=== PATIENT | female | born 1975 | race Caucasian/White ===

== ENCOUNTER → 2017-01-10 | Outpatient (REF) | payer MEDICARE, MEDICAID | LOC: M SFHCLERA 19:32 | PROVIDERS: ATTEND Nurse Practitioner Family | DX: R30.0 Dysuria (principal) | CPT/HCPCS: 81002; 87086; 96372; G0463; J1885 ==

== ENCOUNTER → 2017-01-13 | Outpatient (REF) | payer MEDICARE, MEDICAID | LOC: M SFHCLERA 13:10 | PROVIDERS: ATTEND Physician Assistant | DX: N39.0 Urinary tract infection, site not specified (principal) ==

== ENCOUNTER → 2017-04-26 | Outpatient (REF) | payer MEDICARE, MEDICAID | LOC: M SFHCLERA 12:08 | PROVIDERS: ATTEND Family Medicine | DX: E66.09 Other obesity due to excess calories (principal) ==

== ENCOUNTER → 2017-07-31 | Outpatient (REF) | payer MEDICARE, MEDICAID | LOC: M SFHCLERA 14:00 | DX: R30.0 Dysuria (principal) | CPT/HCPCS: 87086 ==

== ENCOUNTER → 2017-12-08 | Outpatient (CLI) | payer MEDICARE, MEDICAID | LOC: M RAD 07:03 | DX: G43.009 Migraine without aura, not intractable, without status migrainosus (principal) | CPT/HCPCS: 70551 ==

== ENCOUNTER → 2018-01-05 | Outpatient (CLI) | payer MEDICARE, MEDICAID | LOC: M PAIN 09:00 | DX: M54.81 Occipital neuralgia (principal); G43.709 Chronic migraine without aura, not intractable, without status migrainosus; M54.2 Cervicalgia; R26.89 Other abnormalities of gait and mobility; R06.09 Other forms of dyspnea; F17.210 Nicotine dependence, cigarettes, uncomplicated; J44.9 Chronic obstructive pulmonary disease, unspecified; Z79.899 Other long term (current) drug therapy; Z88.0 Allergy status to penicillin; Z88.8 Allergy status to other drugs, medicaments and biological substances | CPT/HCPCS: G0463 ==

== ENCOUNTER → 2018-05-17 | Outpatient (REF) | payer MEDICARE, MEDICAID ==
[2018-05-17 20:21] LABS: ALBUMIN 3.7 GM/DL (3.2-5.2); ALT/SGPT 32 U/L (12-78); BILIRUBIN,TOTAL 0.2 MG/DL (0.2-1.0); BLOOD UREA NITROGEN 19 MG/DL (7-18); CALCIUM LEVEL 9.2 MG/DL (8.5-10.1); CARBON DIOXIDE LEVEL 32 MEQ/L (21-32); CHLORIDE LEVEL 106 MEQ/L (98-107); CREATININE FOR GFR 0.89 MG/DL (0.55-1.30); FREE T4 1.03 NG/DL (0.76-1.46); GLOMERULAR FILTRATION RATE > 60.0 (>58); GLUCOSE, FASTING 98 MG/DL (70-100); POTASSIUM SERUM 4.2 MEQ/L (3.5-5.1); SODIUM LEVEL 143 MEQ/L (136-145); TOTAL PROTEIN 7.3 GM/DL (6.4-8.2)
[2018-05-17 20:27] LABS: HEMOGLOBIN A1c 5.9 %
== END ==
LOC: M SFHCLERA 14:35
PROVIDERS: ATTEND Family Medicine
DX: R23.2 Flushing (principal)
CPT/HCPCS: 80053; 83036; 84439; 84443; 99406; G0463

== ENCOUNTER → 2019-02-19 | Outpatient (CLI) | payer MEDICARE, MEDICAID ==
--- NOTE | 2019-02-19 13:35 | REP ---
BILATERAL SCREENING DIGITAL MAMMOGRAM WITH 3D TOMOSYNTHESIS: There are no palpable abnormalities or other breast complaints. The the patient states she had a clinical breast examination the july,. The Tyrer-Cuzick Score is: 10.0% . Comparison is 11/26/2014. There are scattered areas of fibroglandular density. There is no dominant mass, micro calcific cluster or architectural distortion that would indicate malignancy. There are no additional findings on 3D tomosynthesiss. There is no change from the prior study. Impression: BIRADS/ACR category 1 mammogram. Negative. Recommendation: Routine annual screening mammography. This mammogram was interpreted with the aid of a FDA approved computer-aided detection system. A. Negative mammogram reports should not delay biopsy if a dominant or clinically suspicious mass is present. B. Not all breast cancers are identified by mammography or tomosynthesis. C. Adenosis and dense breasts may obscure an underlying neoplasm. Patient letter M1. Electronically Signed by Rafael Linda MD 02/19/2019 01:26 P
== END ==
LOC: M RAD 10:37
PROVIDERS: ATTEND Family Medicine
DX: Z12.31 Encounter for screening mammogram for malignant neoplasm of breast (principal)

== ENCOUNTER → 2019-05-30 | Outpatient (REF) | payer MEDICARE, MEDICAID ==
[2019-05-30 11:47] LABS: BASO # 0.1 10^3/uL (0.0-0.2); BASO % 1.3 % (0.0-1.0); EOS # 0.2 10^3/uL (0.0-0.5); EOS % 3.8 % (0.0-3.0); HEMOGLOBIN 14.7 g/dl (12.0-15.5); LYMPH # 1.6 10^3/uL (1.5-5.0); LYMPH % 25.4 % (24.0-44.0); MEAN CORPUSCULAR HEMOGLOBIN 29.7 pg (27.0-33.0); MEAN CORPUSCULAR VOLUME 92.9 fl (80.0-96.0); MONO # 0.5 10^3/uL (0.0-0.8); MONO % 7.4 % (0.0-5.0); NEUTROPHILS # 3.9 10^3/uL (1.5-8.5); NEUTROPHILS % 61.9 % (36.0-66.0); PLATELET COUNT, AUTOMATED 278 10^3/uL (150-450); RED BLOOD COUNT 4.95 10^6/uL (4.00-5.40); WHITE BLOOD COUNT 6.3 10^3/uL (4.0-10.0)
[2019-05-30 12:09] LABS: ERYTHROCYTE SEDIMENTATION RATE 15 mm/hr (0-20)
[2019-05-30 12:27] LABS: HEMOGLOBIN A1c 5.4 %
[2019-05-30 12:33] LABS: ALBUMIN 3.5 GM/DL (3.2-5.2); ALT/SGPT 31 U/L (12-78); BILIRUBIN,TOTAL 0.3 MG/DL (0.2-1.0); BLOOD UREA NITROGEN 16 MG/DL (7-18); C REACTIVE PROTEIN QUANTITATIV 0.46 MG/DL (0.00-0.30); CALCIUM LEVEL 9.3 MG/DL (8.5-10.1); CARBON DIOXIDE LEVEL 31 MEQ/L (21-32); CHLORIDE LEVEL 106 MEQ/L (98-107); CREATININE FOR GFR 0.96 MG/DL (0.55-1.30); FREE T4 1.01 NG/DL (0.76-1.46); GLOMERULAR FILTRATION RATE > 60.0 (>58); GLUCOSE, FASTING 87 MG/DL (70-100); POTASSIUM SERUM 4.1 MEQ/L (3.5-5.1); SODIUM LEVEL 141 MEQ/L (136-145); TOTAL PROTEIN 7.2 GM/DL (6.4-8.2)
[2019-05-30 12:41] LABS: FOLATE 9.8 NG/ML; VITAMIN B12 LEVEL 407 PG/ML
== END ==
LOC: M SFHCLERA 09:53
PROVIDERS: ATTEND Family Medicine
DX: R20.0 Anesthesia of skin (principal); Z79.899 Other long term (current) drug therapy

== ENCOUNTER → 2019-05-30 | Outpatient (CLI) | payer MEDICARE, MEDICAID ==
--- NOTE | 2019-05-30 10:49 | REP ---
Eight views cervical spine: 2019. Indication: Neck pain. Comparison: None. Findings: There is no acute fracture, subluxation or dislocation. There is straightening of the cervical lordosis. There is no instability demonstrated on the flexion/extension views. No lytic or blastic lesions are detected. The prevertebral and additional visualized soft tissues are unremarkable. Multilevel spondylosis is present most pronounced at C5/C6. The neural foramen appear patent. Impression: No acute osseous cervical spine injury. Electronically Signed by Osmani Rodriguez DO 05/30/2019 10:41 A
== END ==
LOC: M LRY 10:10
PROVIDERS: ATTEND Family Medicine
DX: M47.892 Other spondylosis, cervical region (principal); M54.2 Cervicalgia; R20.0 Anesthesia of skin; Z79.899 Other long term (current) drug therapy
CPT/HCPCS: 72052; 80053; 82607; 82746; 83036; 84439; 84443; 85025; 85652; 86140; G0463

== ENCOUNTER → 2020-01-10 | Outpatient (CLI) | payer MEDICARE, MEDICAID ==
[~2020-01-10] MED LIST: PROHANCE 279.3MG/ML 15ML VIAL As Ordered ONE; PROHANCE 279.3MG/ML 5ML VIAL As Ordered ONE
--- NOTE | 2020-02-19 09:22 | REP ---
MRI OF THE ABDOMEN WITHOUT AND WITH IV GADOLINIUM: HISTORY: Liver mass left lobe 5.[address] study from [facility] on 10/30/19. COMPARISON: CT study from [facility] dated 10/30/19. Also reviewed is comparison MRI study from 12/08/14. GADOLINIUM ENHANCEMENT DOSE: 16 ml of intravenous ProHance. FINDINGS: There is a 4.7 cm T2 hyperintense, T1 hypointense, fairly homogeneous lesion in the left lobe of the liver. This is unchanged from the recent prior CT study of 10/30/19. It is somewhat larger than it was on 12/08/14, when it measured 3.6 cm. Dynamically acquired sequential post contrast images again demonstrate an early centripetal discontinuous pattern of contrast enhancement which incompletely fills in on subsequent post contrast images, consistent with benign hemangioma. It has gradually grown. It was described by report in 2008. No other liver lesion is appreciated. The spleen is homogeneous. No abnormality is noted in the pancreas or the kidneys. No filling defect is seen in the gallbladder to suggest cholelithiasis. No upper abdominal adenopathy or ascites seen. IMPRESSION: 4.7 cm hemangioma in the left lobe of the liver gradually increased in size from prior studies. MTDD
== END ==
LOC: M RAD 09:45
PROVIDERS: ATTEND Family Medicine
DX: K76.89 Other specified diseases of liver (principal); R16.0 Hepatomegaly, not elsewhere classified
CPT/HCPCS: A9576; C8902

== ENCOUNTER 2021-04-09 16:53 | Inpatient (IN) | payer MEDICARE, MEDICAID ==
[~2021-04-09] VITALS: Ht 160 cm; Wt 86.4 kg
--- OUTSIDE RECORDS SUMMARY | 2021-04-09 17:09 | CCD | Continuity of Care Document ---
Author Author Alexi LENZ RPA-C Organization Unknown Address [address] [place] [address], [address] [place] [address] Phone [phone] Care Team Providers Care Computer Methods Analyst Name Role Phone Saul England M.D. AUTM [phone] Sarah Milner M.D. AUTM [phone] Problems Active Problems Provider Date Allergic asthma without status asthmaticus Av Kuhn MD Onset: 03/17/2021 Social History Type Date Description Comments Sex Unknown ETOH Use Denies alcohol use Tobacco Use Start: Unknown Smokes 1 Pack A Day Tobacco Use Start: Unknown Report Cessation Counseling Was Provided Allergies and adverse reactions Active Allergies Criticality Reaction | Severity Comments Date Penicillin Unable to assess criticality 12/04/2014 Topamax Unable to assess criticality 12/04/2014 Medications Active Medications SIG Qnty Indications Ordering Provide r Date Suprep Bowel Prep Kit 17.5-3.13-1.6GM/177ML Solution take per doctor's bowel prep instructions. 354ml Z12.1 1 Av Kuhn MD 03/05/2020 Milk Of Magnesia 1200mg/15ML Suspe nsion take 45 milliliters by mouth as directed on colonoscopy prep sheet. Z12.11 Av Kuhn MD 03/05/2020 Breo Ellipta 100-25mcg/Inh Aerosol 1 inhalation daily Unknown Ventolin HFA 108(90Base) mcg/Act A erosol 2 puffs qid/prn Unknown Maxalt-CRYSTALIZER 10mg Tablets Dispers at onset of migraine Unknown Aspirin Ec Low Dose 81mg Tablets DR Daily Unknown Brilinta 90mg Tablets 1 by mouth every day Unknown Combipatch 0.05-0.14mg/Day Patches Biweek Every 2 weeks Unknown Immunizations Description No Information Available Vital Signs Date Vital Result Comment 03/17/2021 9:05am BP Systolic 124 mmHg BP Diastolic 86 mmHg Height 63 inches 5'3" Weight 193.00 lb BMI (Body Mass Index) 34.2 kg/m2 [place] Body Weight 115 lb Weight 87.545 kg BSA (Body Surface Area) 1.90 m2 03/05/2020 10:49am BP Systolic 124 mmHg BP Diastolic 86 mmHg Height 63 inches 5'3" Weight 185.00 lb BMI (Body Mass Index) 32.8 kg/m2 [place] Body Weight 115 lb Weight 83.916 kg BSA (Body Surface Area) 1.87 m2 Results Description No Information Available Procedures Description No Information Available Medical Devices Description No Information Available Encounters Description No Information Available Assessments Date Code Description Provider 03/17/2021 Z12.11 Encounter for screening for luis alberto gnant neoplasm of colon JAKOB Michael 03/17/2021 Z86.010 Personal history of colonic poly ps JAKOB Michael 03/17/2021 R10.12 Left upper quadrant pain JAKOB Michael Plan of Treatment 03/17/2021 - JAKOB Michael* Z12.11 Encounter for screening for malignant neoplasm of colon * Z86.010 Personal history of colonic polyps * R10.12 Left upper quadrant pain * * Follow up:* Will call patient. Functional Status Description No Information Available Mental Status Description No Information Available Referrals Description No Information Available
--- OUTSIDE RECORDS SUMMARY | 2021-04-09 17:09 | CCD | Continuity of Care Document ---
Author Author Alexi LEON Organization Unknown Address [facility] [place] [address] Phone [phone] Care Team Providers Care Boiler Service Technician Name Role Phone Rebecca Carlson AUTM [phone] Problems Description No Information Available Social History Type Date Description Comments Sex Unknown Tobacco Use Start: Unknown Patient is a current smoker, smo kes every day Allergies, Adverse Reactions, Alerts Active Allergies Criticality Reaction | Severity Comments Date Topamax Unable to assess criticality 02/28/2020 Penicillins Unable to assess criticality 02/28/2020 NKFA Unable to assess criticality 02/28/2020 Medications Active Medications SIG Qnty Indications Ordering Provide r Date Gabapentin 100mg Capsules Take 1 Capsule By Mouth Every Evening For 5 Days Then Take 1 Capsule Twice A Dayfor 5 Days Then 1 Three Times A Day Unknown 000 Ibuprofen 600mg Tablets Unknown Breo Ellipta 200-25mcg/Inh Aerosol Inhale One puff By Mouth Every Day Unknown Albuterol Sulfate HFA 108(90Base) mcg/Act Aerosol Unknown Brilinta 90mg Tablets Take One Tablet By Mouth Twice A Day Unknown Prempro 0.45-1.5mg Tablets Take One Tablet By Mouth Every Day Unknown Immunizations Description No Information Available Vital Signs Date Vital Result Comment 02/28/2021 10:58am BP Systolic 136 mmHg BP Diastolic 88 mmHg Heart Rate 84 /min Body Temperature 97.4 F Respiratory Rate 16 /min O2 % BldC Oximetry 97 % 02/28/2020 5:06pm BP Systolic 137 mmHg BP Diastolic 80 mmHg Heart Rate 81 /min Body Temperature 99.3 F O2 % BldC Oximetry 97 % Results Description No Information Available Procedures Description No Information Available Medical Devices Description No Information Available Encounters Description No Information Available Assessments Description No Information Available Plan of Treatment No Information Available Functional Status Description No Information Available Mental Status Description No Information Available Referrals Description No Information Available"
--- OUTSIDE RECORDS SUMMARY | 2021-04-09 17:09 | CCD ---
"Continuity of Care Document (CCD) Created on: 04/01/2021 [place] Jefebecca External Reference #: [id number] : 1975 Sex: Female Author Author Alexi PERLA Organization Unknown Address [address] [place] [address] Phone [phone] Care Team Providers Care Senior Procurement Specialist Name Role Phone Rebecca Carlson AUTM [phone] Problems Description No Information Available Social History Type Date Description Comments Sex Unknown Tobacco Use Start: Unknown Patient is a current smoker, smo kes every day Allergies and adverse reactions Active Allergies Criticality [...] Then 1 Three Times A Day Unknown /0 000 Ibuprofen 600mg Tablets Unknown Breo Ellipta 200-25mcg/Inh Aerosol Inhale One puff By Mouth Every Day Unknown Albuterol Sulfate HFA 108(90Base) mcg/Act Aerosol Unknown Brilinta 90mg Tablets Take One Tablet By Mouth Twice A Day Unknown Prempro 0.45-1.5mg Tablets Take One Tablet By Mouth Every Day Unknown History Medications Prednisone 20mg Tablets 2 tabs by mouth daily x 5 days 10tabs L23.6 Kieran Santos MD 02/28/2021 - 03/04/2021 Immunizations Description No Information Available Vital Signs Date Vital Result Comment 04/01/2021 7:15pm Heart Rate 82 /min Body Temperature 97.6 F O2 % BldC Oximetry 94 % 02/28/2021 10:58am BP Systolic 136 mmHg BP Diastolic 88 mmHg Heart Rate 84 /min Body Temperature 97.4 F Respiratory Rate 16 /min O2 % BldC Oximetry 97 % Results Test Acquired Date Facility Test Result H/L Range Note Laboratory test finding 04/01/2021 Yarely kolb Covid-19 <pending> Procedures Date Code Description Status 02/28/2021 25499 Office/Outpatient Established [facility] 10-19 Min Completed Medical Devices Description No Information Available Encounters Description No Information Available Assessments Date Code Description Provider 02/28/2021 L23.6 Allergic contact fanta matitis due to food in contact with the skin LOUIS Ricks Plan of Treatment 02/28/2021 - LOUIS Ricks* L23.6 Allergic contact dermatitis due to food in contact with the skin* New Medication:* Prednisone 20 mg - 2 tabs by mouth daily x 5 days * Comments:* 45-year-old female presents to the clinic with itchy swollen lips for the past 2-4 days. Patient believes this is secondary to an allergic reaction. No associated systemic allergic reaction noted. Will treat with a course of prednisone. Patient informs she can take an dpic-sye-wyghjcu antihistamine as needed. She was instructed to return to the clinic or go to the ER immediately for worsening or concerning symptoms. Patient advised to avoid putting any ointments/chapsticks on the area as this may make symptoms worse. Patient voiced understanding and agreement with this plan. All of her concerns were addressed. Functional Status Description No Information Available Mental Status Description No Information Available Referrals Description No Information Available"
--- OUTSIDE RECORDS SUMMARY | 2021-04-09 17:09 | CCD | Continuity of Care Document ---
Author Author Alexi PERLA Organization Unknown Address [address] [place] [address] Phone [phone] Care Team Providers Care Events Intern Name Role Phone Rebecca Carlson AUTM [phone] Problems Description No Information Available Social History [...] <pending> Procedures Date Code Description Status 02/28/2021 97209 Office/Outpatient Established [facility] 10-19 Min Completed Medical Devices Description No [...] prednisone. Patient informs she can take an eypd-gxd-lowbuhv antihistamine as needed. She was instructed to [...]
--- OUTSIDE RECORDS SUMMARY | 2021-04-09 17:09 | CCD | Continuity of Care Document ---
Author Author Alexi PERLA Organization Unknown Address [address] [place] [address] Phone [phone] Care Team Providers Care Top Executive Name Role Phone Rebecca Carlson AUTM [phone] Problems Description No Information Available Social History [...] <pending> Procedures Date Code Description Status 02/28/2021 68095 Office/Outpatient Established [facility] 10-19 Min Completed Medical Devices [...] prednisone. Patient informs she can take an [id number]-efu-rxzdjkc antihistamine as needed. She was instructed to [...]
--- OUTSIDE RECORDS SUMMARY | 2021-04-09 17:09 | CCD | Continuity of Care Document ---
Author Author Alexi PERLA Organization Unknown Address [address] [place] [address] Phone [phone] Care Team Providers Care Underground Heavy Equipment Operator Name Role Phone Rebecca Carlson AUTM [phone] Problems Description No Information Available Social History [...] <pending> Procedures Date Code Description Status 02/28/2021 [id number] Office/Outpatient Established [facility] 10-19 Min Completed Medical Devices [...] prednisone. Patient informs she can take an ctue-hsp-crnqixd antihistamine as needed. She was instructed to [...]
--- OUTSIDE RECORDS SUMMARY | 2021-04-09 17:10 | CCD ---
Author Author [facility] Organization [facility] Address Unknown Phone Unavailable Care Team Providers Care Snuff Blender Name Role Phone Rocio LOPEZ Unavailable Unavailable NESS ROMO Unavailable Unavailable Stuck, K Elvira PA Unavailable Unavailable Stuck, K Elvira PA Unavailable Unavailable Stuck, K Elvira PA Unavailable Unavailable Stuck, K Elvira PA Unavailable Unavailable Stuck, K Elvira PA Unavailable Unavailable Stuck, K Elvira PA Unavailable Unavailable Stuck, K Elvira PA Unavailable Unavailable Stuck, K Elvira PA Unavailable Unavailable Stuck, K Elvira PA Unavailable Unavailable Stuck, K Elvira PA Unavailable Unavailable Stuck, K Elvira PA Unavailable Unavailable Stuck, K Elvira PA Unavailable Unavailable Stuck, K Elvira PA Unavailable Unavailable Stuck, K Elvira PA Unavailable Unavailable Stuck, K Elvira PA Unavailable Unavailable Stuck, K Elvira PA Unavailable Unavailable Stuck, K Elvira PA Unavailable Unavailable Stuck, K Elvira PA Unavailable Unavailable Stuck, K Elvira PA Unavailable Unavailable Stuck, K Elvira PA Unavailable Unavailable Stuck, K Elvira PA Unavailable Unavailable Stuck, K Elvira PA Unavailable Unavailable Stuck, K Elvira PA Unavailable Unavailable Stuck, K Elvira PA Unavailable Unavailable Stuck, K Elvira PA Unavailable Unavailable Stuck, K Elvira PA Unavailable Unavailable Stuck, K Elvira PA Unavailable Unavailable Stuck, K Elvira PA Unavailable Unavailable Stuck, K Elvira PA Unavailable Unavailable Stuck, K Elvira PA Unavailable Unavailable Stuck, K Elvira PA Unavailable Unavailable Stuck, K Elvira PA Unavailable Unavailable Stuck, K Elvira PA Unavailable Unavailable Stuck, K Elvira PA Unavailable Unavailable Stuck, K Elvira PA Unavailable Unavailable Stuck, K Elvira PA Unavailable Unavailable Stuck, K Elvira PA Unavailable Unavailable Stuck, K Elvira PA Unavailable Unavailable Stuck, K Elvira PA Unavailable Unavailable Stuck, K Elvira PA Unavailable Unavailable Stuck, K Elvira PA Unavailable Unavailable Stuck, K Elvira PA Unavailable Unavailable Bartoszewski, Holly Nikki MS, RPA-C Unavailable Unav ailable Bartoszewski, Holly Nikki MS, RPA-C Unavailable Unav ailable Bartoszewski, Holly Nikki MS, RPA-C Unavailable Unav ailable Bartoszewski, Holly Nikki MS, RPA-C Unavailable Unav ailable Bartoszewski, Holly Nikki MS, RPA-C Unavailable Unav ailable Bartoszewski, Holly Nikki MS, RPA-C Unavailable Unav ailable Bartoszewski, Holly Nikki MS, RPA-C Unavailable Unav ailable Bartoszewski, Holly Nikki MS, RPA-C Unavailable Unav ailable Bartoszewski, Holly Nikki MS, RPA-C Unavailable Unav ailable Bartoszewski, Holly Nikki MS, RPA-C Unavailable Unav ailable Bartoszewski, Holly Nikki MS, RPA-C Unavailable Unav ailable Bartoszewski, Holly Nikki MS, RPA-C Unavailable Unav ailable Bartoszewski, Holly Nikki MS, RPA-C Unavailable Unav ailable Bartoszewski, Holly Nikki MS, RPA-C Unavailable Unav ailable Bartoszewski, Holly Nikki MS, RPA-C Unavailable Unav ailable Bartoszewski, Holly Nikki MS, RPA-C Unavailable Unav ailable Bartoszewski, Holly Nikki MS, RPA-C Unavailable Unav ailable Bartoszewski, Holly Nikki MS, RPA-C Unavailable Unav ailable Bartoszewski, Holly Nikki MS, RPA-C Unavailable Unav ailable Bartoszewski, Holly Nikki MS, RPA-C Unavailable Unav ailable Bartoszewski, Holly Nikki MS, RPA-C Unavailable Unav ailable Bartoszewski, Holly Nikki MS, RPA-C Unavailable Unav ailable Bartoszewski, Holly Nikki MS, RPA-C Unavailable Unav ailable Bartoszewski, Holly Nikki MS, RPA-C Unavailable Unav ailable Bartoszewski, Holly Nikki MS, RPA-C Unavailable Unav ailable Bartoszewski, Holly Nikki MS, RPA-C Unavailable Unav ailable Bartoszewski, Holly Nikki MS, RPA-C Unavailable Unav ailable Bartoszewski, Holly Nikki MS, RPA-C Unavailable Unav ailable Bartoszewski, Holly Nikki MS, RPA-C Unavailable Unav ailable Bartoszewski, Holly Nikki MS, RPA-C Unavailable Unav ailable Pina Yung PA-C Unavailable Unavailable Pina Yung PA-C Unavailable Unavailable Trickey, J Selena PA Unavailable Unavailable Trickey, J Selena PA Unavailable Unavailable Trickey, J Selena PA Unavailable Unavailable Trickey, J Selena PA Unavailable Unavailable Trickey, J Selena PA Unavailable Unavailable Trickey, J Selena PA Unavailable Unavailable Trickey, J Selena PA Unavailable Unavailable Trickey, J Selena PA Unavailable Unavailable Trickey, J Selena PA Unavailable Unavailable Trickey, J Selena PA Unavailable Unavailable Trickey, J Selena PA Unavailable Unavailable Trickey, J Selena PA Unavailable Unavailable Trickey, J Selena PA Unavailable Unavailable Trickey, J Selena PA Unavailable Unavailable Trickey, J Selena PA Unavailable Unavailable Trickey, J Selena PA Unavailable Unavailable Trickey, J Selena PA Unavailable Unavailable Trickey, J Selena PA Unavailable Unavailable Trickey, J Selena PA Unavailable Unavailable Trickey, J Selena PA Unavailable Unavailable Trickey, J Selena PA Unavailable Unavailable Trickey, J Selena PA Unavailable Unavailable Trickey, J Selena PA Unavailable Unavailable Trickey, J Selena PA Unavailable Unavailable Trickey, J Selena PA Unavailable Unavailable Trickey, J Selena PA Unavailable Unavailable Trickey, J Selena PA Unavailable Unavailable Trickey, J Selena PA Unavailable Unavailable Trickey, J Selena PA Unavailable Unavailable Trickey, J Selena PA Unavailable Unavailable Trickey, J Selena PA Unavailable Unavailable Trickey, J Selena PA Unavailable Unavailable Trickey, J Selena PA Unavailable Unavailable Trickey, J Selena PA Unavailable Unavailable Trickey, J Selena PA Unavailable Unavailable Trickey, J Selena PA Unavailable Unavailable Trickey, J Selena PA Unavailable Unavailable Trickey, J Selena PA Unavailable Unavailable Trickey, J Selena PA Unavailable Unavailable Trickey, J Selena PA Unavailable Unavailable Trickey, J Selena PA Unavailable Unavailable Trickey, J Selena PA Unavailable Unavailable Trickey, J Selena PA Unavailable Unavailable Trickey, J Selena PA Unavailable Unavailable Trickey, J Selena PA Unavailable Unavailable Trickey, J Selena PA Unavailable Unavailable Trickey, J Selena PA Unavailable Unavailable Trickey, J Selena PA Unavailable Unavailable Trickey, J Selena PA Unavailable Unavailable Rocio PATEL MD Unavailable Unavailable Rocio PATEL MD Unavailable Unavailable Rocio PATEL MD Unavailable Unavailable Rocio PATEL MD Unavailable Unavailable Rocio PATEL MD Unavailable Unavailable Rocio PATEL MD Unavailable Unavailable Rocio PATEL MD Unavailable Unavailable Rocio PATEL MD Unavailable Unavailable Rocio PATEL MD Unavailable Unavailable Rocio PATEL MD Unavailable Unavailable Rocio PATEL MD Unavailable Unavailable Rocio PATEL MD Unavailable Unavailable Rocio PATEL MD Unavailable Unavailable Rocio PATEL MD Unavailable Unavailable Rocio PATEL MD Unavailable Unavailable Rocio PATEL MD Unavailable Unavailable Rocio PATEL MD Unavailable Unavailable Rocio PATEL MD Unavailable Unavailable Rocio PATEL MD Unavailable Unavailable Rocio PATEL MD Unavailable Unavailable Rocio PATEL MD Unavailable Unavailable Rocio PATEL MD Unavailable Unavailable Rocio PATEL MD Unavailable Unavailable Rocio PATEL MD Unavailable Unavailable Rocio PATEL MD Unavailable Unavailable Rocio PATEL MD Unavailable Unavailable Rocio PATEL MD Unavailable Unavailable Rocio PATEL MD Unavailable Unavailable Rocio PATEL MD Unavailable Unavailable Rocio PATEL MD Unavailable Unavailable Rocio PATEL MD Unavailable Unavailable Rocio PATEL MD Unavailable Unavailable Rocio PATEL MD Unavailable Unavailable Rocio PATEL MD Unavailable Unavailable Rocio PATEL MD Unavailable Unavailable Rocio PATEL MD Unavailable Unavailable Rocio PATEL MD Unavailable Unavailable Rocio PATEL MD Unavailable Unavailable Rocio PATEL MD Unavailable Unavailable Rocio PATEL MD Unavailable Unavailable Rocio PATEL MD Unavailable Unavailable Rocio PATEL MD Unavailable Unavailable Rocio PATEL MD Unavailable Unavailable Rocio PATEL MD Unavailable Unavailable Rocio PATEL MD Unavailable Unavailable Rocio PATEL MD Unavailable Unavailable Rocio PATEL MD Unavailable Unavailable Rocio PATEL MD Unavailable Unavailable Rocio PATEL MD Unavailable Unavailable Rocio PATEL MD Unavailable Unavailable Isabell BURTON MD Unavailable Unavailable Isabell BURTON MD Unavailable Unavailable Isabell BURTON MD Unavailable Unavailable Isabell BURTON MD Unavailable Unavailable Isabell BURTON MD Unavailable Unavailable BURTONIsabell YOUNGBLOOD GRAHANITHA SCHAFER Unavailable Unavailable BURTONIsabell YOUNGBLOOD GRAHANITHA SCHAFER Unavailable Unavailable BURTON, C GRAHANITHA SCHAFER Unavailable Unavailable BURTON, C GRAHANITHA SCHAFER Unavailable Unavailable BURTON, C GRAHANITHA SCHAFER Unavailable Unavailable BURTON, C GRAHANITHA SCHAFER Unavailable Unavailable BURTON, C GRAHANITHA SCHAFER Unavailable Unavailable BURTON, C GRAHANITHA SCHAFER Unavailable Unavailable BURTON, C GRAHANITHA SCHAFER Unavailable Unavailable BURTON, C GRAHANITHA SCHAFER Unavailable Unavailable BURTON, C GRAHANITHA SCHAFER Unavailable Unavailable BURTON, C GRAHANITHA SCHAFER Unavailable Unavailable BURTON, C GRAHANITHA SCHAFER Unavailable Unavailable BURTON, C GRAHANITHA SCHAFER Unavailable Unavailable BURTON C GRAHAME Unavailable Unavailable BURTON, C GRAHAME Unavailable Unavailable BURTON C GRAHAME Unavailable Unavailable BURTON C GRAHAME Unavailable Unavailable BURTON C GRAHAME Unavailable Unavailable BURTON C GRAHAME Unavailable Unavailable BURTON C GRAHAME Unavailable Unavailable BURTON C GRAHAME MD Unavailable Unavailable BURTON, C GRAHAME MD Unavailable Unavailable BURTON, C GRAHAME MD Unavailable Unavailable BURTON, C GRAHAME MD Unavailable Unavailable BURTON C GRAHAME Unavailable Unavailable BURTON, C GRAHAME MD Unavailable Unavailable BURTON, C GRAHAME MD Unavailable Unavailable BURTON, C GRAHAME MD Unavailable Unavailable JOSEPHINE C RAINE SCHAFER Unavailable Unavailable BURTON, C GRAHAME MD Unavailable Unavailable BURTON, C GRAHANITHA SCHAFER Unavailable Unavailable BURTON, C GRAHANITHA SCHAFER Unavailable Unavailable BURTON, C GRAHAME MD Unavailable Unavailable BURTON, C GRAHAME MD Unavailable Unavailable BURTON C GRAHAME MD Unavailable Unavailable BURTON, C GRAHAME MD Unavailable Unavailable BURTON C GRAHAME MD Unavailable Unavailable BURTON, C GRAHAME MD Unavailable Unavailable BURTON, C GRAHAME MD Unavailable Unavailable BURTON C GRAHAME MD Unavailable Unavailable BURTON C GRAHAME MD Unavailable Unavailable BURTON, C GRAHAME MD Unavailable Unavailable BURTON, C GRAHAME MD Unavailable Unavailable BURTON, C GRAHAME MD Unavailable Unavailable BURTON, C GRAHANITHA SCHAFER Unavailable Unavailable BURTON, C RAINE SCHAFER Unavailable Unavailable Isabell BURTON MD Unavailable Unavailable Isabell BURTON MD Unavailable Unavailable Isabell BURTON MD Unavailable Unavailable Isabell BURTON MD Unavailable Unavailable Isabell BURTON MD Unavailable Unavailable Isabell BURTON MD Unavailable Unavailable Isabell BURTON MD Unavailable Unavailable Isabell BURTON MD Unavailable Unavailable Isabell BURTON MD Unavailable Unavailable Emily Guevara MD Unavailable Unavailable Emily Guevara MD Unavailable Unavailable Emily Guevara MD Unavailable Unavailable Emily Guevara MD Unavailable Unavailable Emily Guevara MD Unavailable Unavailable Emily Guevara MD Unavailable Unavailable Emily Guevara MD Unavailable Unavailable Emily Guevara MD Unavailable Unavailable Emily Guevara MD Unavailable Unavailable Emily Guevara MD Unavailable Unavailable Emily Guevara MD Unavailable Unavailable NOHEMY, L ARMANDO PA Unavailable Unavailable NOHEMY, L ARMANDO PA Unavailable Unavailable NOHEMY, L ARMANDO PA Unavailable Unavailable NOHEMY, L ARMANDO PA Unavailable Unavailable NOHEMY, L ARMANDO PA Unavailable Unavailable NOHEMY, L ARMANDO PA Unavailable Unavailable NOHEMY, L ARMANDO PA Unavailable Unavailable NOHEMY, L ARMANDO PA Unavailable Unavailable NOHEMY, L ARMANDO PA Unavailable Unavailable NOHEMY, L ARMANDO PA Unavailable Unavailable NOHEMY, L ARMANDO PA Unavailable Unavailable NOHEMY, L ARMANDO PA Unavailable Unavailable NOHEMY, L ARMANDO PA Unavailable Unavailable NOHEMY, L ARMANDO PA Unavailable Unavailable NOHEMY, L ARMANDO PA Unavailable Unavailable NOHEMY, L ARMANDO PA Unavailable Unavailable NOHEMY, L ARMANDO PA Unavailable Unavailable NOHEMY, L ARMANDO PA Unavailable Unavailable NOHEMY, L ARMANDO PA Unavailable Unavailable NOHEMY, L ARMANDO PA Unavailable Unavailable NOHEMY, L ARMANDO PA Unavailable Unavailable NOHEMY, L ARMANDO PA Unavailable Unavailable NOHEMY, L ARMANDO PA Unavailable Unavailable NOHEMY, L ARMANDO PA Unavailable Unavailable NOHEMY, L ARMANDO PA Unavailable Unavailable NOHEMY, L ARMANDO PA Unavailable Unavailable NOHEMY, L ARMANDO PA Unavailable Unavailable NOHEMY, L ARMANDO PA Unavailable Unavailable NOHEMY, L ARMANDO PA Unavailable Unavailable NOHEMY, L ARMANDO PA Unavailable Unavailable NOHEMY, L ARMANDO PA Unavailable Unavailable NOHEMY, L ARMANDO PA Unavailable Unavailable NOHEMY, L ARMANDO PA Unavailable Unavailable NOHEMY, L ARMANDO PA Unavailable Unavailable NOHEMY, L ARMANDO PA Unavailable Unavailable NOHEMY, L ARMANDO PA Unavailable Unavailable NOHEMY, L ARMANDO PA Unavailable Unavailable NOHEMY, L ARMANDO PA Unavailable Unavailable NOHEMY, L ARMANDO PA Unavailable Unavailable NOHEMY, L ARMANDO PA Unavailable Unavailable NOHEMY, L ARMANDO PA Unavailable Unavailable NOHEMY, L ARMANDO PA Unavailable Unavailable NOHEMY, L ARMANDO PA Unavailable Unavailable NOHEMY, L ARMANDO PA Unavailable Unavailable Rocio PATEL MD Unavailable Unavailable Rocio PATEL MD Unavailable Unavailable Rocio PATEL MD Unavailable Unavailable Rocio PATEL MD Unavailable Unavailable Rocio PATEL MD Unavailable Unavailable Rocio PATEL MD Unavailable Unavailable Rocio PATEL MD Unavailable Unavailable Rocio PATEL MD Unavailable Unavailable Rocio PATEL MD Unavailable Unavailable Rocio PATEL MD Unavailable Unavailable Rocio PATEL MD Unavailable Unavailable Rocio PATEL MD Unavailable Unavailable Rocio PATEL MD Unavailable Unavailable Rocio PATEL MD Unavailable Unavailable Rocio PATEL MD Unavailable Unavailable Rocio PATEL MD Unavailable Unavailable Rocio PATEL MD Unavailable Unavailable Rocio PATEL MD Unavailable Unavailable Rocio PATEL MD Unavailable Unavailable Rocio PATEL MD Unavailable Unavailable Rocio PATEL MD Unavailable Unavailable Rocio PATEL MD Unavailable Unavailable Rocio PATEL MD Unavailable Unavailable Rocio PATEL MD Unavailable Unavailable Rocio PATEL MD Unavailable Unavailable Rocio PATEL MD Unavailable Unavailable Rocio PATEL MD Unavailable Unavailable Rocio PATEL MD Unavailable Unavailable Rocio PATEL MD Unavailable Unavailable Rocio PATEL MD Unavailable Unavailable Rocio PATEL MD Unavailable Unavailable Rocio PATEL MD Unavailable Unavailable Rocio PATEL MD Unavailable Unavailable Rocio PATEL MD Unavailable Unavailable Rocio PATEL MD Unavailable Unavailable Rocio PATEL MD Unavailable Unavailable Rocio PATEL MD Unavailable Unavailable Rocio PATEL MD Unavailable Unavailable Rocio PATEL MD Unavailable Unavailable Rocio PATEL MD Unavailable Unavailable Rocio PATEL MD Unavailable Unavailable Rocio PATEL MD Unavailable Unavailable Rocio PATEL MD Unavailable Unavailable Rocio PATEL MD Unavailable Unavailable Rocio PATEL MD Unavailable Unavailable Rocio PATEL MD Unavailable Unavailable Rocio PATEL MD Unavailable Unavailable Rocio PATEL MD Unavailable Unavailable Rocio PATEL MD Unavailable Unavailable Rocio PATEL MD Unavailable Unavailable Stuck, K Elvira PA Unavailable Unavailable Stuck, K Elvira PA Unavailable Unavailable Stuck, K Elvira PA Unavailable Unavailable Stuck, K Elvira PA Unavailable Unavailable Stuck, K Elvira PA Unavailable Unavailable Stuck, K Elvira PA Unavailable Unavailable Stuck, K Elvira PA Unavailable Unavailable Stuck, K Elvira PA Unavailable Unavailable Stuck, K Elvira PA Unavailable Unavailable Stuck, K Elvira PA Unavailable Unavailable Stuck, K Elvira PA Unavailable Unavailable Stuck, K Elvira PA Unavailable Unavailable Stuck, K Elvira PA Unavailable Unavailable Stuck, K Elvira PA Unavailable Unavailable Stuck, K Elvira PA Unavailable Unavailable Stuck, K Elvira PA Unavailable Unavailable Stuck, K Elvira PA Unavailable Unavailable Stuck, K Elvira PA Unavailable Unavailable Stuck, K Elvira PA Unavailable Unavailable Stuck, K Elvira PA Unavailable Unavailable Stuck, K Elvira PA Unavailable Unavailable Stuck, K Elvira PA Unavailable Unavailable Stuck, K Elvira PA Unavailable Unavailable Stuck, K Elvira PA Unavailable Unavailable Stuck, K Elvira PA Unavailable Unavailable Stuck, K Elvira PA Unavailable Unavailable Stuck, K Elvira PA Unavailable Unavailable Stuck, K Elvira PA Unavailable Unavailable Stuck, K Elvira PA Unavailable Unavailable Stuck, K Elvira PA Unavailable Unavailable Stuck, K Elvira PA Unavailable Unavailable Stuck, K Elvira PA Unavailable Unavailable Stuck, K Elvira PA Unavailable Unavailable Stuck, K Elvira PA Unavailable Unavailable Stuck, K Elvira PA Unavailable Unavailable Stuck, K Elvira PA Unavailable Unavailable Stuck, K Elvira PA Unavailable Unavailable Stuck, K Elvira PA Unavailable Unavailable Stuck, K Elvira PA Unavailable Unavailable Stuck, K Elvira PA Unavailable Unavailable Stuck, K Elvira PA Unavailable Unavailable Stuck, K Elvira PA Unavailable Unavailable Isabell BURTON MD Unavailable Unavailable Isabell BURTON MD Unavailable Unavailable BURTON, C GRAHAME MD Unavailable Unavailable BURTON, C GRAHAME MD Unavailable Unavailable BURTON, C GRAHAME MD Unavailable Unavailable BURTON, C GRAHAME MD Unavailable Unavailable BURTON, C GRAHAME MD Unavailable Unavailable BURTON, C GRAHAME MD Unavailable Unavailable BURTON, C GRAHAME MD Unavailable Unavailable BURTON, C GRAHAME MD Unavailable Unavailable BURTON, C GRAHAME MD Unavailable Unavailable BURTON, C GRAHAME MD Unavailable Unavailable BURTON, C GRAHAME MD Unavailable Unavailable BURTON, C GRAHAME MD Unavailable Unavailable BURTON, C GRAHAME MD Unavailable Unavailable BURTON, C GRAHAME MD Unavailable Unavailable BURTON, C GRAHAME MD Unavailable Unavailable BURTON, C GRAHAME MD Unavailable Unavailable BURTON, C GRAHAME MD Unavailable Unavailable BURTON, C GRAHAME MD Unavailable Unavailable BURTON, C GRAHAME MD Unavailable Unavailable BURTON, C GRAHAME MD Unavailable Unavailable BURTON, C GRAHAME MD Unavailable Unavailable BURTON, C GRAHAME MD Unavailable Unavailable BURTON, C GRAHAME MD Unavailable Unavailable BURTON, C GRAHAME MD Unavailable Unavailable BURTON, C GRAHAME MD Unavailable Unavailable BURTON, C GRAHAME MD Unavailable Unavailable BURTON, C GRAHAME MD Unavailable Unavailable BURTON, C GRAHAME MD Unavailable Unavailable BURTON, C GRAHAME MD Unavailable Unavailable BURTON, C GRAHAME MD Unavailable Unavailable BURTON, C GRAHAME MD Unavailable Unavailable BURTON, C GRAHAME MD Unavailable Unavailable BURTON, C GRAHAME MD Unavailable Unavailable BURTON, C GRAHAME MD Unavailable Unavailable BURTON, C GRAHAME MD Unavailable Unavailable BURTON, C GRAHAME MD Unavailable Unavailable BURTON, C GRAHAME MD Unavailable Unavailable BURTON, C GRAHAME MD Unavailable Unavailable BURTON, C GRAHAME MD Unavailable Unavailable BURTON, C GRAHAME MD Unavailable Unavailable BURTON, C GRAHAME MD Unavailable Unavailable BURTON, C GRAHAME MD Unavailable Unavailable BURTON, C GRAHAME MD Unavailable Unavailable UBRTON, C GRAHAME MD Unavailable Unavailable BURTON, C GRAHAME MD Unavailable Unavailable BURTON, C GRAHAME MD Unavailable Unavailable BURTON, C GRAHAME MD Unavailable Unavailable BURTON, C GRAHAME MD Unavailable Unavailable BURTON, C GRAHAME MD Unavailable Unavailable BURTON, C GRAHAME MD Unavailable Unavailable BURTON, C GRAHAME MD Unavailable Unavailable BURTON, C GRAHAME MD Unavailable Unavailable BURTON, C GRAHAME MD Unavailable Unavailable BURTON, C GRAHAME MD Unavailable Unavailable BURTON, C GRAHAME MD Unavailable Unavailable BURTON, C GRAHAME MD Unavailable Unavailable BURTON, C GRAHAME MD Unavailable Unavailable Isabell BURTON MD Unavailable Unavailable Isabell BURTON MD Unavailable Unavailable BECKY, R LISANDRO Unavailable Unavailable Gordon NEGRETE MD Unavailable Unavailable PENELOPE, Gordon ANDERSON MD Unavailable Unavailable PENELOPE, Gordon ANDERSON MD Unavailable Unavailable PENELOPE, Gordon ANDERSON MD Unavailable Unavailable PENELOPE, Gordon ANDERSON MD Unavailable Unavailable PENELOPE, Gordon ANDERSON MD Unavailable Unavailable PENELOPE, Gordon ANDERSON MD Unavailable Unavailable PENELOPE, Gordon ANDERSON MD Unavailable Unavailable PENELOPE, Gordon ANDERSON MD Unavailable Unavailable PENELOPE, S MONICA SCHAFER Unavailable Unavailable ARMINDA, ALLIE MD Unavailable Unavailable ARMINDA, ALLIE MD Unavailable Unavailable ARMINDA, ALLIE MD Unavailable Unavailable ARMINDA, ALLIE MD Unavailable Unavailable ARMINDA, ALLIE MD Unavailable Unavailable ARMINDA, ALLIE MD Unavailable Unavailable ARMINDA, ALLIE MD Unavailable Unavailable ARMINDA, ALLIE MD Unavailable Unavailable ARMINDA, ALLIE MD Unavailable Unavailable ARMINDA, ALLIE MD Unavailable Unavailable ARIMNDA, ALLIE MD Unavailable Unavailable ARMINDA, ALLIE MD Unavailable Unavailable ARMINDA, ALLIE MD Unavailable Unavailable ARMINDA, ALLIE MD Unavailable Unavailable ARMINDA, ALLIE MD Unavailable Unavailable ARMINDA, ALLIE MD Unavailable Unavailable ARMINDA, ALLIE MD Unavailable Unavailable ARMINDA, ALLIE MD Unavailable Unavailable ARMINDA, ALLIE MD Unavailable Unavailable ARMINDA, ALLIE MD Unavailable Unavailable ARMINDA, ALLIE MD Unavailable Unavailable ARMINDA, ALLIE MD Unavailable Unavailable ARMINDA, ALLIE MD Unavailable Unavailable ARMINDA, ALLIE MD Unavailable Unavailable ARMINDA, ALLIE MD Unavailable Unavailable ARMINDA, ALLIE MD Unavailable Unavailable ARMINDA, ALLIE MD Unavailable Unavailable ARMINDA, ALLIE MD Unavailable Unavailable ARMINDA, ALLIE MD Unavailable Unavailable ARMINDA, ALLIE MD Unavailable Unavailable ARMINDA, ALLIE MD Unavailable Unavailable ARMINDA, ALLIE MD Unavailable Unavailable ARMINDA, ALLIE MD Unavailable Unavailable ARMINDA, ALLIE MD Unavailable Unavailable ARMINDA, ALLIE MD Unavailable Unavailable ARMINDA, ALLIE MD Unavailable Unavailable ARMINDA, ALLIE MD Unavailable Unavailable ARMINDA, ALLIE MD Unavailable Unavailable ARMINDA, ALLIE MD Unavailable Unavailable ARMINDA, ALLIE MD Unavailable Unavailable ARMIDNA, ALLIE MD Unavailable Unavailable ARMINDA, ALLIE MD Unavailable Unavailable ARMINDA, ALLIE MD Unavailable Unavailable Deb NIÑO Unavailable Unavailable RENAY, W LUZ Unavailable Unavailable RENAY, W LUZ Unavailable Unavailable RENAY, W LUZ Unavailable Unavailable RENAY, W LUZ Unavailable Unavailable RENAY, W LUZ Unavailable Unavailable RENAY, W LUZ Unavailable Unavailable RENAY, W LUZ Unavailable Unavailable RENAY, W LUZ Unavailable Unavailable RENAY, W LUZ Unavailable Unavailable RENAY, W LUZ Unavailable Unavailable RENAY, W LUZ Unavailable Unavailable RENAY, W LUZ Unavailable Unavailable RENAY, W LUZ Unavailable Unavailable RENAY, W LUZ Unavailable Unavailable RENAY, W LUZ Unavailable Unavailable RENAY, W LUZ Unavailable Unavailable RENAY, W LUZ Unavailable Unavailable RENAY, W LUZ Unavailable Unavailable RENAY, W LUZ Unavailable Unavailable RENAY, W LUZ Unavailable Unavailable RENAY, W LUZ Unavailable Unavailable RENAY, W LUZ Unavailable Unavailable RENAY, W LUZ Unavailable Unavailable RENAY, W LUZ Unavailable Unavailable RENAY, W LUZ Unavailable Unavailable RENAY, W LUZ Unavailable Unavailable RENAY, W LUZ Unavailable Unavailable RENAY, W LUZ Unavailable Unavailable RENAY, W LUZ Unavailable Unavailable REANY, W LUZ Unavailable Unavailable RENAY, W LUZ Unavailable Unavailable RENAY, W LUZ Unavailable Unavailable RENAY, W LUZ Unavailable Unavailable RENAY, W LUZ Unavailable Unavailable RENAY, W LUZ Unavailable Unavailable RENAY, W LUZ Unavailable Unavailable RENAY, W LUZ Unavailable Unavailable RENAY, W LUZ Unavailable Unavailable Chicho Olivo MD Unavailable Unavailable Brian, MAXWELL ILIANA METAL WASHING MACHINE OPERATOR Unavailable Unavailabl e Brian, MAXWELL ILIANA METAL WASHING MACHINE OPERATOR Unavailable Unavailabl e Moline, MAXWELL ILIANA METAL WASHING MACHINE OPERATOR Unavailable Unavailabl e [place], MAXWELL ILIANA METAL WASHING MACHINE OPERATOR Unavailable Unavailabl e Brian, MAXWELL ILIANA METAL WASHING MACHINE OPERATOR Unavailable Unavailabl e Moline, MAXWELL ILIANA METAL WASHING MACHINE OPERATOR Unavailable Unavailabl e Brian, MAXWELL ILIANA METAL WASHING MACHINE OPERATOR Unavailable Unavailabl e Moline, MAXWELL ILIANA METAL WASHING MACHINE OPERATOR Unavailable Unavailabl e Moline, MAXWELL ILIANA METAL WASHING MACHINE OPERATOR Unavailable Unavailabl e Moline, MAXWELL ILIANA METAL WASHING MACHINE OPERATOR Unavailable Unavailabl e Brian, MAXWELL ILIANA METAL WASHING MACHINE OPERATOR Unavailable Unavailabl e M[place], MAXWELL ILIANA METAL WASHING MACHINE OPERATOR Unavailable Unavailabl e Brian, MAXWELL ILIANA METAL WASHING MACHINE OPERATOR Unavailable Unavailabl e M[place], MAXWELL ILIANA METAL WASHING MACHINE OPERATOR Unavailable Unavailabl e Moline, MAXWELL ILIANA METAL WASHING MACHINE OPERATOR Unavailable Unavailabl e Brian, MAXWELL ILIANA METAL WASHING MACHINE OPERATOR Unavailable Unavailabl e Brian, MAXWELL BARRIENTOS METAL WASHING MACHINE OPERATOR Unavailable Unavailabl e Brian, MAXWELL CARRNIFER METAL WASHING MACHINE OPERATOR Unavailable Unavailabl e [place] II, A Saul SCHAFER Unavailable Unavailable [place] II, A Saul SCHAFER Unavailable Unavailable [place] II, A Saul SCHAFER Unavailable Unavailable [place] II, A Saul SCHAFER Unavailable Unavailable [place] II, A Saul SCHAFER Unavailable Unavailable [place] II, A Saul SCHAFER Unavailable Unavailable [place] II, A Saul SCHAFER Unavailable Unavailable [place] II, A Saul SCHAFER Unavailable Unavailable [place] II, A Saul SCHAFER Unavailable Unavailable [place] II, A Saul SCHAFER Unavailable Unavailable [place] II, A Saul SCHAFER Unavailable Unavailable [place] II, A Saul SCHAFER Unavailable Unavailable [place] II, A Saul SCHAFER Unavailable Unavailable [place] II, A Saul SCHAFER Unavailable Unavailable [place] II, A Saul SCHAFER Unavailable Unavailable [place] II, A Saul SCHAFER Unavailable Unavailable [place] II, A Saul SCHAFER Unavailable Unavailable [place] II, A Saul SCHAFER Unavailable Unavailable [place] II, A Saul SCHAFER Unavailable Unavailable [place] II, A Saul SCHAFER Unavailable Unavailable [place] II, A Saul SCHAFER Unavailable Unavailable [place] II, A Saul SCHAFER Unavailable Unavailable [place] II, A Saul SCHAFER Unavailable Unavailable [place] II, A Saul SCHAFER Unavailable Unavailable [place] II, A Saul SCHAFER Unavailable Unavailable [place] II, A Saul SCHAFER Unavailable Unavailable [place] II, A Saul SCHAFER Unavailable Unavailable [place] II, A Saul SCHAFER Unavailable Unavailable [place] II, A Saul SCHAFER Unavailable Unavailable [place] II, A Saul SCHAFER Unavailable Unavailable [place] II, A Saul SCHAFER Unavailable Unavailable [place] II, A Saul SCHAFER Unavailable Unavailable [place] II, A Saul SCHAFER Unavailable Unavailable [place] II, A Saul SCHAFER Unavailable Unavailable [place] II, A Saul SCHAFER Unavailable Unavailable [place] II, A Saul SCHAFER Unavailable Unavailable [place] II, A Saul SCHAFER Unavailable Unavailable [place] II, A Saul SCHAFER Unavailable Unavailable [place] II, A Saul SCHAFER Unavailable Unavailable [place] II, A Saul SCHAFER Unavailable Unavailable [place] II, A Saul SCHAFER Unavailable Unavailable [place] II, A Saul SCHAFER Unavailable Unavailable [place] II, A Saul SCHAFER Unavailable Unavailable [place] II, A Saul SCHAFER Unavailable Unavailable [place] II, A Saul SCHAFER Unavailable Unavailable [place] II, A Saul MD Unavailable Unavailable [place] II, A Saul MD Unavailable Unavailable [place] II, A Saul MD Unavailable Unavailable [place] II, A Saul MD Unavailable Unavailable [place] II, A Saul MD Unavailable Unavailable [place] II, A Saul MD Unavailable Unavailable [place] II, A Saul MD Unavailable Unavailable [place] II, A Saul MD Unavailable Unavailable [place] II, A Saul MD Unavailable Unavailable [place] II, A Saul MD Unavailable Unavailable [place] II, A Saul MD Unavailable Unavailable SAMI, DENNIS Unavailable Unavailable CHANLIECCO, C LORENA MD Unavailable Unavailable CHANLIECCO, C LORENA MD Unavailable Unavailable CHANLIECCO, C LORENA MD Unavailable Unavailable CHANLIECCO, C LORENA MD Unavailable Unavailable CHANLIECCO, C LORENA MD Unavailable Unavailable CHANLIECCO, C LORENA MD Unavailable Unavailable CHANLIECCO, C LORENA MD Unavailable Unavailable CHANLIECCO, C LORENA MD Unavailable Unavailable CHANLIECCO, C LORENA MD Unavailable Unavailable CHANLIECCO, C LORENA MD Unavailable Unavailable CHANLIECCO, C LORENA MD Unavailable Unavailable Re-disclosure Warning The records that you are about to access may contain information from federally-assisted alcohol or drug abuse programs. If such information is present, then the following federally mandated warning applies: This information has been disclosed to you from records protected by federal confidentiality rules (42 CFR part 2). The federal rules prohibit you from making any further disclosure of this information unless further disclosure is expressly permitted by the written consent of the person to whom it pertains or as otherwise permitted by 42 CFR part 2. A general authorization for the release of medical or other information is NOT sufficient for this purpose. The Federal rules restrict any use of the information to criminally investigate or prosecute any alcohol or drug abuse patient.The records that you are about to access may contain highly sensitive health information, the redisclosure of which is protected by Article 27-F of the [place] Public Health law. If you continue you may have access to information: Regarding HIV / AIDS; Provided by facilities licensed or operated by the [place] [facility] Office of Mental Health; or Provided by the [place] [facility] Office for People With Developmental Disabilities. If such information is present, then the following [place] [facility] mandated warning applies: This information has been disclosed to you from confidential records which are protected by state law. State law prohibits you from making any further disclosure of this information without the specific written consent of the person to whom it pertains, or as otherwise permitted by law. Any unauthorized further disclosure in violation of state law may result in a fine or longterm sentence or both. A general authorization for the release of medical or other information is NOT sufficient authorization for further disc losure. Allergies and Adverse Reactions Type Description Substance Reaction Status Data Source(s ) Propensity to adverse reactions TOPAMAX TOPAMAX RASH [facility] Propensity to adverse reactions PENICILLINS (CLASS) PENICILLINS (CLAS S) [facility] Miscellaneous allergy Carbamazepine Derivatives Carbamazepine De rivatives ANTICONVULSANTS-UNCLEAR ?? [facility] Drug allergy penicillin G Penicillin G [facility] Drug allergy Macrolide Antibiotics Macrolide Antibiotics [facility] Propensity to adverse reactions [facility] Propensity to adverse reactions PENICILLINS Penicillin [facility] Propensity to adverse reactions Propensity to adverse reactions NKDA MEDENT ([facility]) Family History Family Member Name Family Member Gender Family Member Status Date o f Status Description Data Source(s) Unknown Condition [facility] Unknown [facility] Unknown [facility] Unknown [facility] Unknown Condition [facility] Unknown Condition [facility] Unknown [facility] Unknown Condition [facility] Unknown Condition [facility] Unknown Condition [facility] Unknown [facility] Unknown Condition [facility] Unknown Condition [facility] Unknown [facility] Unknown Female Problem [facility] ([facility] Unknown Female Problem [facility] ([facility] Encounters Encounter Providers Location Date Indications Data Source(s ) Outpatient Referrer: Elvira MYERS 04/08/2021 12:00:00 AM [facility] Office Visit Attender: Selena MYERS [place] 04/06/2021 09:45:00 AM EST [facility] ([facility]) Outpatient Attender: ILIANA CARDENAS 04/01/2021 06:08:00 PM EDT - 04/01/2021 06:08:00 PM EDT [facility] Outpatient Attender: Nikki Dwyer MS, RPA-C 02/28/2021 10:51:00 AM EDT - 02/28/2021 10:51:00 AM EDT [facility] Office Visit Attender: Selena MYERS [place] 01/01/2021 11:15:00 AM EDT [facility] ([facility]) Outpatient Attender: Selena MYERS [place] 10/02/2020 09:00:00 AM EDT [facility] ([facility]) Outpatient Attender: RAINE BURTON MD [id number] 09/24 12:00:00 AM EDT - 09/24/2020 08:33:29 AM EDT Cerebral aneurysm, nonruptured [facility] Cerebral aneurysm, nonruptured [place] [address] [address] 09/22/2020 12:00:00 AM EDT eCW1 ([facility]) Emergency Attender: LORENA WILKES MDConsultant: VANE PATEL MD 09/03/2020 04:33:00 PM EDT - 09/03/2020 06:29:00 PM EDT [facility] Patient discharged. Inpatient Attender: RAINE BURTON MDAt tender: JONATHAN GALEANOAdmitter: RAINE BURTON MDReferrer: RAINE BURTON MD [id number] 08/31/2020 07:26:04 AM EDT - 09/01/2020 11:17:00 AM EDT Cerebral aneurysm, nonruptured [facility] Cerebral aneurysm, nonruptured Patient discharged. Outpatient Attender: RAINE BURTON MDReferrer: RAINE Marmolejo MD 08/31/2020 12:00:00 AM EDT [facility] Outpatient Attender: Meeta Dilshad Napierrer: RAINE RAMOS MD 08/28/2020 12:00:00 AM EDT [facility] Outpatient Attender: LISANDRO PENAReferrer: RAINE BURTON MD [id number] 08/28/2020 12:00:00 AM EDT [facility] Outpatient 08/27/2020 12:00:00 AM EDT [facility] Outpatient Attender: Katelynn Guevara MD 08/27/2020 12:00:00 AM EDT [facility] Outpatient Attender: Elvira Reddy PAConsultant: RICK PATEL MD 08/24/2020 09:15:00 AM EDT - 08/24/2020 10:15:00 AM EDT [facility] Patient discharged. Outpatient Attender: RAINE BURTON MDConsultant: RICK DUNNE MD 08/24/2020 09:15:00 AM EDT - 08/24/2020 10:15:00 AM EDT [facility] Patient discharged. [place] [address] [address] 08/11/2020 12:00:00 AM EDT eCW1 ([facility]) Outpatient Attender: Chicho Olivo MDReferrer: RICK DUNNE MD 07/31/2020 03:29:00 PM EST - 07/31/2020 03:51:00 PM EST [facility] Outpatient Attender: Chicho Olivo MD 07/17/2020 05:07:0 0 PM EST R10.2 [facility] R10.2 Outpatient Attender: Chicho Olivo MDReferrer: RICK DUNNE MD 07/17/2020 02:58:00 PM EST - 07/17/2020 03:56:00 PM EST [facility] Outpatient Attender: RAINE BURTON MD [id number] 07/16/2020 12:00:00 AM [facility] Outpatient Attender: MONICA NEGRETE MDAt tender: RAINE BURTON MDAdmitter: RAINE BURTON MDReferrer: Elvira MYERS [id number] 06/16/2020 06:51:02 A M EST - 06/16/2020 01:04:00 PM EST Cerebral aneurysm, nonruptured [facility] Cerebral aneurysm, nonruptured Patient discharged. Outpatient Attender: Elvira Reddy PAConsultant: RICK PATEL MD 06/12/2020 12:06:00 PM EST - 06/12/2020 12:16:00 PM [facility] Outpatient Attender: Saul England IIConsultant: RICK GARVEY MD 06/12/2020 12:03:00 PM EST - 06/12/2020 12:13:00 PM [facility] Outpatient Attender: DENNIS SESAYonsultant: RICK Leyva MD 06/12/2020 10:27:00 AM [facility] - 06/12/2020 11:27:00 AM [facility] Outpatient 06/12/2020 12:00:00 AM [facility] Outpatient Attender: Selena MYERS Main office - [facility][Note 3] n 06/11/2020 08:30:00 AM EST [facility] ([facility]) Outpatient Attender: RAINE BURTON MDConsultant: RICK DUNNE MD 06/11/2020 08:18:00 AM EST - 06/11/2020 09:18:00 AM [facility] Outpatient Attender: RAINE BURTON MD [id number] 05/14/2020 12: 00:00 AM EST Cerebral aneurysm, nonruptured [facility] Cerebral aneurysm, nonruptured Outpatient Attender: ALLIE HILLIARD MD Main office - [facility][Note 3] n 05/04/2020 02:30:00 PM EST [facility] ([facility]) Outpatient Attender: ALLIE HILLIARD MD Main office - [facility][Note 3] n 04/13/2020 06:15:00 AM EST [facility] ([facility]) Outpatient Attender: ARMANDO MYERS 06/2019 05:01:00 PM EDT - 02/28/2020 05:01:00 PM EDT [facility] Outpatient Attender: ARMANDO MYERS [facility] 06/2019 05:00:00 PM EDT [facility] ([facility] Outpatient Attender: RICK DUKEGConsultant: LUZ NIÑO 01/24/2018 09:08:17 AM EDT [facility] Medications Medication Brand Name Start Date Product Form Dose Route Admi nistrative Instructions Pharmacy Instructions Status Indications Reaction Description Data Source(s) Prednisone 20 MG Oral Tablet Prednisone 02/28/2021 12:00:00 AM EDT ORAL completed [facility] ([facility]) 20 mg 02/28/2021 12:00:00 AM EDT tablet 10 TAKE TWO TABLETS BY MOUTH EVERY DAY FOR 5 DAYS TAKE TWO TABLETS BY MOUTH EVERY DAY FOR 5 DAYS SOLD: 021 [facility] PREMPRO 0.45/1.5 28 Day Pack 0.45-1.5 mg ESTROGEN,CON/M-PROG EST ACET 01/05/2021 12:00:00 AM EDT tablet 28 TAKE ONE TABLET BY MOUTH EVERY DAY TAKE ONE TABLET BY MOUTH EVERY DAY SOLD: 01/08/2021 [facility] Cyclobenzaprine hydrochloride 5 MG Oral Tablet CYCLOBENZAPRI NE HCL 10/04/2020 12:00:00 AM EDT tablet 30 TAKE 1 TABLET BY MOUTH DA GREGORY NEEDED TAKE 1 TABLET BY MOUTH DAILY NEEDED SOLD: 10/04/2020 [facility] Ticagrelor 90 MG Oral Tablet Ticagrelor 90 MG Oral Tab let (BRILINTA) Ticagrelor 90 MG Oral Tablet (BRILINTA) 10/02/2020 12:00:00 AM EDT 90 mg Oral active Take 1 tablet by mouth Two Times Daily [facility] 90 mg 09/23/2020 12:00:00 AM EDT tablet 60 TAKE ONE TABLET BY MOUTH TWICE A DAY TAKE ONE TABLET BY MOUTH TWICE A DAY SOLD: 01/01/2021 [facility] 90 mg 09/23/2020 12:00:00 AM EDT tablet 60 TAKE ONE TABLET BY MOUTH TWICE A DAY TAKE ONE TABLET BY MOUTH TWICE A DAY SOLD: 03/02/2021 [facility] 90 mg 09/23/2020 12:00:00 AM EDT tablet 60 TAKE ONE TABLET BY MOUTH TWICE A DAY TAKE ONE TABLET BY MOUTH TWICE A DAY SOLD: 01/30/2021 [facility] 90 mg 09/23/2020 12:00:00 AM EDT tablet 60 TAKE ONE TABLET BY MOUTH TWICE A DAY TAKE ONE TABLET BY MOUTH TWICE A DAY SOLD: 12/01/2020 [facility] 90 mg 09/23/2020 12:00:00 AM EDT tablet 60 TAKE ONE TABLET BY MOUTH TWICE A DAY TAKE ONE TABLET BY MOUTH TWICE A DAY SOLD: 10/27/2020 [facility] Chantix Continuing Month James 1 MG Chantix Continuing Month P ak 1 MG 09/22/2020 12:00:00 AM EDT active Chantix Continuing Month James 1 MG eCW1 ([facility]) Aspirin 81 MG Delayed Release Oral Table t Aspirin 81 MG Oral Tablet Delayed Release Aspirin 81 MG Oral Tablet Delayed Release 09/02/2020 12:00:00 AM EDT 81 mg Oral active Take 1 tablet by mouth d [facility] Aspirin 81 MG Delayed Release Oral Tablet aspirin EC E C tablet 81 mg aspirin EC EC tablet 81 mg 09/01/2020 09:00:00 AM EDT 81 mg Oral ac tive 81 mg, Oral, Daily Standard, First dose on Mon09/01/20 at 0900, For 30 days
Do not crush or chew
[facility] Medication administered onsite Acetaminophen 325 MG Oral Tablet Acetaminophen 325 MG Oral T ablet 09/01/2020 12:00:00 AM EDT 650 mg Oral completed Take 2 tablets by mouth every 6 (six) hours as needed for Pain for up to 10 days [facility] Ticagrelor 90 MG Oral Tablet Ticagrelor 90 MG Oral Tab let (BRILINTA) Ticagrelor 90 MG Oral Tablet (BRILINTA) 09/01/2020 12:00:00 AM EDT 90 mg Oral aborted Take 1 tablet by mouth Two Times Daily [facility] Ticagrelor 90 MG Oral Tablet Ticagrelor 90 MG Oral Tab let (BRILINTA) Ticagrelor 90 MG Oral Tablet (BRILINTA) 09/01/2020 12:00:00 AM EDT 90 mg Oral active Take 1 tablet by mouth Two Times Daily [facility] Docusate Sodium 100 MG Oral Capsule docusate sodium (C OLACE) capsule 100 mg docusate sodium (COLACE) capsule 100 mg 08/31/2020 09:00:00 PM EDT 100 mg Oral active 100 mg, Oral, 2 Times Daily, First dose on Mon08/31/20 at 2100, For 30 days [facility] Medication administered onsite Ticagrelor 90 MG Oral Tablet ticagrelor (BRILINTA) tab let 90 mg ticagrelor (BRILINTA) tablet 90 mg 08/31/2020 09:00:00 PM EDT 90 mg Oral active 90 mg, Oral, 2 Times Daily, First dose on Mon08/31/20 at 2100, For 30 days [facility] Medication administered onsite albuterol (PROVENTIL HFA) inhaler 2 puff [id number] 08/31/2020 07:01:50 PM EDT 2 {puff} Inhalation active 2 pu ff, Inhalation, Every 6 hours PRN, Wheezing, Shortness of Breath, Starting Mon08/31/20 at 1901, For 4 days
Shake the inhaler well before each spray.
[facility] Medication administered onsite Clindamycin 18 MG/ML Injectable Solution clindamycin ( CLEOCIN) IVPB 900 mg clindamycin (CLEOCIN) IVPB 900 mg 08/31/2020 03:00:00 PM EDT 900 mg Intravenous completed 900 mg, Intra venous, at 100 mL/hr, Every 8 hours, First dose on Mon08/31/20 at 1500, For 16 hours
Discouraged Uses: Cellulitis
[facility] Medication administered onsite Nicardipine hydrochloride 0.2 MG/ML Inje ctable Solution niCARdipine (CARDENE) 40 mg in sodium chloride 0.9 % 200 mL infusion (0.2 mg/mL) niCARdipine (CARDENE) 40 mg in sodium chloride 0.9 % 200 mL infusion (0.2 mg/mL) 08/31/2020 03:00:00 PM EDT mg/h Intravenous aborted 5-15 mg/hr (25-75 mL/hr), Intravenous, at 25-75 mL/hr, Continuous, Starting Mon08/31/20 at 1500, For 30 days
To maintain MAP 70-90
[facility] Medication administered onsite ondansetron (ZOFRAN) injection 4 mg 08/31/2020 02:48:13 PM EDT 4 mg Intravenous active [Order 1 Star t] Name: ondansetron (ZOFRAN) injection 4 mg Signed Summary: 4 mg, Intravenous, Every 8 hours PRN, Nausea, Vomiting, Starting Mon08/31/20 at 1448, For 7 days
Administer if unable to tolerate PO.
[Order 1 End] [Order 2 Start] Name: ondansetron (ZOFRAN) tablet 4 mg Signed Summary: 4 mg, Oral, Every 8 hours PRN, Nausea, Vomiting, Starting Mon08/31/20 at 1448, For 7 days
Administer if able to tolerate PO.
[Order 2 End] [facility] Medication administered onsite sennosides, DETENTION 8.6 MG Oral Tablet senna tablet 2 tablet sen na tablet 2 tablet 08/31/2020 02:48:13 PM EDT 2 {tbl} Oral active 2 tablet, Oral, Nightly PRN, Constipation, Starting Mon08/31/20 at 1448, For 30 days [facility] Medication administered onsite Oxycodone Hydrochloride 5 MG Oral Tablet oxyCODONE (ROXICODONE) immediate release tablet 5 mg oxyCODONE (ROXICODONE) immediate release tablet 5 mg 08/31/2020 02:48:12 PM EDT 5 mg Oral active 5 mg, Oral, Every 4 hours PRN, Moderate Pain (Pain Scale Score 4-6), Starting Mon08/31/20 at 1448, For 3 days
If no REGIONAL OPERATIONS DIRECTOR or when REGIONAL OPERATIONS DIRECTOR has been D/Cd.
Oxycodone immediate release is limited to 10 mg per dose. Higher doses ([facility] only) require Pain Service consultation and approval.
[facility] Medication administered onsite Oxycodone Hydrochloride 5 MG Oral Tablet oxyCODONE (ROXICODONE) immediate release tablet 10 mg oxyCODONE (ROXICODONE) immediate release tablet 10 mg 08/31/2020 02:48:12 PM EDT 10 mg Oral active 10 mg, Oral, Every 4 hours PRN, Severe Pain (Pain Scale Score 7-10), Starting Mon08/31/20 at 1448, For 3 days
If no REGIONAL OPERATIONS DIRECTOR or when REGIONAL OPERATIONS DIRECTOR has been D/Cd.
Oxycodone immediate release is limited to 10 mg per dose. Higher doses ([facility] only) require Pain Service consultation and approval.
[facility] Medication administered onsite Acetaminophen 325 MG Oral Tablet acetaminophen (TYLENO L) tablet 650 mg acetaminophen (TYLENOL) tablet 650 mg 08/31/2020 02:48:12 PM EDT 65 0 mg Oral active 650 mg, Oral, E very 6 hours PRN, Mild Pain (Pain Scale Score 1- 3), Headaches, Fever, Starting Mon08/31/20 at 1448, For 30 days
Maximum daily dose of acetaminophen is 3,000 mg from all sources in 24 hours.
[facility] Medication administered onsite Bisacodyl 10 MG Rectal Suppository bisacodyl (DULCOLAX ) suppository 10 mg bisacodyl (DULCOLAX) suppository 10 mg 08/31/2020 02:48:12 PM EDT 10 mg Rectal active 10 mg, Rectal, Every 72 hours PRN, Constipation, Starting Mon08/31/20 at 1448, For 30 days
Hold if patient has had BM within the past 2 days.
[facility] Medication administered onsite NaCl infusion 0.9 % [id number] 08/31/2020 12:30:00 PM EDT Intravenous aborted at 100 mL/hr, Intrav enous, Continuous, Starting Mon08/31/20 at 1230, For 30 days
Hold for good PO intake.
[facility] Medication administered onsite Aspirin 325 MG Delayed Release Oral Tablet aspirin EC EC tablet 325 mg aspirin EC EC tablet 325 mg 08/31/2020 12:30:00 PM EDT 325 mg Oral completed 325 mg, Oral, Once, Mon08/31/20 at 1230, For 1 dose
Do not crush or chew
[facility] Medication administered onsite Ticagrelor 90 MG Oral Tablet ticagrelor (BRILINTA) tab let 180 mg ticagrelor (BRILINTA) tablet 180 mg 08/31/2020 12:30:00 PM EDT 180 mg Oral completed 180 mg, Oral, Once, Mon08/31/20 at 1230, For 1 dose [facility] Medication administered onsite cangrelor (KENGREAL) 50 mg in sodium chloride 0.9 % 25 0 mL (0.2 mg/mL) infusion 08/31/2020 12:30:00 PM EDT 4 ug/kg/min Intravenous a borted 4 mcg/kg/min 88 kg (105.6 mL/hr), Intravenous, Continuous, Starting Mon08/31/20 at 1230, For 1 day
To be stopped 6 hours after patient receives PO dose of aspirin and brilinta
[facility] Medication administered onsite fentaNYL (SUBLIMAZE) (PF) injection 25 mcg [id number] 08/31/2020 12:20:08 PM EDT 25 ug Intravenous aborted 25 m cg, Intravenous, Every 5 min PRN, Severe Pain (Pain Scale Score 7-10), Starting Mon08/31/20 at 1220, For 10 doses, Recovery [facility] Medication administered onsite 4 ML Verapamil hydrochloride 2.5 MG/ML Injection verap lizzie (ISOPTIN) injection verapamil (ISOPTIN) injection 08/31/2020 09:47:46 AM EDT completed Code/Trauma Medication, Starting Mon08/31/20 at 0947 [facility] Medication administered onsite Nitroglycerin 0.1 MG/ML Injectable Solut ion nitroglycerin injection in D5W 0.1 mg/mL (HVC) nitroglycerin injection in D5W 0.1 mg/mL (HVC) 09:41:40 AM EDT completed Code/T rauma Medication, Starting Mon08/31/20 at 0941 [facility] Medication administered onsite lidocaine (XYLOCAINE) 2 % injection [id number] 08/31/2020 09:41:23 AM EDT completed Code/Trauma Medicati on, Starting Mon08/31/20 at 0941 [facility] Medication administered onsite sodium chloride (preservative free) 0.9 % flush 3 mL [id number] 08/31/2020 07:30:00 AM EDT 3 mL Intravenous active 3 mL, Intravenous, Every 8 hours, First dose on Mon08/31/20 at 0730, For 30 days
Saline Lock. Flush Q8H and after each use to Saline Lock.
[facility] Medication administered onsite sodium chloride (preservative free) 0.9 % flush 3 mL [id number] 08/31/2020 07:27:07 AM EDT 3 mL Intravenous active 3 mL, Intravenous, PRN, Line Care, Starting Mon08/31/20 at 0727, For 30 days
Saline Lock. Flush Q8H and after each use to Saline Lock.
[facility] Medication administered onsite sodium chloride 0.9 % bag 3-20 mL [id number] 08/31/2020 07:27:07 AM EDT mL Intravenous active 3-20 mL, Intr avenous, at 1-999 mL/hr, PRN, For Medication Administration and Line Clearance, Starting Mon08/31/20 at 0727, For 30 days
Flush line with sufficient amount of fluid needed based on man ufacturer recommendation for specific line size. Rate should be run at the same rate as medication in the line being flushed.
[facility] Medication administered onsite 90 mcg/actuation 08/27/2020 12:00:00 AM EDT HFA aerosol inha ler 18 INHALE TWO PUFFS BY MOUTH EVERY 4 HOURS INHALE TWO PUFFS BY MOUTH EVERY 4 HOURS SOLD: 10/27/2020 [facility] 30 ACTUAT fluticasone furoate 0.2 MG/ACT UAT / vilanterol 0.025 MG/ACTUAT Dry Powder Inhaler [Breo] 200-25 mcg/dose FLUTICASONE/VILANTEROL 08/27/2020 12:00 :00 AM EDT blister with device 60 INHALE ONE PUFF BY MO UTH EVERY DAY INHALE ONE PUFF BY MOUTH EVERY DAY SOLD: 12/01/2020 [facility] 30 ACTUAT fluticasone furoate 0.2 MG/ACT UAT / vilanterol 0.025 MG/ACTUAT Dry Powder Inhaler [Breo] 200-25 mcg/dose FLUTICASONE/VILANTEROL 08/27/2020 12:00 :00 AM EDT blister with device 60 INHALE ONE PUFF BY MO UTH EVERY DAY INHALE ONE PUFF BY MOUTH EVERY DAY SOLD: 10/01/2020 [facility] 200-25 mcg/dose 08/27/2020 12:00:00 AM EDT blister with angie ce 60 INHALE ONE PUFF BY MOUTH EVERY DAY INHALE ONE PUFF BY MOUTH EVERY DAY SOLD: 08/28/2020 [facility] 30 ACTUAT fluticasone furoate 0.2 MG/ACT UAT / vilanterol 0.025 MG/ACTUAT Dry Powder Inhaler [Breo] 200-25 mcg/dose FLUTICASONE/VILANTEROL 08/27/2020 12:00 :00 AM EDT blister with device 60 INHALE ONE PUFF BY MO UTH EVERY DAY INHALE ONE PUFF BY MOUTH EVERY DAY SOLD: 01/08/2021 [facility] 90 mcg/actuation 08/27/2020 12:00:00 AM EDT HFA aerosol inha ler 18 INHALE TWO PUFFS BY MOUTH EVERY 4 HOURS INHALE TWO PUFFS BY MOUTH EVERY 4 HOURS SOLD: 10/01/2020 [facility] 90 mcg/actuation 08/27/2020 12:00:00 AM EDT HFA aerosol inha ler 18 INHALE TWO PUFFS BY MOUTH EVERY 4 HOURS INHALE TWO PUFFS BY MOUTH EVERY 4 HOURS SOLD: 12/01/2020 [facility] 30 ACTUAT fluticasone furoate 0.2 MG/ACT UAT / vilanterol 0.025 MG/ACTUAT Dry Powder Inhaler [Breo] 200-25 mcg/dose FLUTICASONE/VILANTEROL 08/27/2020 12:00 :00 AM EDT blister with device 60 INHALE ONE PUFF BY MO UTH EVERY DAY INHALE ONE PUFF BY MOUTH EVERY DAY SOLD: 10/27/2020 [facility] 90 mcg/actuation 08/27/2020 12:00:00 AM EDT HFA aerosol inha ler 18 INHALE TWO PUFFS BY MOUTH EVERY 4 HOURS INHALE TWO PUFFS BY MOUTH EVERY 4 HOURS SOLD: 08/28/2020 [facility] Chantix Starting Month James 0.5 MG X 11 & 1 MG X 42 Shannon ntix Starting Month James 0.5 MG X 11 & 1 MG X 42 08/11/2020 12:00:00 AM EDT active Chantix Starting Month James 0.5 MG X 11 & 1 MG X 42 eCW1 ([facility]) 0.5 mg (11)- 1 mg (42) 08/11/2020 12:00:00 AM EDT tablets,do se pack 53 USE DIRECTED USE DIRECTED SOLD: 08/14/2020 [facility] 100 mg 08/02/2020 12:00:00 AM EST capsule 90 TAKE ONE CAPSULE BY MOUTH EVERY DAY - MUST ADMINISTER WITH A MEAL/FOOD TAKE ONE CAPSULE BY MOUTH EVERY DAY - MUST ADMINISTER WITH A MEAL/FOOD SOLD: 08/05/2020 [facility] Ciprofloxacin 500 MG Oral Tablet Ciprofloxacin Hcl Ciproflox acin Hcl 07/17/2020 03:50:25 PM EST 500 MG active [facility] 500 mg 07/17/2020 12:00:00 AM EST tablet 20 TAKE ONE TABLET BY MOUTH TWICE A DAY FOR 10 DAYS FOR UTI TAKE ONE TABLET BY MOUTH TWICE A DAY FOR 10 DAYS FOR UTI SOLD: 07/18/2020 [facility] 84 HR Estradiol 0.39892 MG/HR / norethin drone acetate 0.97165 MG/HR Transdermal System [Combipatch] 0.05-0.14 mg/24 hr ESTRADIOL/NORETHINDRONE ACET 07/09/2020 12:00:00 AM EST patch semiweekly 8 APPLY 1 PATCH TRANSDE RMALY TWICE A WEEK APPLY 1 PATCH TRANSDERMALY TWICE A WEEK SOLD: 10/27/2020 [facility] 0.05-0.14 mg/24 hr 07/09/2020 12:00:00 AM EST patch semiweek ly 8 APPLY 1 PATCH TRANSDERMALY TWICE A WEEK APPLY 1 PATCH TRANSDERMALY TWICE A WEEK SOLD: 07/10/2020 [facility] 84 HR Estradiol 0.01700 MG/HR / norethin drone acetate 0.75660 MG/HR Transdermal Patch [Combipatch] CombiPatch 0.05-0.14 MG/DAY Transdermal Patch Twice Weekly CombiPatch 0.05-0.14 MG/DAY Transdermal Patch Twice Weekly 07/09/2020 12:00:00 AM EST 1 {patch} Transdermal active Pl elodia 1 patch onto the skin every 3 (three) days [facility] 84 HR Estradiol 0.88766 MG/HR / norethin drone acetate 0.06895 MG/HR Transdermal System [Combipatch] 0.05-0.14 mg/24 hr ESTRADIOL/NORETHINDRONE ACET 07/09/2020 12:00:00 AM EST patch semiweekly 8 APPLY 1 PATCH TRANSDE RMALY TWICE A WEEK APPLY 1 PATCH TRANSDERMALY TWICE A WEEK SOLD: 01/08/2021 [facility] 0.05-0.14 mg/24 hr 07/09/2020 12:00:00 AM EST patch semiweek ly 8 APPLY 1 PATCH TRANSDERMALY TWICE A WEEK APPLY 1 PATCH TRANSDERMALY TWICE A WEEK SOLD: 09/05/2020 [facility] Nortriptyline 50 MG Oral Capsule Nortriptyline 07/06/2020 05:14:01 PM EST 50 MG active [facility] Diclofenac Potassium 50 MG Oral Tablet Diclofenac Potassium 07/06/2020 05:13:38 PM EST 50 MG active [facility] 84 HR Estradiol 0.60471 MG/HR / norethin drone acetate 0.61312 MG/HR Transdermal Patch Estradiol-Norethindrone Acet (Combipatch) 0.05-0.14 mg/24 hr patch semiweekly Estradiol-Norethindrone Acet (Combipatch ) 0.05-0.14 mg/24 hr patch semiweekly 07/06/2020 05:05:14 PM EST 1 PATCH active [facility] Nitroglycerin 0.1 MG/ML Injectable Solut ion nitroglycerin injection in D5W 0.1 mg/mL (HVC) nitroglycerin injection in D5W 0.1 mg/mL (HVC) 021 11:25:26 AM EST completed Code/T rauma Medication, Starting Mon06/16/20 at [facility]5 [facility] Medication administered onsite 1 ML heparin sodium, porcine 1000 UNT/ML Injection heparin (porcine) 1000 units/mL injection heparin (porcine) 1000 units/mL injection 06/16/2020 1 0:26:28 AM EST completed Code/T rauma Medication, Starting Mon06/16/20 at [facility]6 [facility] Medication administered onsite verapamil (ISOPTIN) in NaCl 0.9 % injection 1 mg/mL (IR use only) 06/16/2020 10:23:50 AM EST completed Code/Trauma Medication, Starting Mon06/16/20 at [facility]3 [facility] Medication administered onsite lidocaine (PF) (XYLOCAINE) 2 % injection [id number] 06/16/2020 10:19: 32 AM EST completed Code/Trauma Medicati on, Starting Mon06/16/20 at [facility]9 [facility] Medication administered onsite 2 ML Midazolam 1 MG/ML Injection midazolam (PF) (VERSE D) injection midazolam (PF) (VERSED) injection 06/16/2020 10:16:11 AM EST completed Code/Trauma Medication, Starting Mon06/16/[address] [place] [address] Medication administered onsite fentaNYL (SUBLIMAZE) (PF) injection [id number] 06/16/2020 10:16:04 AM EST completed Code/Trauma Medicati on, Starting Mon06/16/[address] [place] [address] Medication administered onsite sodium chloride (preservative free) 0.9 % flush 3 mL 06/16/2020 09:00:00 AM EST 3 mL Intravenous active [Ord er 1 Start] Name: Peripheral IV Signed Summary: Routine, CONTINUOUS, Starting Mon06/16/20 at 0703, Until Cinda 07/16/20, For 30 days
Pre-op [Order 1 End] [Order 2 Start] Name: sodium chloride (pr eservative free) 0.9 % flush 3 mL Signed Summary: 3 mL, Intravenous, Every 8 hours Standard (3 times per day), First dose on Mon06/16/20 at 0900, For 30 days, Pre-op
Saline Lock. Flush Q8H and after each use to Saline Lock.
[Order 2 End] [Order 3 Start] Name: sodium chloride (preservative free) 0.9 % flush 3 mL Signed Summary: 3 mL, Intravenous, PRN, Line Care, Starting Mon06/16/20 at 0702, For 30 days, Pre-op
Saline Lock. Flush Q8H and after each use to Saline Lock.
[Order 3 End] [Order 4 Start] Name: Saline Lock order Signed Summary: Routine, ONCE, Mon06/16/20 at 0703, For 1 occurrence
Pre-op [Order 4 End] [facility] Medication administered onsite Lidocaine 40 MG/ML Topical Cream lidocaine (LMX) 4 % c ream lidocaine (LMX) 4 % cream 06/16/2020 07:15:00 AM EST Topical completed Topical, Once, Mon06/16/20 at 0715, For 1 dose
Apply generously to right wrist and snuffbox and cover with tegaderm
Pre-op [facility] Medication administered onsite sodium chloride 0.9 % bag 3-20 mL [id number] 06/16/2020 07:02:50 AM EST mL Intravenous active 3-20 mL, Intr avenous, at 1-999 mL/hr, PRN, For Medication Administration and Line Clearance, Starting Mon06/16/20 at 0702, For 30 days, Pre-op
Flush line with sufficient amount of fluid needed based on business process associate recommendation for specific line size. Rate should be run at the same rate as medication in the line being flushed.
[facility] Medication administered onsite 30 ACTUAT fluticasone furoate 0.2 MG/ACT UAT / vilanterol 0.025 MG/ACTUAT Dry Powder Inhaler [Breo] Breo Ellipta 200-25 MCG/INH Inhalation Aerosol Powder Breath Activated Breo Ellipta 200-25 MCG/INH Inhalation A erosol Powder Breath Activated 06/12/2020 12:00:00 AM EST active every morning [facility] Albuterol Sulfate HFA 108 (90 Base) MCG/ ACT Inhalation Aerosol Solution (PROVENTIL HFA) [id number] 06/12/2020 12:00:00 AM EST 2 {puff} active 2 puffs Four times daily as needed [facility] 200-25 mcg/dose 06/12/2020 12:00:00 AM EST blister with angie ce 60 INHALE ONE PUFF BY MOUTH EVERY DAY INHALE ONE PUFF BY MOUTH EVERY DAY SOLD: 06/13/2020 [facility] 90 mcg/actuation 06/12/2020 12:00:00 AM EST HFA aerosol inha ler 18 INHALE TWO PUFFS BY MOUTH EVERY 4 HOURS NEEDED INHALE TWO PUFFS BY MOUTH EVERY 4 HOURS NEEDED SOLD: 06/13/2020 [facility] 25 mg 06/11/2020 12:00:00 AM EST capsule 30 TAKE ONE CAPSULE BY MOUTH EVERY NIGHT AT BEDTIME TAKE ONE CAPSULE BY MOUTH EVERY NIGHT AT BEDTIME SOLD: 06/12/2020 [facility] 50 mg 06/11/2020 12:00:00 AM EST tablet 10 TAKE ONE TABLET BY MOUTH DAILY FOR HEADACHE MAXIMUM DAILY DOSE = ONE TABLET TAKE ONE TABLET BY MOUTH DAILY FOR HEADACHE MAXIMUM DAILY DOSE = ONE TABLET SOLD: 06/12/2020 [facility] Diclofenac Potassium 50 MG Oral Tablet D iclofenac Potassium 50 MG Oral Tablet (CATAFLAM) Diclofenac Potassium 50 MG Oral Tablet (CATAFLAM) 05/29 12:00:00 AM EST 50 mg Oral aborted Take 50 mg by m outh as needed [facility] 50 mg 06/11/2020 12:00:00 AM EST tablet 10 TAKE ONE TABLET BY MOUTH DAILY FOR HEADACHE MAXIMUM DAILY DOSE = ONE TABLET TAKE ONE TABLET BY MOUTH DAILY FOR HEADACHE MAXIMUM DAILY DOSE = ONE TABLET SOLD: 08/28/2020 [facility] Nortriptyline 25 MG Oral Capsule Nortriptyline HCL 06/11/2020 12:00 :00 AM EST ORAL active [facility] ([facility]) 25 mg 06/11/2020 12:00:00 AM EST capsule 30 TAKE ONE CAPSULE BY MOUTH EVERY NIGHT AT BEDTIME TAKE ONE CAPSULE BY MOUTH EVERY NIGHT AT BEDTIME SOLD: 10/01/2020 [facility] Diclofenac Potassium 50 MG Oral Tablet Diclofenac Potassium 05/05/2020 12:00:00 AM EST ORAL completed [facility] ([facility] ) Nortriptyline 10 MG Oral Capsule Nortriptyline HCL 05/05/2020 12:00 :00 AM EST ORAL completed [facility] ([facility] ) 50 mg 05/05/2020 12:00:00 AM EST tablet 10 TAKE ONE TABLET BY MOUTH EVERY DAY NEEDED FOR HEADACHE TAKE ONE TABLET BY MOUTH EVERY DAY NE EDED FOR HEADACHE SOLD: 05/31/2020 [facility] 17.5-3.13-1.6 gram 03/05/2020 12:00:00 AM EDT [place] 354 TAKE BY MOUTH PER DOCTORS BOWEL PREP INSTRUCTINS TAKE BY MOUTH PER DOCTORS BOWEL PREP INSTRUCTINS SOLD: 03/10/2020 [facility] Suprep Bowel Prep Kit Suprep Bowel Prep Kit 03/05/2020 12:00:00 AM EDT active [facility] ([facility] ) Magnesium Hydroxide 80 MG/ML Oral Suspension Milk Of Magnesi a 03/05/2020 12:00:00 AM EDT ORAL active M [facility] ([facility] ) 20 mg 02/28/2020 12:00:00 AM EDT tablet 15 TAKE THREE TABLETS BY MOUTH EVERY DAY TAKE THREE TABLETS BY MOUTH EVERY DAY SOLD: 02/28/2020 [facility] Ibuprofen 600 MG Oral Tablet Ibuprofen 11/20/2019 09:18:10 AM EDT 600 MG completed [facility] gabapentin 100 MG Oral Capsule Gabapentin Gabapentin 2019 01:05:55 PM EDT 100 MG completed [facility] Cyclobenzaprine hydrochloride 5 MG Oral Tablet CYCLOBENZAPRI NE HCL 11/04/2019 12:00:00 AM EDT tablet 30 TAKE ONE TABLET BY MOUTH EVERY DAY NEEDED TAKE ONE TABLET BY MOUTH EVERY DAY NEEDED SOLD: 06/18/2020 [facility] gabapentin 100 MG Oral Capsule Gabapentin 100 MG Oral Capsule (NEURONTIN) Gabapentin 100 MG Oral Capsule (NEURONTIN) 09/04/2019 12:00:00 AM EDT 1 {capsule} Oral aborted Take 1 capsule by mooswaldo [facility] 90 mcg/actuation 07/04/2019 12:00:00 AM EST HFA aerosol inha ler 18 INHALE TWO PUFFS BY MOUTH EVERY 4 HOURS NEEDED INHALE TWO PUFFS BY MOUTH EVERY 4 HOURS NEEDED SOLD: 04/18/2020 [facility] 200-25 mcg/dose 07/04/2019 12:00:00 AM EST blister with angie ce 60 INHALE ONE PUFF BY MOUTH EVERY DAY INHALE ONE PUFF BY MOUTH EVERY DAY SOLD: 04/18/2020 [facility] Insurance Providers Payer name Policy type / Coverage type Policy ID Covered democrat ID Covered democrat's relationship to brewer Policy Brewer Plan Information MEDICARE A [id number] Self [id number] A MEDICARE A [id number] Self [id number] MEDICAID M [id number] Self [id number] MEDICAID-O/P [id number] EMEDNY [id number] SP [id number] MEDICARE [id number] SP [id number] MEDICARE [id number] SP [id number] A MEDICAID [id number] MEDICARE C [id number] S [id number] MEDICAID M [id number] S [id number] MEDICARE C [id number] S [id number] A MEDICARE PART A -O/P [id number] 18 [id number] ANSI-Medicare Part B [id number] ANSI-Medicaid [id number] ANSI-Medicare Part B [id number] ANSI-Medicaid [id number] ANSI-Medicaid [id number] ANSI-Medicare Part B [id number] ANSI-Medicaid [id number] ANSI-Medicare Part B [id number] ANSI-Medicare Part B [id number] ANSI-Medicaid [id number] ANSI-Medicare Part B [id number] ANS-Medicaid [id number] MEDICARE -O/P [id number] 18 [id number] MEDICARE [id number] SP [id number] A [place] Part B [id number] Self Medicare Medicare Primary [id number] Self C MEDICARE PART A [facility] [id number] 18 [id number] MEDICARE PART A -O/P [id number] 18 [id number] MEDICAID -O/P EMERGENCY ROOM [id number] Problems, Conditions, and Diagnoses Code Display Name Description Problem Type Effective Dates Data Source(s) Z1152 ENCOUNTER FOR SCREENING FOR COVID-19 ENCOUNTER F OR SCREENING FOR COVID-19 Diagnosis 04/01/2021 06:08:00 PM EDT [facility] L236 Allergic contact dermatitis due to food in contact with the skin Allergic contact dermatitis due to food in contact with the skin Diagnosis 02/28/2021 10:51:00 AM EDT [facility] M79.642 Pain in left hand Pain in left hand Diagnosis 09/24 08:02:14 AM EDT [facility] I67.1 Cerebral aneurysm, nonruptured Cerebral aneurysm, nonr uptured Diagnosis 09/24/2020 08:02:14 AM EDT [facility] Y[address] or not applicable Unspecified place or not applicable Diagnosis 09/03/2020 04:33:00 PM EDT [facility] [id number] Exposure to other specified factors, ini tial encounter Exposure to other specified factors, initial encounter Diagnosis 09/03/2020 04:33:00 PM EDT [facility] Z7982 custodial (current) use of aspirin custodial (cu rrent) use of aspirin Diagnosis 09/03/2020 04:33:00 PM EDT [facility] J449 Chronic obstructive pulmonary disease, u nspecified Chronic obstructive pulmonary disease, unspecified Diagnosis 09/03/2020 04:33:00 PM EDT [facility] [id number] Nicotine dependence, cigarettes, uncompl icated Nicotine dependence, cigarettes, uncomplicated Diagnosis 09/03/2020 04:33:00 PM EDT [facility] I671 Cerebral aneurysm, nonruptured Cerebral aneurysm, nonr uptured Diagnosis 09/03/2020 04:33:00 PM EDT [facility] [id number] Contusion of right forearm, initial enco unter Contusion of right forearm, initial encounter Diagnosis 09/03/2020 04:33:00 PM EDT [facility] [id number] Contusion of left forearm, initial encou nter Contusion of left forearm, initial encounter Diagnosis 09/03/2020 04:33:00 PM EDT [facility] R202 Paresthesia of skin Paresthesia of skin Diagnosis 0 09/03/2020 04:33:00 PM EDT [facility] R200 Anesthesia of skin Anesthesia of skin Diagnosis 04:33:00 PM EDT [facility] R99 Ill-defined and unknown cause of mortali ty Ill-defined and unknown cause of mortality Diagnosis 06/12/2020 12:06:00 PM [facility] N951 Menopausal and female climacteric states Menopausal and female climacteric states Diagnosis 06/12/2020 12:03:00 PM [facility] R9402 Abnormal brain scan Abnormal brain scan Diagnosis 0 06/11/2020 08:18:00 AM [facility] [id number] Allergy, unspecified, initial encounter Allergy, unspecified, initial encounter Diagnosis 02/28/2020 05:01:00 PM EDT [facility] [id number] Allergic asthma without status asthmatic us Allergic asthma without status asthmaticus Problem 03/17/2021 12:00:00 AM EDT [facility] ([facility] ) R20.2 [id number] Intermittent tingling sensation of right hand and foot Problem 08/11/2020 12:00:00 AM EDT eCW1 ([facility]) R20.2 [id number] Intermittent tingling sensation of left h and and foot Problem 08/11/2020 12:00:00 AM EDT eCW1 ([facility]) I83.813 [id number] Varicose veins of both lower extremities with pain Problem 08/11/2020 12:00:00 AM EDT eCW1 ([facility]) I67.1 [id number] Anterior communicating artery aneurysm Pr oblem 08/11/2020 12:00:00 AM EDT eCW1 ([facility]) Surgeries/Procedures Procedure Description Date Indications Data Source(s) PHYSICIAN TELEPHONE EVALUATION 5-10 MIN 04/06/2021 12: 00:00 AM EST [facility] ([facility]) OFFICE OUTPATIENT VISIT 10 MINUTES 02/28/2021 12:00:00 AM EDT [facility] ([facility]) PHYSICIAN TELEPHONE EVALUATION 11-20 MIN 01/01/2021 12 :00:00 AM EDT [facility] ([facility]) OFFICE OUTPATIENT VISIT 25 MINUTES 10/02/2020 12:00:00 AM EDT [facility] ([facility] ) BASIC METABOLIC PANEL CALCIUM TOTAL <td>BASIC METABOLI C PANEL</td><td>Routine</td><td>09/01/2020 5:40 AM EDT</td><td></td><td> </td> 09/01/2020 05:40:00 AM [facility] COAGULATION TIME ACTIVATED <td>POCT ISTAT ACT</td><td> Routine</td><td>08/31/2020 11:56 AM EDT</td><td></td><td> </td> 08/31/2020 11:56:00 AM [facility] COAGULATION TIME ACTIVATED <td>POCT ISTAT ACT</td><td> Routine</td><td>08/31/2020 11:19 AM EDT</td><td></td><td> </td> 08/31/2020 11:19:00 AM [facility] COAGULATION TIME ACTIVATED <td>POCT ISTAT ACT</td><td> Routine</td><td>08/31/2020 10:38 AM EDT</td><td></td><td> </td> 08/31/2020 10:38:00 AM [facility] COAGULATION TIME ACTIVATED <td>POCT ISTAT ACT</td><td> Routine</td><td>08/31/2020 10:12 AM EDT</td><td></td><td> </td> 08/31/2020 10:12:00 AM [facility] COAGULATION TIME ACTIVATED <td>POCT ISTAT ACT</td><td> Routine</td><td>08/31/2020 9:33 AM EDT</td><td></td><td> </td> 08/31/2020 09:33:00 AM [facility] GONADOTROPIN CHORIONIC QUALITATIVE <td>HCG, URINE QUALITATIVE</td><td>Routine</td><td>08/31/2020 7:53 AM EDT</td><td></td><td> </td> 08/31/2020 07:53:00 AM [facility] CARDIAC REPORT <td>CARDIAC REPORT</td><td>< /td><td>08/26/2020 2:12 PM EDT</td><td></td><td></td> 08/26/2020 02:12:45 PM EDT [facility] HCG, URINE QUALITATIVE <td>HCG, URINE QUALITATIVE</td><td>Routine</td><td>06/16/2020 7:29 AM EST</td><td></td><td> </td> 06/16/2020 07:29:00 AM [facility] EEG Complete STD Phys/QHP>60 HR<84 HR W/O Video 2019 12:00:00 AM EST [facility] ([facility] EEG Complete STD Phys/QHP>60 HR<84 HR W/O Video 2019 12:00:00 AM EST [facility] ([facility] EEG Complete STD Phys/QHP>36 HR<60 HR W/O Video 2019 12:00:00 AM EST [facility] ([facility]) Magnetic Resonance Angiogtaphy Head W/O Contrast Material(S) 03/13/2020 12:00:00 AM EDT [facility] ([facility]) Magnetic Resonance Angiogtaphy Head W/O Contrast Material(S) 03/13/2020 12:00:00 AM EDT [facility] ([facility]) Magnetic Resonance Angiography Neck W/O Contrast Materials 03/13/2020 12:00:00 AM EDT [facility] ([facility]) Magnetic Resonance Angiography Neck W/O Contrast Materials 03/13/2020 12:00:00 AM EDT [facility] ([facility] MRI BRAIN BRAIN STEM W/O CONTRAST MATERIAL 03/02/2020 12:00:00 AM EDT [facility] ([facility] MRI BRAIN BRAIN STEM W/O CONTRAST MATERIAL 03/02/2020 12:00:00 AM EDT [facility] ([facility] ) Results ID Date Data Source [id number] 04/01/2021 06:22:00 PM EDT [facility] ([facility]) Name Value Range Interpretation Code Description Data Destiny rce(s) Supporting Document(s) Covid-19 Laboratory test result [facility] ([facility]) ID Date Data Source [id number] 04/01/2021 06:05:00 PM EDT [facility] Name Value Range Interpretation Code Description Data Destiny rce(s) Supporting Document(s) SARS coronavirus 2 RNA Not Detected [facility] This lab was ordered by [facility] crissy and reported by [email or web address]. ID Date Data Source [id number] 04/03/2021 02:44:00 PM EDT [facility] Name Value Range Interpretation Code Description Data Destiny rce(s) Supporting Document(s) SARS-CoV-2, ROBERT Not Detected Not Detected [facility] This nucleic acid amplification test was developed and its performancecharacteristics determined by [facility]. Nucleic acidamplification tests include RT-PCR and TMA. This test has not beenFDA cleared or approved. This test has been authorized by FDA underan Emergency Use Authorization (EUA). This test is only authorizedfor the duration of time the declaration that circumstances existjustifying the authorization of the emergency use of in vitrodiagnostic tests for detection of SARS-CoV-2 virus and/or diagnosisof COVID-19 infection under section 564(b)(1) of the Act, 21 U.S.C.360bbb-3(b) (1), unless the authorization is terminated or revokedsooner.When diagnostic testing is negative, the possibility of a falsenegative result should be considered in the context of a patient'srecent exposures and the presence of clinical signs and symptomsconsistent with COVID- 19. An individual without symptoms of COVID-19and who is not shedding SARS-CoV-2 virus would expect to have anegative (not detected) result in this assay. SARS-CoV-2, ROBERT [address] [facility] ID Date Data Source [id number] 09/24/2020 08:42:[address] [facility] Name Value Range Interpretation Code Description Data Destiny rce(s) Supporting Document(s) Progress Note [facility] [id number] [facility] [file] [id number]== ID Date Data Source [id number] 09/17/2020 03:23:[address] [facility] IR ARTERIOGRAM CEREBRALFINAL RESULTInter preted by:CARLOS Dentonreoperative diagnosis: 6.27 x 4.55 mm anterior communicating artery aneurysm with irregular morphology and 2.5 mm neckPostoperative diagnosis:No significant change in anterior communicating artery aneurysm by digital subtraction angiography; complete aneurysm occlusion status post stent-assisted coil embolizationProcedures performed:1. Distal transradial diagnostic cerebral angiogram with ultrasound-guided access to distal right radial artery2. Selective left internal carotid artery angiogram x23. Rotational/3-D angiogram left internal carotid artery4. Superselective left anterior cerebral artery angiogram5. Coil embolization of anterior communicating artery aneurysm6. Stenting of left anterior cerebral artery A1/A2 segments for reconstruction of anterior communicating artery aneurysm neck 7. Control angiogram of left internal carotid artery x98. Left common carotid artery angiogram x29. Right radial artery ssyiuwqrt15. Supervision and interpretationSurgeon: Raine Burton M.D.Vehicle Technician: Ruben Amato M.D.; Mario Packer M.D.Anesthesia: General endotracheal anesthesiaNeurophysiologic monitoring: No sustained changes in monitoringComplications: NoneTotal fluoroscopy time/dose: 29.9 minutes; 2025 mGyContrast: Omnipaque-300, 150 mLIndications for the procedure: This 44-year-old female presents for elective treatment of unruptured anterior communicating artery aneurysm. I had a long discussion with the patient at the bedside, and her family by telephone, detailing the clinical and radiographic findings and options for treatment including transradial diagnostic cerebral angiography with possible embolization of anterior communicating artery aneurysm with coils, possible stent, possible HUD implant, possible balloon assist, under general anesthesia with neurophysiologic monitoring. We specifically discussed the risks of the procedure including but not limited to: Bleeding, infection, hand/wrist/arm hematoma, retroperitoneal hematoma, arterial dissection, injury to limb, loss of hand or arm, contrast dye induced renal failure including need for hemodialysis, allergic reaction, radiation exposure including hair loss and muñoz, stroke, weakness, pain, numbness, paralysis, difficulty speaking and/or understanding speech, blindness, intracranial hemorrhage, aneurysm rupture, aneurysm recurrence, delayed complications related to implants, coma, , need for additional procedures. The patient and family verbalized understanding and wished to proceed despite the risks. Informed consent was obtained and witnessed by nursing staff in the holding area.Procedure: The patient was brought directly to the angiography suite and laid supine on the angiography table. She underwent the uneventful induction of general endotracheal anesthesia and placement of neurophysiologic monitoring leads. The bilateral groins and right anatomic snuffbox was prepped and draped in standard sterile fashion, and we underwent [facility] standard timeout for patient and site verification and communication among all staff. A Barbeau test was performed to confirm patency of the radiopalmar arch prior to sterile preparation. Pulse oximetry was monitored on the right thumb throughout the procedure. The right radial pulse at the snuffbox was palpated, examined under ultrasound to confirm patency and measure luminal diameter, and the surrounding area was anesthetized with subcutaneous injection of 2% lidocaine mixed with nitroglycerin. The right radial artery was accessed using singlewall access technique under direct ultrasound visualization. A 6 Namibian radial glide sheath was placed using Seldinger technique. The sheath was secured in place with Tegaderm, it was back bled and flushed and connected to a continuous heparinized pressurized bag of saline at a slow constant drip rate. The patient was slowly administered 2.5 mg verapamil in 1 ml and 200 mcg nitroglycerin in 2 ml into the right radial artery through the radial glide sheath after dilution with arterial blood. Intravenous bolus of 100 units per kilogram of heparin was administered for thromboembolic prophylaxis after baseline ACT measurement. Serial ACT measurements were performed throughout the procedure to maintain ACT greater than 2 times baseline with additional intravenous heparin as necessary. Subsequently, a 5 Namibian [place] 2 glide catheter was advanced through a [employer] guide catheter through the radial sheath under fluoroscopic guidance over the 038 glide wire to the level of the aortic arch where the wire was partially withdrawn and the secondary curve was formed in the descending aorta. The formed [place] 2 catheter was utilized for selective catheterization of the left common carotid artery where roadmap views were obtained. Roadmap views of the left common carotid artery demonstrate no evidence of hemodynamically significant stenosis or significant tortuosity. Under roadmap views, the left internal carotid artery was selectiv brian catheterized over the Glidewire. The 5 Namibian [place] 2 catheter and glide wire was removed, the catheter was flushed, and flow was checked. Subsequently, selective left internal carotid artery angiography was performed in Jerrell and lateral views over the intracranial circulation followed by rotational angiography followed by magnified views over the anterior communicating artery aneurysm for working views for planned endovascular embolization. Rotational angiogram was performed from the cervical left internal carotid artery catheter position. Rotational views were sent to a separate workstation for reprocessing and three-dimensional rendering. Selective left internal carotid artery angiography in multiple views demonstrates no significant change in the anterior communicating artery aneurysm and the intracranial left carotid artery circulation compared to the prior angiogram. Careful measurements of the aneurysm dimensions, the aneurysm neck, and the dimensions of the associated anterior cerebral artery and the A1 and A2 segments were made for planned endovascular embolization. Subsequently, embolization was performed as follows:A 5 Namibian Pauline distal access catheter was used to advance the 6 Namibian penumbra benchmark guiding catheter to the proximal cavernous left internal carotid artery in coaxial fashion under magnified roadmap views. The Pauline distal access catheter was then removed and the penumbra benchmark guiding catheter was aspirated and flushed remove all air and debris. Please note that control angiograms were performed between steps demonstrating no evidence of contrast extravasation, thromboembolic complication, or device complication. An Rawlings SL 10 straight microcatheter was advanced over Synchro 2 microwire into the distal portion of the dome of the aneurysm under magnified roadmap views. The microwire was removed and the microcatheter was aspirated and flushed remove all air and debris. A target XL 360 soft 4 mm x 8 cm coil was partially deployed into the aneurysm, however, multiple loops of coil herniating into the parent anterior cerebral artery despite multiple attempts at primary coil embolization. Thus, decision was made to proceed with stent assisted coil embolization. The patient was administered intravenous bolus and drip of Cangrelor antiplatelet medication for planned stenting. Subsequently, a second Rawlings SL 10 straight microcatheter was advanced over the synchro 2 microwire into the left anterior cerebral artery A2 segment while the first microcatheter remained in the midportion of the dome of the aneurysm with 2 loops of coil partially deployed as a place brewer and microcatheter buffer against the wall of the aneurysm. The microwire was removed and the microcatheter was aspirated and flushed before superselective left anterior cerebral artery angiography was performed demonstrate adequate microcatheter placement in the primary lumen of the A2 segment of the left anterior cerebral artery, adequate for stent placement. Subsequently, a Neuroform [place] 3 mm x 15 mm stent was carefully positioned across the neck of the aneurysm from the left A2 to the left A1 segment and deployed in standard fashion, reconstructing the neck of the aneurysm. The stent microcatheter was then completely removed with the stent microwire, without movement of the coiling microcatheter or stent. The coil embolization was then performed with the following coils: The target XL 360 soft 4 mm x 8 cm coil was fully deployed, adequately framing the aneurysm dome, followed by a target 360 Jaz 3.5 mm x 6 cm coil, target 360 Jaz 3 mm x 6 cm coil, target 360 Jaz 2.5 mm x 4 cm coil. 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 The guiding catheter was then pulled back to the left common carotid artery where angiography was performed over the neck, followed by repeat angiography over the head following administration of protamine to ensure no evidence of stent thrombosis. Left common carotid artery angiography demonstrates no evidence of carotid artery dissection or access complication with persistent patency of stent and occlusion of aneurysm after administration of intravenous protamine.Subsequently, the catheter was pulled back to the radial sheath. Right radial artery angiography was performed in AP view. Right radial artery angiography demonstrates no evidence of access complication and occlusion of the right radial artery at the level of the sheath, with normal appearance of the right brachial and ulnar arteries. Subsequently, after secondary review of all images, the radial sheath was remov ed with placement of a Prelude Sync distal compression band, and hemostasis was obtained. The patient was extubated uneventfully and remained neurologically at baseline with a stable vascular examination of the right upper extremity post procedure. I was present for, and performed the entire procedure. There were no apparent complications. I immediately discussed the results of the procedure with the patient's family by telephone.Summary: Distal transradial diagnostic cerebral angiogram and stent-assisted coil embolization of anterior communicating artery aneurysm for complete occlusion, without complication.This document has been electronically signed by Raine Burton MD on 09/17/2020 3:21 PM Name Value Range Interpretation Code Description Data Destiny rce(s) Supporting Document(s) ID Date Data Source [id number] 09/04/2020 09:00:00 AM EDT [facility] [address] [place] [address] PHONE: [phone] FAX: [phone] Name .................. : BOOGIE Taylor Acct Number.................. : [id number] ROOM. ................. : TR-03 MR Number ................... : [id number] Stay type ............. : E/R Discharge Date......... ... : 09/03/20 Admit Date ......... : 09/03/20 Admit Phys .................... : DARRELL Date of ....... : 1975 Family Phys ................... : JORGE PIMENTEL Phone .................. : [phone] Age ................................ : 44 Film# .................. .:[id number] Sex ................................. : F Unsigned transcriptions are preliminary reports and do not represent a medical or legal document CT HEAD W/O CONTRAST [id number] COMPLETE:09/03/20 19:28 CHRISTINE 8271 Reason(s): s/p coiling of cerebral aneurysm 3 days ago tingling on left UE CT OF THE HEAD WITHOUT CONTRAST: INDICATION: History of cerebral aneurysm coil 3 days ago, tingling in the left upper extremity. COMPARISON: 06/11/20 FINDINGS: There are aneurysmal coils identified in the middle fossa. There is a new area of encephalomalacia identified involving the base of the left frontal lobe. No evidence of an intracranial hemorrhage. The orbits are unremarkable. The paranasal sinuses are clear. There is a stable area of highly dense material in the right frontal bone most likely representing cement. IMPRESSION: New area of encephalomalacia involving the base of the left frontal lobe. No intracranial hemorrhage. Cerebral aneurysmal coiling identified in the middle fossa. No midline shift or mass effect. While performing the above CT examination, radiation dose reduction was accomplished utilizing automated exposure control, adjusting of the mA and kV based on the patient's body size and/or the use of imperative reconstructive techniques. CT dose: 364.3 mGycm Electronically Reviewed and Signed By Bean Parikh DO , 09/04/20 09:00, ERMELINDA Page 1 of 2 [facility] [address] [place] [address] PHONE: [phone] FAX: [phone] Name .................. : BOOGIE Taylor Acct Number.................. : [id number] ROOM. ................. : TR-03 Number ................... : [id number] Stay type ............. : E/R Discharge Date......... ... : 09/03/20 Admit Date ......... : 09/03/20 Admit Phys .................... : DARRELL Date of ....... : 1975 Family Phys ................... : Melon #usemelon Phone .................. : [phone] Age ................................ : 44 Film# .................. .:[id number] Sex ................................. : F Unsigned transcriptions are preliminary reports and do not represent a medical or legal document CT HEAD W/O CONTRAST [id number] COMPLETE: 09/03/20 19:28 CHRISTINE 8271 Reason(s): s/p coiling of cerebral aneurysm 3 days ago tingling on left UE Transcribe Initials: ULISES , Transcribe Date: 09/04/20 06:56, Dictation Date: Copy for: EMERGENCY DEPT via modem Copy for: 710 MED REC DISCHARGED Page 2 of 2 Name Value Range Interpretation Code Description Data Destiny rce(s) Supporting Document(s) ID Date Data Source [id number] 09/04/2020 08:58:00 AM EDT [facility] [address] [place] [address] PHONE: [phone] FAX: [phone] Name .................. : BOOGIE Taylor Acct Number.................. : [id number] ROOM. ................. : TR-03 MR Number ................... : [id number] Stay type ............. : E/R Discharge Date......... ... : 09/03/20 Admit Date ......... : 09/03/20 Admit Phys .................... : [facility] Date of ....... : 1975 Family Phys ................... : PATEL PAU Phone .................. : [phone] Age ................................ : 44 Film# .................. .:[id number] Sex ................................. : F Unsigned transcriptions are preliminary reports and do not represent a medical or legal document [place] [id number] COMPLETE:09/03/20 18:25 ADB 8267 Reason(s): Swelling, Limb LEFT ARM VENOUS DUPLEX DOPPLER: INDICATION: Pain and swelling. FINDINGS: Ultrasound imaging performed using color flow and spectral Doppler interrogation. There is normal flow and compressibility of the axillary vein, subclavian vein, and veins of the left upper arm. There is no evidence of deep venous thrombosis. IMPRESSION: No evidence of DVT in the left upper extremity. Electronically Reviewed and Signed By Bean Parikh DO , 09/04/20 08:58, ERMELINDA Transcribe Initials: ULISES , Transcribe Date: 09/03/20 22:22, Dictation Date: Copy for: [facility] DEPT via modem Copy for: 710 MED REC DISCHARGED Page 1 of 1 Name Value Range Interpretation Code Description Data Destiny rce(s) Supporting Document(s) ID Date Data Source [id number] 09/03/2020 04:33:00 PM EDT [facility] 1 OrderSheet [facility] Emergency Department [address] [place] [address] Phone #: [phone] ext- [phone] 09/03/2020 16:14 Patient: CHERRIE FRANCE Sex: F : 1975 Age: 44yWEIGHT:95.2 kg (M) HEIGHT:63 inches (S) BMI:37.2ALLERGIES: Penicillins, TopamaxCHIEF COMPLAINT: tinglingDIAGNOSIS: ParesthesiaLAB ORDERSOrder Description Priority Entered Acknowledged InitialedCBC w Diff STAT 16:40 09/03/2020 16:42 Darrell Yan Victoria Frank R.N. ;CMP STAT 16:40 09/03/2020 16:42 Darrell Yan Victoria Frank R.N. ;DIAGNOSTIC STUDY ORDERSOrder Description Priority Entered Acknowledged InitialedUS Upper Ext STAT 16:40 09/03/2020 16:42 Yuriy,Venous Left Lorena Wilkes R.N.(Oxygen?(No)) ; Reason for Study: Swelling, LimbCT Head W/ Cont STAT 16:40 09/03/2020 Initialed: 16:42 Tristan Yan R.N.(Oxygen?(No)) Lorena Wilkes Cancelled: Wrong Order 17:15(IV?(No)) ; Lorena Wilkes Reason for Study: s/p coiling for brain aneyrysm, tingling sensation left handCT Head W/O Cont STAT 17:16 09/03/2020 17:20 Yuriy,(Oxygen?(No)) Lorena Wilkes R.N. ; Reason for Study: s/p coiling of cerebral aneurysm 3 days ago tingling on left UEMEDICATION/IV/DRIP/FLUID ORDERSOrder Description Priority Entered Acknowledged InitialedGENERAL ORDERSOrder Description Priority Entered Acknowledged Initialed[Electronically signed by Lorena Wilkes (21:00 09/03/2020)][Electronically signed by Tristan Yan R.N. (:09/03/2020)] 2 OrderSheet [facility] Emergency Department [address] [place] [address] Phone #: ext- [phone] 09/03/2020 16:14 Patient: CHERRIE FRANCE Sex: F : 1975 Age: 44y[Electronically locked by Tristan Yan R.N. (:09/03/2020)] Name Value Range Interpretation Code Description Data Destiny rce(s) Supporting Document(s) ID Date Data Source [id number] 09/03/2020 04:33:00 PM EDT [facility] 1 Medication Reconciliation Report [facility] Emergency Department [address] [place] [address] Phone #: ext- [phone] 09/03/2020 16:14 Patient: CHERRIE FRANCE Sex: F : 1975 Age: 44yWeight: 95.2 kgHeight/Length: 63 in.BMI: 37.2ALLERGIES: Penicillins, TopamaxThe patient's Home Medications are listed below:CONTINUE TAKING THE FOLLOWING MEDICATIONS: Acetaminophen Oral (325 mg) 2 capsules, q6h, prn Albuterol Sulfate HFA Inhalation (108 (90 Base) mcg/act), 4x a day Albuterol Sulfate Inhalation ((2.5 MG/3ML) 0.083%), q6h, prn Aspirin 81 Oral (81 mg), daily Breo Ellipta Inhalation (200-25 mcg/inh), daily, every AM CombiPatch Transdermal (0.05-0.14 mg/day) Cyclobenzaprine HCl Oral (5 mg) 1 tablet, prn Nitrofurantoin Oral 100 mg, daily, every AM Nortriptyline HCl Oral (25 mg), daily, at bedtime Ticagrelor Oral (90 mg) 1 tablet, 2x a day Varenicline Tartrate Oral (0.5 mg) 1 tablet, 2x a day Vitamin D (Cholecalciferol) Oral, dailyThe source(s) of the original Home Medication information:Not obtained.The following Medications were given to the patient in the Emergency Department: 2 Medication Reconciliation Report [facility] Emergency Department [address] [place] [address] Phone #: ext- [phone] 09/03/2020 16:14 Patient: CHERRIE FRANCE Sex: F : 1975 Age: 44yNone.The following Medications were prescribed to the patient:None. Name Value Range Interpretation Code Description Data Destiny rce(s) Supporting Document(s) ID Date Data Source [id number] 09/03/2020 04:33:00 PM EDT [facility] 1 Medication Administration Record [facility] Emergency Department [address] [place] [address] Phone #: ext- [phone] 09/03/2020 16:14 Patient: CHERRIE FRANCE Sex: F : 1975 Age: 44yWeight: 95.2 kgHeight/Length: 63 inBMI: 37.2ALLERGIES: Penicillins, TopamaxDate/Time Medication Administered Medication Ordered Name Value Range Interpretation Code Description Data Destiny rce(s) Supporting Document(s) ID Date Data Source [id number] 09/03/2020 04:33:00 PM EDT [facility] 1 General Instructions [facility] Emergency Department [address] [place] [address] Phone #: ext- [phone] 09/03/2020 16:14 Patient: CHERRIE FRANCE Sex: F : 1975 Age: 44yParesthesiaINSTRUCTIONS(continue all your medications. the CT scan of the brain showed the coil. no evidence of bleed. we did anUS of the left upper extremity which did not show any blood clots.).Your Current Medications: Your current home medications have been reviewed.CONTINUE TAKING THE FOLLOWING MEDICATIONS:Acetaminophen Oral : Capsule 325 mg, 2 capsules q6h, prn.Albuterol Sulfate HFA Inhalation : Aerosol Solution 108 (90 Base) mcg/act, 4x a day.Albuterol Sulfate Inhalation : Nebulization Solution (2.5 MG/3ML) 0.083%, q6h, prn.Aspirin 81 Oral : Tablet Delayed Release 81 mg, daily.Breo Ellipta Inhalation : Aerosol Powder Breath Activated 200-25 mcg/inh, daily, adeline ry AM.CombiPatch Transdermal : Patch Twice Weekly 0.05-0.14 mg/day.Cyclobenzaprine HCl Oral : Tablet 5 mg, 1 tablet, prn.Nitrofurantoin Oral : 100 mg daily, every AM.Nortriptyline HCl Oral : Capsule 25 mg, daily, at bedtime.Ticagrelor Oral : Tablet 90 mg, 1 tablet 2x a day.Varenicline Tartrate Oral : Tablet 0.5 mg, 1 tablet 2x a day.Vitamin D (Cholecalciferol) Oral : daily.Follow-up:Follow up with your healthcare provider Monday. Call for an appointment. Reason for referral: evaluation.Summary of care provided to patient via paper. Screening today revealed the patient's blood pressure morena in the hy pertensive stage 2 range. The patient should follow up with a primary care provider for bloodpressure management. ADDITIONAL INFORMATIONParaesthesiasParaesthesia is a burning or prickling sensation that is sometimes felt in the hands, arms, legs or feet.It can also occur in other parts of the body. It can also feel like tingling or numbness, skin crawling, oritching. The feeling is not comfortable, but it is not painful. (The "pins and needles" feeling thathappens when a foot or hand "falls asleep" is a temporary paraesthesia.) 2 General Instructions [facility] Emergency Department [address] [place] [address] Phone #: ext- [phone] 09/03/2020 16:14 [id number] Sex[facility] F : 1975 Age: 44yParaesthesias that last or come and go may be caused by medical issues that need to be treated.These include stroke, a bulging disk pressing on a nerve, a trapped nerve, vitamin deficiencies,uncontrolled diabetes, alcohol abuse, or even certain medicines.Tests are often done. These tests may include blood tests, X-ray, CT (computerized tomography)scan, nerve conduction studies (NCS), or a muscle test (electromyography). Depending on the cause,treatment may include physical therapy.Home care Tell your healthcare provider about all medicines you take. This includes prescription and [id number] medicines, vitamins, and herbs. Ask if any of the medicines may be causing your problems. Don't make any changes to prescription medicines without talking to your healthcare provider first. You may be prescribed medicines to help relieve the tingling feeling or for pain. Take all medicines as directed. A numb hand or foot may be more prone to injury. To help protect it: o Always use oven mitts. o Test water with an unaffected hand or foot. o Use caution when trimming nails. File sharp areas. o Wear shoes that fit well to avoid pressure points, blisters, and ulcers. o Inspect your hands and feet carefully (including the soles of your feet and between your toes) daily. If you see red areas, sores, or other problems, tell your healthcare provider.Follow-up careFollow up with your doctor, or as advised. You may need further testing or evaluation.When to seek medical adviceCall your healthcare provider right away if any of the following occur: Numbness or weakness of the face, one arm, or one leg Slurred speech, confusion, trouble speaking, walking, or seeing Severe headache, fainting spell, dizziness, or seizure 3 General Instructions [facility] Emergency Department [address] [place] [address] Phone #: ext- [phone] 09/03/2020 16:14 Patient: CHERRIE FRANCE Sex: F : 1975 Age: 44y Chest, arm, neck, or upper back pain Loss of bladder or bowel control Open wound with redness, swelling, or pus [phone] [employer]. [address] [place] [address]. All rights reserved. This information is not intended as asubstitute for professional medical care. Always follow your healthcare professional's instructions. You have been given the following additional information: Paraesthesias(Electronically signed by Lorena Wilkes 09/03/2020 21:00) Name Value Range Interpretation Code Description Data Destiny rce(s) Supporting Document(s) ID Date Data Source [id number] 09/03/2020 04:33:00 PM EDT [facility] 1 Clinical Report - Nurses [facility] Emergency Department [address] [place] [address] Phone #: ext- [phone] 09/03/2020 16:14 Patient: CHERRIE FRANCE Sex: F : 1975 Age: 44yTRIAGE Arrived by private vehicle. Historian: patient. Acuity: LEVEL 4. Chief Complaint: LEFT UPPER EXTREMITY TINGLING. Alert. No acute distress. Onset. (3 days ago). ( Pt had surgery for a brain aneurysm on Monday at [facility] and was discharged Monday. While she was in the recovery room, she began having tingling in her left hand and fingers. She says she had 5 IV sites in her left arm. She called the surgeon today because she was still having tingling in her hand and his nurse told her to come to the ER.). Treatment [employer]: Took Tylenol. Seen within the last 30 days at another facility; seen for different problems. SEPSIS SCREEN: SIRS SCREEN NEGATIVE. SEPSIS SCREEN NEGATIVE. No suspected or confirmed signs of infection present. ZOHAIB COMA SCORE: 15- eyes open- spontaneous (4); best verbal response- oriented (5); best motor response- obeys commands (6). --16:26 09/03/20 Dorys Fenton R.N. 16:16 09/03/20. BP: 149/75. MAP: 99. HR: 72. RR: 18. O2 saturation: 96% on room air. Temp: 98.5 F. Pain level now: 09/05. --16:26 09/03/20 Dorys Fenton R.N. Weight: 95.2 kg measured. Height/Length: 63 inches Per Patient. BMI: 37.2. --16:25 09/03/20 Dorys Fenton R.N. Medications Acetaminophen Oral (Capsule 325 mg) 2 capsules, q6h as needed. --16:29 09/03/20 Dorys Fenton R.N. Albuterol Sulfate Inhalation (Nebulization Solution (2.5 MG/3ML) 0.083%), q6h as needed. --16:29 09/03/20 Dorys Fenton R.N. Albuterol Sulfate HFA Inhalation (Aerosol Solution 108 (90 Base) mcg/act), 4x a day. --16:29 09/03/20 Dorys Fenton R.N. Aspirin 81 Oral (Tablet Delayed Release 81 mg), daily. --16:31 09/03/20 Dorys Fenton R.N. Breo Ellipta Inhalation (Aerosol Powder Breath Activated 200-25 mcg/inh), daily every AM. --16:09/03/20 Dorys Fenton R.N. CombiPatch Transdermal (Patch Twice Weekly 0.05-0.14 mg/day). --16:31 09/03/20 Dorys Fenton R.N. Cyclobenzaprine HCl Oral (Tablet 5 mg) 1 tablet, as needed. --16:32 09/03/20 Dorys Fenton R.N. 2 Clinical Report - Nurses [facility] Emergency Department [address] [place] [address] Phone #: ext- [phone] 09/03/2020 16:14 Patient: CHERRIE FRANCE Sex: F : 1975 Age: 44yNitrofurantoin Oral 100 mg, daily every AM.--16:32 09/03/20 Dorys Fenton R.N.Nortriptyline HCl Oral (Capsule 25 mg), daily at bedtime.--16:33 09/03/20 Dorys Fenton R.N.Ticagrelor Oral (Tablet 90 mg) 1 tablet, 2x a day.--16:33 09/03/20 Dorys Fenton R.N.Varenicline Tartrate Oral (Tablet 0.5 mg) 1 tablet, 2x a day.--16:33 09/03/20 Dorys Fenton R.N.Vitamin D (Cholecalciferol) Oral, daily.--16:34 09/03/20 Dorys Fenton R.N.The following entry was struck by Dorys Fenton R.N., 16:41 (09/03/20) Reason - other. Vitamin D (Cholecalciferol) Oral, daily. --16:34 09/03/20 Dorys Fenton R.N.The following entry was struck by Dorys Fenton R.N., 16:41 (09/03/20) Reason - other. Varenicline Tartrate Oral (Tablet 0.5 mg) 1 tablet, 2x a day. --16:33 09/03/20 Dorys Fenton R.N.The following entry was struck by Dorys Fenton R.N., 16:41 (09/03/20) Reason - other. Ticagrelor Oral (Tablet 90 mg) 1 tablet, 2x a day. --16:33 09/03/20 Dorys Fenton R.N.The following entry was struck by Dorys Fenton R.N., 16:40 (09/03/20) Reason - other. Nortriptyline HCl Oral (Capsule 25 mg), daily at bedtime. --16:33 09/03/20 Dorys Fenton R.N.The following entry was struck by Dorys Fenton R.N., 16:40 (09/03/20) Reason - other. Nitrofurantoin Oral 100 mg, daily every AM. --16:32 09/03/20 Dorys Fenton R.N.The following entry was struck by Dorys Fenton R.N., 16:40 (09/03/20) Reason - other. Cyclobenzaprine HCl Oral (Tablet 5 mg) 1 tablet, as needed. --16:32 09/03/20 Dorys Fenton R.N.The following entry was struck by Dorys Fenton R.N., 16:40 (09/03/20) Reason - other. CombiPatch Transdermal (Patch Twice Weekly 0.05-0.14 mg/day). --16:31 09/03/20 Dorys Fenton R.N.The following entry was struck by Dorys Fenton R.N., 16:40 (09/03/20) Reason - other. Breo Ellipta Inhalation (Aerosol Powder Breath Activated 200-25 mcg/inh), daily every AM. --16: Dorys Fenton R.N.The following entry was struck by Dorys Fenton R.N., 16:40 (09/03/20) Reason - other. Aspirin 81 Oral (Tablet Delayed Release 81 mg), daily. --16:31 09/03/20 Dorys Fenton R.N.The following entry was struck by Dorys Fenton R.N., 16:40 (09/03/20) Reason - other. Albuterol Sulfate Inhalation (Nebulization Solution (2.5 MG/3ML) 0.083%), q6h as needed. --16: Dorys Fenton R.N.The following entry was struck by Dorys Fenton R.N., 16:40 (09/03/20) Reason - other. Albuterol Sulfate HFA Inhalation (Aerosol Solution 108 (90 Base) mcg/act), 4x a day. --16:29 09/03/20Dorys Fenton R.N.The following entry was struck by Dorys Fenton R.N., 16:40 (09/03/20) Reason - other. Acetaminophen Oral (Capsule 325 mg) 2 capsules, q6h as needed. --16:29 09/03/20 Dorys Fenton R.N. .AllergiesTopamax. --16:22 09/03/20 Dorys Fenton R.N.Penicillins. --16:22 09/03/20 Dorys Fenton R.N. 3 Clinical Report - Nurses [facility] Emergency Department [address] [place] [address] Phone #: ext- [phone] 09/03/2020 16:14 Patient: CHERRIE FRANCE Sex: F : 1975 Age: 44yPROBLEMS:Angioma on liver.Brain aneurysm. --16:24 09/03/20 Dorys Fenton R.N.COPD - Chronic Obstructive Pulmonary Disease.Asthma. --16:35 09/03/20 Dorys Fenton R.N.Arthritis. --16:45 09/03/20 Lorena WilkesThe following entry was modified by Dorys Fenton R.N., 16:35 09/03/20Arthritis. --16:23 09/03/20 Dorys Fenton R.N.The following entry was modified by Dorys Fenton R.N., 16:35 09/03/20COPD - Chronic Obstructive Pulmonary Disease. --16:23 09/03/20 Dorys Fenton R.N.The following entry was modified by Dorys Fenton R.N., 16:35 09/03/20Asthma. --16:23 09/03/20 Dorys Fenton R.N.The following entry was modified by Lorena Wilkes, 16:45 09/03/20Arthritis. --16:34 09/03/20 Dorys Fenton R.N..ADDITIONAL SURGERIES:Colonoscopy.[facility] procedure.Craniotomy.C- Section.Laparotomy. --16:24 09/03/20 Dorys Fenton R.N.HistoryPAST MEDICAL HX: Immunizations: up-to-date. Last normal menstrual period- 1 weeks ago. Deniescurrent .SOCIAL HX: Light tobacco smoker (cigarette)- less than 1/2 a pack per day. No alcohol use or drug use.She was offered HIV testing but declined and hepatitis C testing but declined. She has not traveledoutside the [place]Infectious disease exposure: The patient was not exposed to C-diff, MRSA, VRE, CRE or Coronavirus.SELF HARM ASSESSMENT: Self harm assessment was performed. The patient answered "no" to thequestion(s) "Have you recently felt down, depressed, or hopeless?", "Do you have thoughts of harming orkilling yourself?", "Do you have a plan for harming or killing yourself?", "Have you recently had thoughtsabout harming or killing others?", "Do you have any dangerous items in your possession?", "Have younoticed less interest or pleasure in doing things?", "Are you here because you tried to hurt yourself?" and"Have you ever tried to hurt yourself before today?".ABUSE ASSESSMENT: No report of abuse.NUTRITIONAL RISK ASSESSMENT: The nutritional risk assessment revealed no deficiencies.FUNCTIONAL ASSESSMENT: Functional assessment: no impairments noted. 4 Clinical Report - Nurses [facility] Emergency Department [address] [place] [address] Phone #: ext- [phone] 09/03/2020 16:14 [id number] Sex[facility] F : 1975 Age: 44y LEARNING NEEDS ASSESSMENT: The learning needs assessment revealed no barriers. FALL RISK ASSESSMENT: Fall risk assessment completed. No risk factors identified. SKIN INTEGRITY ASSESSMENT: Skin integrity risk assessment completed. No skin integrity risk identified. --16:26 09/03/20 Dorys Fenton R.N. Interventions Identification and allergy band on patient. To treatment room. --16:26 09/03/20 Dorys Fenton R.N. 16:31 09/03/20. Allergy band on patient. --16:31 09/03/20 Tristan Yan R.N.PHYSICAL ASSESSMENT Ambulatory to room. GENERAL / NEURO / PSYCH: Oriented X 4. Alert. Appears in no acute distress. EXTREMITIES: Extremities exhibit normal ROM. Neuro-vascular status intact to the extremity. No upper extremity edema. Skin is non-tender on the extremities. Left arm: (numbness). SKIN: Skin intact. Skin is warm and dry. --16:32 09/03/20 Tristan Yan R.N.NURSING PROGRESS NOTES Patient gowned. Reassurance given. Two patient identifiers checked. Call light placed in reach. Patient ready for evaluation- ED physician notified. --16:26 09/03/20 Dorys Fenton R.N. 16:46 09/03/20. Patient transported to sonogram by wheelchair with photovoltaic fabrication technician. --16:46 09/03/20 Tristan Yan R.N. 17:18 09/03/20. Patient returned from CT and sonogram by wheelchair with photovoltaic fabrication technician. --17:18 09/03/20 Tristan Yan R.N. 17:50 09/03/20. Reassurance given. Reassessment acuity: LEVEL 3. The patient reports no complaints, she is calm and resting quietly and she has had no adverse reaction. Overall patient status is improved- she states feels better. GENERAL / NEURO / PSYCH: Alert. Oriented X 4. RESPIRATORY: No respiratory distress. Two patient identifiers checked. Call light placed in reach. Bed placed in lowest position. Brakes of bed on. --17:50 09/03/20 Tristan Yan R.N.DISPOSITION / DISCHARGE 18:17 09/03/20. Departure time: 18:27 09/03/2020. Condition at departure: improved and stable. The goals identified in the patient's plan of care were met. Fall risk assessment completed. No risk factors identified. No learning barriers present. Discharge instructions provided and reviewed with the patient. Reviewed warnings. Reviewed medic ation(s). Treatments reviewed. Reviewed referral to a primary care physician. Patient verbalized understanding. Written instructions provided in Somali. The patient was discharged by the physician. She was discharged home. She left ambulatory and via private vehicle. 5 Clinical Report - Nurses [facility] Emergency Department [address] [place] [address] Phone #: ext- [phone] 09/03/2020 16:14 [id number] Sex[facility] F : 1975 Age: 44y Patient driving. --18:28 09/03/20 Tristan Yan R.N. 18:17 09/03/20. BP: 137/66. MAP: 89. HR: 65. RR: 16. O2 saturation: 99%. Temp: 98 F. Pain level now: 0/10. --18:28 09/03/20 Tristan Yan R.N.Locked/Released at 09/03/2020 21:08 by Tristan Yan R.N. Name Value Range Interpretation Code Description Data Destiny rce(s) Supporting Document(s) ID Date Data Source [id number] 09/03/2020 04:33:00 PM EDT [facility] 1 Clinical Report - Physicians/Mid Levels [facility] Emergency Department [address] [place] [address] Phone #: ext- [phone] 09/03/2020 16:14 Patient: CHERRIE FRANCE Sex: F : 1975 Age: 44y Arrived- By private vehicle. Historian- patient. Disposition decision: 18:16 09/03/2020.HISTORY OF PRESENT ILLNESS Chief Complaint: tingling sensation on the left hand. This started 3 days ago, patient was last known well (08:00 08/31/2020) and is still present (persistent 3 days). It was gradual in onset and has been constant. The patient has had tingling of the left hand (moderate). No weakness, numbness, impaired speech or swallowing or visual disturbance. No recent fall. No difficulty walking. At its maximum deficit described as moderate. When seen in the E.D., deficit described as mild. No dizziness, altered mental status or seizure. Usually is alert and oriented X3 and has normal mobility. (Patient had coiling of cerebral aneurysm 3 days ago at [facility] and was discharged the following day. she states that she had headaches prior to coiling. when she woke up she started having tingling sensation of the left hand. she also has swelling and bruising of both forearms but felt something hard on the left forearm. she has been having tingling sensation on the left hand only. no focal weakness, no sensory deficits. she called her doctor and she was advised by the nurse to go to the ER. denies slurred speech).REVIEW OF SYSTEMSNo fever, headache, chest pain, difficulty breathing or cough. No sputum production, sore throat, nausea,diarrhea or black stools. No difficulty with urination, skin rash, enlarged lymph nodes, joint pain orvomiting. No bloody stools or back pain. All other systems reviewed and are negative.PAST HISTORYSee nurses notes. Problems: Migraine Headache. Trigeminal Neuralgia. Seizure Disorder. Eosinophilic granuloma. Heart Disease. Angioma on liver. Brain aneurysm. Additional Surgeries: Colonoscopy. [facility] procedure. Craniotomy. C- Section. 2 Clinical Report - Physicians/Mid Levels [facility] Emergency Department [address] [place] [address] Phone #: ext- [phone] 09/03/2020 16:14 [id number] Sex: F : 1975 Age: 44y Laparotomy. Medications: Vitamin D (Cholecalciferol) Oral, daily. Varenicline Tartrate Oral (Tablet 0.5 mg) 1 tablet, 2x a day. Ticagrelor Oral (Tablet 90 mg) 1 tablet, 2x a day. Nortriptyline HCl Oral (Capsule 25 mg), daily at bedtime. Nitrofurantoin Oral 100 mg, daily every AM. Cyclobenzaprine HCl Oral (Tablet 5 mg) 1 tablet, as needed. CombiPatch Transdermal (Patch Twice Weekly 0.05-0.14 mg/day). Breo Ellipta Inhalation (Aerosol Powder Breath Activated 200-25 mcg/inh), daily every AM. Aspirin 81 Oral (Tablet Delayed Release 81 mg), daily. Albuterol Sulfate HFA Inhalation (Aerosol Solution 108 (90 Base) mcg/act), 4x a day. Albuterol Sulfate Inhalation (Nebulization Solution (2.5 MG/3ML) 0.083%), q6h as needed. Acetaminophen Oral (Capsule 325 mg) 2 capsules, q6h as needed. Allergies: Penicillins. Topamax.SOCIAL HISTORYCurrent every day light tobacco smoker (cigarette)- less than 1/2 a pack per day. No alcohol use or druguse.ADDITIONAL NOTESThe nursing notes have been reviewed.PHYSICAL EXAMVital Signs: 09/03/2020 16:16 BP: 149/75. MAP: 99. HR: 72. RR: 18. O2 saturation: 96% on room air.Temp: 98.5 F. Pain level now: 410. Have been reviewed. Oxygen saturation not normal.Appearance: Alert. No acute distress.Head: Head atraumatic.Eyes: Pupils equal, round and reactive to light. No double vision. No dysconjugate gaze. Nonystagmus.ENT: Normal ENT inspection. Airway intact. Pharynx normal.Neck: Normal inspection. Neck supple.CVS: Normal heart rate and rhythm. Heart sounds normal. Pulses normal.Respiratory: No respiratory distress. Painless inspiration. Breath sounds normal.Abdomen: Soft and nontender. No organomegaly.Back: Normal inspection. No CVA tenderness.Skin: Skin warm and dry. Normal skin color. No rash. Normal skin turgor.Extremities: Extremities exhibit normal ROM. No lower extremity edema. (ther are ecchymosis on bothforearms. there is a palpable cord on the left forearrm on the volar aspect. multiple needle germain from IVsnoted.).Neuro: Alert. Oriented X 3. Verbal response is not abnormal. Response to pain is not abnormal. No 3 Clinical Report - Physicians/Mid Levels [facility] Emergency Department [address] [place] [address] Phone #: ext- [phone] 09/03/2020 16:14 [id number] Sex: F : 1975 Age: 44y aphasia. Mood/affect normal. Speech normal. No dysphasia. Cranial nerves normal (as tested). No facial weakness. No cerebellar findings. No abnormal finger-nose test. Normal gait. No motor deficit. No weakness. No sensory deficit. No sensory deficit. Reflexes normal. No pronator drift.LABS, X- RAYS, AND EKGCT Head: ?. (Jl cavazosBean - 09/03/2020 5:58:51 PMNew area of Ancef malacia involving the base of the left frontal lobe. No intracranial hemorrhage. Cerebralaneurysmal coiling identified in the middle fossa. No midli ne shift or mass-). The study was interpreted bythe radiologist.Duplex Ultrasound: Left upper extremity study. Negative results. (Jl cavazosBean - 09/03/2020 5:18:42PMno dvt). The study was interpreted by the radiologist.Laboratory Tests: CBC w Diff: (GERMAN: 09/03/2020 16:45) ( MsgRcvd 09/03/2020 17:27) Final results Test Result Flag Units (Reference) CBC W/AUTOMATED DIFF COMPLETE BLOOD COUNT WBC 8.5 10/uL (4.2 - 11.0) RBC 4.58 10/uL (4.20 - 5.40) HEMOGLOBIN 13.9 g/dL (12.0 - 16.0) HEMATOCRIT 40.6 % (37.0 - 47.0) MCV 88.6 fL (81.0 - 101) MCH 30.3 pg (27.0 - 34.0) MCHC 34.2 g/dL (31.0 - 36.0) RDW 13.2 % (11.5 - 14.5) PLATELETS 253 10/uL (150 - 450) MPV 9.2 fL (7.4 - 10.4) NEUT 66.4 % (37.0 - 80.0) LYMPH 21.1 L % (25.0 - 40.0) MONO 8.0 % (3.0 - 8.0) EOS 3.4 % (0.0 - 7.0) BASO 0.7 % (0.0 - 2.5) %IG 0.4 H % (0.0 - 0.0) %NRBC 0.0 % (0.0 - 0.0) #NEUT 5.61 10/uL (2.00 - 6.90) #LYMPH 1.78 10/uL (0.60 - 3.40) #MONO 0.68 10/uL (0.00 - 0.90) #EOS 0.29 10/uL (0.00 - 0.70) #BASO 0.06 10/uL (0.00 - 0.20) #IG 0.03 10/uL (0.00 - 0.10) #NRBC 0.00 10/uL (0.00 - 0.00) MANUAL DIFF NOT INDICATED RBC MORPH NOT INDICATED CMP: (GERMAN: 09/03/2020 16:45) ( MsgRcvd 09/03/2020 17:24) Final results Test Result Flag Units (Reference) COMPREHENSIVE METABOLIC PANEL COMPREHENSIVE METABOLIC PANEL SODIUM 141 mEq/L (134 - 153) POTASSIUM 3.6 mEq/L (3.6 - 5.0) CHLORIDE 104 mEq/L (98 - 107) CO2 28 MEQ/L (22 - 30) GLUCOSE 101 H MG/DL (70 - 99) 4 Clinical Report - Physicians/Mid Levels [facility] Emergency Department [address] [place] [address] Phone #: [phone] 09/03/2020 16:14 Patient: CHERRIE FRANCE Sex: F : 1975 Age: 44y BUN 13 MG/DL (7 - 21) CREATININE 0.8 MG/DL (0.7 - 1.5) BUN/CREAT 16 (8 - 27) TOTAL PROTEIN 6.8 G/DL (6.3 - 8.2) ALBUMIN 4.0 G/DL (3.9 - 5.0) GLOBULIN 2.8 GM/DL (2.4 - 3.2) A/G RATIO 1.4 (0.8 - 2.0) CALCIUM 9.7 MG/DL (8.4 - 10.2) TOTAL BILI <0.7 MG/DL (0.2 - 1.3) ALKALINE PHOS 131 H U/L (38 - 126) SGOT/AST 24 U/L (5 - 40) SGPT/ALT 34 U/L (7 - 56) ANION GAP 9.0 mmol/L (8.0 - 16.0) AGE 44 yrs NON-AA GFR >60 mL/min AFR AMER GFR >60 mL/min Male GFR Interprentation 20-49 yrs >60 mL/min Normal 50-59 yrs >56 mL/min Normal 60-69 yrs >49 mL/min Normal 70-79yrs >42 mL/min Normal 80 and above >35 mL/min Normal Female GFR Interpretation 20-39 yrs >60 mL/min Normal 40-49 yrs >58 mL/min Normal 50-59 yrs >51 mL/min Normal 60-69 yrs >45 mL/min Normal 70-79 yrs >39 mL/min Normal 80 and above >32 mL/min Normal CT Head W/ Cont: (GERMAN: 09/03/2020 16:40) ( MsgRcvd 09/03/2020 17:16) Canceled Reason(s): s/p coiling for brain aneyrysm, tingling sensation left hand Reason(s): s/p coiling for brain aneyrysm, tingling sensation left hand TRANSPORTATION: IV? IV?(No) O2? Oxygen?(No) Lorrie.PROGRESS AND PROCEDURESCourse of Care: 18:05 09/03/20. blood work unremarkable. US of the left upper extremity did not showblood clots./DVT. CT scan of the head did not show any bleed. coil in place. new encephalomalacia of theleft frontal lobe. 18:14 09/03/20. discussed the case with Dr Lee, covering for DR Burton of neurosurgery who states that they might have touched and irritated the mdian nerve when they did the coil. nothing to worry about. follow up with Dr Burton next week. Patient counseled in person regarding the patient's stable condition, test results, diagnosis and need for follow-up. Patient agrees with plan of care. 18:17. Disposition: Discharged home in good and improved condition (18:16). Condition: good and stable. Discharge decision based on the following: patient's condition is stable; patient's exam is stable; no seriously abnormal test results; stable condition on multiple repeat evaluations; social support is adequate; transportation is available; follow-up is available; clinical impression is consistent with outpatient treatment.CLINICAL IMPRESSION Paresthesia 5 Clinical Report - Physicians/Mid Levels [facility] Emergency Department [address] [place] [address] Phone #: ext- [phone] 09/03/2020 16:14 Patient: CHERRIE FRANCE Sex: F : 1975 Age: 44yINSTRUCTIONS (continue all your medications. the CT scan of the brain showed the coil. no evidence of bleed. we did an US of the left upper extremity which did not show any blood clots.). Your Current Medications: Your current home medications have been reviewed. CONTINUE TAKING THE FOLLOWING MEDICATIONS: Acetaminophen Oral : Capsule 325 mg, 2 capsules q6h, prn. Albuterol Sulfate HFA Inhalation : Aerosol Solution 108 (90 Base) mcg/act, 4x a day. Albuterol Sulfate Inhalation : Nebulization Solution (2.5 MG/3ML) 0.083%, q6h, prn. Aspirin 81 Oral : Tablet Delayed Release 81 mg, daily. Breo Ellipta Inhalation : Aerosol Powder Breath Activated 200-25 mcg/inh, daily, every AM. CombiPatch Transdermal : Patch Twice Weekly 0.05-0.14 mg/day. Cyclobenzaprine HCl Oral : Tablet 5 mg, 1 tablet, prn. Nitrofurantoin Oral : 100 mg daily, every AM. Nortriptyline HCl Oral : Capsule 25 mg, daily, at bedtime. Ticagrelor Oral : Tablet 90 mg, 1 tablet 2x a day. Varenicline Tartrate Oral : Tablet 0.5 mg, 1 tablet 2x a day. Vitamin D (Cholecalciferol) Oral : daily. Follow-up: Follow up with your healthcare provider Monday. Call for an appointment. Reason for referral: evaluation. Summary of care provided to patient via paper. Screening today revealed the patient's blood pressure to be in the hypertensive stage 2 range. The patient should follow up with a primary care provider for blood pressure management.(Electronically signed by Lorena Wilkes 09/03/2020 21:00) Name Value Range Interpretation Code Description Data [facility] rce(s) Supporting Document(s) ID Date Data Source [id number] 09/03/2020 05:26:00 PM EDT [facility] Name Value Range Interpretation Code Description Data [facility] rce(s) Supporting Document(s) CBC W/AUTOMATED DIFF [facility] COMPLETE BLOOD COUNT Leukocytes [#/volume] in Blood by Automated count 8.5 10^3/uL 4.2 - 1 1.0 [facility] Erythrocytes [#/volume] in Blood by Automated count 4.58 10^6/uL 4. 20 - 5.40 [facility] Hemoglobin [Mass/volume] in Blood 13.9 g/dL 12.0 - 16.0 [facility] Hematocrit [Volume Fraction] of Blood by Automated count 40.6 % 3 7.0 - 47.0 [facility] Erythrocyte mean corpuscular volume [Entitic volume] by Auto mated count 88.6 fL 81.0 - 101 [facility] Erythrocyte mean corpuscular hemoglobin [Entitic mass] by Automated count 30.3 pg 27.0 - 34.0 [facility] Erythrocyte mean corpuscular hemoglobin concentration [Mass/volume] by Automated count 34.2 g/dL 31.0 - 36.0 [facility] Erythrocyte distribution width [Ratio] by Automated count 13.2 % 11.5 - 14.5 [facility] Platelets [#/volume] in Blood by Automated count 253 10^3/uL 150 - 45 0 [facility] Platelet mean volume [Entitic volume] in Blood by Automated count 9.2 fL 7.4 - 10.4 [facility] Neutrophils/100 leukocytes in Blood by Automated count 66.4 % 37. 0 - 80.0 [facility] Lymphocytes/100 leukocytes in Blood by Manual count 21.1 % 25.0 - 40.0 L [facility] Monocytes/100 leukocytes in Blood by Automated count 8.0 % 3.0 - 8.0 [facility] Eosinophils/100 leukocytes in Blood by Automated count 3.4 % 0.0 - 7.0 [facility] Basophils/100 leukocytes in Blood by Automated count 0.7 % 0.0 - 2.5 [facility] %IG 0.4 % 0.0 - 0.0 [facility] % 0.0 - 0.0 [facility] al Neutrophils [#/volume] in Blood by Automated count 5.61 10^3/uL 2.00 - 6.90 [facility] Lymphocytes [#/volume] in Blood by Automated count 1.78 10^3/uL 0.60 - 3.40 [facility] Monocytes [#/volume] in Blood by Automated count 0.68 10^3/uL 0.00 - 0.90 [facility] Eosinophils [#/volume] in Blood by Automated count 0.29 10^3/uL 0.00 - 0.70 [facility] Basophils [#/volume] in Blood by Automated count 0.06 10^3/uL 0.00 - 0.20 [facility] #IG 0.03 10^3/uL 0.00 - 0.10 [facility] ospital #NRBC 0.00 10^3/uL 0.00 - 0.00 [facility] ospital MANUAL DIFF NOT INDICATED [facility] RBC MORPH NOT INDICATED [facility] spital ID Date Data Source [id number] 09/03/2020 05:24:00 PM EDT [facility] Name Value Range Interpretation Code Description Data Destiny rce(s) Supporting Document(s) COMPREHENSIVE METABOLIC PANEL [facility] COMPREHENSIVE METABOLIC PANEL Sodium [Moles/volume] in Serum or Plasma 141 mEq/L 134 - 153 [facility] Potassium [Moles/volume] in Serum or Plasma 3.6 mEq/L 3.6 - 5.0 [facility] Chloride [Moles/volume] in Serum or Plasma 104 mEq/L 98 - 107 [facility] Carbon dioxide, total [Moles/volume] in Serum or Plasma 28 MEQ/L 22 - 30 [facility] Glucose [Mass/volume] in Serum or Plasma 101 MG/DL 70 - 99 H [facility] BUN 13 MG/DL 7 - 21 [facility] al Creatinine [Mass/volume] in Serum or Plasma 0.8 MG/DL 0.7 - 1.5 [facility] BUN/CREAT 16 8 - 27 [facility] Protein [Mass/volume] in Serum or Plasma 6.8 G/DL 6.3 - 8.2 [facility] Albumin [Mass/volume] in Serum or Plasma 4.0 G/DL 3.9 - 5.0 [facility] Globulin [Mass/volume] in Serum by calculation 2.8 GM/DL 2.4 - 3.2 [facility] A/G RATIO 1.4 0.8 - 2.0 [facility] Calcium [Mass/volume] in Serum or Plasma 9.7 MG/DL 8.4 - 10.2 [facility] Bilirubin.total [Mass/volume] in Serum or Plasma <0.7 MG/DL 0.2 - 1.3 [facility] Alkaline phosphatase [Enzymatic activity/volume] in Serum or Plasma 131 U/L 38 - 126 H [facility] Aspartate aminotransferase [Enzymatic activity/volume] in Serum or Plasma 24 U/L 5 - 40 [facility] Alanine aminotransferase [Enzymatic activity/volume] in Seru m or Plasma 34 U/L 7 - 56 [facility] Anion gap 3 in Serum or Plasma 9.0 mmol/L 8.0 - 16.0 [facility] AGE 44 yrs [facility] al NON-AA GFR >60 mL/min [facility] ital AFR AMER GFR >60 mL/min [facility] spital Male GFR In terprentation 20-49 yrs >60 mL/min Normal 50-59 yrs >56 mL/min Normal 60-69 yrs >49 mL/min Normal 70-79yrs >42 mL/min Normal 80 and above >35 mL/min Normal Female GFR Interpretation 20-39 yrs >60 mL/min Normal 40-49 yrs >58 mL/min Normal 50-59 yrs >51 mL/min Normal 60-69 yrs >45 mL/min Normal 70-79 yrs >39 mL/min Normal 80 and above >32 mL/min Normal ID Date Data Source [id number] 09/02/2020 10:53:[address] [facility] Name Value Range Interpretation Code Description Data Destiny rce(s) Supporting Document(s) Discharge Summary [facility] EISIGh6xMsLWGeCz52/JFOiyZUPni7FcYDgfENr0QBwhQMAxZ1TdUMG8xQ5oLLO9YVvLFiIiRcYxXIM7 lbm [file] acid adjuster+wke1Sqqofvdc1iK0eqidO9TbeJiYtOmkbipFrvl [file] ICAgICAgICAgICAgICAgICAgICAgICAgICAgICAgICAgICAgICAgICAgICAgICAgICAgICAgICAgICAg ICAgICAgICAgICAgICAgICAgICAgICAgICAgICAgIC ANCiAgICAgICAgICAgICAgICAgICAgICAgICAgICAgICAgICAgICAgICAgICAgICAgICAgICAgICAgIC AgICAgICAgICAgICAgICAgICAgICAgICAgICAgICAgICAgICAgICAgICANCiAgICAgICAgICAgICAgIC AgICAgICAgICAgICAgICAgICAgICAgICAgICAgICAg ICAgICAgICAgICAgICAgICAgICAgICAgICAgICAgICAgICAgICAgICAgICAgICAgICAgICANCiAgICAg ICAgICAgICAgICAgICAgICAgICAgICAgICAgICAgICAgICAgICAgICAgICAgICAgICAgICAgICAgICAg ICAgICAgICAgICAgICAgICAgICAgICAgICAgICAgIC AgICANCiAgICAgICAgICAgICAgICAgICAgICAgICAgICAgICAgICAgICAgICAgICAgICAgICAgICAgIC AgICAgICAgICAgICAgICAgICAgICAgICAgICAgICAgICAgICAgICAgICAgICANCiAgICAgICAgICAgIC AgICAgICAgICAgICAgICAgICAgICAgICAgICAgICAg ICAgICAgICAgICAgICAgICAgICAgICAgICAgICAgICAgICAgICAgICAgICAgICAgICAgICAgICANCiAg ICAgICAgICAgICAgICAgICAgICAgICAgICAgICAgICAgICAgICAgICAgICAgICAgICAgICAgICAgICAg ICAgICAgICAgICAgICAgICAgICAgICAgICAgICAgIC AgICAgICANCiAgICAgICAgICAgICAgICAgICAgICAgICAgICAgICAgICAgICAgICAgICAgICAgICAgIC AgICAgICAgICAgICAgICAgICAgICAgICAgICAgICAgICAgICAgICAgICAgICAgICANCiAgICAgICAgIC AgICAgICAgICAgICAgICAgICAgICAgICAgICAgICAg ICAgICAgICAgICAgICAgICAgICAgICAgICAgICAgICAgICAgICAgICAgICAgICAgICAgICAgICAgICAN CiAgICAgICAgICAgICAgICAgICAgICAgICAgICAgICAgICAgICAgICAgICAgICAgICAgICAgICAgICAg ICAgICAgICAgICAgICAgICAgICAgICAgICAgICAgIC AgICAgICAgICANCjw/kAAlE4yzkWByzjB4U9mzYr4ZJh6DEM2ij6HgNQCcESnjtnImJrwRRvDqEMUyFs kBBkm2HGriUU0CnOQuE7WkJ7CiUFisNP8PRYTaJCQyrKLpNUXsFUGwGcH7BEGaLJudJG0UiVNhWZnlHR AwIFIgNyAwIFIgOSAwIFIgMTEgMCBSIDEzIDAgUiAx HFCkQHOiLCjdKTLPPW4NJvNcH8PwhX29UHaEGz5+MElnhmLiKnvERrU4FGTta5UgWJc1CL4KIIYoIocc k9QzSbLvDQCJFRgyZA7BQQS1ZKC8NMNqOd1WKEIrP273vmDsRH1EWa1HBqUxBH9ccc9PJqNeQTAhBqcS Xmb6KFdiBF3TpVScDYvMhMBchAJkY3HcN8MhpSOlwL FpoUNABD7czBOcOC2yRoTxO5diSY5TUAQ0APCiTg9rXUCvAKOpSoL5RCHYEX8DUWQwVHMpsZLtHQVqTO WZXC1LFDlsXOY5AMGwhwXidKEyVYqhKW9VPCMgxcVoCbUiASJRWZf+Aj8KNK6dc6FpKDtqXtNpZZ0aon 4OGNrCNjYpJ8Q9qISnZ7S6BPmyZt9RBCJaGBQoXgCa UVUICOqlZE7OVN5vtaE7HE1JwPWtBJScBYQmjIOyPQi5Y60rcWRxENhzGG9MTFA+Jordan+Po5RYJIuMJDt PMHtLqIaVIOWYiFpB9DxH2HVv2VeK0GrBV61fCetlfUbSTuiXT8KJB7kYNAeXKBTXQ6XqOQrgI5tzkWu BWUcAPCEFoCdE30vdRRnFCAbOQIvGGDlMf0SNIUsD5 SwjeTrhZirbmKbENViECHWJY4MOGphsqQpdIZiuRhvIF95oNbaHL7ZFn7OMeLwSQ3xzr2HnSBwNo6GVJ ZtUk7GBPGeOPLaQOLlUJT2VMVePjDbUAdvGBEvUZGpAJS1IARfUXCtKA5MToXxUXIwGhv7AmRjSBHoXC Mybp6AOYPhHNXnGSP3MRAlYPTlYTFnMUvhUHEfCRBs PGB8MSJwPZUjEJ1ACuHtTHEyLOY9TRLfLMIuTZXwoa1EGGLwIIKbPwn3XpJxURSpTZCkLUnsEFEzVXO5 KhE9KQLtIYAeWZ5BCpZmGZDtJOM0GAPhOIIzEXHqtf2YFGGtOHIyINT3HnPxOWWsRAYkQZtxQCHoHMV9 KZJqCVLmCAWuBQ0IHlZvKLZbCGQ3CMSqOPGtZZGrxv 6RVVLwTMHlQjx6VaDpOYYeTTNcIKzwWBGmCXQ5TQHuBRGsGFGhPH8HUkZtKBXnXWZfNadqDSAbFKZfqz 9XECIwMVKeWTVtAGNxGXQzOIFuMSxyUTCfBCDfHxC3OZPiKHRoGL0AMjXoPIXxMvElNQBbCBPlTSKqxr 0KMDAwMDAyMTUxMiAwMDAwMCBuDQowMDAwMDIyNDcy XFRxJUNiYH6DCaCiQKTwVeO1VexzLYVhLRSrqc0PKCZwRMToDre3HgTkCUBgFWNnPBpnSXRuOQRjQBVr RQBdSUWdDI0ADlPwOTEqZvCmMJJyHNPlOCDugx3LUZNdGCAvZRIsLWTlOCMtPAJxLXnkYHSeXSA7QITn AIHyDQNwCK9JBoHcIOJtEiNuXEdiHTIeZIQkdb0YLV KpWSJkCTD1UOYwGYNtHOOzCYopXBOiXLS1WAE9BPReAWJuLG7VDqFqDXZyRuifOBUwRIVcEMOmkg5LLK RvXVRiJfY3TkFrSQPmILGqPYczBSWbUTF4GxoaNTNpKVLtLS2HHwKhYBPzBhk5RibfRRInXDZorn8SDQ TbRCPkTOV7KAVaMMWbUGWrWHehCHShLQI2TqMtZXEf SEKdYE3HCbVeLIMiFqm6SFRtMJRjLUOyok4UAZUaJVZyWXt8PmIzEKWwNMUgXCr9toKjgEWuHJk7EK7B Z2MncqCnJpaFYb4Mu649NFZ4HQGeVe1HR8gnKf5tZZKsICVIXq5VQUo9IXYuQvXxZbXqO9OqK8L7WBTt MdVlTEK5DIX3PeAfC3Q+PLdvYuSkUwX6Q4I1FVL7VD c1UPYiZoUrBtWwZxl2GMTsEZ7cVXJRLj9+ISqmfJZvkBocWJANJmFdSaYvWUadPBEBNd7I ID Date Data Source [id number] 09/01/2020 06:19:[address] [facility] Name Value Range Interpretation Code Description Data Destiny e(s) Supporting Document(s) Bicarbonate [Moles/volume] in Serum 25 mmol/L 22-29 [facility] Chloride [Moles/volume] in Serum or Plasma 105 mmol/L 98-107 [facility] Creatinine [Mass/volume] in Serum or Plasma 0.61 mg/dL 0.50-0.90 [facility] Glucose [Mass/volume] in Serum or Plasma 91 mg/dL 70-140 [facility] Potassium [Moles/volume] in Serum or Plasma 3.5 mmol/L 3.4-5.1 [facility] Sodium [Moles/volume] in Serum or Plasma 135 mmol/L 136-145 L [facility] Urea nitrogen [Mass/volume] in Serum or Plasma 8 mg/dL 6-20 [facility] Anion gap 3 in Serum or Plasma 5 mmol/L 8-15 L [facility] Osmolality of Serum or Plasma by calculation 277 mosm/kg 275-300 [facility] Creatinine/Urea nitrogen [Mass Ratio] in Serum or Plasma 14 [facility] Calcium [Mass/volume] in Serum or Plasma 8.3 mg/dL 8.6-10.0 L [facility] Glomerular filtration rate/1.73 sq M pre dicted among non-blacks [Volume Rate/Area] in Serum or Plasma by Creatinine-based formula (MDRD) >6 0 [facility] Glomerular filtration rate/1.73 sq M pre dicted among blacks [Volume Rate/Area] in Serum or Plasma by Creatinine-based formula (MDRD) >60 [facility] ID Date Data Source [id number] [facility]/31[facility]2020 [facility] [facility] Interpretation Code Description Data Destiny rce(s) Supporting Document(s) Kaolin activated time [Units/volume] in Blood 169 [facility] ID Date Data Source [id number] 08/31/2020 11:24:[address] Value Range Interpretation Code Description Data Destiny rce(s) Supporting Document(s) Kaolin activated time [Units/volume] in Blood 246 [facility] ID Date Data Source [id number] 08/31/2020 10:44:[address] Value Range Interpretation Code Description Data Destiny rce(s) Supporting Document(s) Kaolin activated time [Units/volume] in Blood 224 [facility] ID Date Data Source [id number] 08/31/2020 10:18:[address] Value Range Interpretation Code Description Data Destiny rce(s) Supporting Document(s) Kaolin activated time [Units/volume] in Blood 241 [facility] ID Date Data Source [id number] 08/31/2020 09:37:[address] Value Range Interpretation Code Description Data Destiny rce(s) Supporting Document(s) Kaolin activated time [Units/volume] in Blood 114 [facility] ID Date Data Source [id number] 08/31/2020 08:33:[address] 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] ogICAgICAgICAgICAgICAgICAgICAgICAgICAgICAgICAgICAgICAgICAgICAgICAgICAgICAgICAgIC AgICAgICAgICAgICAgICAgICAgICAgICAgICAgICAg ICAgICAgICAgDQogICAgICAgICAgICAgICAgICAgICAgICAgICAgICAgICAgICAgICAgICAgICAgICAg ICAgICAgICAgICAgICAgICAgICAgICAgICAgICAgICAgICAgICAgICAgICAgICAgICAgDQogICAgICAg ICAgICAgICAgICAgICAgICAgICAgICAgICAgICAgIC AgICAgICAgICAgICAgICAgICAgICAgICAgICAgICAgICAgICAgICAgICAgICAgICAgICAgICAgICAgIC AgDQogICAgICAgICAgICAgICAgICAgICAgICAgICAgICAgICAgICAgICAgICAgICAgICAgICAgICAgIC AgICAgICAgICAgICAgICAgICAgICAgICAgICAgICAg ICAgICAgICAgICAgDQogICAgICAgICAgICAgICAgICAgICAgICAgICAgICAgICAgICAgICAgICAgICAg ICAgICAgICAgICAgICAgICAgICAgICAgICAgICAgICAgICAgICAgICAgICAgICAgICAgICAgDQogICAg ICAgICAgICAgICAgICAgICAgICAgICAgICAgICAgIC AgICAgICAgICAgICAgICAgICAgICAgICAgICAgICAgICAgICAgICAgICAgICAgICAgICAgICAgICAgIC AgICAgDQogICAgICAgICAgICAgICAgICAgICAgICAgICAgICAgICAgICAgICAgICAgICAgICAgICAgIC AgICAgICAgICAgICAgICAgICAgICAgICAgICAgICAg ICAgICAgICAgICAgICAgDQogICAgICAgICAgICAgICAgICAgICAgICAgICAgICAgICAgICAgICAgICAg ICAgICAgICAgICAgICAgICAgICAgICAgICAgICAgICAgICAgICAgICAgICAgICAgICAgICAgICAgDQog ICAgICAgICAgICAgICAgICAgICAgICAgICAgICAgIC AgICAgICAgICAgICAgICAgICAgICAgICAgICAgICAgICAgICAgICAgICAgICAgICAgICAgICAgICAgIC AgICAgICAgDQogICAgICAgICAgICAgICAgICAgICAgICAgICAgICAgICAgICAgICAgICAgICAgICAgIC AgICAgICAgICAgICAgICAgICAgICAgICAgICAgICAg SNBaGALtSWTjPFRcTASaZMHlMUr2F3qlXAVkLMDoMI1qFNp7Yh4+JLjDMgTiDPT1ywOmjJ9DWX4ps1Eh LDaxAOAad7RlRNz6EA4PBMKiMRppQA7GKKqexr9SIQGoYQOhuTLKm8mySbQfOMS5EBBgQlubAC6BXJSn Y7hldbUbTRLkFSNBPCgbQWODQQvwJAHQRRPaEVClLv NgUAkvST2Pr8LevJE2RJw+Vd9AAF7mx4VeSSvvVWKdIE8trr0HIXpYCkSmQ7SlasG1XAF6QUBvCd3XEL NiKTGwjFKlLZNwDHKIBrLsY0DtyB55QIAPGz4+GTewwtVgPwzDImY0BSEey8QmPCx2WA7GBEXxMTv6vD FfSAXYMOB8XVjpwUGjNJFvCF8bBv3tefrdMHHsJVCa XI94BcFzFlCuKEd2XOZuLI3vPKupTA4WLCP0NPymXRLpMCRiF1fHSaPaHUSjHCRndZhiSY3LJhWwU5Nh cmVudCAyOCAwIFINCj4+ZHwiisNiPvoAFrTlKUEfi3XbTDn9LL0IPBZjKKlcIO2HFUXegR8dDQulDB5C EaFrWuJxRFADZxJuG99gbKDcJLs3N3FgOqGzOQOjQt lsZXMgPDwvTmFtZXMgWyBdDQogID4+ID4+MJlvNV1HEVscdtSaEFRhEt1QUPLmNQDzSY4wRKLjRKWwM8 I4iFdhESYAPxSgJ3aeatvaRL8uDLQzU090mCsissFhANM5WRBdYo3ISFVuCDN9FASirANlPcnuVRWKFX smGD4SaEQjGFE2xA8fIHmwHFFkYAHbC2yDQyHvhSlk CU94oGbckkXimHRaGJt+Pv5LGX4yx1DbFLl1jlFnDWqwYVDvPWbkZHAjOMJfZDBoHBJ2MGK1EJXTVqKy PVIkJPXiVXsuNYDwEYDnug5RQWLlVSFbUOUnJSLtHZBfAZXsXBjiYHPfMAW7ZvB6XDIfLDHoGP8HYeRr ZDQhNGGbLRooLEFsGPIxuk9VTYGrOVVrLVY8CkJkRG VwCZAhIGdyDVXkCIM4OIZwTDIoVWGjVB1LYbJwVBZmOEa7YuTmIDDcTDJhvj5CITQjKUIaXXL1IXLsPR RdJLUlQZlqQVYrNHReIvd8YLDvMJAfQY4BYtAvUCYmFJS1XKSiAMAxRMDecu7CMUUkFBJnFMD5CzMnJW NiJIVxRHptOXNcNQIcRektCGShFBZhIX9IArWeOONj ODH8WfEaRGKnQULtrm1TKMXiRFFaDhogJRJkQQWfJVAwGZzzMLQyRDHuAABbCBToAKEuVD0KYpLaFSSa BEU8VjPmROSkGFDtsq6PPMAaQVVsSRU0IPRsNPQdUAHzGZupUNHbWAD7ReSvXRPaPTCjVF2WMnJwQHPw ZRCmQmIkMITfEKEczh3ZZBJgRXGbBQJzHVQgWOGaBU NlGDnkKQXvLMJ5EjXiVGAnXGYlMI5GJdInADGmKcycTXqlWDJpGELqjf5OTBNtCJMsEvVbVSOcFKHxWB PtYVyqEYAvPKQ6LgZ8DSTpPUIcAZ9XJcSrZAFmOqm5NVOvZJCeSVCuny0MLYOfJIEhJsb5KXDbCZZfMW WxUJshDINiABK5YGR2QFNxDXGmWS2JLlPdQSWrGda7 GuJnDWPaXFTooi3FAZLkOCSnIGw2THDfUDDnJJGaMRrpQADdGEEuFZwvQUPrURBqMN2PZmMsGHbqBWJX Htr7ZLvdK0a7FPAvCU6AM5Uot7IqTqAdHEPVXNuhWQ8btaDtYXPyRf2AD5bEMaokZ5HuMWNsSFRwF7Y5 JoWiLxd9TUAiTDN4E8JqEUX8AC5pZODvDhEgWaD4KJ TrRTBpEVP8QuV6RHD7FrZ9QgWrKup4CpOyGR6VJf0ZEmA3BET5fRFfDj3ZOdMdJvOZMpDcOT4RRZz= ID Date Data Source [id number] 08/31/2020 08:23:[address] [facility] Name Value Range Interpretation Code Description Data Destiny rce(s) Supporting Document(s) Choriogonadotropin ( test) [Presence] in Urine Ne [facility] NEGATIVE: either no HCG or too low to de tect, <20 mU/mL Specific gravity of Urine by Refractometry 1.025 1.003-1.030 [facility] ID Date Data Source [id number] 08/28/2020 02:34:00 PM EDT [facility] Name Value Range Interpretation Code Description Data Destiny rce(s) Supporting Document(s) SARS coronavirus 2 RdRp gene Negative N YSDOH This lab was ordered by [facility] and reported by [facility]. ID Date Data Source [id number] 08/28/2020 02:45:[address] [facility] Name Value Range Interpretation Code Description Data Destiny rce(s) Supporting Document(s) SARS coronavirus 2 RdRp gene Negative [facility] Test performed using the [employer] NOW C OVID-19 assay. This test is only for use under the Food and Drug Administration's Emergency Use Authorization. 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 ID Date Data Source [id number] 08/28/2020 02:24:[address] [facility] Name Value Range Interpretation Code Description Data Destiny rce(s) Supporting Document(s) Progress Note [facility] OBWPUu1dYnOQUuCr28/PYBrqSMFbs1BmHLqgIJv7ELoaCWSsE9QuQMW4eA4nNYS2MKlWRqCaMiVoELPn lbm [file] ICAgICAgICAgICAgICAgICAgICAgICAgICAgICAgIC AgICAgICAgICAgICAgICAgICAgICAgICAgICAgICAgICAgICANCiAgICAgICAgICAgICAgICAgICAgIC AgICAgICAgICAgICAgICAgICAgICAgICAgICAgICAgICAgICAgICAgICAgICAgICAgICAgICAgICAgIC AgICAgICAgICAgICAgICAgICANCiAgICAgICAgICAg ICAgICAgICAgICAgICAgICAgICAgICAgICAgICAgICAgICAgICAgICAgICAgICAgICAgICAgICAgICAg ICAgICAgICAgICAgICAgICAgICAgICAgICAgICANCiAgICAgICAgICAgICAgICAgICAgICAgICAgICAg ICAgICAgICAgICAgICAgICAgICAgICAgICAgICAgIC AgICAgICAgICAgICAgICAgICAgICAgICAgICAgICAgICAgICAgICANCiAgICAgICAgICAgICAgICAgIC AgICAgICAgICAgICAgICAgICAgICAgICAgICAgICAgICAgICAgICAgICAgICAgICAgICAgICAgICAgIC AgICAgICAgICAgICAgICAgICAgICANCiAgICAgICAg ICAgICAgICAgICAgICAgICAgICAgICAgICAgICAgICAgICAgICAgICAgICAgICAgICAgICAgICAgICAg ICAgICAgICAgICAgICAgICAgICAgICAgICAgICAgICANCiAgICAgICAgICAgICAgICAgICAgICAgICAg ICAgICAgICAgICAgICAgICAgICAgICAgICAgICAgIC AgICAgICAgICAgICAgICAgICAgICAgICAgICAgICAgICAgICAgICAgICANCiAgICAgICAgICAgICAgIC AgICAgICAgICAgICAgICAgICAgICAgICAgICAgICAgICAgICAgICAgICAgICAgICAgICAgICAgICAgIC AgICAgICAgICAgICAgICAgICAgICAgICANCiAgICAg ICAgICAgICAgICAgICAgICAgICAgICAgICAgICAgICAgICAgICAgICAgICAgICAgICAgICAgICAgICAg ICAgICAgICAgICAgICAgICAgICAgICAgICAgICAgICAgICANCiAgICAgICAgICAgICAgICAgICAgICAg ICAgICAgICAgICAgICAgICAgICAgICAgICAgICAgIC AgICAgICAgICAgICAgICAgICAgICAgICAgICAgICAgICAgICAgICAgICAgICANCjw/eCAwT0owmPNzkp K7H0nkTa5HWk5EZF5dc9QyNZTyOXidjdNpEsdNNxCbVGIdXdeOOzz6RMxvAW7GnWJbH3IqP8ZuCXbkCU 6WWDJrOYXwsFRcOOLtHEWbAmP4QAUmBQrlCS5HxYTt XTgiTOJbTBTfYJ1KVFOaX956grGaFS8NMq7DDtHkHR2lhe2KJSimOHCpPpoVHfo3PPulPJ4XkLSysNFa TPMhDCJFHdNrI1xuf3WqRrLsRRJARYbiIM2Hh4MatZXtBSj+Hj6OQS3xu2YzDJbpUWDqHE5huu7ORDtL VfNgD4OhuVbtAZVff0uqAQTeSX3weMLzKUW2STVcey RgIACvY9twlRIckZblDRGBITD3FHLgSr6uOIKgMLFxLkFxOYEGWJ8EPIDeCWLbbAZrEGCmIBZOPN0TRB zsMZH0ARPookHrdTKpAFidAZ8CADYaxcOzEMqsCTZMXNn+Tz5CQC5zf2SrPKxzDXCpVY6jte3GWWgAIt HdR6K2oHTwZ2T0QIxdHa6POZTbYEImJXzjQPFKUUwr CY6XYA6dmjT5NA7ZxYTnPWPpMXBneOUgLQw9N71ytJGuBCehEC4ITDR+Jordan+Ev4KIOYvCZBcZMMwZmGj PDLDUjVnD8ShE6UQe6PyX8PnQL80qJlotaLsEXgmQG2WBF5kHRNwHOGWBL3QgGQehW6akaYaBCQbJZFK MeCqW37arVDqHLRiXEY5PXPuFj5BFCVgA9NlvkZulP dhjwTxOPRhUTIRLD5RARfdfmWjzRVusUwiIW92yWueBJ5VYm3ZCeHrGV8fut6DrNHcXf7ICRZmYu7DUD FgEVTfMZQbAVW6IQDiKgFxIYuhMHIeGVDlIST6CGOoDMHxCR8ZTiMzCBDhRAauVResMDKtDRNyut5SSD CwLHCwAEUlBhRlIGZqUATdOTdhSGPfHIEyXHS2GHJm WYNgDK9HReHpKRNgOMZkZzJzXZFuHEWame6JWTHtICBgOcGdWBEsZNPdXXKcZDoeXEJkUPOaBle5AKUv TGQxUI0BAtIyOWTuJUC4BAKhHYAnBDVmvh3TGGDiUSUuPzF6YRQzRSMmEOMnHFexONZfZRV5MwSsUCMj QZYwMW9ONpJeDPCoMVA5QsBeHQHdWTIwdy4BDYTkYO DiXMAkPTSoYGTcCCLhXPxyPEIeQRF4Uaf6NJCpODUpUD3FXkRuMTRfQGH7ROTxRWBtEAZxio4ZCOBjXL MvFuqfEUBmUHRwSGKjIVisPQOnWOE2JWTzAIEeGHNpUN6HTxDrORGrXQkmMIqySBSsEZIhhd1SNTGqLD FaQgG7GvAvQBQcTBVrVYsqYNInCMZ0VTW2PIWyQSJc IK9YZiKuNXLjRRkeJKSoYMFcUTBjpm6VJMNzQMXbAFO9VfRgJGBhWOXlPDb8kdWmlXEpFMa7VR9OH7Vg lfKfZqZICz7Om903KXVgDXXyXa5EH7chTm0dBTTvANVYAi8PXLn3KZscK7VvOTBzMgIaNUIdJfDkVBQ7 DLLgXuM2XlKiHFS+BVg1N8KoMzK3TYQyGbYvWAYyVC LxNyV5EFLyIKl1LYLlXE7tUAQQZg2+DLkmmBLaiYdgXLHUXvT4GLiaFItzDKXXBq9I ID Date Data Source [id number] 08/28/2020 04:03:[address] [facility] Name Value Range Interpretation Code Description Data [facility](s) Supporting Document(s) ABO and Rh group [Type] in Blood [facility] Blood group antibody screen [Presence] in Serum or Plasma [facility] Blood bank comment [facility] ID Date Data Source [id number] 08/25/2020 12:04:00 [place] [address] PHONE: [phone] FAX: [phone] Name .................. : BOOGIE Taylor Acct Number.................. : [id number] ROOM. ................. : MR Number ................... : [id number] Stay type ............. : O/P Discharge Date......... ... : 08/24/20 Admit Date ......... : 08/24/20 Admit Phys .................... : SAPNA MCNALLY Date of ....... : 1975 Family Phys ................... : JORGE PIMENTEL Phone .................. : [phone] Age ................................ : 44 Film# .................. .:[id number] Sex ................................. : F Unsigned transcriptions are preliminary reports and do not represent a medical or legal document CHEST 2 VIEWS [id number] COMPLETE:08/24/20 10:08 [facility] 7352 Reason for Exam: SMOKER, PREOP CHEST X-RAY: 2-VIEWS INDICATION: Smoker, preop. FINDINGS: The cardiac and mediastinal silhouettes appear normal and the lungs are clear. The bones and soft tissues are normal. The upper abdomen is unremarkable. IMPRESSION: No acute disease identifiable. Examination dictated by LOUIS Dupont. Examination was reviewed with Emeterio Riggins MD, radiologist at the time of this dictation. Electronically Reviewed and Signed By Emeterio Riggins MD , 08/25/20 12:04, K[facility] Transcribe Initials: ULISES , Transcribe Date: 08/24/20 23:36, Dictation Date: Copy for: SAPNA VALLECILLO Copy for: [facility] Page 1 of 1 Name Value Range Interpretation Code Description Data Destiny rce(s) Supporting Document(s) ID Date Data Source [id number] 08/24/2020 09:22:00 AM EDT [facility] Name Value Range Interpretation Code Description Data Destiny rce(s) Supporting Document(s) SARS coronavirus 2 RNA Not Detected [facility] [place] This lab was ordered by Hanoverselena woodward and reported by [facility]. ID Date Data Source [id number] 08/26/2020 06:57:00 AM EDT [facility] Name Value Range Interpretation Code Description Data [facility](s) Supporting Document(s) SARS-CoV-2, ROBERT Not Detected Not Detected [facility] This nucleic acid amplification test was developed and its performancecharacteristics determined by [facility]. Nucleic acidamplification tests include RT-PCR and TMA. This test has not beenFDA cleared or approved. This test has been authorized by FDA underan Emergency Use Authorization (EUA). This test is only authorizedfor the duration of time the declaration that circumstances existjustifying the authorization of the emergency use of in vitrodiagnostic tests for detection of SARS-CoV-2 virus and/or diagnosisof COVID-19 infection under section 564(b)(1) of the Act, 21 U.S.C.360bbb-3(b) (1), unless the authorization is terminated or revokedsooner.When diagnostic testing is negative, the possibility of a falsenegative result should be considered in the context of a patient'srecent exposures and the presence of clinical signs and symptomsconsistent with COVID- 19. An individual without symptoms of COVID-19and who is not shedding SARS-CoV-2 virus would expect to have anegative (not detected) result in this assay. SARS-CoV-2, ROBERT [address] [facility] ID Date Data Source [id number] 08/24/2020 11:19:00 AM EDT [facility] Name Value Range Interpretation Code Description Data [facility](s) Supporting Document(s) URINALYSIS WITH MICROSCOPIC [facility] URINALYSIS COLOR yellow NORMAL: Yellow [facility] CLARITY clear NORMAL: Clear [facility] Specific gravity of Urine by Test strip 1.025 1.001 - 1.030 [facility] pH 5 5 - 9 [facility] Glucose [Mass/volume] in Urine by Test strip NORM NORMAL: Negat chai [facility] Bilirubin.total [Presence] in Urine by Test strip NEG NORMAL: Negative [facility] Ketones [Presence] in Urine by Test strip NEG NORMAL: Negative [facility] Protein [Mass/volume] in Urine by Test strip NEG NORMAL: Negat chai [facility] Nitrite [Presence] in Urine by Test strip NEG NORMAL: Negative [facility] BLOOD 10 NORMAL: Negative A [facility] Leukocyte esterase [Presence] in Urine by Test strip NEG ISABELLA L: Negative [facility] Urobilinogen [Mass/volume] in Urine by Test strip NOR less jo n 1.0 mg/dL [facility] MICROSCOPIC See Below [facility] ital WBC None Seen NORMAL: NONE SEEN [facility] Erythrocytes [#/volume] in Urine by Test strip 0 - 1 NORMAL: NON E SEEN [facility] EPITHELIAL FEW NORMAL: NONE SEEN [facility] Amorphous sediment [Presence] in Urine sediment by Light blake roscopy RARE NORMAL: NONE SEEN [facility] ID Date Data Source [id number] 08/24/2020 10:52:00 AM EDT [facility] Name Value Range Interpretation Code Description Data Destiny rce(s) Supporting Document(s) ABO group [Type] in Blood A [facility] Rh [Type] in Blood POSITIVE [facility] AB SCREEN NEGATIVE NORMAL: NEGATIVE [facility] { ABO/RH REENTER A POSITIVE{ AB SCREEN RE-ENTER NEGATIVE ID Date Data Source [id number] 08/24/2020 10:03:00 AM EDT [facility] Name Value Range Interpretation Code Description Data Destiny rce(s) Supporting Document(s) BASIC METABOLIC PANEL [facility] BASIC METABOLIC PANEL Sodium [Moles/volume] in Serum or Plasma 137 mEq/L 134 - 153 [facility] Potassium [Moles/volume] in Serum or Plasma 3.8 mEq/L 3.6 - 5.0 [facility] Chloride [Moles/volume] in Serum or Plasma 102 mEq/L 98 - 107 [facility] Carbon dioxide, total [Moles/volume] in Serum or Plasma 28 MEQ/L 22 - 30 [facility] Glucose [Mass/volume] in Serum or Plasma 116 MG/DL 70 - 99 H [facility] BUN 15 MG/DL 7 - 21 [facility] Creatinine [Mass/volume] in Serum or Plasma 0.7 MG/DL 0.7 - 1.5 [facility] BUN/CREAT 21 8 - 27 [facility] Calcium [Mass/volume] in Serum or Plasma 9.7 MG/DL 8.4 - 10.2 [facility] Anion gap 3 in Serum or Plasma 7.0 mmol/L 8.0 - 16.0 L [facility] AGE 44 yrs [facility] AMER GFR >60 mL/min [facility] spital NON-AA GFR >60 mL/min [facility] ital Male GFR Inter prentation 20-49 yrs >60 mL/min Normal 50-59 yrs >56 mL/min Normal 60-69 yrs >49 mL/min Normal 70-79yrs >42 mL/min Normal 80 and above >35 mL/min Normal Female GFR Interpretation 20-39 yrs >60 mL/min Normal 40-49 yrs >58 mL/min Normal 50-59 yrs >51 mL/min Normal 60-69 yrs >45 mL/min Normal 70-79 yrs >39 mL/min Normal 80 and above >32 mL/min Normal ID Date Data Source [id number] 08/24/2020 09:40:00 AM EDT [facility] Name Value Range Interpretation Code Description Data Destiny rce(s) Supporting Document(s) Prothrombin time (PT) 12.7 SECONDS 11.0 - 15.5 [facility] INR in Platelet poor plasma by Coagulation assay 0.91 0.93 - 1. 23 L [facility] aPTT in Blood by Coagulation assay 24.6 SECONDS 24.8 - 36.7 L [facility] \\BLDo\\INR INTERPRETATION\\BLDx\\ Therapeutic range for Coumadin and related oral anticoagulants. - International Normalized Ratio (INR): 2.0 - 3.0 for Venous Thrombosis, Pulmonary Embolus, Tissue heart valves, Acute [place] Atrial Fibrillation, Valvular heart disease and recurrent Systemic Embolism. - International Normalized Ratio (INR): 2.5 - 3.5 for Mechanical Prosthetic valve. ID Date Data Source [id number] 08/24/2020 09:31:00 AM EDT [facility] Name Value Range Interpretation Code Description Data Destiny rce(s) Supporting Document(s) CBC W/AUTOMATED DIFF [facility] COMPLETE BLOOD COUNT Leukocytes [#/volume] in Blood by Automated count 5.6 10^3/uL 4.2 - 1 1.0 [facility] Erythrocytes [#/volume] in Blood by Automated count 5.05 10^6/uL 4. 20 - 5.40 [facility] Hemoglobin [Mass/volume] in Blood 15.1 g/dL 12.0 - 16.0 [facility] Hematocrit [Volume Fraction] of Blood by Automated count 45.5 % 3 7.0 - 47.0 [facility] Erythrocyte mean corpuscular volume [Entitic volume] by Auto mated count 90.1 fL 81.0 - 101 [facility] Erythrocyte mean corpuscular hemoglobin [Entitic mass] by Automated count 29.9 pg 27.0 - 34.0 [facility] Erythrocyte mean corpuscular hemoglobin concentration [Mass/volume] by Automated count 33.2 g/dL 31.0 - 36.0 [facility] Erythrocyte distribution width [Ratio] by Automated count 13.3 % 11.5 - 14.5 [facility] Platelets [#/volume] in Blood by Automated count 266 10^3/uL 150 - 45 0 [facility] Platelet mean volume [Entitic volume] in Blood by Automated count 8.9 fL 7.4 - 10.4 [facility] Neutrophils/100 leukocytes in Blood by Automated count 56.9 % 37. 0 - 80.0 [facility] Lymphocytes/100 leukocytes in Blood by Manual count 31.4 % 25.0 - 40.0 [facility] Monocytes/100 leukocytes in Blood by Automated count 6.8 % 3.0 - 8.0 [facility] Eosinophils/100 leukocytes in Blood by Automated count 3.8 % 0.0 - 7.0 [facility] Basophils/100 leukocytes in Blood by Automated count 0.9 % 0.0 - 2.5 [facility] %IG 0.2 % 0.0 - 0.0 [facility] %NRBC 0.0 % 0.0 - 0.0 [facility] al Neutrophils [#/volume] in Blood by Automated count 3.17 10^3/uL 2.00 - 6.90 [facility] Lymphocytes [#/volume] in Blood by Automated count 1.75 10^3/uL 0.60 - 3.40 [facility] Monocytes [#/volume] in Blood by Automated count 0.38 10^3/uL 0.00 - 0.90 [facility] Eosinophils [#/volume] in Blood by Automated count 0.21 10^3/uL 0.00 - 0.70 [facility] Basophils [#/volume] in Blood by Automated count 0.05 10^3/uL 0.00 - 0.20 [facility] #IG 0.01 10^3/uL 0.00 - 0.10 [facility] #NRBC 0.00 10^3/uL 0.00 - 0.00 [facility] MANUAL DIFF NOT INDICATED [facility] RBC MORPH NOT INDICATED [facility] spital ID Date Data Source [id number] 07/31/2020 03:33:00 PM [facility] Patient Name: CHERRIE FRANCE : 1975 Sex: F Pt Unit #: [id number] Location:[facility] Provider: Visit Date/Time: 07/31/20 Primary Insurance: MEDICARE [employer] Secondary Insurance: MEDICAID [facility] 2ND R Intake Vital Signs 07/31/20 15:36 Current Height 5 ft 3 in Current Weight 196 lb 6 oz Weight Measurement Method Standing Scale BMI 34.7 BP 132/84 Blood Pressure Location Lt brachial Position Sitting Respiration 18 Pulse 95 Pulse Strength Normal Pulse Source Pulse Oximeter Temp 97.9 F Temp Source Tympanic Pulse Oximetry (%) 97 Oxygen Delivery Method room air 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 Pt states that she has a few pills left of antibiotics but is feeling much better and no longer has pain. Pt states that her urine still feels thick when she urinates and has trouble going. Notes that she drank only water for 2 days and those 2 days she did not have any urinary symptoms or problems. Advised to start drinking water and that she can still drink coffee and tea, but also needs to drink more water. Care Transport Nurse Required: No Accompanied by: Self / Same as Patient Is patient in pain?: No Allergies Macrolide Antibiotics Allergy (Unknown, Verified 07/31/20 16:18) penicillin G [Penicillin G] Allergy (Unknown, Verified 07/31/20 16:18) Carbamazepine Derivatives Allergy (Unknown, Uncoded 07/31/20 16:18) ANTICONVULSANTS-UNCLEAR ?? Medications - Last Reconciled 07/31/20 by Chicho Olivo MD albuterol sulfate 90 mcg/actuation (Ventolin HFA) 2 puffs inhalation Q4HPRN ciprofloxacin HCl 500 mg PO BID 10 days diclofenac potassium 50 mg PO BID estradiol- norethindrone acet 0.05-0.14 mg/24 hr (CombiPatch) 1 patch transdermal 2XW fluticasone furoate-vilanterol 100-25 mcg/dose (Breo Ellipta) 1 puff inhalation DAILY nitrofurantoin macrocrystal (Macrodantin) 100 mg PO QDAY nortriptyline 50 mg PO QDAY Fall Risk History of falls: No HIV Testing Offer - ages 13- 64 HIV testing Offer: No SBIRT Annual Questionnaire Are you currently in recovery for alcohol or substance use?: No Coronavirus Screening Screening Are you currently positive or on isolation for COVID ?: No Do you have any NEW signs of one or more of the following?: no symptoms Do you have NEW signs of at least two of the following?: no symptoms 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 Hx Age of Menarche: 12 Menstrual pattern Duration of menses: 3-5 days Gynecologic pain symptoms: Denies dysmenorrhea or dyspareunia Perimenopause/Menopause Menopause type: natural (2018) Urogynecologic symptoms: Denies urinary urgency or post void dribbling Contraception control method: none Cervical and Vaginal Cytology STD Screening: No Data to Display Sexual History Do you think of yourself as: straight/heterosexual History History 4 Number of Living Children Hx # Term Pregnancies 3 Hx #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 related to selective right internal carotid artery angiography. The catheter was pulled back to the right subclavian artery where right subclavian artery angiography was performed over the chest, neck, and right arm demonstrating no evidence of access complication. Subsequently, the catheter was pulled back to the radial sheath. Right radial artery angiography was performed in AP view. Right radial artery angiography demonstrates no evidence of access complication and occlusion of the right radial artery at the level of the sheath, with normal appearance of the right brachial and ulnar arteries. Subsequently, after secondary review of all images, the radial sheath was removed with placement of a Prelude Sync distal compression band, and hemostasis was obtained. The patient remained neurologically at baseline with a stable vascular examination of the right upper extremity post procedure. I was present for, and performed the entire procedure. There were no apparent complications. 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 Name Value Range Interpretation Code Description Data Destiny rce(s) Supporting Document(s) Progress Note [facility] ZEOBNd6zBiMFMnEj11/ZGAyhHVPsa1MeOChwEYy0WHnaHQYeC0QmXLT1mQ6dBAR9NGkUCrMoGtOmBEY6 lbm [file] AgICAgICAgICAgICAgICAgICAgICAgICAgICAgICAgICAgICAgICAgICAgICAgICAgICAgICAgICAgIC RpMIHeQSEtDAEzJPNfCLOgBCLbUIVjDSDlKPUqYMJoMY5NNIKyLCLvLHXxIOIpESHxTYOkAGDmNZTaLS AgICAgICAgICAgICAgICAgICAgICAgICAgICAgICAg BLThJRNyMJDhEKIdAUSdVFFrOZVmSKAcPLCeYYJjUAEkHWTpQRIlFLHeMP9NQJYyHWWbKZXdUMYbHYAq ICAgICAgICAgICAgICAgICAgICAgICAgICAgICAgICAgICAgICAgICAgICAgICAgICAgICAgICAgICAg XUEsRPEkDCAzZJPjNLGvBBFbCMPxVZKhRB9IJCAvYY AgICAgICAgICAgICAgICAgICAgICAgICAgICAgICAgICAgICAgICAgICAgICAgICAgICAgICAgICAgIC MaTBFzWEKfIZJlWHOxDKNyBLPeMZIbDWSfZVBvQBBoGLSkVQ9ANEKtXBSiDCEeILJcZNNbBNHcXVPkNW AgICAgICAgICAgICAgICAgICAgICAgICAgICAgICAg PAFvZCNbJKYtOJLgQDJaBENtAKDkHSJzAYZkRMEjXSXaNKFjOWBzYHZyVIKhMY7BRBXrGMZuUNDgDWHy ICAgICAgICAgICAgICAgICAgICAgICAgICAgICAgICAgICAgICAgICAgICAgICAgICAgICAgICAgICAg BZSyUSKxAYBkDQUnDLLxMIYnAJXgGXIjYQUjPY6EXT AgICAgICAgICAgICAgICAgICAgICAgICAgICAgICAgICAgICAgICAgICAgICAgICAgICAgICAgICAgIC RfFIDwAXAhJLHoABAiRKKzVZHgGTHnMSCwGEZlVUTkBHCeYVUyRT7YWJUrLCIpPLAsLJNjZKHsVJFwIM AgICAgICAgICAgICAgICAgICAgICAgICAgICAgICAg YOZyCLXuOVPiHBJeGOJzRCQtGZYpTRNdXKZaEZIiMSNoSEZcYGGiLHThXDCsIMVaMG4EKOSjNGUnJFXp ICAgICAgICAgICAgICAgICAgICAgICAgICAgICAgICAgICAgICAgICAgICAgICAgICAgICAgICAgICAg ICAgICAgICAgICAgICAgICAgICAgICAgICAgICAgIA 0KICAgICAgICAgICAgICAgICAgICAgICAgICAgICAgICAgICAgICAgICAgICAgICAgICAgICAgICAgIC CuVBBuNUWmZBQuPXOmRZCcGOOjWKBxIUMkJGQnRHHfDETyTBNgTFYnXD5XQM26xZFsb9C8ODPfMS6wvb c/Qa5QXNqcsaJgoKAkEJ7YNuGrUG8geg6PEmRvAT4e rg8QJRiJZuVjU0X8lRAsPYFxFYZFCdTsX26bMBbiKo61VWotWKGeGyQgBQb0Uf2QLzGdO1zvVWUgDbU9 VUNsKxDmGUmiFI8Hp3UpcQPzOKk+We1NRN3fh0SlAKrpDBKtWH2lhr4VJScAXhBlE8LejqX5NZE7ZJTr Vg6FQIUbCHZwhZHgEVFjSPIVQuZeP3VoqF11GJHIDd 4+JQbhyjUvFqrVWpN5EKGet1IiKNg6VH6PQGDtFMd2xEVwNAVbW6Jkn0HnNm95RSTpTlzvX6NoA7OoRV SNSFVnPQrjSn6cNAUqPX1oQW7yZSFoALNiKlOeHDPMZV7ESWLwCKRwkKUjFHKtMRBPFZ0HDVzgCYH7SW IgxdYqkKKqXUjhEV5TLUQcrlJhOCYdHIPWMEz+Pg0K AJ6dc9WkXHpaWyLwZR5axv1JTHfVKcTjN9Z5eSFnQ7P6XCmcVl1HFHDaDMFvNIWoOWHTUBcyBE9FAI5k rxC1CF5NjBCnJUNcBXBfbXTtNEr5T17kuDOdVTvmTU9JBHR+Jordan+Jd6TMOPpPESzGFOyZwIeNVUISxXu R3McR7PDk1RrT0IeOK89rUcvliAbZAbaQE3SIN6bNQ ZpKTYEVN6UrZMmfX7srvOsLQUpWEQNWqMeI32kmFOnWVCuVEWfGBMoRq0UFAApX3BfsxBclNioniXrTR MvLSAGFH2TWZenwwUgkRLdzZuvRA35pBxrKQ8POw5FPeZhFP6ztd6KxCXqRs5JPSFlFf0INOCaKSRfSQ KrKNS6WDCiYsPuEHkpIOIwIQOtAIH1HLFqEDBxIX6Y TtPhZOJhLLU0IxdoKTFdKJZphq4OARBrVWVvNaZ6UwIeIKFwCLCrZIwtJQCzHJJrSEC4GZOuCMBwYJ9K UsCfFSMzNKA0PhluZYFtYMCxgi6AFWZxFSJfJPboOVNpLIEqOSZkHPlbTVIrZYEvLBojBQCxPCIeNO6V MfIuBRTdTSQfJHXpBRSgPOWltz4PFIFdAWIgOpG2Hb IqQVEeTPUnJJfzQLGwOII7JtR5FRLdUBZcLG2RSsDkQIZlPSW6MsSeSPCsGLHybj4SGHAnEENuGJCyNj LxIJRqOIRsAWzdCWSiLXK8YUW7NOHxSQSrUS1RYySoEHFkIHQ9OTIcAXPaVBNgmn1HIALkVGMuBaCgSd KuQWLmSZDsCChoWZBoJTM3Vms0GYYyDPPzRU2TGnBi QPfcUJHXMdw0CQjgI0i2ZHQmTq1YU3Ybr9YzNPCsHROFVOizID8xvsIzLLXcJj3XL4jHIarpMzIaUiJz ZSBwIaRzRIyrNaHmBRnkWjRdZ4HnSho7UZ6fARS6AYT9U0N1QHZpSUC3AXJxW3Z8VCHuYVQ3RcZ7Nhlp JfJdIA4XXz1YXbH9CKN5rJYzGo0ZGejvXJ8YZCPJU8PLZc== ID Date Data Source [id number] 06/16/2020 09:56:06 AM 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+DUYyvKNpKPItAtpQfkSp8bN3myQLjtR88HX6pI7MbpPNB1+rL5li4HbIZ+90zp2o4fUmB5yUQXhD [file] ICAgICAgICAgICAgICAgICAgICAgICAgICAgICAgIC LnYSFwDCLxFGXaHKBxINCvDJYrNYQgCWWfGSAjYALcDTJeTHMlTC0BQGUeFXAcFVUqJRZpMNEvJVWaHF AgICAgICAgICAgICAgICAgICAgICAgICAgICAgICAgICAgICAgICAgICAgICAgICAgICAgICAgICAgIC HbULVhSJDrIYAdYHTwZFRhTIJmNU9ZEPOtGNEgDBZw ICAgICAgICAgICAgICAgICAgICAgICAgICAgICAgICAgICAgICAgICAgICAgICAgICAgICAgICAgICAg POCzUQIaVSXuAFZxFKVwQOSrOVZvYNOqLDTgSPRkZN6PWQLsNEWoHXYoYRAgGVAjFSEeZOPdPJDzUAIo ICAgICAgICAgICAgICAgICAgICAgICAgICAgICAgIC DlAIEbHSJrOCAdRVWbFBLeGCIoCTJfBIFdOUPjVOMsIITcOXNvNJYjNW2IZRTxHXGsSVIuPRZuOAApWT AgICAgICAgICAgICAgICAgICAgICAgICAgICAgICAgICAgICAgICAgICAgICAgICAgICAgICAgICAgIC BrSNMvWBYeFVUlRRQvWHWdYRTuXFYoJF3NBLBcYAQc ICAgICAgICAgICAgICAgICAgICAgICAgICAgICAgICAgICAgICAgICAgICAgICAgICAgICAgICAgICAg GMTzEXLuYKKfTBYlKULhAWYvGAExYCOjSFBvVJSvUWJuMS0EIXPgYHZxAPPiIOWwBZImKVVbDOMhAYAo ICAgICAgICAgICAgICAgICAgICAgICAgICAgICAgIC ZmPKCnJHPtUAGaGMSxCQApZWDdXHUuFJSpIRUaTGByVCWmDPGiMWKrKVUwUS3BLNOsOQSeJWWqJVGwIV AgICAgICAgICAgICAgICAgICAgICAgICAgICAgICAgICAgICAgICAgICAgICAgICAgICAgICAgICAgIC HoMFKlSBFaYMHkFSZnBCNeTOGrJDNwFLYqTW7KSSJl ICAgICAgICAgICAgICAgICAgICAgICAgICAgICAgICAgICAgICAgICAgICAgICAgICAgICAgICAgICAg NGRuOQBmWDEhNZAbXRMtSVJqEGEmNIPmZPXuEMAdNYLyIECaAM5GMEQcBDKjNNShCQVcRULuNVJnHYHm ICAgICAgICAgICAgICAgICAgICAgICAgICAgICAgIC PnNBMrFTGfZBAkBKPnXYUzOWWgQOYdUUOhLVNyDSVgQBHrAQDnDXXiNIGiHWHnBG5SPV54tVOvd0U4PM CkSP2lqfn/It0LNZtfpbJjmPWmTM7VGhWlDW0khc9ZArFaBJ9ity7MXNnHGhOgK4T9yGSwEEUsQYAUTm DcV47nLXxqCm63KBzhNKAmNrZnMAz5Hl0DLiKpY4mc NTKwUaB2WMTnPoH8JYCkLeP6NGMtOpHbUMOmXRIkJI6QNONxR604tvPrBX6RFz7IMnDfXU0gnp7XAuco RPQkVdzWHon8QDkqOY4KtOTphUYgNRRdQAUOAaKdZ8fgh1ItXtdpEUNATWhyOI2Ha0WqlTJhBEr+Pg0K HQ2gy6HqJFnxDGRoUQ0roj7GCOdCNzPkF3WzaAoxKK ewYTKhuIKLxXWpnXAqeOQzZqeuoxgpWDUqYFKaIH9kGO8dNVLwVRG1IyU4TKHDBI7GMDLmJKOvwBVwYT TzHHCTFR4DFYvyMAP2FYRsoaBdhBFsMUkhRN3UTZNmisBfUiwuLSKJADg+Tb6BPE0ju2QgLJypWAQkBG 6fhc2BFNbRJmEaH5F8dLIqU2Q1MNcwLg4UUPNcXCOf ZxXuPLVESCwaUK1GHU3bcuK4NJ8LjEOjPGEsTKSgtJVmTNg8B46lvLHiILynWC7KNCN+Jordan+Nu1EVXYa WVSuIVCqXiYxYXNKJqWrZ2EvK5AOk0TgM7AqFV11hPsxfdLeENdwLQ9QJF8pWNYhPTRUOK9NlCGiiF3z vtNyMHLaZPYVWeImK23ljBHzMYWoDNN0GCNhWt9MFT YrW9QbyrLrhKkntvXpGFArFQSUSW6SSZyrslHsxANxnAlrPY92qDmtVO7FOh4VMtLhXP4dit4NgFExTm 7GFZAjLP7CNKBuHCPaWIDrZDS3VKNhOfFzQPdxIUJvIWDcZME6AFFgKWTkYG1UHbLqEXNmHcm4NTvuLP LvNPKuim1SPPBuWXNgPCJdZLDyGKOyAXDlDFgjTPPu YQRbIDZ2HIFlVGBsYU6EVrLlVZSmRROrFSViTQEwGSJkmk3GCRWqBGPiBQN5TVPqZCAkLKZfVGnnAWRc CAL4ZYA4HNSqALAvWJ5XGwIfKBLdUYE2LlKaAZOyUCUgfc6RXGMpCLByXBD7GVZtTXIhJKZrKEkmYZOo ZUK3LgT6TVWbTWQxVH5OFiElSLJiNCVsKUUaGKQoTH Vnwq7TDHKaINHfRYI2YDVdSFFbHUKbWYtuLBIjSIOyTGFbDTHjLXFkHW5HMcDbKPRdLEM7IMtbZCIpHC Eatt3WCPOiJLCuGbr9KTQtUKJkYNAtVPqcOLSmXWZdIDGlCLHdDJTzWG1ARlFeMKRoFEVvQJFkMYZsRU Kfgi1XBKRvCNQhIOX7VDBmECUsCNSaIRzgMLBuHQM6 QmEfTGMfTEQqSB8YMiLgFJAsKVJhIQmdDUZtWRAblz9UYOTgQGMjXQC0GEAbBDUpHNLeXIzfGMKbDKZ9 FVL3YKZqWHVaLS1UObGnIGFpAncsGNHaRSLmWIDmwu6UGMTsVCJgHoX5YlEdNRZaCPErAVmjRRNxIZH2 SyIuSOOcQNTrXN4JQhZzKOYlHbs6BhylNSDdTNLnar 7VIXHdBZAiAJQ2YKVtAGQsJCHzHIdmLBQgDZP6SpTwHXPxMMFqZA2UBlWqIFDoDap2HxWiJTVnULTuyi 2VCZVvLPUmDRm4ZCSbIRWuBUWiPUz3hcTveATkNYg3EC0PK2JqeqVuWiFSVf2Ya399URRlJCIuZd5HN4 xgLw7eHNHtSQQONh2QODb2MKBiJloaYOSrVVL7RDUz UET5TJDvVmVtDxFjFyS8XRq+QNh2PqY5OYCjRFEfECokNOJeYPg9YLK4DIPqOZZgUGT3Wn0gAYJBTb5+ IAxgsZLpiZisALMAPeZuLfA5CBepFLXNLm1V ID Date Data Source [id number] 06/16/2020 08:32:14 AM EST [facility] Name Value Range Interpretation Code Description Data Destiny rce(s) Supporting Document(s) Choriogonadotropin ( test) [Presence] in Urine [facility] NEGATIVE: either no HCG or too low to de tect, <20 mU/mL Specific gravity of Urine by Refractometry 1.017 1.003-1.030 [facility] ID Date Data Source [id number] 06/12/2020 12:38:00 PM EST [facility] [address] [place] [address] RESPIRATORY CARE REPORT ==== ---------NAME------- NUMBER SEX AGE ADMIT DISC. XRAY# F/C TYPESIMMONS RAMANDA R [id number] F [id number] 06/12/20 06/12/20 [id number] O/P DATE OF : 1975 M/R# [id number] PH#: [id number] LOCATION: [facility] [address] COMPLETE:06/12/20 12:37 [facility] [id number] PHYSICIAN: SAMI NEIL Name Value Range Interpretation Code Description Data [facility] rce(s) Supporting Document(s) ID Date Data Source [id number] 06/12/2020 10:45:00 AM EST [facility] Name Value Range Interpretation Code Description [facility](s) SARS coronavirus 2 RNA Not Detected [facility] This lab was ordered by [facility] crissy and reported by [facility]. ID Date Data Source [id number] 06/15/2020 07:48:00 AM EST [facility] Name Value Range Interpretation Code Description Data [facility] Supporting Document(s) SARS-CoV-2, ROBERT Not Detected Not Detected [facility] This nucleic acid amplification test was developed and its performancecharacteristics determined by [facility]. Nucleic acidamplification tests include PCR and TMA. This test has not been FDAcleared or approved. This test has been authorized by FDA under anEmergency Use Authorization (EUA). This test is only authorized forthe duration of time the declaration that circumstances existjustifying the authorization of the emergency use of in vitrodiagnostic tests for detection of SARS-CoV-2 virus and/or diagnosisof COVID-19 infection under section 564(b)(1) of the Act, 21 U.S.C.360bbb-3(b) (1), unless the authorization is terminated or revokedsooner.When diagnostic testing is negative, the possibility of a falsenegative result should be considered in the context of a patient'srecent exposures and the presence of clinical signs and symptomsconsistent with COVID- 19. An individual without symptoms of COVID-19and who is not shedding SARS-CoV-2 virus would expect to have anegative (not detected) result in this assay. ORDER COVID 19 2 DAY NO [facility] ID Date Data Source [id number] 06/13/2020 04:43:00 PM [facility] Name Value Range Interpretation Code Description Data Destiny rce(s) Supporting Document(s) Lutropin [Units/volume] in Serum or Plasma 48.5 mIU/mL [facility] Adult Female: Follicular phase 2.4 - 12.6 Ovulation phase 14.0 - 95.6 Luteal phase 1.0 - 11.4 Postmenopausal 7.7 - 58.5 ID Date Data Source [id number] 06/13/2020 04:42:00 PM [facility] Value Range Interpretation Code Description Data Destiny rce(s) Supporting Document(s) Follitropin [Units/volume] in Serum or Plasma 90.4 mIU/mL [facility] Adult Female: Follicular phase 3.5 - 12.5 Ovulation phase 4.7 - 21.5 Luteal phase 1.7 - 7.7 Postmenopausal 25.8 - 134.8 ID Date Data Source [id number] 06/12/2020 12:32:00 PM [facility] Value Range Interpretation Code Description Data Destiny rce(s) Supporting Document(s) aPTT in Blood by Coagulation assay 25.7 SECONDS 24.8 - 36.7 [facility] ID Date Data Source [id number] 06/12/2020 12:16:00 PM EST [facility] Name Value Range Interpretation Code Description Data Destiny rce(s) Supporting Document(s) URINALYSIS WITH MICROSCOPIC [facility] URINALYSIS COLOR yellow NORMAL: Yellow [facility] CLARITY clear NORMAL: Clear [facility] Specific gravity of Urine by Test strip 1.005 1.001 - 1.030 [facility] pH 6 5 - [facility] Glucose [Mass/volume] in Urine by Test strip NORM NORMAL: Negat [facility] Bilirubin.total [Presence] in Urine by Test strip NEG NORMAL: Negative [facility] Ketones [Presence] in Urine by Test strip NEG NORMAL: Negative [facility] Protein [Mass/volume] in Urine by Test strip NEG NORMAL: Negat [facility] Nitrite [Presence] in Urine by Test strip NEG NORMAL: Negative [facility] BLOOD NEG NORMAL: Negative [facility] Leukocyte esterase [Presence] in Urine by Test strip NEG ISABELLA L: Negative [facility] Urobilinogen [Mass/volume] in Urine by Test strip NOR less jo n 1.0 mg/dL [facility] MICROSCOPIC See Below [facility] WBC 0 - 1 NORMAL: NONE SEEN [facility] ID Date Data Source [id number] 06/12/2020 12:27:00 PM EST [facility] Name Value Range Interpretation Code Description Data Destiny rce(s) Supporting Document(s) BASIC METABOLIC PANEL [facility] BASIC METABOLIC PANEL Sodium [Moles/volume] in Serum or Plasma 139 mEq/L 134 - 153 [facility] Potassium [Moles/volume] in Serum or Plasma 4.5 mEq/L 3.6 - 5.0 [facility] Chloride [Moles/volume] in Serum or Plasma 103 mEq/L 98 - 107 [facility] Carbon dioxide, total [Moles/volume] in Serum or Plasma 27 MEQ/L 22 - 30 [facility] Glucose [Mass/volume] in Serum or Plasma 97 MG/DL 70 - 99 [facility] BUN 14 MG/DL 7 - 21 [facility] Creatinine [Mass/volume] in Serum or Plasma 0.7 MG/DL 0.7 - 1.5 [facility] BUN/CREAT 20 8 - 27 [facility] al Calcium [Mass/volume] in Serum or Plasma 9.7 MG/DL 8.4 - 10.2 [facility] Anion gap 3 in Serum or Plasma 9.0 mmol/L 8.0 - 16.0 [facility]GE 44 [facility] AMER GFR >60 mL/min [facility] NON-AA GFR >60 mL/min [facility] Male GFR Inter prentation 20-49 yrs >60 mL/min Normal 50-59 yrs >56 mL/min Normal 60-69 yrs >49 mL/min Normal 70-79yrs >42 mL/min Normal 80 and above >35 mL/min Normal Female GFR Interpretation 20-39 yrs >60 mL/min Normal 40-49 yrs >58 mL/min Normal 50-59 yrs >51 mL/min Normal 60-69 yrs >45 mL/min Normal 70-79 yrs >39 mL/min Normal 80 and above >32 mL/min Normal ID Date Data Source [id number] 06/12/2020 11:51:00 AM EST [facility] Name Value Range Interpretation Code Description Data Destiny rce(s) Supporting Document(s) CBC W/AUTOMATED DIFF [facility] COMPLETE BLOOD COUNT Leukocytes [#/volume] in Blood by Automated count 6.1 10^3/uL 4.2 - 1 1.0 [facility] Erythrocytes [#/volume] in Blood by Automated count 5.31 10^6/uL 4. 20 - 5.40 [facility] Hemoglobin [Mass/volume] in Blood 15.8 g/dL 12.0 - 16.0 [facility] Hematocrit [Volume Fraction] of Blood by Automated count 47.0 % 3 7.0 - 47.0 [facility] Erythrocyte mean corpuscular volume [Entitic volume] by Auto mated count 88.5 fL 81.0 - 101 [facility] Erythrocyte mean corpuscular hemoglobin [Entitic mass] by Automated count 29.8 pg 27.0 - 34.0 [facility] Erythrocyte mean corpuscular hemoglobin concentration [Mass/volume] by Automated count 33.6 g/dL 31.0 - 36.0 [facility] Erythrocyte distribution width [Ratio] by Automated count 13.2 % 11.5 - 14.5 [facility] Platelets [#/volume] in Blood by Automated count 290 10^3/uL 150 - 45 0 [facility] Platelet mean volume [Entitic volume] in Blood by Automated count 9.4 fL 7.4 - 10.4 [facility] Neutrophils/100 leukocytes in Blood by Automated count 53.7 % 37. 0 - 80.0 [facility] Lymphocytes/100 leukocytes in Blood by Manual count 34.1 % 25.0 - 40.0 [facility] Monocytes/100 leukocytes in Blood by Automated count 8.0 % 3.0 - 8.0 [facility] Eosinophils/100 leukocytes in Blood by Automated count 3.0 % 0.0 - 7.0 [facility] Basophils/100 leukocytes in Blood by Automated count 1.0 % 0.0 - 2.5 [facility] %IG 0.2 % 0.0 - 0.0 [facility] % 0.0 - 0.0 [facility] al Neutrophils [#/volume] in Blood by Automated count 3.28 10^3/uL 2.00 - 6.90 [facility] Lymphocytes [#/volume] in Blood by Automated count 2.08 10^3/uL 0.60 - 3.40 [facility] Monocytes [#/volume] in Blood by Automated count 0.49 10^3/uL 0.00 - 0.90 [facility] Eosinophils [#/volume] in Blood by Automated count 0.18 10^3/uL 0.00 - 0.70 [facility] Basophils [#/volume] in Blood by Automated count 0.06 10^3/uL 0.00 - 0.20 [facility] #IG 0.01 10^3/uL 0.00 - 0.10 [facility] #NRBC 0.00 10^3/uL 0.00 - 0.00 [facility] MANUAL DIFF NOT INDICATED [facility] RBC MORPH NOT INDICATED [facility] spital ID Date Data Source [id number] 06/12/2020 09:14:00 AM EST [facility] [address] [place] [address] PHONE: [phone] FAX: [phone] Name .................. : BOOGIE GRIER Claudia Acct Number.................. : [id number] ROOM. ................. : MR Number ................... : [id number] Stay type ............. : O/P Discharge Date......... ... : 06/11/20 Admit Date ......... : 06/11/20 Admit Phys .................... : JOSEPHINE CARY Date of ....... : 1975 Family Phys ................... : PATEL MARGARITO Phone .................. : [phone] Age ................................ : 44 Film# .................. .:[id number] Sex ................................. : F Unsigned transcriptions are preliminary reports and do not represent a medical or legal document CT HEAD W/O ROM Boyd/MELANI [id number] COMPLETE:06/11/20 08:24 2180 (REASON FOR PROCEDURE R FRONTAL BONE LESION EVAL CT HEAD W/O AND W/IV CONTRAST, 06/11/20: Comparison is November 10, 2017. FINDINGS: Intracranial hemorrhage, space occupying mass, mass effect, or midline shift is not seen. There is no obstructive hydrocephalus. The basal cisterns are unremarkable. Blastic focus is seen in the right frontal bone without significant change, likely of benign etiology. The sinuses, orbits, and mastoid air cells are unremarkable. IMPRESSION: Stable blastic focus noted right frontal bone would suggest benign etiology, but does not definitively confirm a benign osseous lesion. Continued clinical management is recommended. Follow up CAT scan may be performed in one year to additionally confirm stability. While performing the above CT examination, radiation dose reduction was accomplished utilizing automated exposure control, adjusting of the mA and kV based on the patient's body size and/or the use of imperative reconstructive techniques. CT dose 1668 mGycm. Contrast agent in mL: 75 mL Isovue 370 Method of administration: Intravenous Electronically Reviewed and Signed By Emeterio Riggins MD , 06/12/20 09:14, KGG Transcribe Initials: TORSTEN, Transcribe Date: 06/11/20 11:42, Dictation Date: Page 1 of 2 [place] [address] PHONE: [phone] FAX: [phone] Name .................. : BOOGIE Taylor Acct Number.................. : [id number] ROOM. ................. : MR Number ................... : [id number] Stay type ............. : O/P Discharge Date......... ... : 06/11/20 Admit Date ......... : 06/11/20 Admit Phys .................... : JOSEPHINE CARY Date of ....... : 1975 Family Phys ................... : JORGE PIMENTEL Phone .................. : [phone] Age ......... ....................... : 44 Film# .................. .:[id number] Sex ................................. : F Unsigned transcriptions are preliminary reports and do not represent a medical or legal document CT HEAD W/O FOL W/MELANI [id number] COMPLETE:06/11/20 08:24 2180 (REASON FOR PROCEDURE R FRONTAL BONE LESION EVAL Copy for: JOSEPHINE HERNANDEZ via fax Copy for: [facility] Page 2 of 2 Name Value Range Interpretation Code Description Data Destiny rce(s) Supporting Document(s) ID Date Data Source [id number] 05/14/2020 12:17:59 PM [facility] Name Value Range Interpretation Code Description Data Destiny rce(s) Supporting Document(s) Progress Note [facility] [id number] [file] [id number] Procedure Social History Code Duration Value Status Description Data Source(s ) Alcohol intake 08/31/2020 12:00:00 AM EDT Ex-drinker (finding) comp leted Ex- drinker (finding) [facility] Tobacco use and exposure 08/31/2020 12:00:00 AM EDT Never used co mpleted Never used [facility] Cigarette pack-years 08/31/2020 12:00:00 AM EDT UNK completed [facility] Cigarettes smoked current (pack per day) - Reported 09/01/19 12:00:00 AM EDT UNK completed [facility] Smoking 08/31/2020 12:00:00 AM EDT Current every day smoker co mpleted Current every day smoker [facility] Smoking 08/11/2020 12:00:00 AM EDT Current Smoker completed [facility] Sm[facility] eCW1 ([facility]) Smoking 08/11/2020 12:00:00 AM EDT Current Smoker completed Curre nt Smoker eCW1 ([facility]) Alcohol intake 06/25/2020 12:00:00 AM EST Ex-drinker (finding) comp leted Ex- drinker (finding) [facility] Alcohol intake 06/16/2020 12:00:00 AM EST Ex-drinker (finding) comp leted Ex- drinker (finding) [facility] Vital Signs ID Date Data Source UNK Name Value Range Interpretation Code Description Data Source(s) Heart rate 82 /min 82 /min [facility] ([facility]) Body temperature 97.6 [degF] 97.6 [degF] [facility] ([facility]) Oxygen saturation in Arterial blood by Pulse oximetry 94 % 94 % [facility] ([facility]) Systolic blood pressure 124 mm[Hg] 124 mm[Hg] M [facility] ([facility]) Body surface area Derived from formula 1.90 m2 1.90 m2 [facility] ([facility]) Diastolic blood pressure 86 mm[Hg] 86 mm[Hg] [facility] ([facility]) Body height 63 [in_i] 63 [in_i] [facility] ([facility]) 5'3" Body weight 193.00 [lb_av] 193.00 [lb_av] [facility] ([facility]) Body mass index (BMI) [Ratio] 34.2 kg/m2 34.2 k g/m2 [facility] ([facility]) [place] body weight 115 [lb_av] 115 [lb_av] [facility] ([facility]) Body weight 87.545 kg 87.545 kg [facility] ([facility] ) Systolic blood pressure 136 mm[Hg] 136 mm[Hg] M [facility] ([facility]) Heart rate 84 /min 84 /min [facility] ([facility]) Diastolic blood pressure 88 mm[Hg] 88 mm[Hg] [facility] ([facility]) Body temperature 97.4 [degF] 97.4 [degF] [facility] ([facility]) Respiratory rate 16 /min 16 /min [facility] ( [facility]) Oxygen saturation in Arterial blood by Pulse oximetry 97 % 97 % [facility] ([facility]) Systolic blood pressure 122 mm[Hg] 122 mm[Hg] M [facility] ([facility] ) Diastolic blood pressure 80 mm[Hg] 80 mm[Hg] [facility] ([facility] ) Respiratory rate 16 /min 16 /min [facility] ( [facility] ) Heart rate 84 /min 84 /min [facility] ([facility] ) Body weight 195 [lb_av] 195 [lb_av] eCW1 ([facility]) Body height 63 [in_i] 63 [in_i] eCW1 ([facility]) Body mass index (BMI) [Ratio] 34.54 kg/m2 34.54 kg/m2 eCW1 ([facility]) Heart rate 88 /min 88 /min eCW1 ([facility]) Respiratory rate 18 /min 18 /min eCW1 ([facility]) Body temperature 97.1 [degF] 97.1 [degF] eCW1 ( [facility]) Systolic blood pressure 125 mm[Hg] 125 mm[Hg] e CW1 ([facility]) Diastolic blood pressure 67 mm[Hg] 67 mm[Hg] eCW1 ([facility]) Systolic blood pressure 124 mm[Hg] 124 mm[Hg] M [facility] ([facility], ) Diastolic blood pressure 86 mm[Hg] 86 mm[Hg] [facility] ([facility], ) Body height 63 [in_i] 63 [in_i] [facility] ([facility], ) 5'3" Body weight 185.00 [lb_av] 185.00 [lb_av] [facility] ([facility]) Body mass index (BMI) [Ratio] 32.8 kg/m2 32.8 k g/m2 [facility] ([facility]) [place] body weight 115 [lb_av] 115 [lb_av] [facility] ([facility]) Body weight 83.916 kg 83.916 kg [facility] ([facility]) Body surface area Derived from formula 1.87 m2 1.87 m2 [facility] ([facility]) Systolic blood pressure 137 mm[Hg] 137 mm[Hg] M [facility] ([facility]) Heart rate 81 /min 81 /min [facility] ([facility]) Body temperature 99.3 [degF] 99.3 [degF] [facility] ([facility]) Oxygen saturation in Arterial blood by Pulse oximetry 97 % 97 % [facility] ([facility]) Diastolic blood pressure 80 mm[Hg] 80 mm[Hg] [facility] ([facility]) ID Date Data Source [id number] 09/17/2020 03:23:44 PM [facility] Name Value Range Interpretation Code Description Data Source(s) WEIGHT RECORDED 199.08 lb 199.08 lb [facility] WEIGHT RECORDED 194 lb 194 lb [facility] Body height Measured 63 in 63 in [facility] ID Date Data Source [id number] 08/28/2020 04:04:06 PM [facility] Name Value Range Interpretation Code Description Data Source(s) WEIGHT RECORDED 193.34 lb 193.34 lb [facility] Body height Measured 62.6 in 62.6 in [facility] ID Date Data Source [id number] 07/02/2020 02:03:37 PM [facility] Name Value Range Interpretation Code Description Data Source(s) WEIGHT RECORDED 186 lb 186 lb [facility] Body height Measured 63 in 63 in [facility] Patient Treatment Plan of Care Planned Activity Planned Date Details Description Data Source (s) Ticagrelor 90 MG Oral Tablet 10/02/2020 12:00:00 AM [facility] Chantix Continuing Month James 1 MG 09/22/2020 12:00:00 AM EDT eCW1 ([facility]) Aspirin 81 MG Delayed Release Oral Tablet 09/02/2020 12:00:00 AM [facility] Ticagrelor 90 MG Oral Tablet 09/01/2020 12:00:00 AM [facility] Acetaminophen 325 MG Oral Tablet 09/01/2020 12:00:00 AM [facility] Ticagrelor 90 MG Oral Tablet 09/01/2020 12:00:00 AM [facility] albuterol (PROVENTIL HFA) inhaler 2 puff 08/31/2020 07:01:50 PM [facility] sennosides, DETENTION 8.6 MG Oral Tablet 08/31/2020 02:48:13 PM [facility] ondansetron (ZOFRAN) injection 4 mg 08/31/2020 02:48:13 PM [facility] Acetaminophen 325 MG Oral Tablet 08/31/2020 02:48:12 PM [facility] Oxycodone Hydrochloride 5 MG Oral Tablet 08/31/2020 02:48:12 PM [facility] Bisacodyl 10 MG Rectal Suppository 08/31/2020 02:48:12 PM [facility] sodium chloride (preservative free) 0.9 % flush 3 mL 021 07:27:07 AM [facility] sodium chloride 0.9 % bag 3-20 mL 08/31/2020 07:27:07 AM [facility] Chantix Starting Month James 0.5 MG X 11 & 1 MG X 42 08/11/2020 12 :00:00 AM EDT eC ([facility]) 84 HR Estradiol 0.60053 MG/HR / norethin drone acetate 0.73972 MG/HR Transdermal Patch [Combipatch] 07/09/2020 12:00:00 AM [facility] sodium chloride (preservative free) 0.9 % flush 3 mL 021 09:00:00 AM [facility] sodium chloride 0.9 % bag 3-20 mL 06/16/2020 07:02:50 AM [facility] 30 ACTUAT fluticasone furoate 0.2 MG/ACT UAT / vilanterol 0.025 MG/ACTUAT Dry Powder Inhaler [Breo] 06/12/2020 12:00:00 AM [facility] Albuterol Sulfate HFA 108 (90 Base) MCG/ ACT Inhalation Aerosol Solution (PROVENTIL HFA) 06/12/2020 12:00:[address] [facility] Diclofenac Potassium 50 MG Oral Tablet 06/11/2020 12:00:00 AM [facility] gabapentin 100 MG Oral Capsule 09/04/2019 12:00:00 AM [facility]
--- OUTSIDE RECORDS SUMMARY | 2021-04-09 19:34 | CCD ---
Author Author [facility] Organization [facility] Address Unknown Phone Unavailable Care Team Providers Care Gatehouse Attendant Name Role Phone Rocio LOPEZ Unavailable Unavailable [...] Unavailable Unavailable Rocio PATEL MD Unavailable Unavailable Roico PATEL MD Unavailable Unavailable Rocio PATEL MD Unavailable Unavailable Rocio PATEL MD Unavailable Unavailable Rocio PATEL MD Unavailable Unavailable oRcio PATEL MD Unavailable Unavailable Rocio PATEL MD [...] Unavailable NOHEMY, L ARMANDO PA Unavailable Unavailable ONHEMY, L ARMANDO PA Unavailable Unavailable NOHEMY, L [...] Unavailable Unavailable RENAY, W LUZ Unavailable Unavailable ERNAY, W LUZ Unavailable Unavailable RENAY, W LUZ [...] Olivo MD Unavailable Unavailable Brian, MAXWELL ILIANA ANALYST GEOCHEMICAL PROSPECTING Unavailable Unavailabl e Brian, MAXWELL ILIANA ANALYST GEOCHEMICAL PROSPECTING Unavailable Unavailabl e [place], MAXWELL ILIANA ANALYST GEOCHEMICAL PROSPECTING Unavailable Unavailabl e [place], MAXWELL ILIANA ANALYST GEOCHEMICAL PROSPECTING Unavailable Unavailabl e Brian, MAXWELL ILIANA ANALYST GEOCHEMICAL PROSPECTING Unavailable Unavailabl e [place], MAXWELL ILIANA ANALYST GEOCHEMICAL PROSPECTING Unavailable Unavailabl e Brian, MAXWELL ILIANA ANALYST GEOCHEMICAL PROSPECTING Unavailable Unavailabl e [place], MAXWELL ILIANA ANALYST GEOCHEMICAL PROSPECTING Unavailable Unavailabl e [place], MAXWELL ILIANA ANALYST GEOCHEMICAL PROSPECTING Unavailable Unavailabl e [place], MAXWELL ILIANA ANALYST GEOCHEMICAL PROSPECTING Unavailable Unavailabl e Brian, MAXWELL ILIANA ANALYST GEOCHEMICAL PROSPECTING Unavailable Unavailabl e [place], MAXWELL ILIANA ANALYST GEOCHEMICAL PROSPECTING Unavailable Unavailabl e Brian, MAXWELL ILIANA ANALYST GEOCHEMICAL PROSPECTING Unavailable Unavailabl e [place], MAXWELL ILIANA ANALYST GEOCHEMICAL PROSPECTING Unavailable Unavailabl e [place], MAXWELL ILIANA ANALYST GEOCHEMICAL PROSPECTING Unavailable Unavailabl e Brian, MAXWELL ILIANA ANALYST GEOCHEMICAL PROSPECTING Unavailable Unavailabl e Brian, MAXWELL BARRIENTOS ANALYST GEOCHEMICAL PROSPECTING Unavailable Unavailabl e Brian, MAXWELL CARRNIFER ANALYST GEOCHEMICAL PROSPECTING Unavailable Unavailabl e [place], A Saul [...] Saul SCHAFER Unavailable Unavailable [place], A aSul SCHAFER Unavailable Unavailable [place], A Saul [...] Saul MD Unavailable Unavailable [place], A Asul MD Unavailable Unavailable [place], A Saul [...] is protected by Article 27-F of the [facility] Public Health law. If you continue you may have access to information: Regarding HIV / AIDS; Provided by facilities licensed or operated by the [facility] Office of Mental Health; or Provided by the [facility] Office for People With Developmental Disabilities. If such information is present, then the following [facility] mandated warning applies: This information has been [...] law may result in a fine or prison sentence or both. A general authorization for the release of medical or other information is NOT sufficient authorization for further disc losure. Allergies and Adverse Reactions Type Description Substance Reaction Status Data Source(s ) Propensity to adverse reactions TOPAMAX TOPAMAX RASH [facility] Propensity to adverse reactions PENICILLINS (CLASS) PENICILLINS (CLAS S) [facility] Miscellaneous allergy Carbamazepine Derivatives Carbamazepine De rivatives ANTICONVULSANTS-UNCLEAR ?? [facility] pital Drug allergy penicillin G Penicillin G [facility] Drug allergy Macrolide Antibiotics Macrolide Antibiotics [facility] Propensity to adverse reactions [facility] Propensity to adverse reactions PENICILLINS Penicillin [facility] Propensity to adverse reactions Propensity to adverse reactions NKDA MEDENT ([facility]) Family History Family Member Name Family Member Gender Family Member Status Date o f Status Description Data Source(s) Unknown Condition [facility] Unknown Condition [facility] Unknown Condition [facility] Unknown Condition [facility] Unknown Condition [facility] Unknown Condition [facility] Unknown Condition [facility] Unknown Condition [facility] Unknown Condition [facility] Unknown Condition [facility] Unknown Condition [facility] Unknown Condition [facility] Unknown Condition [facility] Unknown Condition [facility] Unknown Condition [facility] Unknown Condition [facility] Condition [facility] Condition [facility] Condition [facility] Unknown Condition [facility] Unknown Condition [facility] Unknown Condition [facility] Unknown Condition [facility] Unknown Condition [facility] Unknown Female Problem [facility] ([facility] Unknown Female Problem [facility] ([facility] Encounters Encounter Providers Location Date Indications Data Source(s ) Outpatient Referrer: Elvira MYERS 04/08/2021 12:00:00 AM [facility] Office Visit Attender: Selena MYERS [place] 04/06/2021 09:45:00 AM EST [facility] ([facility]) Outpatient Attender: ILIANA CARDENAS 04/01/2021 06:08:00 PM EDT - 04/01/2021 06:08:00 PM EDT [facility] Outpatient Attender: Nikki Dwyer MS, RPA-C 02/28/2021 10:51:00 AM EDT - 02/28/2021 10:51:00 AM EDT [facility] Office Visit Attender: Selena MYERS [place] 01/01/2021 11:15:00 AM EDT [facility] ([facility]) Outpatient Attender: Selena MYERS [place] 10/02/2020 09:00:00 AM EDT [facility] ([facility]) Outpatient Attender: RAINE BURTON MD [id number] 09/24 12:00:00 AM EDT - 09/24/2020 08:33:29 AM EDT Cerebral aneurysm, nonruptured [facility] Cerebral aneurysm, nonruptured [place] [address] [facility] [address] 09/22/2020 12:00:00 AM EDT eCW1 ([facility]) Emergency Attender: LORENA WILKES MDConsultant: VANE PATEL MD 09/03/2020 04:33:00 PM EDT - 09/03/2020 06:29:00 PM EDT [facility] Patient discharged. Inpatient Attender: RAINE BURTON MDAt tender: JONATHAN GALEANOAdmitter: RAINE BURTON MDReferrer: RAINE BURTON MD [id number] 08/31/2020 07:26:04 AM EDT - 09/01/2020 11:17:00 AM EDT Cerebral aneurysm, nonruptured [facility] Cerebral aneurysm, nonruptured Patient discharged. Outpatient Attender: RAINE BURTON MDReferrer: RAINE Marmolejo MD 08/31/2020 12:00:00 AM EDT [facility] Outpatient Attender: Meeta Dilshad Napierrer: RAINE RAMOS MD 08/28/2020 12:00:00 AM EDT [facility] Outpatient Attender: LISANDRO PENAReferrer: RAINE BURTON MD [id number] 08/28/2020 12:00:00 AM EDT [facility] Outpatient 08/27/2020 12:00:00 AM EDT [facility] Outpatient Attender: Katelynn Guevara MD 08/27/2020 12:00:00 AM EDT [facility] Outpatient Attender: Elvira Reddy PAConsultant: RICK PATEL MD 08/24/2020 09:15:00 AM EDT - 08/24/2020 10:15:00 AM EDT [facility] Patient discharged. Outpatient Attender: RAINE BURTON MDConsultant: RICK DUNNE MD 08/24/2020 09:15:00 AM EDT - 08/24/2020 10:15:00 AM EDT [facility] Patient discharged. Unknown [address] [facility] [address] 08/11/2020 12:00:00 AM EDT eCW1 ([facility]) Outpatient Attender: Chicho Olivo MDReferrer: RICK DUNNE MD 07/31/2020 03:29:00 PM EST - 07/31/2020 03:51:00 PM EST [facility] Outpatient Attender: Chicho Olivo MD 07/17/2020 05:07:0 0 PM EST R10.2 [facility] R10.2 Outpatient Attender: Chicho Olivo MDReferrer: RICK DUNNE MD 07/17/2020 02:58:00 PM EST - 07/17/2020 03:56:00 PM EST [facility] Outpatient Attender: RAINE BURTON MD [id number] 07/16/2020 12:00:00 AM [facility] Outpatient Attender: MONICA NEGRETE MDAt tender: RAINE BURTON MDAdmitter: RAINE BURTON MDReferrer: Elvira MYERS [id number] 06/16/2020 06:51:02 A M EST - 06/16/2020 01:04:00 PM EST Cerebral aneurysm, nonruptured [facility] Cerebral aneurysm, nonruptured Patient discharged. Outpatient Attender: Elvira Reddy PAConsultant: RICK PATEL MD 06/12/2020 12:06:00 PM EST - 06/12/2020 12:16:00 PM [facility] Outpatient Attender: Saul [place] IIConsultant: RICK GARVEY MD 06/12/2020 12:03:00 PM EST - 06/12/2020 12:13:00 PM [facility] Outpatient Attender: DENNIS SESAYonsultant: RICK Leyva MD 06/12/2020 10:27:00 AM [facility] - 06/12/2020 11:27:00 AM [facility] Outpatient 06/12/2020 12:00:00 AM [facility] Outpatient Attender: Selena MYERS Main office - [facility] 06/11/2020 08:30:00 AM EST [facility] ([facility]) Outpatient Attender: RAINE BURTON MDConsultant: RICK DUNNE MD 06/11/2020 08:18:00 AM EST - 06/11/2020 09:18:00 AM [facility] Outpatient Attender: RAINE BURTON MD [id number] 05/14/2020 12: 00:00 AM EST Cerebral aneurysm, nonruptured [facility] Cerebral aneurysm, nonruptured Outpatient Attender: ALLIE HILLIARD MD Main office - [facility] 05/04/2020 02:30:00 PM EST [facility] ([facility]) Outpatient Attender: ALLIE HILLIARD MD Main office - [facility] 04/13/2020 06:15:00 AM EST [facility] ([facility]) Outpatient Attender: ARMANDO MYERS 06/2019 05:01:00 PM EDT - 02/28/2020 05:01:00 PM EDT [facility] Outpatient Attender: ARMANDO MYERS [facility] 06/2019 05:00:00 PM EDT [facility] ([facility] Outpatient Attender: RICK DUKEGConsultant: LUZ NIÑO 01/24/2018 09:08:17 AM EDT [facility] Medications Medication Brand Name Start Date Product Form Dose Route Admi nistrative Instructions Pharmacy Instructions Status Indications Reaction Description Data Source(s) Prednisone 20 MG Oral Tablet Prednisone 02/28/2021 12:00:00 AM EDT ORAL completed [facility] ([facility]) 20 mg 02/28/2021 12:00:00 AM EDT [...] 1 tablet by mouth Two Times Daily [facility] 90 mg 09/23/2020 12:00:00 AM EDT [...] BY MOUTH TWICE A DAY SOLD: 12/01/2020 [facility] 90 mg 09/23/2020 12:00:00 AM EDT tablet 60 TAKE ONE TABLET BY MOUTH TWICE A DAY TAKE ONE TABLET BY MOUTH TWICE A DAY SOLD: 10/27/2020 [facility] Chantix Continuing Month James 1 MG Chantix Continuing Month P ak 1 MG 09/22/2020 12:00:00 AM EDT active Chantix Continuing Month James 1 MG eCW1 ([facility]) Aspirin 81 MG Delayed Release Oral Table t Aspirin 81 MG Oral Tablet Delayed Release Aspirin 81 MG Oral Tablet Delayed Release 09/02/2020 12:00:00 AM EDT 81 mg Oral active Take 1 tablet by mouth d [facility] Aspirin 81 MG Delayed Release Oral Tablet aspirin EC E C tablet 81 mg aspirin EC EC tablet 81 mg 09/01/2020 09:00:00 AM EDT 81 mg Oral ac tive 81 mg, Oral, Daily Standard, First dose on Mon09/01/20 at 0900, For 30 days
Do not crush or chew
[facility] Medication administered onsite Acetaminophen 325 MG Oral Tablet Acetaminophen 325 MG Oral T ablet 09/01/2020 12:00:00 AM EDT 650 mg Oral completed Take 2 tablets by mouth every 6 (six) hours as needed for Pain for up to 10 days [facility] Ticagrelor 90 MG Oral Tablet Ticagrelor 90 MG Oral Tab let (BRILINTA) Ticagrelor 90 MG Oral Tablet (BRILINTA) 09/01/2020 12:00:00 AM EDT 90 mg Oral aborted Take 1 tablet by mouth Two Times Daily [facility] Ticagrelor 90 MG Oral Tablet Ticagrelor 90 MG Oral Tab let (BRILINTA) Ticagrelor 90 MG Oral Tablet (BRILINTA) 09/01/2020 12:00:00 AM EDT 90 mg Oral active Take 1 tablet by mouth Two Times Daily [facility] Docusate Sodium 100 MG Oral Capsule docusate sodium (C OLACE) capsule 100 mg docusate sodium (COLACE) capsule 100 mg 08/31/2020 09:00:00 PM EDT 100 mg Oral active 100 mg, Oral, 2 Times Daily, First dose on Mon08/31/20 at 2100, For 30 days [facility] Medication administered onsite Ticagrelor 90 MG Oral Tablet ticagrelor (BRILINTA) tab let 90 mg ticagrelor (BRILINTA) tablet 90 mg 08/31/2020 09:00:00 PM EDT 90 mg Oral active 90 mg, Oral, 2 Times Daily, First dose on Mon08/31/20 at 2100, For 30 days [facility] Medication administered onsite albuterol (PROVENTIL HFA) inhaler 2 puff [id number] 08/31/2020 07:01:50 PM EDT 2 {puff} Inhalation active 2 pu ff, Inhalation, Every 6 hours PRN, Wheezing, Shortness of Breath, Starting Mon08/31/20 at 1901, For 4 days
Shake the inhaler well before each spray.
[facility] Medication administered onsite Clindamycin 18 MG/ML Injectable Solution clindamycin ( CLEOCIN) IVPB 900 mg clindamycin (CLEOCIN) IVPB 900 mg 08/31/2020 03:00:00 PM EDT 900 mg Intravenous completed 900 mg, Intra venous, at 100 mL/hr, Every 8 hours, First dose on Mon08/31/20 at 1500, For 16 hours
Discouraged Uses: Cellulitis
[facility] Medication administered onsite Nicardipine hydrochloride 0.2 MG/ML [...] For 30 days
To maintain MAP 70-90
[facility] Medication administered onsite ondansetron (ZOFRAN) injection 4 [...] able to tolerate PO.
[Order 2 End] [facility] Medication administered onsite sennosides, [facility] 8.6 MG Oral Tablet senna tablet 2 tablet sen na tablet 2 tablet 08/31/2020 02:48:13 PM EDT 2 {tbl} Oral active 2 tablet, Oral, Nightly PRN, Constipation, Starting Mon08/31/20 at 1448, For 30 days [facility] Medication administered onsite Oxycodone Hydrochloride 5 MG Oral Tablet oxyCODONE (ROXICODONE) immediate release tablet 5 mg oxyCODONE (ROXICODONE) immediate release tablet 5 mg 08/31/2020 02:48:12 PM EDT 5 mg Oral active 5 mg, Oral, Every 4 hours PRN, Moderate Pain (Pain Scale Score 4-6), Starting Mon08/31/20 at 1448, For 3 days
If no WATER CHEMIST or when WATER CHEMIST has been D/Cd.
Oxycodone immediate release is limited to 10 mg per dose. Higher doses ([facility] only) require Pain Service consultation and approval.
[facility] Medication administered onsite Oxycodone Hydrochloride 5 MG Oral Tablet oxyCODONE (ROXICODONE) immediate release tablet 10 mg oxyCODONE (ROXICODONE) immediate release tablet 10 mg 08/31/2020 02:48:12 PM EDT 10 mg Oral active 10 mg, Oral, Every 4 hours PRN, Severe Pain (Pain Scale Score 7-10), Starting Mon08/31/20 at 1448, For 3 days
If no WATER CHEMIST or when WATER CHEMIST has been D/Cd.
Oxycodone immediate release is limited to 10 mg per dose. Higher doses ([facility] only) require Pain Service consultation and approval.
[facility] Medication administered onsite Acetaminophen 325 MG Oral [...] mg from all sources in 24 hours.
[facility] Medication administered onsite Bisacodyl 10 MG Rectal Suppository bisacodyl (DULCOLAX ) suppository 10 mg bisacodyl (DULCOLAX) suppository 10 mg 08/31/2020 02:48:12 PM EDT 10 mg Rectal active 10 mg, Rectal, Every 72 hours PRN, Constipation, Starting Mon08/31/20 at 1448, For 30 days
Hold if patient has had BM within the past 2 days.
[facility] Medication administered onsite NaCl infusion 0.9 % [id number] 08/31/2020 12:30:00 PM EDT Intravenous aborted at 100 mL/hr, Intrav enous, Continuous, Starting Mon08/31/20 at 1230, For 30 days
Hold for good PO intake.
[facility] Medication administered onsite Aspirin 325 MG Delayed Release Oral Tablet aspirin EC EC tablet 325 mg aspirin EC EC tablet 325 mg 08/31/2020 12:30:00 PM EDT 325 mg Oral completed 325 mg, Oral, Once, Mon08/31/20 at 1230, For 1 dose
Do not crush or chew
[facility] Medication administered onsite Ticagrelor 90 MG Oral Tablet ticagrelor (BRILINTA) tab let 180 mg ticagrelor (BRILINTA) tablet 180 mg 08/31/2020 12:30:00 PM EDT 180 mg Oral completed 180 mg, Oral, Once, Mon08/31/20 at 1230, For 1 dose [facility] Medication administered onsite cangrelor (KENGREAL) 50 mg in sodium chloride 0.9 % 25 0 mL (0.2 mg/mL) infusion 08/31/2020 12:30:00 PM EDT 4 ug/kg/min Intravenous a borted 4 mcg/kg/min 88 kg (105.6 mL/hr), Intravenous, Continuous, Starting Mon08/31/20 at 1230, For 1 day
To be stopped 6 hours after patient receives PO dose of aspirin and brilinta
[facility] Medication administered onsite fentaNYL (SUBLIMAZE) (PF) injection 25 mcg [id number] 08/31/2020 12:20:08 PM EDT 25 ug Intravenous aborted 25 m cg, Intravenous, Every 5 min PRN, Severe Pain (Pain Scale Score 7-10), Starting Mon08/31/20 at 1220, For 10 doses, Recovery [facility] Medication administered onsite 4 ML Verapamil hydrochloride 2.5 MG/ML Injection verap lizzie (ISOPTIN) injection verapamil (ISOPTIN) injection 08/31/2020 09:47:46 AM EDT completed Code/Trauma Medication, Starting Mon08/31/20 at 0947 [facility] Medication administered onsite Nitroglycerin 0.1 MG/ML Injectable Solut ion nitroglycerin injection in D5W 0.1 mg/mL (HVC) nitroglycerin injection in D5W 0.1 mg/mL (HVC) 09:41:40 AM EDT completed Code/T rauma Medication, Starting Mon08/31/20 at 0941 [facility] Medication administered onsite lidocaine (XYLOCAINE) 2 % injection [id number] 08/31/2020 09:41:23 AM EDT completed Code/Trauma Medicati on, Starting Mon08/31/20 at 0941 [facility] Medication administered onsite sodium chloride (preservative free) 0.9 % flush 3 mL [id number] 08/31/2020 07:30:00 AM EDT 3 mL Intravenous active 3 mL, Intravenous, Every 8 hours, First dose on Mon08/31/20 at 0730, For 30 days
Saline Lock. Flush Q8H and after each use to Saline Lock.
[facility] Medication administered onsite sodium chloride (preservative free) 0.9 % flush 3 mL [id number] 86-00 08/31/2020 07:27:07 AM EDT 3 mL Intravenous active 3 mL, Intravenous, PRN, Line Care, Starting Mon08/31/20 at 0727, For 30 days
Saline Lock. Flush Q8H and after each use to Saline Lock.
[facility] Medication administered onsite sodium chloride 0.9 % bag 3-20 mL [id number] 08/31/2020 07:27:07 AM EDT mL Intravenous active 3-20 mL, Intr avenous, at 1-999 mL/hr, PRN, For Medication Administration and Line Clearance, Starting Mon08/31/20 at 0727, For 30 days
Flush line with sufficient amount of fluid needed based on man ufacturer recommendation for specific line size. Rate should be run at the same rate as medication in the line being flushed.
[facility] Medication administered onsite 90 mcg/actuation 08/27/2020 12:00:00 [...] 11 & 1 MG X 42 eCW1 ([facility]) 0.5 mg (11)- 1 mg (42) 08/11/2020 12:00:00 AM EDT tablets,do se pack 53 USE DIRECTED USE DIRECTED SOLD: 08/14/2020 [facility] 100 mg 08/02/2020 12:00:00 AM EST capsule 90 TAKE ONE CAPSULE BY MOUTH EVERY DAY - MUST ADMINISTER WITH A MEAL/FOOD TAKE ONE CAPSULE BY MOUTH EVERY DAY - MUST ADMINISTER WITH A MEAL/FOOD SOLD: 08/05/2020 [facility] Ciprofloxacin 500 MG Oral Tablet Ciprofloxacin Hcl Ciproflox acin Hcl 07/17/2020 03:50:25 PM EST 500 MG active L [facility] 500 mg 07/17/2020 12:00:00 AM EST tablet 20 TAKE ONE TABLET BY MOUTH TWICE A DAY FOR 10 DAYS FOR UTI TAKE ONE TABLET BY MOUTH TWICE A DAY FOR 10 DAYS FOR UTI SOLD: 07/18/2020 [facility] 84 HR Estradiol 0.33989 MG/HR / norethin drone acetate 0.18489 MG/HR Transdermal System [Combipatch] 0.05-0.14 mg/24 hr ESTRADIOL/NORETHINDRONE ACET 07/09/2020 12:00:00 AM EST patch semiweekly 8 APPLY 1 PATCH TRANSDE RMALY TWICE A WEEK APPLY 1 PATCH TRANSDERMALY TWICE A WEEK SOLD: 10/27/2020 [facility] 0.05-0.14 mg/24 hr 07/09/2020 12:00:00 AM EST patch semiweek ly 8 APPLY 1 PATCH TRANSDERMALY TWICE A WEEK APPLY 1 PATCH TRANSDERMALY TWICE A WEEK SOLD: 07/10/2020 [facility] 84 HR Estradiol 0.52179 MG/HR / norethin drone acetate 0.83203 MG/HR Transdermal Patch [Combipatch] CombiPatch 0.05-0.14 MG/DAY Transdermal Patch Twice Weekly CombiPatch 0.05-0.14 MG/DAY Transdermal Patch Twice Weekly 07/09/2020 12:00:00 AM EST 1 {patch} Transdermal active Pl elodia 1 patch onto the skin every 3 (three) days [facility] 84 HR Estradiol 0.01282 MG/HR / norethin drone acetate 0.34889 MG/HR Transdermal System [Combipatch] 0.05-0.14 mg/24 hr ESTRADIOL/NORETHINDRONE ACET 07/09/2020 12:00:00 AM EST patch semiweekly 8 APPLY 1 PATCH TRANSDE RMALY TWICE A WEEK APPLY 1 PATCH TRANSDERMALY TWICE A WEEK SOLD: 01/08/2021 [facility] 0.05-0.14 mg/24 hr 07/09/2020 12:00:00 AM EST patch semiweek ly 8 APPLY 1 PATCH TRANSDERMALY TWICE A WEEK APPLY 1 PATCH TRANSDERMALY TWICE A WEEK SOLD: 09/05/2020 [facility] Nortriptyline 50 MG Oral Capsule Nortriptyline 07/06/2020 05:14:01 PM EST 50 MG active [facility] Diclofenac Potassium 50 MG Oral Tablet Diclofenac Potassium 07/06/2020 05:13:38 PM EST [address] [facility] 84 HR Estradiol 0.41260 MG/HR / norethin drone acetate 0.90005 MG/HR Transdermal Patch Estradiol-Norethindrone Acet (Combipatch) 0.05-0.14 mg/24 hr patch semiweekly Estradiol-Norethindrone Acet (Combipatch ) 0.05-0.14 mg/24 hr patch semiweekly 07/06/2020 05:05:14 PM EST 1 PATCH active [facility] Nitroglycerin 0.1 MG/ML Injectable Solut ion nitroglycerin injection in D5W 0.1 mg/mL (HVC) nitroglycerin injection in D5W 0.1 mg/mL (HVC) 021 11:25:26 AM EST completed Code/T rauma Medication, Starting Mon06/16/20 at [facility]5 [facility] Medication administered onsite 1 ML heparin sodium, porcine 1000 UNT/ML Injection heparin (porcine) 1000 units/mL injection heparin (porcine) 1000 units/mL injection 06/16/2020 1 0:26:28 AM EST completed Code/T rauma Medication, Starting Mon06/16/20 at [facility]6 [facility] Medication administered onsite verapamil (ISOPTIN) in NaCl 0.9 % injection 1 mg/mL (IR use only) 06/16/2020 10:23:50 AM EST completed Code/Trauma Medication, Starting Mon06/16/20 at [facility]3 [facility] Medication administered onsite lidocaine (PF) (XYLOCAINE) 2 % injection [id number] 06/16/2020 10:19: 32 AM EST completed Code/Trauma Medicati on, Starting Mon06/16/20 at [facility] Medication administered onsite 2 ML Midazolam 1 MG/ML Injection midazolam (PF) (VERSE D) injection midazolam (PF) (VERSED) injection 06/16/2020 10:16:11 AM EST completed Code/Trauma Medication, Starting Mon06/16/[address] [place] [address] Medication administered onsite fentaNYL (SUBLIMAZE) (PF) injection [id number] 06/16/2020 10:16:04 AM EST completed Code/Trauma Medicati on, Starting Mon06/16/[address] [place] [address] Medication administered onsite sodium chloride (preservative free) [...] For 1 occurrence
Pre-op [Order 4 End] [facility] Medication administered onsite Lidocaine 40 MG/ML Topical Cream lidocaine (LMX) 4 % c ream lidocaine (LMX) 4 % cream 06/16/2020 07:15:00 AM EST Topical completed Topical, Once, Mon06/16/20 at 0715, For 1 dose
Apply generously to right wrist and snuffbox and cover with tegaderm
Pre-op [facility] Medication administered onsite sodium chloride 0.9 % bag 3-20 mL 9116-1861-91 06/16/2020 07:02:50 AM EST mL Intravenous active 3-20 mL, Intr avenous, at 1-999 mL/hr, PRN, For Medication Administration and Line Clearance, Starting Mon06/16/20 at 0702, For 30 days, Pre-op
Flush line with sufficient amount of fluid needed based on wing mailer machine operator recommendation for specific line size. Rate should be run at the same rate as medication in the line being flushed.
[facility] Medication administered onsite 30 ACTUAT fluticasone furoate 0.2 MG/ACT UAT / vilanterol 0.025 MG/ACTUAT Dry Powder Inhaler [Breo] Breo Ellipta 200-25 MCG/INH Inhalation Aerosol Powder Breath Activated Breo Ellipta 200-25 MCG/INH Inhalation A erosol Powder Breath Activated 06/12/2020 12:00:00 AM EST active every morning [facility] Albuterol Sulfate HFA 108 (90 Base) MCG/ ACT Inhalation Aerosol Solution (PROVENTIL HFA) 1098-1206-05 06/12/2020 12:00:00 AM EST 2 {puff} active 2 puffs Four times daily as needed [facility] 200-25 mcg/dose 06/12/2020 12:00:00 AM EST [...] 50 mg by m outh as needed [facility] 50 mg 06/11/2020 12:00:00 AM EST tablet 10 TAKE ONE TABLET BY MOUTH DAILY FOR HEADACHE MAXIMUM DAILY DOSE = ONE TABLET TAKE ONE TABLET BY MOUTH DAILY FOR HEADACHE MAXIMUM DAILY DOSE = ONE TABLET SOLD: 08/28/2020 [facility] Nortriptyline 25 MG Oral Capsule Nortriptyline HCL 06/11/2020 12:00 :00 AM EST ORAL active [facility] ([facility]) 25 mg 06/11/2020 12:00:00 AM EST capsule 30 TAKE ONE CAPSULE BY MOUTH EVERY NIGHT AT BEDTIME TAKE ONE CAPSULE BY MOUTH EVERY NIGHT AT BEDTIME SOLD: 10/01/2020 [facility] Diclofenac Potassium 50 MG Oral Tablet Diclofenac Potassium 05/05/2020 12:00:00 AM EST ORAL completed [facility] ([facility] ) Nortriptyline 10 MG Oral Capsule Nortriptyline HCL 05/05/2020 12:00 :00 AM EST ORAL completed [facility] ([facility] ) 50 mg 05/05/2020 12:00:00 AM EST tablet 10 TAKE ONE TABLET BY MOUTH EVERY DAY NEEDED FOR HEADACHE TAKE ONE TABLET BY MOUTH EVERY DAY NE EDED FOR HEADACHE SOLD: 05/31/2020 [facility] 17.5-3.13-1.6 gram 03/05/2020 12:00:00 AM EDT recon soln 354 TAKE BY MOUTH PER DOCTORS BOWEL PREP INSTRUCTINS TAKE BY MOUTH PER DOCTORS BOWEL PREP INSTRUCTINS SOLD: 03/10/2020 [facility] Suprep Bowel Prep Kit Suprep Bowel Prep Kit 03/05/2020 12:00:00 AM EDT active [facility] ([facility] ) Magnesium Hydroxide 80 MG/ML Oral Suspension Milk Of Magnesi a 03/05/2020 12:00:00 AM EDT ORAL active M [facility]ENT ([facility] ) 20 mg 02/28/2020 12:00:00 AM EDT tablet 15 TAKE THREE TABLETS BY MOUTH EVERY DAY TAKE THREE TABLETS BY MOUTH EVERY DAY SOLD: 02/28/2020 [facility] Ibuprofen 600 MG Oral Tablet Ibuprofen 11/20/2019 09:18:10 AM EDT 600 MG completed [facility] gabapentin 100 MG Oral Capsule Gabapentin [...] Oral aborted Take 1 capsule by mooswaldo [facility] 90 mcg/actuation 07/04/2019 12:00:00 AM EST HFA aerosol inha ler 18 INHALE TWO PUFFS BY MOUTH EVERY 4 HOURS NEEDED INHALE TWO PUFFS BY MOUTH EVERY 4 HOURS NEEDED SOLD: 04/18/2020 [facility] 200-25 mcg/dose 07/04/2019 12:00:00 AM EST blister with angie ce 60 INHALE ONE PUFF BY MOUTH EVERY DAY INHALE ONE PUFF BY MOUTH EVERY DAY SOLD: 04/18/2020 [facility] Insurance Providers Payer name Policy type / Coverage type Policy ID Covered alliance party ID Covered alliance party's relationship to brewer Policy Brewer Plan Information MEDICARE A [id number] Self [id number] A MEDICARE A [id number] Self [id number] V77 MEDICAID M [id number] Self [id number] MEDICAID-O/P [id number] EMEDNY [id number] SP [id number] MEDICARE [id number] SP [id number] V77 MEDICARE [id number] SP [id number] A MEDICAID [id number] SP [id number] MEDICARE C [id number] S [id number] V77 MEDICAID M [id number] S [id number] MEDICARE C [id number] S [id number] A MEDICARE PART A -O/P [id number] 18 [id number] ANSI-Medicare Part B [id number] ANSI-Medicaid [id number] ANSI-Medicare Part B [id number] ANSI-Medicaid [id number] ANSI-Medicaid [id number] ANSI-Medicare Part B [id number] ANSI-Medicaid [id number] ANSI-Medicare Part B [id number] ANSI-Medicare Part B [id number] ANSI-Medicaid [id number] ANSI-Medicare Part B [id number] ANS-Medicaid [id number] MEDICARE -O/P [id number] 18 [id number] MEDICARE [id number] SP [id number] A Medicaid Mediionia Part B [id number] Self Medicare Medicare Primary [id number] Self C MEDICARE PART A [facility] [id number] 18 [id number] MEDICARE PART A -O/P [id number] 18 [id number] MEDICAID -O/P EMERGENCY ROOM [id number] 18 [id number] Problems, Conditions, and Diagnoses Code Display Name Description Problem Type Effective Dates Data Source(s) Z1152 ENCOUNTER FOR SCREENING FOR COVID-19 ENCOUNTER F OR SCREENING FOR COVID-19 Diagnosis 04/01/2021 06:08:00 PM EDT [facility] L236 Allergic contact dermatitis due to food in contact with the skin Allergic contact dermatitis due to food in contact with the skin Diagnosis 02/28/2021 10:51:00 AM EDT [facility] M79.642 Pain in left hand Pain in left hand Diagnosis 09/24 08:02:14 AM EDT [facility] I67.1 Cerebral aneurysm, nonruptured Cerebral aneurysm, nonr uptured Diagnosis 09/24/2020 08:02:14 AM EDT [facility] Y[address] or not applicable Unspecified place or not applicable Diagnosis 09/03/2020 04:33:00 PM EDT [facility] [id number] Exposure to other specified factors, ini tial encounter Exposure to other specified factors, initial encounter Diagnosis 09/03/2020 04:33:00 PM EDT [facility] Z7982 long-term (current) use of aspirin long-term (cu rrent) use of aspirin Diagnosis 09/03/2020 04:33:00 PM EDT [facility] J449 Chronic obstructive pulmonary disease, u nspecified Chronic obstructive pulmonary disease, unspecified Diagnosis 09/03/2020 04:33:00 PM EDT [facility] G56886 Nicotine dependence, cigarettes, uncompl icated Nicotine dependence, cigarettes, uncomplicated Diagnosis 09/03/2020 04:33:00 PM EDT [facility] I671 Cerebral aneurysm, nonruptured Cerebral aneurysm, nonr uptured Diagnosis 09/03/2020 04:33:00 PM EDT [facility] [id number] Contusion of right forearm, initial enco unter Contusion of right forearm, initial encounter Diagnosis 09/03/2020 04:33:00 PM EDT [facility] [id number] Contusion of left forearm, initial encou nter Contusion of left forearm, initial encounter Diagnosis 09/03/2020 04:33:00 PM EDT [facility] R202 Paresthesia of skin Paresthesia of skin Diagnosis 0 09/03/2020 04:33:00 PM EDT [facility] R200 Anesthesia of skin Anesthesia of skin Diagnosis 04:33:00 PM EDT [facility] R99 Ill-defined and unknown cause of mortali ty Ill-defined and unknown cause of mortality Diagnosis 06/12/2020 12:06:00 PM [facility] N951 Menopausal and female climacteric states Menopausal and female climacteric states Diagnosis 06/12/2020 12:03:00 PM [facility] R9402 Abnormal brain scan Abnormal brain scan Diagnosis 0 06/11/2020 08:18:00 AM [facility] [id number] Allergy, unspecified, initial encounter Allergy, unspecified, initial encounter Diagnosis 02/28/2020 05:01:00 PM EDT [facility] [id number] Allergic asthma without status asthmatic us Allergic asthma without status asthmaticus Problem 03/17/2021 12:00:00 AM EDT [facility] ([facility] ) R20.2 [id number] Intermittent tingling sensation of right hand and foot Problem 08/11/2020 12:00:00 AM EDT [facility] R20.2 [id number] Intermittent tingling sensation of left h and and foot Problem 08/11/2020 12:00:00 AM EDT [facility] ([facility]) I83.813 14584772 Varicose veins of both lower extremities with pain Problem 08/11/2020 12:00:00 AM EDT [facility]CW[facility] ([facility]) I67.1 [id number] Anterior communicating artery aneurysm Pr oblem 08/11/2020 12:00:00 AM EDT [facility]CW[facility] ([facility]) Surgeries/Procedures Procedure Description Date Indications Data Source(s) PHYSICIAN TELEPHONE EVALUATION 5-10 MIN 04/06/2021 12: 00:00 AM EST [facility] ([facility]) OFFICE OUTPATIENT VISIT 10 MINUTES 02/28/2021 12:00:00 AM EDT [facility] ([facility]) PHYSICIAN TELEPHONE EVALUATION 11-20 MIN 01/01/2021 12 :00:00 AM EDT [facility] ([facility]) OFFICE OUTPATIENT VISIT 25 MINUTES 10/02/2020 12:00:00 AM EDT [facility] ([facility] ) BASIC METABOLIC PANEL CALCIUM TOTAL <td>BASIC METABOLI C PANEL</td><td>Routine</td><td>09/01/2020 5:40 AM EDT</td><td></td><td> </td> 09/01/2020 05:40:00 AM [facility] COAGULATION TIME ACTIVATED <td>POCT ISTAT ACT</td><td> Routine</td><td>08/31/2020 11:56 AM EDT</td><td></td><td> </td> 08/31/2020 11:56:00 AM [facility] COAGULATION TIME ACTIVATED <td>POCT ISTAT ACT</td><td> Routine</td><td>08/31/2020 11:19 AM EDT</td><td></td><td> </td> 08/31/2020 11:19:00 AM [facility] COAGULATION TIME ACTIVATED <td>POCT ISTAT ACT</td><td> Routine</td><td>08/31/2020 10:38 AM EDT</td><td></td><td> </td> 08/31/2020 10:38:00 AM [facility] COAGULATION TIME ACTIVATED <td>POCT ISTAT ACT</td><td> Routine</td><td>08/31/2020 10:12 AM EDT</td><td></td><td> </td> 08/31/2020 10:12:00 AM [facility] COAGULATION TIME ACTIVATED <td>POCT ISTAT ACT</td><td> Routine</td><td>08/31/2020 9:33 AM EDT</td><td></td><td> </td> 08/31/2020 09:33:00 AM [facility] GONADOTROPIN CHORIONIC QUALITATIVE <td>HCG, URINE QUALITATIVE</td><td>Routine</td><td>08/31/2020 7:53 AM EDT</td><td></td><td> </td> 08/31/2020 07:53:00 AM [facility] CARDIAC REPORT <td>CARDIAC REPORT</td><td>< /td><td>08/26/2020 2:12 PM EDT</td><td></td><td></td> 08/26/2020 02:12:45 PM EDT [facility] HCG, URINE QUALITATIVE <td>HCG, URINE QUALITATIVE</td><td>Routine</td><td>06/16/2020 7:29 AM EST</td><td></td><td> </td> 06/16/2020 07:29:00 AM [facility] EEG Complete STD Phys/QHP>60 HR<84 HR W/O Video 2019 12:00:00 AM EST [facility] ([facility] EEG Complete STD Phys/QHP>60 HR<84 HR W/O Video 2019 12:00:00 AM EST [facility] ([facility] EEG Complete STD Phys/QHP>36 HR<60 HR W/O Video 2019 12:00:00 AM EST [facility] ([facility]) Magnetic Resonance Angiogtaphy Head W/O Contrast Material(S) 03/13/2020 12:00:00 AM EDT [facility] ([facility]) Magnetic Resonance Angiogtaphy Head W/O Contrast Material(S) 03/13/2020 12:00:00 AM EDT [facility] ([facility]) Magnetic Resonance Angiography Neck W/O Contrast Materials 03/13/2020 12:00:00 AM EDT [facility] ([facility]) Magnetic Resonance Angiography Neck W/O Contrast Materials 03/13/2020 12:00:00 AM EDT [facility] ([facility]) MRI BRAIN BRAIN STEM W/O CONTRAST MATERIAL 03/02/2020 12:00:00 AM EDT [facility] ([facility] MRI BRAIN BRAIN STEM W/O CONTRAST MATERIAL 03/02/2020 12:00:00 AM EDT [facility] ([facility] ) Results ID Date Data Source [id number] 04/01/2021 06:22:00 PM EDT [facility] ([facility]) Name Value Range Interpretation Code Description Data Destiny rce(s) Supporting Document(s) Covid-19 Laboratory test result [facility] ([facility]) ID Date Data Source [id number] 04/01/2021 06:05:00 PM EDT [facility] Name Value Range Interpretation Code Description Data Destiny rce(s) Supporting Document(s) SARS coronavirus 2 RNA Not Detected [facility] This lab was ordered by [facility] crissy and reported by [facility]. ID Date Data Source [id number] 04/03/2021 02:44:00 PM EDT [facility] Name Value Range Interpretation Code Description Data Destiny rce(s) Supporting Document(s) SARS-CoV-2, ROBERT Not Detected Not Detected [facility] This nucleic acid amplification test was developed and its performancecharacteristics determined by [facility]. Nucleic acidamplification tests include RT-PCR and [...] assay. SARS-CoV-2, ROBERT 2 DAY TAT Performed [facility] ID Date Data Source [id number] 09/24/2020 08:42:47 AM EDT [facility] Name Value Range Interpretation Code Description Data Destiny rce(s) Supporting Document(s) Progress Note [facility] [id number] [facility] [file] [id number]== ID Date Data Source [id number] 09/17/2020 03:23:44 PM EDT [facility] IR ARTERIOGRAM CEREBRALFINAL RESULTInter preted by:CARLOS Dentonreoperative [...] carotid artery angiogram x29. Right radial artery [id number]. Supervision and interpretationSurgeon: Raine Burton M.D.Maintenance Carpenter: Ruben Amato M.D.; Mario Packer M.D.Anesthesia: General [...] in standard sterile fashion, and we underwent [facility] standard timeout for patient and site verification [...] technique under direct ultrasound visualization. A 6 Solomon Islander radial glide sheath was placed using Seldinger [...] intravenous heparin as necessary. Subsequently, a 5 [place] Islander [place] 2 glide catheter was advanced through a Gruppo Argenta guide catheter through the radial sheath under [...] the left internal carotid artery was selectiv biran catheterized over the Glidewire. The 5 [place] Islander [place] 2 catheter and glide wire was [...] Subsequently, embolization was performed as follows:A 5 [place] Islander Pauline distal access catheter was used to advance the 6 [place] Islander penumbra benchmark guiding catheter to the proximal cavernous left internal carotid artery in coaxial fashion under magnified roadmap views. The Pauline distal access catheter was then removed and the penumbra benchmark guiding catheter was aspirated and flushed remove all air and debris. Please note that control angiograms were performed between steps demonstrating no evidence of contrast extravasation, thromboembolic complication, or device complication. An Adkins SL 10 straight microcatheter was advanced over [...] medication for planned stenting. Subsequently, a second Adkins SL 10 straight microcatheter was advanced over [...] adequate for stent placement. Subsequently, a Neuroform [place] 3 mm x 15 mm stent was [...] rce(s) Supporting Document(s) ID Date Data Source [id number] 09/04/2020 09:00:00 AM EDT [facility] [address] [place] [address] PHONE: [phone] FAX: [phone] Name .................. : BOOGIE Taylor Acct Number.................. : [id number] ROOM. ................. : TR-03 MR Number ................... : [id number] Stay type ............. : E/R Discharge Date......... ... : 09/03/20 Admit Date ......... : 09/03/20 Admit Phys .................... : DARRELL Date of ....... : 1975 Family Phys ................... : JORGE PIMENTEL Phone .................. : [phone] Age ................................ : 44 Film# .................. .:[id number] Sex ................................. : F Unsigned transcriptions are preliminary reports and do not represent a medical or legal document CT HEAD W/O CONTRAST [id number] COMPLETE:09/03/20 19:28 CHRISTINE 8271 Reason(s): s/p coiling [...] 09/04/20 09:00, ERMELINDA Page 1 of 2 [facility] [address] [place] [address] PHONE: [phone] FAX: [phone] Name .................. : BOOGIE Taylor Acct Number.................. : [id number] ROOM. ................. : TR-03 Number ................... : [id number] Stay type ............. : E/R Discharge Date......... ... : 09/03/20 Admit Date ......... : 09/03/20 Admit Phys .................... : DARRELL Date of ....... : 1975 Family Phys ................... : Bancha Phone .................. : [phone] Age ................................ : 44 Film# .................. .:[id number] Sex ................................. : F Unsigned transcriptions are preliminary reports and do not represent a medical or legal document CT HEAD W/O CONTRAST [id number] COMPLETE: 09/03/20 19:28 CHRISTINE 8271 Reason(s): s/p coiling of cerebral aneurysm 3 days ago tingling on left UE Transcribe Initials: ULISES , Transcribe Date: 09/04/20 06:56, Dictation Date: Copy for: EMERGENCY DEPT via modem Copy for: 710 MED REC DISCHARGED Page 2 of 2 Name Value Range Interpretation Code Description Data Destiny rce(s) Supporting Document(s) ID Date Data Source [id number] 09/04/2020 08:58:00 AM EDT [facility] [address] [place] [address] PHONE: [phone] FAX: [phone] Name .................. : BOOGIE Taylor Acct Number.................. : [id number] ROOM. ................. : TR-03 MR Number ................... : [id number] Stay type ............. : E/R Discharge Date......... ... : 09/03/20 Admit Date ......... : 09/03/20 [facility] .................... [facility] Date of ....... : 1975 Family Phys ................... : PATEL PAU Phone .................. : [phone] Age ................................ : 44 Film# .................. .:[id number] Sex ................................. : F Unsigned transcriptions are preliminary reports and do not represent a medical or legal document [place] [id number] COMPLETE:09/03/20 18:25 ADB 8267 Reason(s): Swelling, Limb [...] rce(s) Supporting Document(s) ID Date Data Source [id number] 09/03/2020 04:33:00 PM EDT [facility] 1 OrderSheet [facility] Emergency Department [address] [place] [address] Phone #: [phone] 09/03/2020 16:14 Patient: CHERRIE FRANCE Sex: F [...] by Tristan Yan R.N. (:09/03/2020)] 2 OrderSheet [facility] Emergency Department [address] [place] [address] Phone #: ext- [phone] 09/03/2020 16:14 Patient: CHERRIE FRANCE Sex: F : 1975 Age: 44y[Electronically locked by Tristan Yan R.N. (:09/03/2020)] Name Value Range Interpretation Code Description Data Destiny rce(s) Supporting Document(s) ID Date Data Source [id number] 09/03/2020 04:33:00 PM EDT [facility] 1 Medication Reconciliation Report [facility] Emergency Department [address] [place] [address] Phone #: ext- [phone] 09/03/2020 16:14 Patient: [...] the Emergency Department: 2 Medication Reconciliation Report [facility] Emergency Department [address] [place] [address] Phone #: ext- [phone] 09/03/2020 16:14 Patient: CHERRIE FRANCE Sex: F : 1975 Age: 44yNone.The following Medications were prescribed to the patient:None. Name Value Range Interpretation Code Description Data Destiny rce(s) Supporting Document(s) ID Date Data Source [id number] 09/03/2020 04:33:00 PM EDT [facility] 1 Medication Administration Record [facility] Emergency Department [address] [place] [address] Phone #: ext- [phone] 09/03/2020 16:14 Patient: CHERRIE FRANCE Sex: F : 1975 Age: 44yWeight: 95.2 kgHeight/Length: 63 inBMI: 37.2ALLERGIES: Penicillins, TopamaxDate/Time Medication Administered Medication Ordered Name Value Range Interpretation Code Description Data Destiny rce(s) Supporting Document(s) ID Date Data Source [id number] 09/03/2020 04:33:00 PM EDT [facility] 1 General Instructions [facility] Emergency Department [address] [place] [address] Phone #: ext- [phone] 09/03/2020 16:14 Patient: [...] is a temporary paraesthesia.) 2 General Instructions [facility] Emergency Department [address] [place] [address] Phone #: ext- [phone] 09/03/2020 16:14 [id number] Sex[facility] F : 1975 Age: 44yParaesthesias that [...] medicines you take. This includes prescription and przt-lss-lhshpty medicines, vitamins, and herbs. Ask if any [...] spell, dizziness, or seizure 3 General Instructions [facility] Emergency Department [address] [place] [address] Phone #: ext- [phone] 09/03/2020 16:14 Patient: CHERRIE FRANCE Sex: F : 1975 Age: 44y Chest, arm, neck, or upper back pain Loss of bladder or bowel control Open wound with redness, swelling, or pus [id number] [employer]. [address] [place] [address]. All rights reserved. This information is not intended as asubstitute for professional medical care. Always follow your healthcare professional's instructions. You have been given the following additional information: Paraesthesias(Electronically signed by Lorena Wilkes 09/03/2020 21:00) Name Value Range Interpretation Code Description Data Destiny rce(s) Supporting Document(s) ID Date Data Source [id number] 09/03/2020 04:33:00 PM EDT [facility] 1 Clinical Report - Nurses [facility] Emergency Department [address] [place] [address] Phone #: ext- [phone] 09/03/2020 16:14 Patient: CHERRIE FRANCE Sex: F : 1975 Age: 44yTRIAGE Arrived by private vehicle. Historian: patient. Acuity: LEVEL 4. Chief Complaint: LEFT UPPER EXTREMITY TINGLING. Alert. No acute distress. Onset. (3 days ago). ( Pt had surgery for a brain aneurysm on Monday at [facility] and was discharged Monday. While she was in the recovery room, she began having tingling in her left hand and fingers. She says she had 5 IV sites in her left arm. She called the surgeon today because she was still having tingling in her hand and his nurse told her to come to the ER.). Treatment OLIVE GROWER: Took Tylenol. Seen within the last 30 days at another facility; seen for different problems. SEPSIS SCREEN: SIRS SCREEN NEGATIVE. SEPSIS SCREEN NEGATIVE. No suspected or confirmed signs of infection present. ZOHAIB COMA SCORE: 15- eyes open- spontaneous (4); best verbal response- oriented (5); best motor response- obeys commands (6). --16:26 09/03/20 Droys Fenton R.N. 16:16 09/03/20. BP: 149/75. MAP: [...] Fenton R.N. 2 Clinical Report - Nurses [facility] Emergency Department [address] [place] [address] Phone #: ext- [phone] 09/03/2020 16:14 Patient: [...] 200-25 mcg/inh), daily every AM. --16: Dorys Fetnon R.N.The following entry was struck by Dorys [...] Fenton R.N. 3 Clinical Report - Nurses [facility] Emergency Department [address] [place] [address] Phone #: ext- [phone] 09/03/2020 16:14 Patient: [...] impairments noted. 4 Clinical Report - [facility]es [facility] [facility] [address] [place] [address] Phone #: ext- [phone] 09/03/2020 16:14 [id number] Sex: F : 1975 Age: 44y LEARNING [...] Patient transported to sonogram by wheelchair with cytogenetics technologist. --16:46 09/03/20 Tristan Yan R.N. 17:18 09/03/20. Patient returned from CT and sonogram by wheelchair with cytogenetics technologist. --17:18 09/03/20 Tristan Yan R.N. 17:50 09/03/20. [...] Patient verbalized understanding. Written instructions provided in Chinese. The patient was discharged by the physician. She was discharged home. She left ambulatory and via private vehicle. 5 Clinical Report - Nurses [facility] Emergency Department [address] [place] [address] Phone #: ext- [phone] 09/03/2020 16:14 [id number] Sex: F : 1975 Age: 44y Patient driving. --18:28 09/03/20 Tristan Yan R.N. 18:17 09/03/20. BP: 137/66. MAP: 89. HR: 65. RR: 16. O2 saturation: 99%. Temp: 98 F. Pain level now: 0/10. --18:28 09/03/20 Tristan Yan R.N.Locked/Released at 09/03/2020 21:08 by Tristan Yan R.N. Name Value Range Interpretation Code Description Data Destiny rce(s) Supporting Document(s) ID Date Data Source [id number] 09/03/2020 04:33:00 PM EDT [facility] 1 Clinical Report - Physicians/Mid Levels [facility] Emergency Department [address] [place] [address] Phone #: ext- [phone] 09/03/2020 16:14 Patient: [...] Section. 2 Clinical Report - Physicians/Mid Levels [facility] Emergency Department [address] [place] [address] Phone #: ext- [phone] 09/03/2020 16:14 [id number] Sex: F : 1975 Age: 44y Laparotomy. [...] No 3 Clinical Report - Physicians/Mid Levels [facility] Emergency Department [address] [place] [address] Phone #: ext- [phone] 09/03/2020 16:14 [id number] Sex: F : 1975 Age: 44y aphasia. [...] 99) 4 Clinical Report - Physicians/Mid Levels [facility] Emergency Department [address] [place] [address] Phone #: [phone]- [phone] 09/03/2020 16:14 Patient: CHERRIE FRANCE Sex: F [...] Paresthesia 5 Clinical Report - Physicians/Mid Levels [facility] Emergency Department [address] [place] [address] Phone #: ext- [phone] 09/03/2020 16:14 Patient: [...] Name Value Range Interpretation Code Description Data [facility] rce(s) Supporting Document(s) ID Date Data Source [id number] 09/03/2020 05:26:00 PM EDT [facility] Name Value Range Interpretation Code Description Data [facility] rce(s) Supporting Document(s) CBC W/AUTOMATED DIFF [facility] COMPLETE BLOOD COUNT Leukocytes [#/volume] in Blood by Automated count 8.5 10^3/uL 4.2 - 1 1.0 [facility] Erythrocytes [#/volume] in Blood by Automated count 4.58 10^6/uL 4. 20 - 5.40 [facility] Hemoglobin [Mass/volume] in Blood 13.9 g/dL 12.0 - 16.0 [facility] Hematocrit [Volume Fraction] of Blood by Automated count 40.6 % 3 7.0 - 47.0 [facility] Erythrocyte mean corpuscular volume [Entitic volume] by Auto mated count 88.6 fL 81.0 - 101 [facility] Erythrocyte mean corpuscular hemoglobin [Entitic mass] by Automated count 30.3 pg 27.0 - 34.0 [facility] Erythrocyte mean corpuscular hemoglobin concentration [Mass/volume] by Automated count 34.2 g/dL 31.0 - 36.0 [facility] Erythrocyte distribution width [Ratio] by Automated count 13.2 % 11.5 - 14.5 [facility] Platelets [#/volume] in Blood by Automated count 253 10^3/uL 150 - 45 0 [facility] Platelet mean volume [Entitic volume] in Blood by Automated count 9.2 fL 7.4 - 10.4 [facility] Neutrophils/100 leukocytes in Blood by Automated count 66.4 % 37. 0 - 80.0 [facility] Lymphocytes/100 leukocytes in Blood by Manual count 21.1 % 25.0 - 40.0 L [facility] Monocytes/100 leukocytes in Blood by Automated count 8.0 % 3.0 - 8.0 [facility] Eosinophils/100 leukocytes in Blood by Automated count 3.4 % 0.0 - 7.0 [facility] Basophils/100 leukocytes in Blood by Automated count 0.7 % 0.0 - 2.5 [facility] %IG 0.4 % 0.0 - 0.0 [facility] 0.0 % 0.0 - 0.0 [facility] al Neutrophils [#/volume] in Blood by Automated count 5.61 10^3/uL 2.00 - 6.90 [facility] Lymphocytes [#/volume] in Blood by Automated count 1.78 10^3/uL 0.60 - 3.40 [facility] Monocytes [#/volume] in Blood by Automated count 0.68 10^3/uL 0.00 - 0.90 [facility] Eosinophils [#/volume] in Blood by Automated count 0.29 10^3/uL 0.00 - 0.70 [facility] Basophils [#/volume] in Blood by Automated count 0.06 10^3/uL 0.00 - 0.20 [facility] #IG 0.03 10^3/uL 0.00 - 0.10 [facility] ospital #NRBC 0.00 10^3/uL 0.00 - 0.00 [facility] ospital MANUAL DIFF NOT INDICATED [facility] RBC MORPH NOT INDICATED [facility] spital ID Date Data Source [id number] 09/03/2020 05:24:00 PM EDT [facility] Name Value Range Interpretation Code Description Data Destiny rce(s) Supporting Document(s) COMPREHENSIVE METABOLIC PANEL [facility] COMPREHENSIVE METABOLIC PANEL Sodium [Moles/volume] in Serum or Plasma 141 mEq/L 134 - 153 [facility] Potassium [Moles/volume] in Serum or Plasma 3.6 mEq/L 3.6 - 5.0 [facility] Chloride [Moles/volume] in Serum or Plasma 104 mEq/L 98 - 107 [facility] Carbon dioxide, total [Moles/volume] in Serum or Plasma 28 MEQ/L 22 - 30 [facility] Glucose [Mass/volume] in Serum or Plasma 101 MG/DL 70 - 99 H [facility] BUN 13 MG/DL 7 - 21 [facility] al Creatinine [Mass/volume] in Serum or Plasma 0.8 MG/DL 0.7 - 1.5 [facility] BUN/CREAT 16 8 - 27 [facility] Protein [Mass/volume] in Serum or Plasma 6.8 G/DL 6.3 - 8.2 [facility] Albumin [Mass/volume] in Serum or Plasma 4.0 G/DL 3.9 - 5.0 [facility] Globulin [Mass/volume] in Serum by calculation 2.8 GM/DL 2.4 - 3.2 [facility] A/G RATIO 1.4 0.8 - 2.0 [facility] Calcium [Mass/volume] in Serum or Plasma 9.7 MG/DL 8.4 - 10.2 [facility] Bilirubin.total [Mass/volume] in Serum or Plasma <0.7 MG/DL 0.2 - 1.3 [facility] Alkaline phosphatase [Enzymatic activity/volume] in Serum or Plasma 131 U/L 38 - 126 H [facility] Aspartate aminotransferase [Enzymatic activity/volume] in Serum or Plasma 24 U/L 5 - 40 [facility] Alanine aminotransferase [Enzymatic activity/volume] in Seru m or Plasma 34 U/L 7 - 56 [facility] Anion gap 3 in Serum or Plasma 9.0 mmol/L 8.0 - 16.0 [facility] AGE [address] 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 [file] ICAgICAgICAgICAgICAgICAgICAgICAgICAgICAgICAgICAgICAgICAgICAgICAgICAgICAgICAgICAg ICAgICAgICAgICAgICAgICAgICAgICAgICAgICAgIC ANCiAgICAgICAgICAgICAgICAgICAgICAgICAgICAgICAgICAgICAgICAgICAgICAgICAgICAgICAgIC AgICAgICAgICAgICAgICAgICAgICAgICAgICAgICAgICAgICAgICAgICANCiAgICAgICAgICAgICAgIC AgICAgICAgICAgICAgICAgICAgICAgICAgICAgICAg ICAgICAgICAgICAgICAgICAgICAgICAgICAgICAgICAgICAgICAgICAgICAgICAgICAgICANCiAgICAg ICAgICAgICAgICAgICAgICAgICAgICAgICAgICAgICAgICAgICAgICAgICAgICAgICAgICAgICAgICAg ICAgICAgICAgICAgICAgICAgICAgICAgICAgICAgIC AgICANCiAgICAgICAgICAgICAgICAgICAgICAgICAgICAgICAgICAgICAgICAgICAgICAgICAgICAgIC AgICAgICAgICAgICAgICAgICAgICAgICAgICAgICAgICAgICAgICAgICAgICANCiAgICAgICAgICAgIC AgICAgICAgICAgICAgICAgICAgICAgICAgICAgICAg ICAgICAgICAgICAgICAgICAgICAgICAgICAgICAgICAgICAgICAgICAgICAgICAgICAgICAgICANCiAg ICAgICAgICAgICAgICAgICAgICAgICAgICAgICAgICAgICAgICAgICAgICAgICAgICAgICAgICAgICAg ICAgICAgICAgICAgICAgICAgICAgICAgICAgICAgIC AgICAgICANCiAgICAgICAgICAgICAgICAgICAgICAgICAgICAgICAgICAgICAgICAgICAgICAgICAgIC AgICAgICAgICAgICAgICAgICAgICAgICAgICAgICAgICAgICAgICAgICAgICAgICANCiAgICAgICAgIC AgICAgICAgICAgICAgICAgICAgICAgICAgICAgICAg ICAgICAgICAgICAgICAgICAgICAgICAgICAgICAgICAgICAgICAgICAgICAgICAgICAgICAgICAgICAN CiAgICAgICAgICAgICAgICAgICAgICAgICAgICAgICAgICAgICAgICAgICAgICAgICAgICAgICAgICAg ICAgICAgICAgICAgICAgICAgICAgICAgICAgICAgIC AgICAgICAgICANCjw/vSIcL2vslBWottM3G2miTd2EQh0DLI3ie4OsEHTjTRfzcxXmNvnAKoNiNFYgKp uHHnd5XKeoVZ9IsWJpF4UhA2EwBJhhPS3XNQVqLZFoqJVtDTXsYYZoLmF2DZXsGNudHS5AeZInUXecVX AwIFIgNyAwIFIgOSAwIFIgMTEgMCBSIDEzIDAgUiAx VEFpMHAwPBwaNNFFZM7ODpPyS6RavP38ZKoFKg8+VZsiptQzOnhVHoK8SLBvg3WiWZr3WI5DJLUeYxqm l7UwNzDoLTENWFumFK1NUFD3IKG6HIWrGf0INIFsQ051hjBvWK7LGt1USqGlJQ3bez7LSdUaBAUoWsxC Yss0GOouHQ7FrANbRHgPbVZlfRAxC9MnQ5WdcMBbwG JzvHSWVA7gpYTnZG3yDnJfU1loER2UVMJ4SBEoJu4rWVJcTTVxIhO5EFZGJZ7NRSVgGHZyqKRgMFVrFV MGRC3VNDafQLK3WLXboaBjmKRbQRnkXG5CSOSwzyNzPkDlPNTNFPk+Rd5DFW1bp9VuKQmoYtEdML9pfk 9RJArIWdMeN8Y4dCOuF7I1IKfmVc1CELZiRQKrKdGf EASFZSirZN7RGN5sfkB4GW5RwSWiCSUwKWNsiLBuPBb9R05zcRVkMXyqLL5SKXZ+Jordan+Nz4HFZWmMRVa WCXlLoDsZOJEQxHqD3GaC5CNb5IrT7KpQC70aNknfcLvIVhbNA2ULG1kWHRzGFOVRT5YfXMeuG0ppdUy WOTgMKCNXrVdG23jqHMtWCTnWCCkNAOrQm8AMVLwI6 UwaaGkfReqfnClEMPuCAXVEV2NGNmscrYneZQykNhhWF16eTocVX3PUh0CDwElVR0ncb6UySFyVd1NZR AsXz4CALNfICPxVCRnFRH4RKQjPtNnNYdjBTRgJAFqCXH7ZXHlOQXqAD9YCmIaRBZzHis8KiSnLGPxLL Vpre1UJWUqXTUpXHB6ENLaMAAjLMJrVCkvUHIiCJYa DYP1XQOvFDSvVR5DFsHoYKXtDIK7MHEyMUIrCOZsjv1UXEBuDCBtWnh6XjWfMILsUNNxXAkzKNMaSZA2 QpM9ZYEcEPJmZO8UTlMhUZAgOHM7DKVhOOUbOMWbyc1QUTHcBRNcVIA0IrUfEIFfEKNgIZygPJCnAPO6 NJZnRSWdELZcME7BPjZbNLNnVKB0UMLyLNFhYKTyic 8CVMImIANuQif2OqVyUUKfGIRgHOguWYYtUSK2CCBqDTGnAMUdDP1FMhHyWDDmXZKkDjrbHRXvJPGvfw 9HHKDpHASkFBIhUHUvBFIhZWSdTXqvROPaIOLcPtW0VKFkMVJmSA4SAsDqSXTjLpMmIAMnDEXgZQGpzj 0KMDAwMDAyMTUxMiAwMDAwMCBuDQowMDAwMDIyNDcy CNFkKCLlUK9TNtPsFOPtPaT2WvuhEIHhRDFjhr9YZNMcDQYbLwe5LnEsECPgBIZlSPsmKUVxHZRoYFLe NREtWEYpKB7FTqDhHMOuHxRxHJDiMUGwXSNlfh5FLFWyHYSdTJHwHRChNYVpZCJkOFqjVFUwUMI3BCBg YKObGGXtEW6LXkBaIOAcMuGkRFdhNDNuIRUdde4QIY CzULMvAQM7GVHmBYMkFXLtCAxxSOIaRIJ6MBH5VPCqFFVhXM0ZVtRkDKLqIrzvANZjAVWzMOMgvg3SYR IoSMXkEcC9GeKsSZWiCHXnYMfxTZPwYFM9GftgYSCjEVMuCC7HHwEmAQUaJxr3XtfiOGXvPFUmko7TNJ WoVBMbOYL8DEMyBUItSRTdUSgsBTEmMHB3LiQeZYWd RCNiQP4KGmNjBFFcQqw3OVPuKRZtITYhtz1TUUTsEKOsNMa6HzXoKXFoMYBlYHy4xcLqwCVjIBp3NG6W C3JhkbPjQarNMq4Uf479AUX6ISJcFa2OV2vcYf2tAFYdNCKJRc2UHUn0LBZsJcGiCgClY4ZjE2P3SYPr NcRvWIK6MTD0EwZmK3V+CPdmEpWgVmQ2F9M9WQJ4WW w9LWYqQuIcRqPdHko8MUTkGV7mPTZSSg1+DSaphVEhrUqxTAVJEgYsZlGwEMxiIZYUWn0G ID Date Data Source [id number] 09/01/2020 06:19:03 AM EDT [facility] Name Value Range Interpretation Code Description Data Destiny e(s) Supporting Document(s) Bicarbonate [Moles/volume] in Serum 25 mmol/L 22-29 [facility] Chloride [Moles/volume] in Serum or Plasma 105 mmol/L 98-107 [facility] Creatinine [Mass/volume] in Serum or Plasma 0.61 mg/dL 0.50-0.90 [facility] Glucose [Mass/volume] in Serum or Plasma 91 mg/dL 70-140 [facility] Potassium [Moles/volume] in Serum or Plasma 3.5 mmol/L 3.4-5.1 [facility] Sodium [Moles/volume] in Serum or Plasma 135 mmol/L 136-145 L [facility] Urea nitrogen [Mass/volume] in Serum or Plasma 8 mg/dL 6-20 [facility] Anion gap 3 in Serum or Plasma 5 mmol/L 8-15 L [facility] Osmolality of Serum or Plasma by calculation 277 mosm/kg 275-300 [facility] Creatinine/Urea nitrogen [Mass Ratio] in Serum or Plasma 14 [facility] Calcium [Mass/volume] in Serum or Plasma 8.3 mg/dL 8.6-10.0 L [facility] Glomerular filtration rate/1.73 sq M pre dicted among non-blacks [Volume Rate/Area] in Serum or Plasma by Creatinine-based formula (MDRD) >6 0 [facility] Glomerular filtration rate/1.73 sq M pre dicted among blacks [Volume Rate/Area] in Serum or Plasma by Creatinine-based formula (MDRD) >60 [facility] ID Date Data Source [id number] [facility] Interpretation Code Description Data Destiny rce(s) Supporting Document(s) Kaolin activated time [Units/volume] in Blood 169 [facility] ID Date Data Source [id number] 08/31/2020 [facility]:24[facility] Value Range Interpretation Code Description Data Destiny rce(s) Supporting Document(s) Kaolin activated time [Units/volume] in Blood 246 [facility] ID Date Data Source [id number] 08/31/2020 10:44[facility] Value Range Interpretation Code Description Data Destiny rce(s) Supporting Document(s) Kaolin activated time [Units/volume] in Blood 224 [facility] ID Date Data Source [id number] 08/31/2020 10:18[facility] Value Range Interpretation Code Description Data Destiny rce(s) Supporting Document(s) Kaolin activated time [Units/volume] in Blood 241 [facility] ID Date Data Source [id number] 08/31/2020 09:37[facility] Value Range Interpretation Code Description Data Destiny rce(s) Supporting Document(s) Kaolin activated time [Units/volume] in Blood 114 [facility] ID Date Data Source [id number] 08/31/2020 08:33:27 AM EDT [facility] Name Value Range Interpretation Code Description Data Destiny rce(s) Supporting Document(s) History and Physical [facility] PDKBLz0jRsGMTmVb41/OSJaaQKRuw9DdQSluLOb3OKbqNASkK6InVOX5xV1wKEM3GDlZOdVrZhUoWAR3 lbm [file] FB8F72Aoh8D8V++2gwJVlSMMztOd23Wjn+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 [file] IoYVJfXGY0VvP9NKD4HqO0VlUkKnd9YpDiIJ6ZNh4PHvM6UMY9fUZzWr5ITpOjLzHYIaDiBR7KLMt= ID Date Data Source [id number] 08/31/2020 08:23:00 AM EDT [facility] Name Value Range Interpretation Code Description Data Destiny rce(s) Supporting Document(s) Choriogonadotropin ( test) [Presence] in Urine [facility] NEGATIVE: either no HCG or too low to de tect, <20 mU/mL Specific gravity of Urine by Refractometry 1.025 1.003-1.030 [facility] ID Date Data Source [id number] 08/28/2020 02:34:00 PM EDT [facility] Name Value Range Interpretation Code Description Data Destiny rce(s) Supporting Document(s) SARS coronavirus 2 RdRp gene Negative N [facility]SDOH This lab was ordered by [facility] and reported by [facility]. ID Date Data Source [id number] 08/28/2020 02:45:42 PM EDT [facility] Name Value Range Interpretation Code Description Data Destiny rce(s) Supporting Document(s) SARS coronavirus 2 RdRp gene Negative [facility] Test performed using the [employer] NOW C OVID-19 assay. This test is only for use under the Food and Drug Administration's Emergency Use Authorization. 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 [facility] Patient has symptoms related to [facility] When did you start to experience these symptoms [Date and time] [Phen X] [facility] Patient was hospitalized because of this condition [facility] patient was admitted to ICU for [facility] Patient resides in a congregate care setting [facility] status [facility] ID Date Data Source [id number] 08/28/2020 02:24:31 PM EDT [facility] Name Value Range Interpretation Code Description Data Destiny rce(s) Supporting Document(s) Progress Note [facility] QMFJMt1mAvPRXjVt95/LKCitNGBvp4GyGDsxDEj1AUrvSFLnE2CgOLS5eI9bKFJ0OAjCYtXiCxFyZRWj lbm [file] ICAgICAgICAgICAgICAgICAgICAgICAgICAgICAgIC AgICAgICAgICAgICAgICAgICAgICAgICAgICAgICAgICAgICANCiAgICAgICAgICAgICAgICAgICAgIC AgICAgICAgICAgICAgICAgICAgICAgICAgICAgICAgICAgICAgICAgICAgICAgICAgICAgICAgICAgIC AgICAgICAgICAgICAgICAgICANCiAgICAgICAgICAg ICAgICAgICAgICAgICAgICAgICAgICAgICAgICAgICAgICAgICAgICAgICAgICAgICAgICAgICAgICAg ICAgICAgICAgICAgICAgICAgICAgICAgICAgICANCiAgICAgICAgICAgICAgICAgICAgICAgICAgICAg ICAgICAgICAgICAgICAgICAgICAgICAgICAgICAgIC AgICAgICAgICAgICAgICAgICAgICAgICAgICAgICAgICAgICAgICANCiAgICAgICAgICAgICAgICAgIC AgICAgICAgICAgICAgICAgICAgICAgICAgICAgICAgICAgICAgICAgICAgICAgICAgICAgICAgICAgIC AgICAgICAgICAgICAgICAgICAgICANCiAgICAgICAg ICAgICAgICAgICAgICAgICAgICAgICAgICAgICAgICAgICAgICAgICAgICAgICAgICAgICAgICAgICAg ICAgICAgICAgICAgICAgICAgICAgICAgICAgICAgICANCiAgICAgICAgICAgICAgICAgICAgICAgICAg ICAgICAgICAgICAgICAgICAgICAgICAgICAgICAgIC AgICAgICAgICAgICAgICAgICAgICAgICAgICAgICAgICAgICAgICAgICANCiAgICAgICAgICAgICAgIC AgICAgICAgICAgICAgICAgICAgICAgICAgICAgICAgICAgICAgICAgICAgICAgICAgICAgICAgICAgIC AgICAgICAgICAgICAgICAgICAgICAgICANCiAgICAg ICAgICAgICAgICAgICAgICAgICAgICAgICAgICAgICAgICAgICAgICAgICAgICAgICAgICAgICAgICAg ICAgICAgICAgICAgICAgICAgICAgICAgICAgICAgICAgICANCiAgICAgICAgICAgICAgICAgICAgICAg ICAgICAgICAgICAgICAgICAgICAgICAgICAgICAgIC AgICAgICAgICAgICAgICAgICAgICAgICAgICAgICAgICAgICAgICAgICAgICANCjw/jISpU7ttvXDyad I7Q5hvXc4XYm1GGP9nu1LrGGBdXCnkdoAwHswNEcTgNXAjMmaYTiz6MEclWU5TgNEqH7HwW4TsPUmoQM 1IVDCqILPbnKZvHEGbYICzSxH0WWLgPLtgPX7NgELt UAalNMSiVOXmIW8CRUIoV324rdQaBI2JWn3EJjRyTE6tgu9VZYudNUZbHbfIRcv1THzjPR5JxCGtdSXj QNDwZXVEKjZjL2bwg8TpOdQaRCQFFJkiHV5Dj0RjoISwBOs+Cv4DOQ6ch5CzNFlvKKRnMV9yph7RSCuW ArXuF1LvyHpkAJHof3cbRUBzDY0tbZPuJSP6YSGdim ZyCRQtD8pseIZkhNyaQELLTQH3DODqXe8qXPNvDYMyIqMvOXOTLH1CQMIrROUmdQBgHXHlZWWBFB6YMH hrTPZ6LRIsfyAjbQDvGGkeNX7NKNXqpyFvSNpxCRLNIVb+Wv1FCO2hv5JyROxqYRUsCY0qqg9GPYyJRu EyT3Z8iPPdZ9K3SRhfFl0NZFAyXSGxOMufLAOXEHbz QQ9JIO4bvtK7NI7KpTIzXYVyITIadKTrOTf9H68ywCLuNPlsGU1QWOO+Jordan+Yf8VNQPqXSVlUSDfEhMa CFMRObAqL8HpP0NCw1AlP4QtYH03lQumhjQrHYvsAB1QGJ0nQIStVEOPXJ1TyVEpnK4xqbVxAITwAFBX SwJrU34frXOuKGYlQHR7HLXaXo0IAKJwM8IlfkNwfK qjpnAuFDMaBWGFJU3RRHijfgJvsRNfjCunSO11iFykJO7ADa6YKjFuFG9tze1FeBYfGk2SWCDyXo9LQI TsUHFyMWNlQNX7WLZkGzBrFGvnRXJcOFWtLQX3VWPyRKSdPS0WMqGtNSIaUYxaNDekCVKlFKHosj2ZCD TqJZOcPKOoXaJgKFDmORKvDQwrNZFeVUWrBXA3KZTa YMArSJ0NJnEgLGWmRRBvGtScYANeFVZesv2YRVJkTSRwZyZmOCYvBIRtNAUeRYclKOPjKFEzGhf9JPNe YPVyZF6NNuSkXYSmDRA8BWSnEGLeJXYyko4MRJEaOBZxItS2GWBoRBXhXIOnBCmwZUAiEIV7YnIqOARf KWQpHC2MOkXmEILsNUG2UhAuFQJdUCWqsf3MDWBwFN UqDOKtRLEsNVHgKQLjSWytAAOxBXH9Hhl4EYTwYLHtAN9OUcWlWTFhBSC2DICxKWJoIFGdhq2LJXJeRB HlDunhMSZfSXJzBDCzLRgjAALkHZO2JFMtWTKuTNBgSN1HNlEmVDMwMHpeHDdxWETwTELcqf9TPJQtGC ByYzO7BkLfHRTqPSKaKZkfJGLaOQC3KTM7TAOmUMRv UO5CQvKhZCEyUGqjDHQxJXLnOPXfsg7BJYYmAOPuEIN3UkRzWVNuLIFfEFh0qfSizRXcMHi6DJ3OL6Zx tyKpOaBZRt9Fl323KBXfZUGtPt7NU3skNa5gJYBcAIYKTo2KGCf0QSjjW6VpAGWlZoQcOSCoEnLlNJL9 XLVuRsY1GdAuMDY+GMb0N4MpXjO6XOLsJbOyOJUcAK CjXpV3SOAnMDw1BIWsLY4zQLOOGw5+HFwptHMbnTtdJUHFCdM0LEfrFGasJGAWTf2V ID Date Data Source [id number] 08/28/2020 04:03:59 PM EDT [facility] Name Value Range Interpretation Code Description Data [facility](s) Supporting Document(s) ABO and Rh group [Type] in Blood [facility] Blood group antibody screen [Presence] in Serum or Plasma [facility] Blood bank comment [facility] ID Date Data Source [id number] 08/25/2020 12:04:00 [place] [address] PHONE: [phone] FAX: [phone] Name .................. : BOOGIE Taylor Acct Number.................. : [id number] ROOM. ................. : MR Number ................... : [id number] Stay type ............. : O/P Discharge Date......... ... : 08/24/20 Admit Date ......... : 08/24/20 Admit Phys .................... : SAPNA MCNALLY Date of ....... : 1975 Family Phys ................... : JORGE PIMENTEL Phone .................. : [phone] Age ................................ : 44 Film# .................. .:[id number] Sex ................................. : F Unsigned transcriptions are preliminary reports and do not represent a medical or legal document CHEST 2 VIEWS [id number] COMPLETE:08/24/20 10:08 [facility] [id number] Reason for Exam: SMOKER, PREOP CHEST [...] rce(s) Supporting Document(s) ID Date Data Source [id number] 08/24/2020 09:22:00 AM EDT [facility] Name Value Range Interpretation Code Description Data Destiny rce(s) Supporting Document(s) SARS coronavirus 2 RNA Not Detected [facility] [place] This lab was ordered by [place] and reported by [facility]. ID Date Data Source [id number] 08/26/2020 06:57:00 AM EDT [facility] Name Value Range Interpretation Code Description Data [facility](s) Supporting Document(s) SARS-CoV-2, ROBERT Not Detected Not Detected [facility] This nucleic acid amplification test was developed and its performancecharacteristics determined by [employer]. Nucleic acidamplification tests include RT-PCR and TMA. [...] assay. SARS-CoV-2, ROBERT 2 DAY TAT Performed [facility] ID Date Data Source [id number] 08/24/2020 11:19:00 AM EDT [facility] Name Value Range Interpretation Code Description Data [facility](s) Supporting Document(s) URINALYSIS WITH MICROSCOPIC [facility] URINALYSIS COLOR yellow NORMAL: Yellow [facility] CLARITY clear NORMAL: Clear [facility] Specific gravity of Urine by Test strip 1.025 1.001 - 1.030 [facility] pH 5 5 - 9 [facility] Glucose [Mass/volume] in Urine by Test strip NORM NORMAL: Negat chai [facility] Bilirubin.total [Presence] in Urine by Test strip NEG NORMAL: Negative [facility] Ketones [Presence] in Urine by Test strip NEG NORMAL: Negative [facility] Protein [Mass/volume] in Urine by Test strip NEG NORMAL: Negat chai [facility] Nitrite [Presence] in Urine by Test strip NEG NORMAL: Negative [facility] BLOOD 10 NORMAL: Negative A [facility] Leukocyte esterase [Presence] in Urine by Test strip NEG ISABELLA L: Negative [facility] Urobilinogen [Mass/volume] in Urine by Test strip NOR less jo n 1.0 mg/dL [facility] MICROSCOPIC See Below [facility] ital WBC None Seen NORMAL: NONE SEEN [facility] Erythrocytes [#/volume] in Urine by Test strip 0 - 1 NORMAL: NON E SEEN [facility] EPITHELIAL FEW NORMAL: NONE SEEN [facility] Amorphous sediment [Presence] in Urine sediment by Light blake roscopy RARE NORMAL: NONE SEEN [facility] ID Date Data Source [id number] 08/24/2020 10:52:00 AM EDT [facility] Name Value Range Interpretation Code Description Data Destiny rce(s) Supporting Document(s) ABO group [Type] in Blood A [facility] Rh [Type] in Blood POSITIVE [facility] AB SCREEN NEGATIVE NORMAL: NEGATIVE [facility] { ABO/RH REENTER A POSITIVE{ AB SCREEN RE-ENTER NEGATIVE ID Date Data Source [id number] 08/24/2020 10:03:00 AM EDT [facility] Name Value Range Interpretation Code Description Data Destiny rce(s) Supporting Document(s) BASIC METABOLIC PANEL [facility] BASIC METABOLIC PANEL Sodium [Moles/volume] in Serum or Plasma 137 mEq/L 134 - 153 [facility] Potassium [Moles/volume] in Serum or Plasma 3.8 mEq/L 3.6 - 5.0 [facility] Chloride [Moles/volume] in Serum or Plasma 102 mEq/L 98 - 107 [facility] Carbon dioxide, total [Moles/volume] in Serum or Plasma 28 MEQ/L 22 - 30 [facility] Glucose [Mass/volume] in Serum or Plasma 116 MG/DL 70 - 99 [facility] BUN 15 MG/DL 7 - [facility] Creat[facility] [Mass/volume] in Serum or Plasma 0.7 MG/DL 0.7 - 1.5 [facility] BUN/CREAT 21 8 - 27 [facility] Calcium [Mass/volume] in Serum or Plasma 9.7 MG/DL 8.4 - 10.2 [facility] Anion gap 3 in Serum or Plasma 7.0 mmol/L 8.0 - 16.0 L [facility] 44 [facility] A[facility] AMER GFR >60 mL/min [facility] Ho spital NON-AA GFR >60 mL/min [facility] ital Male GFR Inter prentation 20-49 yrs [...] >32 mL/min Normal ID Date Data Source [id number] 08/24/2020 09:40:00 AM EDT [facility] Name Value Range Interpretation Code Description Data Destiny rce(s) Supporting Document(s) Prothrombin time (PT) 12.7 SECONDS 11.0 - 15.5 [facility] INR in Platelet poor plasma by Coagulation assay 0.91 0.93 - 1. 23 L [facility] aPTT in Blood by Coagulation assay 24.6 SECONDS 24.8 - 36.7 L [facility] \\BLDo\\INR INTERPRETATION\\BLDx\\ Therapeutic range for Coumadin and related oral anticoagulants. - International Normalized Ratio (INR): 2.0 - 3.0 for Venous Thrombosis, Pulmonary Embolus, Tissue heart valves, Acute [place] Atrial Fibrillation, Valvular heart disease and recurrent Systemic Embolism. - International Normalized Ratio (INR): 2.5 - 3.5 for Mechanical Prosthetic valve. ID Date Data Source [id number] 08/24/2020 09:31:00 AM EDT [facility] Name Value Range Interpretation Code Description Data Destiny rce(s) Supporting Document(s) CBC W/AUTOMATED DIFF [facility] COMPLETE BLOOD COUNT Leukocytes [#/volume] in Blood by Automated count 5.6 10^3/uL 4.2 - 1 1.0 [facility] Erythrocytes [#/volume] in Blood by Automated count 5.05 10^6/uL 4. 20 - 5.40 [facility] Hemoglobin [Mass/volume] in Blood 15.1 g/dL 12.0 - 16.0 [facility] Hematocrit [Volume Fraction] of Blood by Automated count 45.5 % 3 7.0 - 47.0 [facility] Erythrocyte mean corpuscular volume [Entitic volume] by Auto mated count 90.1 fL 81.0 - 101 [facility] Erythrocyte mean corpuscular hemoglobin [Entitic mass] by Automated count 29.9 pg 27.0 - 34.0 [facility] Erythrocyte mean corpuscular hemoglobin concentration [Mass/volume] by Automated count 33.2 g/dL 31.0 - 36.0 [facility] Erythrocyte distribution width [Ratio] by Automated count 13.3 % 11.5 - 14.5 [facility] Platelets [#/volume] in Blood by Automated count 266 10^3/uL 150 - 45 0 [facility] Platelet mean volume [Entitic volume] in Blood by Automated count 8.9 fL 7.4 - 10.4 [facility] Neutrophils/100 leukocytes in Blood by Automated count 56.9 % 37. 0 - 80.0 [facility] Lymphocytes/100 leukocytes in Blood by Manual count 31.4 % 25.0 - 40.0 [facility] Monocytes/100 leukocytes in Blood by Automated count 6.8 % 3.0 - 8.0 [facility] Eosinophils/100 leukocytes in Blood by Automated count 3.8 % 0.0 - 7.0 [facility] Basophils/100 leukocytes in Blood by Automated count 0.9 % 0.0 - 2.5 [facility] %IG 0.2 % 0.0 - 0.0 [facility] %NRBC 0.0 % 0.0 - 0.0 [facility] al Neutrophils [#/volume] in Blood by Automated count 3.17 10^3/uL 2.00 - 6.90 [facility] Lymphocytes [#/volume] in Blood by Automated count 1.75 10^3/uL 0.60 - 3.40 [facility] Monocytes [#/volume] in Blood by Automated count 0.38 10^3/uL 0.00 - 0.90 [facility] Eosinophils [#/volume] in Blood by Automated count 0.21 10^3/uL 0.00 - 0.70 [facility] Basophils [#/volume] in Blood by Automated count 0.05 10^3/uL 0.00 - 0.20 [facility] #IG 0.01 10^3/uL 0.00 - 0.10 [facility] H ospital #NRBC 0.00 10^3/uL 0.00 - 0.00 [facility] H ospital MANUAL DIFF NOT INDICATED [facility] RBC MORPH NOT INDICATED [facility] spital ID Date Data Source [id number] 07/31/2020 03:33:00 PM [facility] Patient Name: CHERRIE FRANCE : 1975 Sex: F Pt Unit #: [id number] Location:[facility] Provider: Visit Date/Time: 07/31/20 Primary Insurance: MEDICARE [facility] Secondary Insurance: [facility]ICAID [facility] R Intake Vital Signs 07/31/20 [...] Delivery Method room air 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 Computer Compositor Required: No Accompanied by: Self / Same as Patient Is patient in pain?: No Allergies Macrolide Antibiotics Allergy (Unknown, Verified 07/31/20 16:18) penicillin G [Penicillin G] Allergy (Unknown, Verified 07/31/20 16:18) Carbamazepine Derivatives Allergy (Unknown, Uncoded 07/31/20 16:18) ANTICONVULSANTS-UNCLEAR ?? 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 History Menstrual History Hx Age of Menarche: [...] Father Lung cancer Uncle Cancer Other Hepatitis [place] (myocardial infarction) Uterine cancer Social History Does [...] level completed: GED or equivalent service: No skilled nursing: No current occupational status: disabled current occupational [...] Yes drive intox or ride w/ intox driver guard: No water heater temp set < 120 [...] tract infection, site not specified SNOMED Code(s): 11375120 Category: Medical Qualifiers: Urinary tract infection type: [...] 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 5. If her symptoms persist may need referral to urologist. Medications: New: nitrofurantoin macrocrystal (Macrodantin) must administer with a meal/food 1 cap by mouth daily for 3 months 100 mg PO QDAY 90 caps 0RF Orders Follow Up: 3 Months [place] [address] Est Pt Limited Comp Patient Type Established [...] rce(s) Supporting Document(s) ID Date Data Source [id number] 07/17/2020 03:11:00 PM [facility] Patient Name: CHERRIE FRANCE : 1975 Sex: F Pt Unit #: [id number] Location:[facility] Provider: Visit Date/Time: 07/17/20 Primary Insurance: MEDICARE [facility] Secondary Insurance: MEDICAID [facility] 2ND R Intake Vital Signs 07/17/20 15:11 Current Height 5 ft 3 in Current Weight 195 lb Weight Measurement Method Standing Scale BMI 34.5 BP 126/88 Blood Pressure Location Rt brachial Position Sitting Respiration 18 Pulse 87 Pulse Strength Normal Pulse Source Pulse Oximeter Temp 98.0 F Temp Source Tympanic Pulse Oximetry (%) 97 Oxygen Delivery Method room air Intake 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 History Menstrual History Hx Age of Menarche: [...] Father Lung cancer Uncle Cancer Other Hepatitis [place] (myocardial infarction) Uterine cancer Social History Does [...] level completed: GED or equivalent service: No skilled nursing: No current occupational status: disabled current occupational [...] Yes drive intox or ride w/ intox driver guard: No water heater temp set < 120 [...] tract infection, site not specified SNOMED Code(s): 80428586 Category: Medical Qualifiers: Urinary tract infection type: [...] [place] [address] Est Pt Limited Comp Patient Type Established [...] rce(s) Supporting Document(s) ID Date Data Source [id number] 07/17/2020 05:13:00 PM EST [facility] Method of Collection:: Clean Catch Name Value Range Interpretation Code Description Data Destiny rce(s) Supporting Document(s) Color of Urine [facility] Appearance of Urine CLEAR [facility] pH of Urine by Test strip 6.5 5-8 [facility] Specific gravity of Urine by Refractometry 1.019 [...] [facility] ID Date Data Source [id number] 07/16/2020 11:10:50 AM EST [facility] Name Value Range Interpretation Code Description Data Destiny rce(s) Supporting Document(s) Progress Note [facility] NQLKBq1kPjXNVqEm04/PBDbxAQMwq6WjXFpmMVj3DHriVDBkY5ZcQJV6eW5gNWC8PBhSCbKnIxBbMuH0 lbm NjBfpFUcDvBZRyRpiLYeCeRPfkWpqjjZHfTL1PhJP7TFRqT19dFHXeAOOtQ0XfLAV4BUT+Wk1EIBDzdP SzIR0XIfdR4M2xq6uYOu7vzG/CJsII4hLtumn1PTBMiMz88tJcALce0WATjtFNT40SswS3//wjvZ2EO9 HjzbQaV0d1MO4fXi+dn13J8DNbxFh0RxwIiqsoQAMt /WsYC3Y/Y3/6K2h7z4XetVzlcxVkMO9gdTID9xxLc/9H4XrqnEcMwlExU/nruLYVa04MOnQD18RdI0mh w5c2odljvgrrFu+tOjSXBTmfPkLFuVHUKnsbcWUNHp0iAP+oKAaoYdVUoyaQEUJNSNQxJFFjEhY+/HxQ xlx9VPpXDr1yGKIOCzpKEwD9fpPcP1/+oaT7I/Zhbx hlOkRp9mzvstdDEFFKtwSZgUeSrdQkwpFeLLjndQ4xYd16HSzDz1Kg3J9jh2sBaPzTMScdIZqvfQ3B8R 19Ul4sCff7rEG3BDfo2IWliBJ/arzQFZX/iOB1suck9EvhiXnFQJd/MmcZEYf+IysYsR3NirlcC070LY Heg6IWqlOtKmkbXl1lxJNpXnKm7IlbC94wk0TWjXjU I5rR6B7tgSNFz+m/gDvvLYrHnuJVVcIwhjgQ5TUj1tnrld3iLqxTPgzmD7bjRanG8PrApf3oihfiJjjj 6GbV83KstLWl2khVzlYq6wo5Z606rBWKodtFseSLj/Pe+z67+qUlr9OHivODd7iYFCjQnquuXBYLzYKa 8lmqIqrIDOhkgZ36I9nCh3B/QqLfHSPUnK70pAIHW2 mLL8Jx9a74mesL4mk5/rBeuAmXYA7IkmrIi49vvA9zJnTWyl/GRACIE+Xxa3LgWAtPaSEFuJYU/BhXpJhxJ wwgEPPAts0NVpV1M1Byevn15Ioc0i0fkhoatBfrID0MheToV+6rh+ZKEVAH4iHGKe+/7weY14Jb7f0An LblDXfL6a27YsDM/c+JkZhX2Hi9Q5vEc0/YYNTu+IF lz8a3rsZFf3bgjBFsUGTCYc4dyvbS22aaPsOPLxQ3UNaN6Jm3c2RxQBYsn5pmHDAPcRHy1C9FAIUcVK9 ovxMSQxWpcfRag3vPwP6o9hbMYtys8B2Qc9WAPMZEpXG3Eu+PEUEOgExKDHPuc5cnPyeTSQjfbPDanAH HSruRo3ynqgiBqMMJ2y6VzCrJlTwTHY54SQuNwb1HU SYVklIePgQSLeEjRcnFgvm34R5UvRYS8CQs/X965dlb5vwhNJE+[place]/i1p9svpA8GfPLB2PIImUWsO7rO [file] 4+CZebkPHmzKazPEODDrM0DWA2JThlRFERWl5S ID Date Data Source [id number] 07/02/2020 02:03:37 PM [facility] IR ARTERIOGRAM CEREBRALFINAL RESULTInter preted by:Raine Burton, [...] artery angiogram8. Supervision and interpretationSurgeon: Raine Burton M.D.Maintenance Carpenter: Joi Murray M.D. (PGY-7) Anesthesia: Moderate sedation [...] in standard sterile fashion, and we underwent [facility] standard timeout for patient and site verification [...] technique under direct ultrasound visualization. A 5 [place] Islander radial glide sheath was placed using Seldinger [...] administered for thromboembolic prophylaxis. Subsequently, a 5 [place] 2 glide catheter was advanced through [...] rce(s) Supporting Document(s) ID Date Data Source [id number] 06/16/2020 01:03:46 PM EST [facility] Name Value Range Interpretation Code Description Data Destiny rce(s) Supporting Document(s) Progress Note [facility] JTVHXi8tDkTTViSe33/XXAggRZGig6GpJXuuQDg2ZMagWSOfV8IsPOM4iF8kJOP9QUjYQiUcVsYbSUO8 lbm [file] AgICAgICAgICAgICAgICAgICAgICAgICAgICAgICAgICAgICAgICAgICAgICAgICAgICAgICAgICAgIC KyMQKeIWKwYFEeOYMgPOYrMWRjVTSpZVAfDNAoJCLoAW2VVBYdNZTcCKOfFDNvIFPcLTIdQCUyYHEzHE AgICAgICAgICAgICAgICAgICAgICAgICAgICAgICAg NKOyXHNyOTMkQXDkSOGrDTDtKXMkTSHvWCZpJMEqBPKcMFDbFPNvPJAbDF1EAVYcKSRuPNZpSVAeRRYe ICAgICAgICAgICAgICAgICAgICAgICAgICAgICAgICAgICAgICAgICAgICAgICAgICAgICAgICAgICAg OYMxRFGmBOXaBAVjIEGqOKMhAERoEZFjMK5YTXZpZU AgICAgICAgICAgICAgICAgICAgICAgICAgICAgICAgICAgICAgICAgICAgICAgICAgICAgICAgICAgIC JdVDWfRNFaRTAbKGFgTUFzUHFiFMXwPWMrXDVnGWXzHVMxDE9OXPJkSXEjIROpZJRbUXJwVSIfWCAcJV AgICAgICAgICAgICAgICAgICAgICAgICAgICAgICAg TFEdRXHmLKCtLGPdQWJzHDUpLNYjDXRqVBOjRLSjNWDrQGJnHNRcLEJkZDPxHE1ZDFSmVPPgZXNdTHXr ICAgICAgICAgICAgICAgICAgICAgICAgICAgICAgICAgICAgICAgICAgICAgICAgICAgICAgICAgICAg SDSeIJYjVMHxAZXlVORaEXMzDMHmXGGwBFPaKA0CQO AgICAgICAgICAgICAgICAgICAgICAgICAgICAgICAgICAgICAgICAgICAgICAgICAgICAgICAgICAgIC CyYFMjIFMxMQZyQDVcYTVlFFPwYRSxETBpTHQlDUFeZQWtZXAqQJ4XBWAhCDSfFHDxXBXwPRZwPMGxVI AgICAgICAgICAgICAgICAgICAgICAgICAgICAgICAg IMFdHPWtRXXnQATuDNGcXHFwWRLiZRKgFNZdHUOfYRAuVDErVEDiSGBbPUFzFTXaKN8UNNDaAJFwKXWe ICAgICAgICAgICAgICAgICAgICAgICAgICAgICAgICAgICAgICAgICAgICAgICAgICAgICAgICAgICAg ICAgICAgICAgICAgICAgICAgICAgICAgICAgICAgIA 0KICAgICAgICAgICAgICAgICAgICAgICAgICAgICAgICAgICAgICAgICAgICAgICAgICAgICAgICAgIC JbQLFxJDQgDLFtBNYgXEOyHJKsOLIkAJQgJDInGXAyLAVvDPOeIYKyNL4FEK78oYXjw9A0OYVdQF9lrk c/Lh7OEKjacrRckGGmQH2LMjDnGO5pib3KLaDsTN5x pe7CIOgIQzEjU2X2iJIvSLKsLKXFPoTkS29mNEknBh64UIbpHBKgNcUoAKp3Jy9YRkVuF7ulJNKiTxE3 SCNhGyMwHWofTY7Ik9LoaIIyLKs+Gj5BML0jb6SqVZcfSOSgNQ8lpf5IDKiGSlSjD4PypfY1MTA5XGAu Ub7QMXIvLDAihLKdIYDgXHSEOzMzS6TgvT88UKFFGp 4+TWtljgFxLuuIEuN4THJis8QqZXu5SL3HIBKcKOm0xNZaJEHaX7Obr0OgFf45JMWdTxmfF5ZiB2VvFY XAWEAeFTwsRb1qAKNkSM9mBY1fNSPgDSAwKtXlUYGNXD8VCDSdBDLtoVTvPHFcTIHZTR8GNKutXFN6VP LhspFeuFImRHuaHA7ARFVlfaTsBMGjNACPGVd+Pg0K MF9ff8SgBFefXoHkER2llw2QXHiRYyVdM7G2bTEoQ5X4NYujIl1UTLZjVETdWRMaWSGVUAwkPC4QIC0u qjI0AR0FyFDnSIUoGCSoaVXzBDm8O02urUCdZTooDQ4JVIX+Jordan+Hh3XXDZlLETdMPPaOwWrKWDQYmVn B3FjH3FQn2GiY9VfCT47dUgkkdPlCUqpXA6VGQ1uPA CzUSYIYE9PqCIjmB3ftyPgKPFhXCPKElMaJ58gdBIvQVObAEJaICYgZr4AKBStW6NtkiGijNdwpgFnLO OgSGJGRW1JYReegwAheHPnaNqkOR54rBkuSV4KOd7NCxPmRA8kaw1DeBVmHz3LSOJiSu2RZIVrUKBlTW WeMBS0VVVfQfYnLFwoJOBaGLKjCEX3LLOjDEZyZZ1A FnKlXMJmPKU8FlkoCBFbAKEgsi0EYSTcGJPyPiM6LzCoWLBhGMNqNDdtNUOjNMNySYZ7EZAsTTJyPW8D KtXfVJOqEQP9UaduDDOkLGSqvm0RPPPrDUZzRAftWSHeVIPdEPEgESdsSHSgCGBhOKnmYZPuZXCjXV6W OwGhZCDeCBAaMHNkKMHaXNCtqv4AROLcPJTeSrJ3Hm OgAFPtCFAaJTtnYXDuSBZ4VmX9YIVnWPAmFJ4KRiXbALGmWCF2BlWzGKSyUEVnca5UBSDlLUKaHIDhPj ChWPSvIQSwGCvpVWWnEKK2XEQ5WXOpSJYoKD6OJfMrAZXrPWN3COYwZIEyAGFaiw8NAKYzAIBxQtYdEo UcUZJoSEFkVTgfXRDwEVU7Mhe0IXBkDWRqFT2HJsZe TDnwMTJQRql2CCnhJ2l2AJZmKk8AR1Mif0LvHAPeXSDUSXilWG2vgyNgAYGcAc0XI8rPDqknUeNrHrTk BQKsYpYcNSgrVlJoPGyrRjOtQ6GwRqc5ID8eHRS9EFR2B3T8HHLdEFV7CZHuG2R6OOEhHVQ0PaB7Lokr LyLbCU8PNn2CCxR8INP9mTFuDi1LNgzsHR0NKXWKS5PNXl== ID Date Data Source [id number] 06/16/2020 09:56:06 AM [facility] Name Value Range Interpretation Code Description Data Destiny rce(s) Supporting Document(s) History and Physical [facility] ZFTYQs7bSfVGErMh78/YBGrfKYZve8ZoJOrtYQw1SXvhYATiG2JxVLR9nY9kVGB3NBzOHyKmGgZnQHW4 lbm [file] lab rn+HKLeaIRwYHAuEtqDkjTe9aL2fnMIxjS25YP1cP0MoyGDY7+fC7nf6RhDT+72rs7d9mCfS6wZUEwW [file] ICAgICAgICAgICAgICAgICAgICAgICAgICAgICAgIC SgMXVjKUVwKVWzPQMvMGYiCPObCIIhJDGgERAnEWTiANKsXAUzVY7QWHIlQEFcGBTsHAQzNJKsCJWvNO AgICAgICAgICAgICAgICAgICAgICAgICAgICAgICAgICAgICAgICAgICAgICAgICAgICAgICAgICAgIC ToAYYuWEAaAHWuXJFlYWMyFVMmER0UDPNaJKEbIEFi ICAgICAgICAgICAgICAgICAgICAgICAgICAgICAgICAgICAgICAgICAgICAgICAgICAgICAgICAgICAg LQHqFBTuHOPjBZCkUXScOGCuOGZfSZYmQULeFXUeLM4YAJCeKLPcSOPpUULqDRLqKJSvJOZcFAHdPYHk ICAgICAgICAgICAgICAgICAgICAgICAgICAgICAgIC KkAEIgXAFoAONkBOVvFAUjZFUfYGLdBWKyVHXxLTAtUYHjRTWfBZKcIG3FILXdKTAaIMRjGQRxYUBgIG AgICAgICAgICAgICAgICAgICAgICAgICAgICAgICAgICAgICAgICAgICAgICAgICAgICAgICAgICAgIC WnQLQiRVKfRMYaYPWtWDLjAELxQHMgKF2SHHNhAHIz ICAgICAgICAgICAgICAgICAgICAgICAgICAgICAgICAgICAgICAgICAgICAgICAgICAgICAgICAgICAg WGBdKXWcLVSeZWIwZYBjZHSpFWVkWGJjNJOoUEMtCCQhUF3BORSoMZGrIFGcKXTqQUEqTSHwKHOvFGMm ICAgICAgICAgICAgICAgICAgICAgICAgICAgICAgIC GgLJDwVWRsKBYcHQKkPNOaQSOkZYLyHBLxQIEzSCHrWIXhKAWdJMHaEWIzHR6SLYSsAYVjZJLdFBRlYJ AgICAgICAgICAgICAgICAgICAgICAgICAgICAgICAgICAgICAgICAgICAgICAgICAgICAgICAgICAgIC RbZWFkXSNdQRZkVGUnVLPsYIYbNRQjGESxZH2TETMo ICAgICAgICAgICAgICAgICAgICAgICAgICAgICAgICAgICAgICAgICAgICAgICAgICAgICAgICAgICAg TLCiPAPjMVLnVSBkZGQgAKTjXBWvPXJzXLEiBNOsFMEcVCMkIP5PQWPkZGVuNKGmMREwBBDnEWMeFZXo ICAgICAgICAgICAgICAgICAgICAgICAgICAgICAgIC SuYAPyWDQmUPStGHInWQBxKMYwIKBzHSEhKFAnHVLvSTJfUFNnDCKtOLZuGLQePH7HUN39yECab0N9WP CfAI0qmak/Dl2LRQsggtFcfTPeVW8XNiPoXF2rem2LUrBvHU0erl5PYHdDHvPuG9L9tQYeSAKpRDHOJz DvH92lNCbdHh72VIytKZLqHoQuCMq9Tb8XXlMjW3uo OCUlBiJ3BTQkRcG0XAKgRnT0UHUdTzWiLSDxNTJdGF1CMYKrC620tpQeXZ6SJy0HFxNeYG7uzn7OHmct CDBpOnwIEph2ADyyLP4CzRSieJHgXAOxJSYSJjPpH3wzc0NfGakqBVHZXOorQF3Yq9NuyNGkYJb+Pg0K KS3gm1FaQZrgYQBnES9ieq7ICNlKVqXbJ6MrmMudCT gmUSOvpPYLuCYoeJKwzNOgZuszowauEPXvACYcGY5nSO6mFZFaWVV1NfQ9UIKWCQ0YZANlYVPhgNKyEG LwHKZPQW1WZLtdYFU2PTBwijTvpSUhELgeQQ9XIIYasePxCxhtCVPXQWc+Ar2BWZ3jx0XhRYjlDGWePM 5fob7UDDdKVjCnB4N6xVPqM9B3SCcxVn7XOWPcDDMw LsAeUTYDIWfcFZ8DZF7omrP9XJ5JpTHmDHFgQZFtpUXmBOc9C10nuSXoNDrtZR8KMRC+Jordan+Qn3NMDXv TPExSQVyAlJqSETHHqBbC4TuL4EZz7AwN7GoMV87qWucjgWhUQzzAK6KYI4tBWLeXFHBGB0AsLQnkO3j yoChDREtUEPPPvDsT24wrFMmWJZnXBD3COAfZb8CRO XhK3MrwbXpfCoqyhWiCEAnEQOVXF2YNCoriuPfmUBopZrzPI59yXiqCX7ZOf8OEsHzBY1hph3HeQFaBx 5UXGMfLL8WDINuBXPtNZHaMKN0OFMrGqYgKKizTVZxFRSuFGZ0ERHsSZLpEH2RCeCgVTRyXzo6CEhzXR PaJURphr5LZNGzVLHtXAHsXEIiZDJmBLNvZXahRRSw CHSsQDU8FZSwMCCxEK6COqYcHOOqEADpEPIeDEDbNXEbyh3MJRSmITWmXUS4JRCbZPZbCVGjTIauBCDk HYG0AEZ5EGRlEPXfWW4GKnAqVSFoECF3SoYjPYSkTJLcra1FJTYuUWZoQQE0YPEmJUOtPWTiIAbyBUOa WYG6EuE2INWnEEWlHN7ZAfYwHLCtLSOwTLSqYPRoHA Ljts9IJZBlYIAlJPT8GAHgMSRbHQXxIPqpYWGfGJWpRRFjAOZmSAFtNS0WGlKzMHBkLOV6RKpdXZShHY Jkss0HYMQhJDHqYkg7GVQfPGNhXLEtCPqnGCCnTXFkBDOwJIBsZUAiVS4ZUdNyUDMmJRWhEVMvLSRhTQ Wltx6QUEUbSXUdDDX7BLQiATOyBDQlRYmlAPRtJCQ3 PoOyDPKoFERcOH1BNjPhTHWoIOBwLMcpPDVtWMEhlb6IMVMqWURxOAR9JOJlXKNfYIQdSJqxFLSvABF7 WZY1GCLvPBUhCI5KXyEnFOWeQxnkYNEpAYSyWGCnoa7ELCCoGAFbRuD3PhMjNMTwRPPqBAtpVEAvEIG1 UkXeIMFeSABiSH8GPwThBRZgByj3UfcfOFLzWRYzcn 2FHZJpWXKmKFA4WGOiMHUuZSOfAPuwLHAyDDT7KoIkKDIhCGZkAA3BIaJiTXUfLkj0BnGsEQTpLWXibf 8OMRRyZJHbGIp2ICUmAWSlWYErFOl9tiOmtAOpWVz5VO6RQ3UpfcRbReVPBk7Zm588RWVlKOOvDb1WH0 jcXo7cXQTxPPXKQg6OJRp3HRSkQdyiNQBeGRU0DNRt POG6AJOuNaKvZgXoWnQ4GYk+XLv5VxK5YEPyHMLaAPizZYPkCZf3DKW3JNAwPJEhDCP2Br0jLFVDGc9+ DAjhgWHlhZutVLQRPfIsZiJ7HZvrQFQFEj7L ID Date Data Source [id number] 06/16/2020 08:32:14 AM EST [facility] Name Value Range Interpretation Code Description Data Destiny rce(s) Supporting Document(s) Choriogonadotropin ( test) [Presence] in Urine [facility] NEGATIVE: either no HCG or too low to de tect, <20 mU/mL Specific gravity of Urine by Refractometry 1.017 1.003-1.030 [facility] ID Date Data Source [id number] 06/12/2020 12:38:00 PM EST [facility] [address] [place] [address] RESPIRATORY CARE REPORT ==== ---------NAME------- NUMBER SEX AGE ADMIT DISC. XRAY# F/C TYPESIMMONS RAMANDA R [id number] F [id number] 06/12/20 06/12/20 [id number] O/P DATE OF : 1975 M/R# [id number] PH#: [id number] LOCATION: [facility] [id number] COMPLETE:06/12/20 12:37 [facility] [address] PHYSICIAN: SAMI NEIL Name Value Range Interpretation Code Description Data [facility] rce(s) Supporting Document(s) ID Date Data Source [id number] 06/12/2020 10:45:00 AM EST [facility] Name Value Range Interpretation Code Description [facility]s) SARS coronavirus 2 RNA Not Detected [facility] This lab was ordered by [facility] crissy and reported by [facility]. ID Date Data Source [id number] 06/15/2020 07:48:00 AM EST [facility] Name Value Range Interpretation Code Description [facility] Supporting Document(s) SARS-CoV-2, ROBERT Not Detected Not Detected [facility] This nucleic acid amplification test was developed and its performancecharacteristics determined by [facility]. Nucleic acidamplification tests include PCR and [...] assay. ORDER COVID 19 2 DAY NO [facility] ID Date Data Source [id number] 06/13/2020 04:43:00 PM [facility] Name Value Range Interpretation Code Description Data Destiny rce(s) Supporting Document(s) Lutropin [Units/volume] in Serum or Plasma 48.5 mIU/mL [facility] Adult Female: Follicular phase 2.4 - 12.6 Ovulation phase 14.0 - 95.6 Luteal phase 1.0 - 11.4 Postmenopausal 7.7 - 58.5 ID Date Data Source [id number] 06/13/2020 04:42:00 PM [facility] Value Range Interpretation Code Description Data Destiny rce(s) Supporting Document(s) Follitropin [Units/volume] in Serum or Plasma 90.4 mIU/mL [facility] Adult Female: Follicular phase 3.5 - 12.5 Ovulation phase 4.7 - 21.5 Luteal phase 1.7 - 7.7 Postmenopausal 25.8 - 134.8 ID Date Data Source [id number] 06/12/2020 12:32:00 PM [facility] Value Range Interpretation Code Description Data Destiny rce(s) Supporting Document(s) aPTT in Blood by Coagulation assay 25.7 SECONDS 24.8 - 36.7 [facility] ID Date Data Source [id number] 06/12/2020 12:16:00 PM EST [facility] Name Value Range Interpretation Code Description Data Destiny rce(s) Supporting Document(s) URINALYSIS WITH MICROSCOPIC [facility] URINALYSIS COLOR yellow NORMAL: Yellow [facility] CLARITY clear NORMAL: Clear [facility] Specific gravity of Urine by Test strip 1.005 1.001 - 1.030 [facility] 6 5 - [facility] Gl[facility] [Mass/volume] in Urine by Test strip NORM NORMAL: Negat [facility] Bilirubin.total [Presence] in Urine by Test strip NEG NORMAL: Negative [facility] Ketones [Presence] in Urine by Test strip NEG NORMAL: Negative [facility] Protein [Mass/volume] in Urine by Test strip NEG NORMAL: Negat [facility] Nitrite [Presence] in Urine by Test strip NEG NORMAL: Negative [facility] BLOOD NEG NORMAL: Negative [facility] Leukocyte esterase [Presence] in Urine by Test strip NEG ISABELLA L: Negative [facility] Urobilinogen [Mass/volume] in Urine by Test strip NOR less jo n 1.0 mg/dL [facility] MICROSCOPIC See Below [facility] ital WBC 0 - 1 NORMAL: NONE SEEN [facility] ID Date Data Source [id number] 06/12/2020 12:27:00 PM EST [facility] Name Value Range Interpretation Code Description Data Destiny rce(s) Supporting Document(s) BASIC METABOLIC PANEL [facility] BASIC METABOLIC PANEL Sodium [Moles/volume] in Serum or Plasma 139 mEq/L 134 - 153 [facility] Potassium [Moles/volume] in Serum or Plasma 4.5 mEq/L 3.6 - 5.0 [facility] Chloride [Moles/volume] in Serum or Plasma 103 mEq/L 98 - 107 [facility] Carbon dioxide, total [Moles/volume] in Serum or Plasma 27 MEQ/L 22 - 30 [facility] Glucose [Mass/volume] in Serum or Plasma 97 MG/DL 70 - 99 [facility] BUN 14 MG/DL 7 - 21 [facility] Creatinine [Mass/volume] in Serum or Plasma 0.7 MG/DL 0.7 - 1.5 [facility] BUN/CREAT 20 8 - 27 [facility] Calcium [Mass/volume] in Serum or Plasma 9.7 MG/DL 8.4 - 10.2 [facility] Anion gap 3 in Serum or Plasma 9.0 mmol/L 8.0 - 16.0 [facility]GE 44 [facility] GFR >60 mL/min [facility] NON-AA GFR >60 mL/min [facility] Male GFR Inter prentation 20-49 yrs [...] >32 mL/min Normal ID Date Data Source [id number] 06/12/2020 11:51:00 AM EST [facility] Name Value Range Interpretation Code Description Data Destiny rce(s) Supporting Document(s) CBC W/AUTOMATED DIFF [facility] COMPLETE BLOOD COUNT Leukocytes [#/volume] in Blood by Automated count 6.1 10^3/uL 4.2 - 1 1.0 [facility] Erythrocytes [#/volume] in Blood by Automated count 5.31 10^6/uL 4. 20 - 5.40 [facility] Hemoglobin [Mass/volume] in Blood 15.8 g/dL 12.0 - 16.0 [facility] Hematocrit [Volume Fraction] of Blood by Automated count 47.0 % 3 7.0 - 47.0 [facility] Erythrocyte mean corpuscular volume [Entitic volume] by Auto mated count 88.5 fL 81.0 - 101 [facility] Erythrocyte mean corpuscular hemoglobin [Entitic mass] by Automated count 29.8 pg 27.0 - 34.0 [facility] Erythrocyte mean corpuscular hemoglobin concentration [Mass/volume] by Automated count 33.6 g/dL 31.0 - 36.0 [facility] Erythrocyte distribution width [Ratio] by Automated count 13.2 % 11.5 - 14.5 [facility] Platelets [#/volume] in Blood by Automated count 290 10^3/uL 150 - 45 0 [facility] Platelet mean volume [Entitic volume] in Blood by Automated count 9.4 fL 7.4 - 10.4 [facility] Neutrophils/100 leukocytes in Blood by Automated count 53.7 % 37. 0 - 80.0 [facility] Lymphocytes/100 leukocytes in Blood by Manual count 34.1 % 25.0 - 40.0 [facility] Monocytes/100 leukocytes in Blood by Automated count 8.0 % 3.0 - 8.0 [facility] Eosinophils/100 leukocytes in Blood by Automated count 3.0 % 0.0 - 7.0 [facility] Basophils/100 leukocytes in Blood by Automated count 1.0 % 0.0 - 2.5 [facility] %IG 0.2 % 0.0 - 0.[facility] 0.0 % 0.0 - 0.0 [facility] al Neutrophils [#/volume] in Blood by Automated count 3.28 10^3/uL 2.00 - 6.90 [facility] Lymphocytes [#/volume] in Blood by Automated count 2.08 10^3/uL 0.60 - 3.40 [facility] Monocytes [#/volume] in Blood by Automated count 0.49 10^3/uL 0.00 - 0.90 [facility] Eosinophils [#/volume] in Blood by Automated count 0.18 10^3/uL 0.00 - 0.70 [facility] Basophils [#/volume] in Blood by Automated count 0.06 10^3/uL 0.00 - 0.20 [facility] #IG 0.01 10^3/uL 0.00 - 0.10 [facility] #NRBC 0.00 10^3/uL 0.00 - 0.00 [facility] MANUAL DIFF NOT INDICATED [facility] RBC MORPH NOT INDICATED [facility] spital ID Date Data Source [id number] 06/12/2020 09:14:00 AM EST [facility] [address] [place] [address] PHONE: [phone] FAX: [phone] Name .................. : BOOGIE GRIER Claudia Acct Number.................. : [id number] ROOM. ................. : MR Number ................... : [id number] Stay type ............. : O/P Discharge Date......... ... : 06/11/20 Admit Date ......... : 06/11/20 Admit Phys .................... : JOSEPHINE CARY Date of ....... : 1975 Family Phys ................... : PATEL MARGARITO Phone .................. : [phone] Age ................................ : 44 Film# .................. .:[id number] Sex ................................. : F Unsigned transcriptions are preliminary reports and do not represent a medical or legal document CT HEAD W/O ROM Boyd/MELANI [id number] COMPLETE:06/11/20 08:24 2180 (REASON FOR PROCEDURE R [...] 11:42, Dictation Date: Page 1 of 2 [place] [address] PHONE: [phone] FAX: [phone] Name .................. : BOOGIE Taylor Acct Number.................. : [id number] ROOM. ................. : MR Number ................... : [id number] Stay type ............. : O/P Discharge Date......... ... : 06/11/20 Admit Date ......... : 06/11/20 Admit Phys .................... : JOSEPHINE CARY Date of ....... : 1975 Family Phys ................... : JORGE PIMENTEL Phone .................. : [phone] Age ......... ....................... : 44 Film# .................. .:[id number] Sex ................................. : F Unsigned transcriptions are preliminary reports and do not represent a medical or legal document CT HEAD W/O FOL W/MELANI [id number] COMPLETE:06/11/20 08:24 2180 (REASON FOR PROCEDURE R FRONTAL BONE LESION EVAL Copy for: JOSEPHINE HERNANDEZ via fax Copy for: [facility] REC Page 2 of 2 Name Value Range Interpretation Code Description Data Destiny rce(s) Supporting Document(s) ID Date Data Source [id number] 05/14/2020 12:17:59 PM [facility] Name Value Range Interpretation Code Description Data Destiny rce(s) Supporting Document(s) Progress Note [facility] [id number] [file] [id number]= Procedure Social History Code Duration Value Status Description Data Source(s ) Alcohol intake 08/31/2020 12:00:00 AM EDT Ex-drinker (finding) comp leted Ex- drinker (finding) [facility] Tobacco use and exposure 08/31/2020 12:00:00 AM EDT Never used co mpleted Never used [facility] Cigarette pack-years 08/31/2020 12:00:00 AM EDT UNK completed [facility] Cigarettes smoked current (pack per day) - Reported 09/01/19 12:00:00 AM EDT UNK completed [facility]spital Smoking 08/31/2020 12:00:00 AM EDT Current every day smoker co mpleted Current every day smoker [facility] Smoking 08/11/2020 12:00:00 AM EDT Current Smoker completed [facility]re nt Smoker eCW1 ([facility]) Smoking 08/11/2020 12:00:00 AM EDT Current Smoker completed Curre nt Smoker eCW1 ([facility]) Alcohol intake 06/25/2020 12:00:00 AM EST Ex-drinker (finding) comp leted Ex- drinker (finding) [facility] Alcohol intake 06/16/2020 12:00:00 AM EST Ex-drinker (finding) comp leted Ex- drinker (finding) [facility] Vital Signs ID Date Data Source UNK Name Value Range Interpretation Code Description Data Source(s) Heart rate 82 /min 82 /min [facility] ([facility]) Body temperature 97.6 [degF] 97.6 [degF] [facility] ([facility]) Oxygen saturation in Arterial blood by Pulse oximetry 94 % 94 % [facility] ([facility]) Body surface area Derived from formula 1.90 m2 1.90 m2 [facility] ([facility]) Systolic blood pressure 124 mm[Hg] 124 mm[Hg] [facility] ([facility]) Diastolic blood pressure 86 mm[Hg] 86 mm[Hg] [facility] ([facility]) Body height 63 [in_i] 63 [in_i] [facility] ([facility]) 5'3" Body weight 193.00 [lb_av] 193.00 [lb_av] [facility] ([facility]) Body mass index (BMI) [Ratio] 34.2 kg/m2 34.2 k g/m2 [facility] ([facility]) [place] body weight 115 [lb_av] 115 [lb_av] [facility] ([facility]) Body weight 87.545 kg 87.545 kg [facility] ([facility] ) Systolic blood pressure 136 mm[Hg] 136 mm[Hg] [facility] ([facility]) Heart rate 84 /min 84 /min [facility] ([facility]) Body temperature 97.4 [degF] 97.4 [degF] [facility] ([facility]) Respiratory rate 16 /min 16 /min [facility] ( [facility]) Oxygen saturation in Arterial blood by Pulse oximetry 97 % 97 % [facility] ([facility]) Diastolic blood pressure 88 mm[Hg] 88 mm[Hg] [facility] ([facility]) Heart rate 84 /min 84 /min [facility] ([facility] ) Diastolic blood pressure 80 mm[Hg] 80 mm[Hg] [facility] ([facility], ) Systolic blood pressure 122 mm[Hg] 122 mm[Hg] [facility] ([facility], ) Respiratory rate 16 /min 16 /min [facility] ( [facility], ) Diastolic blood pressure 67 mm[Hg] 67 mm[Hg] eCW1 ([facility]) Body weight 195 [lb_av] 195 [lb_av] eCW1 [facility] Body height 63 [in_i] 63 [in_i] eCW1 ([facility]) Body mass index (BMI) [Ratio] 34.54 kg/m2 34.54 kg/m2 W1 ([facility]) Heart rate 88 /min 88 /min eCW1 ([facility]) Respiratory rate 18 /min 18 /min eCW1 ([facility]) Body temperature 97.1 [degF] 97.1 [degF] eCW1 ( [facility]) Systolic blood pressure 125 mm[Hg] 125 mm[Hg] e CW1 ([facility]) Systolic blood pressure 124 mm[Hg] 124 mm[Hg] [facility] ([facility], ) Diastolic blood pressure 86 mm[Hg] 86 mm[Hg] [facility] ([facility], ) Body height 63 [in_i] 63 [in_i] [facility] ([facility], ) 5'3" Body weight 185.00 [lb_av] 185.00 [lb_av] [facility] ([facility]) Body mass index (BMI) [Ratio] 32.8 kg/m2 32.8 k g/m2 [facility] ([facility]) [place] body weight 115 [lb_av] 115 [lb_av] [facility] ([facility]) Body weight 83.916 kg 83.916 kg [facility] ([facility]) Body surface area Derived from formula 1.87 m2 1.87 m2 [facility] ([facility]) Systolic blood pressure 137 mm[Hg] 137 mm[Hg] [facility] ([facility]) Heart rate 81 /min 81 /min [facility] ([facility]) Body temperature 99.3 [degF] 99.3 [degF] [facility] ([facility]) Oxygen saturation in Arterial blood by Pulse oximetry 97 % 97 % [facility] ([facility]) Diastolic blood pressure 80 mm[Hg] 80 mm[Hg] [facility] ([facility]) ID Date Data Source [id number] 09/17/2020 03:23:44 PM [facility] Name Value Range Interpretation Code Description Data Source(s) WEIGHT RECORDED 199.08 lb 199[address] [facility] WEIGHT RECORDED 194 lb [address] [facility] Body height Measured 63 in 63 in [facility] ID Date Data Source [id number] 08/28/2020 04:04:06 PM [facility] Name Value Range Interpretation Code Description Data Source(s) WEIGHT RECORDED 193.[address] [facility] Body height Measured 62.6 in 62.6 in [facility] ID Date Data Source [id number] 07/02/2020 02:03:37 PM [facility] Name Value Range Interpretation Code Description Data Source(s) WEIGHT RECORDED 186 lb [address] [facility] Body height Measured 63 in 63 in [facility] Patient Treatment Plan of Care Planned Activity Planned Date Details Description Data Source (s) Ticagrelor 90 MG Oral Tablet 10/02/2020 12:00:00 AM [facility] Chantix Continuing Month James 1 MG 09/22/2020 12:00:00 AM EDT eCW1 ([facility]) Aspirin 81 MG Delayed Release Oral Tablet 09/02/2020 12:00:00 AM [facility] Ticagrelor 90 MG Oral Tablet 09/01/2020 12:00:00 AM [facility] Acetaminophen 325 MG Oral Tablet 09/01/2020 12:00:00 AM [facility] Ticagrelor 90 MG Oral Tablet 09/01/2020 12:00:00 AM [facility] albuterol (PROVENTIL HFA) inhaler 2 puff 08/31/2020 07:01:50 PM [facility] sennosides, [facility] 8.6 MG Oral Tablet 08/31/2020 02:48:13 PM [facility] ondansetron (ZOFRAN) injection 4 mg 08/31/2020 02:48:13 PM [facility] Acetaminophen 325 MG Oral Tablet 08/31/2020 02:48:12 PM [facility] Oxycodone Hydrochloride 5 MG Oral Tablet 08/31/2020 02:48:12 PM [facility] Bisacodyl 10 MG Rectal Suppository 08/31/2020 02:48:12 PM [facility] sodium chloride (preservative free) 0.9 % flush 3 mL 021 07:27:07 AM [facility] sodium chloride 0.9 % bag 3-20 mL 08/31/2020 07:27:07 AM [facility] Chantix Starting Month James 0.5 MG X 11 & 1 MG X 42 08/11/2020 12 :00:00 AM EDT eC ([facility]) 84 HR Estradiol 0.16539 MG/HR / norethin drone acetate 0.63438 MG/HR Transdermal Patch [Combipatch] 07/09/2020 12:00:00 AM [facility] sodium chloride (preservative free) 0.9 % flush 3 mL 021 09:00:00 AM [facility] sodium chloride 0.9 % bag 3-20 mL 06/16/2020 07:02:50 AM [facility] 30 ACTUAT fluticasone furoate 0.2 MG/ACT UAT / vilanterol 0.025 MG/ACTUAT Dry Powder Inhaler [Breo] 06/12/2020 12:00:00 AM [facility] Albuterol Sulfate HFA 108 (90 Base) MCG/ ACT Inhalation Aerosol Solution (PROVENTIL HFA) 06/12/2020 12:00:00 AM [facility] Diclofenac Potassium 50 MG Oral Tablet 06/11/2020 12:00:00 AM [facility] gabapentin 100 MG Oral Capsule 09/04/2019 12:00:00 AM [facility]
--- NOTE | 2021-04-09 20:18 | REP ---
INDICATION: Coronavirus workup. COMPARISON: Comparison chest x-ray February 09, 2012. TECHNIQUE: Sitting portable chest x-ray. AP view. FINDINGS: There increased interstitial markings in the perihilar regions and left base consistent with subtle infiltrates bilaterally. Heart is not enlarged. Pulmonary vasculature is not increased. No acute bony abnormality is seen. IMPRESSION: Subtle patchy bilateral interstitial infiltrates. <Electronically signed by Mannie Beach > 04/09/212014
[2021-04-09] MEDS: COMBIVENT RESPIMAT 100-20MCG INHALER 4GM INH SCH ×2 (20:25→20:53)
[2021-04-09 20:29] LABS: HEMATOCRIT 43.9 % (36.0-47.0); HEMOGLOBIN 14.7 g/dl (12.0-15.5); LYMPH # 0.9 10^3/uL (1.5-5.0); LYMPH % 29.8 % (24.0-44.0); MEAN CORPUSCULAR HGB CONC 33.5 g/dl (32.0-36.5); MEAN CORPUSCULAR VOLUME 86.6 fl (80.0-96.0); MONO # 0.3 10^3/uL (0.0-0.8); MONO % 10.6 % (2.0-8.0); NEUTROPHILS # 1.7 10^3/uL (1.5-8.5); NEUTROPHILS % 59.3 % (36.0-66.0); PLATELET COUNT, AUTOMATED 175 10^3/uL (150-450); RED BLOOD COUNT 5.07 10^6/uL (4.00-5.40); WHITE BLOOD COUNT 2.9 10^3/uL (4.0-10.0)
[2021-04-09 20:43] LABS: INR 0.87; PARTIAL THROMBOPLASTIN TIME 29.4 SECONDS (25.9-37.0); PROTHROMBIN TIME 12.2 SECONDS (12.7-14.5)
[2021-04-09 20:46] LABS: D-DIMER QUANT 1276.7 ng/ml (<500)
[2021-04-09] MEDS ORDERED: NS 1,000 ML IV ONE (20:55)
[2021-04-09] MEDS ORDERED: ISOVUE-370 76% 100ML VIAL As Ordered ONE (21:02)
[2021-04-09 21:16] LABS: ALBUMIN 3.4 GM/DL (3.2-5.2); ALT/SGPT 111 U/L (12-78); BILIRUBIN,TOTAL 0.4 MG/DL (0.2-1.0); BLOOD UREA NITROGEN 8 MG/DL (7-18); C REACTIVE PROTEIN QUANTITATIV 0.46 MG/DL (0.00-0.30); CALCIUM LEVEL 8.7 MG/DL (8.5-10.1); CARBON DIOXIDE LEVEL 27 MEQ/L (21-32); CHLORIDE LEVEL 101 MEQ/L (98-107); CREATININE FOR GFR 0.66 MG/DL (0.55-1.30); FERRITIN 1208 NG/ML (8-252); GLOMERULAR FILTRATION RATE > 60.0 (>58); GLUCOSE, FASTING 99 MG/DL (70-100); LDH LACTATE DEHYDROGENASE 519 U/L (84-246); MAGNESIUM LEVEL 2.1 MG/DL (1.8-2.4); POTASSIUM SERUM 3.4 MEQ/L (3.5-5.1); SODIUM LEVEL 136 MEQ/L (136-145); TOTAL PROTEIN 6.8 GM/DL (6.4-8.2)
--- NOTE | 2021-04-09 21:40 | REPVR ---
PROCEDURE INFORMATION: Exam: CTA Chest With Contrast Exam date and time: 04/09/2021 9:05 PM Age: 45 years old Clinical indication: Shortness of breath; Additional info: SOB, + covid +d-dimer TECHNIQUE: Imaging protocol: Computed tomographic angiography of the chest with contrast. 3D rendering (Not supervised by radiologist): MIP and/or 3D reconstructed images were created by the technologist. Radiation optimization: All CT scans at this facility use at least one of these dose optimization techniques: automated exposure control; mA and/or kV adjustment per patient size (includes targeted exams where dose is matched to clinical indication); or iterative reconstruction. Contrast material: ISOVUE 370; Contrast volume: 75 ml; Contrast route: INTRAVENOUS (IV); COMPARISON: CR PORTABLE CHEST X-RAY 04/09/2021 7:55 PM FINDINGS: Pulmonary arteries: There are no pulmonary emboli. Aorta: There is no aortic dissection or aneurysm. Lungs: Bilateral semi-solid and ground-glass pulmonary parenchymal infiltrates located predominantly peripherally extending to the pleural surfaces. Findings consistent with multifocal viral pneumonitis (organizing type) and known Covid diagnosis. Pleural spaces: Unremarkable. No pneumothorax. No pleural effusion. Heart: Unremarkable. No cardiomegaly. No pericardial effusion. Lymph nodes: Mediastinal lymphadenopathy consistent with underlying postinflammatory etiology. Bones/joints: Unremarkable. No acute fracture. Soft tissues: Unremarkable. IMPRESSION: 1. Bilateral semi-solid and ground-glass pulmonary parenchymal infiltrates located predominantly peripherally extending to the pleural surfaces. Findings consistent with multifocal viral pneumonitis (organizing type) and known Covid diagnosis. 2. There is no aortic dissection or aneurysm. 3. There are no pulmonary emboli. Electronically signed by: Jose Martin Mejias On 04/09/2021 21:39:54 PM
[2021-04-09] MEDS ORDERED: dexameTHASONE 20MG/5ML VIAL (J1100 PER 1MG) IV ONE (21:45)
[2021-04-09] MEDS ORDERED: MOM 30ML SUSPENSION UDC PO PRN (22:00)
[2021-04-09] MEDS ORDERED: MAALOX 30 ML SUSP *UDC PO PRN (22:00)
--- NOTE | 2021-04-09 22:04 | HPEPDOC ---
[facility] Medical History & Physical Date of Admission Apr 09, 2021 Date of Service: Apr 09, 2021 History and Physical CHIEF COMPLAINT: shortness of breath HISTORY OF PRESENT ILLNESS: 45 yo F with a PMHx of COPD (not O2 dependent), anterior communicating artery aneurysm s/p coiling, migraines, HTN, obesity, presented to ER with a 3 day hx of SOB, cough productive of yellow sputum and malaise. She ran out of her inhalers (albuterol and breo ellipta), as she has be under quarantine at home, since 5 of her family members have tested positive for Covid-19. She is unvaccinated. She was hypoxic on ambulation to 88%. CTA chest showed no PE, but questionable bilateral ground glass opacities. She denies any chest pain, palpitations, n/v/d, fevers. She will be admitted to covid unit under hospitalist service for management of acute COPD exacerbation 2/2 covid-19 infection. PAST MEDICAL/SURGICAL HISTORY: COPD (not O2 dependent) HTN Obesity Migraines (follows with Dr. Clayton) Anterior communicating artery aneurysm, s/p coiling at [facility] (08/2020) SOCIAL HISTORY: Smoker, states will quit now. Denies etoh use Denies illicit drug use FAMILY HISTORY: States hx of cancer on father's side, unable to elaborate further. ALLERGIES: Please see below. REVIEW OF SYSTEMS: 10 point ROS conducted, relevant findings are noted in HPI. HOME MEDICATIONS: Please see below. PHYSICAL EXAMINATION: VITAL SIGNS: please see below General: NAD, comfortable HEENT: PERRLA, EOMI, sclerae clear Neck: supple, normal ROM, no JVD Respiratory: good inspiratory effort, wheezing present in bilateral lung bases, and mid lung zones, mild rales and L lung base, no crackles. CVS: RRR, normal S1, S2, no murmurs Abdo: soft, no masses, no hepatosplenomegaly, BS+, no rebound tenderness Extremities: no edema, pulses 2+ at DP and PT. cap refill < 2 sec. No cyanosis. MSK: no joint deformities, normal ROM Neuro: no focal neuro deficits, moving all 4 extremities, CN2-12 intact. Strength 5/5 in all 4 extremities. No nystagmus. Psych: calm, cooperative, AAO x 3 LABORATORY DATA: See below. IMAGING: CXR (04/09/21): Subtle patchy bilateral interstitial infiltrates. CTA chest PE protocol (04/09/21): 1. Bilateral semi-solid and ground-glass pulmonary parenchymal infiltrates located predominantly peripherally extending to the pleural surfaces. Findings consistent with multifocal viral pneumonitis (organizing type) and known Covid diagnosis. 2. There is no aortic dissection or aneurysm. 3. There are no pulmonary emboli. MICROBIOLOGY: Please see below. ASSESSMENT: 45 yo F with a PMHx of COPD (not O2 dependent), anterior communicating artery aneurysm s/p coiling, migraines, HTN, obesity, tested positive for COVID-19 on 04/09/21, symptoms onset 3 days prior to admission. Admitted for acute COPD exacerbation as well COVID-19 pneumonia. . PLAN: Acute COPD exacerbation Covid-19 Pneumonia - hypoxic to 88% on ambulation on RA - inflammatory markers elevated, D dimer 1276 (CTA PE negative for PE), ferritin 1200. - s/p dexamethasone 6 mg in ER. Continue daily dosing - start remdesevir - repeat inflammatory markers in AM - start ceftriaxone and azithromycin - combivent prn - replace breo ellipta with symbicrot - add spiriva - incentive spirometry HTN - resume home meds Hypokalemia - K 3.4 - replace with oral KCL Hx of migraines - c/w home regimen - f/u with Dr. Clayton Hx of Anterior Communicating Artery Aneurysm - s/p coiling at [facility] - f/u with neurosurgery DVT ppx: lovenox Dispo: admitted as observation. Pending clinical improvement. Vital Signs Vital Signs Date Time Temp Pulse Resp B/P (MAP) Pulse Ox O2 Delivery O2 Flow Rate FiO2 04/09/21 21:12 24 88 Room Air 04/09/21 16:56 96.5 97 130/64 (86) Laboratory Data Labs 24H Laboratory Tests 2 04/09/21 19:45: Immature Granulocyte % (Auto) 0.3, Neutrophils (%) (Auto) 59.3, Lymphocytes (%) (Auto) 29.8, Monocytes (%) (Auto) 10.6H, Eosinophils (%) (Auto) 0.0, Basophils (%) (Auto) 0.0, Neutrophils # (Auto) 1.7, Lymphocytes # (Auto) 0.9L, Monocytes # (Auto) 0.3, Eosinophils # (Auto) 0.0, Basophils # (Auto) 0.0, Nucleated Red Blood Cells % (auto) 0.0, Prothrombin Time 12.2, Prothromb Time International Ratio 0.87, Activated Partial Thromboplast Time 29.4, Fibrinogen 404, D-Dimer, Quantitative 1276.70H, Anion Gap 8, Glomerular Filtration Rate > 60.0, Lactic Acid Level 1.2, Calcium Level 8.7, Magnesium Level 2.1, Ferritin 1208H, Total Bilirubin 0.4, Aspartate Amino Transf (AST/SGOT) 139H, Alanine Aminotransferase (ALT/SGPT) 111H, Alkaline Phosphatase 115, Lactate Dehydrogenase 519H, C- Reactive Protein, Quantitative 0.46H, Total Protein 6.8, Albumin 3.4, Albumin/Globulin Ratio 1.0L 04/09/21 19:55: Procalcitonin <0.05 CBC/BMP Laboratory Tests 04/09/21 19:45 Microbiology Microbiology 04/09/21 Blood Culture, Received Pending 04/09/21 Blood Culture, Received Pending 04/09/21 Respiratory Virus Panel (PCR) ([facility]) - Final, Complete SARS-CoV-2 (COVID 19) Allergies Coded Allergies: Penicillins (Verified Allergy, Unknown, 04/09/21) A-FIB/CHADSVASC A-FIB History Current/History of A-Fib/PAF?: No GORAN JEFFERSON MD Apr 09, 2021 22:04
--- OUTSIDE RECORDS SUMMARY | 2021-04-09 22:14 | CCD ---
Author Author [facility] Organization [facility] Address Unknown Phone Unavailable Care Team Providers Care Telegraph Service Clerk Name Role Phone Rocio LOPEZ Unavailable Unavailable NESS ROMO Unavailable Unavailable Stuck, K Elvira PA Unavailable Unavailable Stuck, K Elvira PA Unavailable Unavailable Stuck, K Elvira PA Unavailable Unavailable Stuck, K Elvira PA Unavailable Unavailable Stuck, K Elvira PA Unavailable Unavailable Stuck, K Elvira PA Unavailable Unavailable Stuck, K Elviar PA Unavailable Unavailable Stuck, K Elvira PA [...] Pina Yung PA-C Unavailable Unavailable Trickey, J Selean PA Unavailable Unavailable Trickey, J Selena PA [...] Unavailable Unavailable Emily Guevara MD Unavailable Unavailable mEily Guevara MD Unavailable Unavailable Emily Guevara MD Unavailable Unavailable Emily Guevara MD Unavailable Unavailable Emily Guevara MD Unavailable Unavailable Emily Guevara MD Unavailable Unavailable Emily Guevara MD Unavailable Unavailable Emily Guevara MD Unavailable Unavailable Emily Guevara MD Unavailable Unavailable Emliy Guevara MD Unavailable Unavailable NOHEMY, L ARMANDO [...] Unavailable Rocio PATEL MD Unavailable Unavailable Rocio PAETL MD Unavailable Unavailable Rocio PATEL MD Unavailable [...] Unavailable BURTON, C GRAHAME MD Unavailable Unavailable BUTRON, C GRAHAME MD Unavailable Unavailable BURTON, C [...] Olivo MD Unavailable Unavailable Brian, MAXWELL ILIANA BLOCK SORTER Unavailable Unavailabl e Brian, MAXWELL ILIANA BLOCK SORTER Unavailable Unavailabl e [place], MAXWELL ILIANA BLOCK SORTER Unavailable Unavailabl e [place], MAXWELL ILIANA BLOCK SORTER Unavailable Unavailabl e Brian, MAXWELL ILIANA BLOCK SORTER Unavailable Unavailabl e [place], MAXWELL ILIANA BLOCK SORTER Unavailable Unavailabl e Brian, MAXWELL ILIANA BLOCK SORTER Unavailable Unavailabl e [place], MAXWELL ILIANA BLOCK SORTER Unavailable Unavailabl e [place], MAXWELL ILIANA BLOCK SORTER Unavailable Unavailabl e [place], MAXWELL ILIANA BLOCK SORTER Unavailable Unavailabl e Brian, MAXWELL ILIANA BLOCK SORTER Unavailable Unavailabl e [place], MAXWELL ILIANA BLOCK SORTER Unavailable Unavailabl e Brian, MAXWELL ILIANA BLOCK SORTER Unavailable Unavailabl e [place], MAXWELL ILIANA BLOCK SORTER Unavailable Unavailabl e [place], MAXWELL ILIANA BLOCK SORTER Unavailable Unavailabl e Brian, MAXWELL ILIANA BLOCK SORTER Unavailable Unavailabl e Brian, MAXWELL BARRIENTOS BLOCK SORTER Unavailable Unavailabl e Brian, MAXWELL CARRNIFER BLOCK SORTER Unavailable Unavailabl e [place], A Saul [...] SCHAFER Unavailable Unavailable [place], A Saul CSHAFER Unavailable Unavailable [place], A Saul SCHAFER [...] is protected by Article 27-F of the [facility] Public Health law. If you continue you may have access to information: Regarding HIV / AIDS; Provided by facilities licensed or operated by the [facility] Office of Mental Health; or Provided by the [facility] Office for People With Developmental Disabilities. If such information is present, then the following [facility] mandated warning applies: This information has been [...] law may result in a fine or alf sentence or both. A general authorization for the release of medical or other information is NOT sufficient authorization for further disc losure. Allergies and Adverse Reactions Type Description Substance Reaction Status Data Source(s ) Propensity to adverse reactions TOPAMAX TOPAMAX RASH [facility] Propensity to adverse reactions PENICILLINS (CLASS) PENICILLINS (CLAS S) [facility] Miscellaneous allergy Carbamazepine Derivatives Carbamazepine De rivatives ANTICONVULSANTS-UNCLEAR ?? U [facility] pital Drug allergy penicillin G Penicillin G [facility] Drug allergy Macrolide Antibiotics Macrolide Antibiotics [facility] Propensity to adverse reactions [facility] Propensity to adverse reactions PENICILLINS Penicillin [facility] Propensity to adverse reactions Propensity to adverse reactions NKDA MEDENT ([facility]) Family History Family Member Name Family Member Gender Family Member Status Date o f Status Description Data Source(s) Unknown Condition [facility] Unknown Condition [facility] Unknown Condition [facility] Unknown Condition [facility] Unknown Condition [facility] Unknown Condition [facility] Unknown Condition [facility] Unknown Condition [facility] Unknown Condition [facility] Unknown Condition [facility] Unknown Condition [facility] Unknown Condition [facility] Unknown Condition [facility] Unknown Condition [facility] Unknown Condition [facility] Unknown Condition [facility] Unknown Condition [facility] Unknown Condition [facility] Unknown Condition [facility] Unknown Condition [facility] Unknown Condition [facility] Unknown Condition [facility] Unknown Condition [facility] Unknown Condition [facility] Unknown Female Problem [facility] ([facility] Unknown Female Problem [facility] ([facility] Encounters Encounter Providers Location Date Indications Data Source(s ) Outpatient Referrer: Elvira MYERS 04/08/2021 12:00:00 AM [facility] Office Visit Attender: Selena [place]ERS [place] 04/06/2021 09:45:00 AM EST [facility] ([facility]) Outpatient Attender: ILIANA CARDENAS 04/01/2021 06:08:00 PM EDT - 04/01/2021 06:08:00 PM EDT [facility] Outpatient Attender: Nikki Dwyer MS, RPA-C 02/28/2021 10:51:00 AM EDT - 02/28/2021 10:51:00 AM EDT [facility] Office Visit Attender: Selena MYERS [place] 01/01/2021 11:15:00 AM EDT [facility] ([facility]) Outpatient Attender: Selena MYERS [place] office [place] 10/02/2020 09:00:00 AM EDT [facility] ([facility]) Outpatient Attender: RAINE BURTON MD [id number] 09/24 12:00:00 AM EDT - 09/24/2020 08:33:29 AM EDT Cerebral aneurysm, nonruptured [facility] Cerebral aneurysm, nonruptured Outpatient [address] [facility] [address] 09/22/2020 12:00:00 AM EDT eCW1 ([facility]) Emergency Attender: LORENA WILKES MDConsultant: VANE PATEL MD 09/03/2020 04:33:00 PM EDT - 09/03/2020 06:29:00 PM EDT [facility] Patient discharged. Inpatient Attender: RAINE BURTON MDAt tender: JONATHAN GALEANOAdmitter: RAINE BURTON MDReferrer: RAINE BURTON MD [id number] 08/31/2020 07:26:04 AM EDT - 09/01/2020 11:17:00 AM EDT Cerebral aneurysm, nonruptured [facility] Cerebral aneurysm, nonruptured Patient discharged. Outpatient Attender: RAINE BURTON MDReferrer: RAINE Marmolejo MD 08/31/2020 12:00:00 AM EDT [facility] Outpatient Attender: Meeta Dilshad Napierrer: RAINE RAMOS MD 08/28/2020 12:00:00 AM EDT [facility] Outpatient Attender: LISANDRO PENAReferrer: RAINE BURTON MD [id number] 08/28/2020 12:00:00 AM EDT [facility] Outpatient 08/27/2020 12:00:00 AM EDT [facility] Outpatient Attender: Katelynn Guevara MD 08/27/2020 12:00:00 AM EDT [facility] Outpatient Attender: Elvira Reddy PAConsultant: RICK PATEL MD 08/24/2020 09:15:00 AM EDT - 08/24/2020 10:15:00 AM EDT [facility] Patient discharged. Outpatient Attender: RAINE BURTON MDConsultant: RICK DUNNE MD 08/24/2020 09:15:00 AM EDT - 08/24/2020 10:15:00 AM EDT [facility] Patient discharged. Unknown [address] [facility] [address] 08/11/2020 12:00:00 AM EDT eCW1 ([facility]) Outpatient Attender: Chicho Olivo MDReferrer: RICK DUNNE MD 07/31/2020 03:29:00 PM EST - 07/31/2020 03:51:00 PM EST [facility] Outpatient Attender: Chicho Olivo MD 07/17/2020 05:07:0 0 PM EST R10.2 [facility] R10.2 Outpatient Attender: Chicho Olivo MDReferrer: RICK DUNNE MD 07/17/2020 02:58:00 PM EST - 07/17/2020 03:56:00 PM EST [facility] Outpatient Attender: RAINE BURTON MD [id number] 07/16/2020 12:00:00 AM [facility] Outpatient Attender: MONICA NEGRETE MDAt tender: RAINE BURTON MDAdmitter: RAINE BURTON MDReferrer: lEvira MYERS [id number] 06/16/2020 06:51:02 A M EST - 06/16/2020 01:04:00 PM EST Cerebral aneurysm, nonruptured [facility] Cerebral aneurysm, nonruptured Patient discharged. Outpatient Attender: Elvira Reddy PAConsultant: RICK PATEL MD 06/12/2020 12:06:00 PM EST - 06/12/2020 12:16:00 PM [facility] Outpatient Attender: Saul [place] IIConsultant: RICK GARVEY MD 06/12/2020 12:03:00 PM EST - 06/12/2020 12:13:00 PM [facility] Outpatient Attender: DENNIS SESAYonsultant: RICK Leyva MD 06/12/2020 10:27:00 AM [facility] - 06/12/2020 11:27:00 AM [facility] Outpatient 06/12/2020 12:00:00 AM [facility] Outpatient Attender: Selena MYERS Main office - [facility] n 06/11/2020 08:30:00 AM EST [facility] ([facility]) Outpatient Attender: RAINE BURTON MDConsultant: RICK DUNNE MD 06/11/2020 08:18:00 AM EST - 06/11/2020 09:18:00 AM [facility] Outpatient Attender: RAINE BURTON MD [id number] 05/14/2020 12: 00:00 AM EST Cerebral aneurysm, nonruptured [facility] Cerebral aneurysm, nonruptured Outpatient Attender: ALLIE HILLIARD MD Main office - [facility] n 05/04/2020 02:30:00 PM EST [facility] ([facility]) Outpatient Attender: ALLIE HILLIARD MD Main office - [facility] n 04/13/2020 06:15:00 AM EST [facility] ([facility]) Outpatient Attender: ARMANDO MYERS 06/2019 05:01:00 PM EDT - 02/28/2020 05:01:00 PM EDT [facility] Outpatient Attender: ARMANDO MYERS [facility] 06/2019 05:00:00 PM EDT [facility] ([facility]) Outpatient Attender: RICK DUKEGConsultant: LUZ NIÑO 01/24/2018 09:08:17 AM EDT [facility] Medications Medication Brand Name Start Date Product Form Dose Route Admi nistrative Instructions Pharmacy Instructions Status Indications Reaction Description Data Source(s) Prednisone 20 MG Oral Tablet Prednisone 02/28/2021 12:00:00 AM EDT ORAL completed [facility] ([facility]) 20 mg 02/28/2021 12:00:00 AM EDT [...] 1 tablet by mouth Two Times Daily [facility] 90 mg 09/23/2020 12:00:00 AM EDT [...] Chantix Continuing Month James 1 MG eCW1 ([facility]) Aspirin 81 MG Delayed Release Oral Table t Aspirin 81 MG Oral Tablet Delayed Release Aspirin 81 MG Oral Tablet Delayed Release 09/02/2020 12:00:00 AM EDT 81 mg Oral active Take 1 tablet by mouth d [facility] Aspirin 81 MG Delayed Release Oral Tablet aspirin EC E C tablet 81 mg aspirin EC EC tablet 81 mg 09/01/2020 09:00:00 AM EDT 81 mg Oral ac tive 81 mg, Oral, Daily Standard, First dose on Mon09/01/20 at 0900, For 30 days
Do not crush or chew
[facility] Medication administered onsite Acetaminophen 325 MG Oral Tablet Acetaminophen 325 MG Oral T ablet 09/01/2020 12:00:00 AM EDT 650 mg Oral completed Take 2 tablets by mouth every 6 (six) hours as needed for Pain for up to 10 days [facility] Ticagrelor 90 MG Oral Tablet Ticagrelor 90 MG Oral Tab let (BRILINTA) Ticagrelor 90 MG Oral Tablet (BRILINTA) 09/01/2020 12:00:00 AM EDT 90 mg Oral aborted Take 1 tablet by mouth Two Times Daily [facility] Ticagrelor 90 MG Oral Tablet Ticagrelor 90 MG Oral Tab let (BRILINTA) Ticagrelor 90 MG Oral Tablet (BRILINTA) 09/01/2020 12:00:00 AM EDT 90 mg Oral active Take 1 tablet by mouth Two Times Daily [facility] Docusate Sodium 100 MG Oral Capsule docusate sodium (C OLACE) capsule 100 mg docusate sodium (COLACE) capsule 100 mg 08/31/2020 09:00:00 PM EDT 100 mg Oral active 100 mg, Oral, 2 Times Daily, First dose on Mon08/31/20 at 2100, For 30 days [facility] Medication administered onsite Ticagrelor 90 MG Oral Tablet ticagrelor (BRILINTA) tab let 90 mg ticagrelor (BRILINTA) tablet 90 mg 08/31/2020 09:00:00 PM EDT 90 mg Oral active 90 mg, Oral, 2 Times Daily, First dose on Mon08/31/20 at 2100, For 30 days [facility] Medication administered onsite albuterol (PROVENTIL HFA) inhaler 2 puff [id number] 08/31/2020 07:01:50 PM EDT 2 {puff} Inhalation active 2 pu ff, Inhalation, Every 6 hours PRN, Wheezing, Shortness of Breath, Starting Mon08/31/20 at 1901, For 4 days
Shake the inhaler well before each spray.
[facility] Medication administered onsite Clindamycin 18 MG/ML Injectable Solution clindamycin ( CLEOCIN) IVPB 900 mg clindamycin (CLEOCIN) IVPB 900 mg 08/31/2020 03:00:00 PM EDT 900 mg Intravenous completed 900 mg, Intra venous, at 100 mL/hr, Every 8 hours, First dose on Mon08/31/20 at 1500, For 16 hours
Discouraged Uses: Cellulitis
[facility] Medication administered onsite Nicardipine hydrochloride 0.2 [...] For 30 days
To maintain MAP 70-90
[facility] Medication administered onsite ondansetron (ZOFRAN) injection [...] able to tolerate PO.
[Order 2 End] [facility] Medication administered onsite sennosides, SNF 8.6 MG Oral Tablet senna tablet 2 tablet sen na tablet 2 tablet 08/31/2020 02:48:13 PM EDT 2 {tbl} Oral active 2 tablet, Oral, Nightly PRN, Constipation, Starting Mon08/31/20 at 1448, For 30 days [facility] Medication administered onsite Oxycodone Hydrochloride 5 MG Oral Tablet oxyCODONE (ROXICODONE) immediate release tablet 5 mg oxyCODONE (ROXICODONE) immediate release tablet 5 mg 08/31/2020 02:48:12 PM EDT 5 mg Oral active 5 mg, Oral, Every 4 hours PRN, Moderate Pain (Pain Scale Score 4-6), Starting Mon08/31/20 at 1448, For 3 days
If no SOCIAL HUMAN SERVICES ASSISTANTS or when SOC[employer] HUMAN SERVICES ASSISTANTS has been D/Cd.
Oxycodone immediate release is limited to 10 mg per dose. Higher doses ([facility] only) require Pain Service consultation and approval.
[facility] Medication administered onsite Oxycodone Hydrochloride 5 MG Oral Tablet oxyCODONE (ROXICODONE) immediate release tablet 10 mg oxyCODONE (ROXICODONE) immediate release tablet 10 mg 08/31/2020 02:48:12 PM EDT 10 mg Oral active 10 mg, Oral, Every 4 hours PRN, Severe Pain (Pain Scale Score 7-10), Starting Mon08/31/20 at 1448, For 3 days
If no SOCIAL HUMAN SERVICES ASSISTANTS or when SOC[employer] HUMAN SERVICES ASSISTANTS has been D/Cd.
Oxycodone immediate release is limited to 10 mg per dose. Higher doses ([facility] only) require Pain Service consultation and approval.
[facility] Medication administered onsite Acetaminophen 325 MG [...] mg from all sources in 24 hours.
[facility] Medication administered onsite Bisacodyl 10 MG Rectal Suppository bisacodyl (DULCOLAX ) suppository 10 mg bisacodyl (DULCOLAX) suppository 10 mg 08/31/2020 02:48:12 PM EDT 10 mg Rectal active 10 mg, Rectal, Every 72 hours PRN, Constipation, Starting Mon08/31/20 at 1448, For 30 days
Hold if patient has had BM within the past 2 days.
[facility] Medication administered onsite NaCl infusion 0.9 % 7754-9049-34 08/31/2020 12:30:00 PM EDT Intravenous aborted at 100 mL/hr, Intrav enous, Continuous, Starting Mon08/31/20 at 1230, For 30 days
Hold for good PO intake.
[facility] Medication administered onsite Aspirin 325 MG Delayed Release Oral Tablet aspirin EC EC tablet 325 mg aspirin EC EC tablet 325 mg 08/31/2020 12:30:00 PM EDT 325 mg Oral completed 325 mg, Oral, Once, Mon08/31/20 at 1230, For 1 dose
Do not crush or chew
[facility] Medication administered onsite Ticagrelor 90 MG Oral Tablet ticagrelor (BRILINTA) tab let 180 mg ticagrelor (BRILINTA) tablet 180 mg 08/31/2020 12:30:00 PM EDT 180 mg Oral completed 180 mg, Oral, Once, Mon08/31/20 at 1230, For 1 dose [facility] Medication administered onsite cangrelor (KENGREAL) 50 mg in sodium chloride 0.9 % 25 0 mL (0.2 mg/mL) infusion 08/31/2020 12:30:00 PM EDT 4 ug/kg/min Intravenous a borted 4 mcg/kg/min 88 kg (105.6 mL/hr), Intravenous, Continuous, Starting Mon08/31/20 at 1230, For 1 day
To be stopped 6 hours after patient receives PO dose of aspirin and brilinta
[facility] Medication administered onsite fentaNYL (SUBLIMAZE) (PF) injection 25 mcg [id number] 08/31/2020 12:20:08 PM EDT 25 ug Intravenous aborted 25 m cg, Intravenous, Every 5 min PRN, Severe Pain (Pain Scale Score 7-10), Starting Mon08/31/20 at 1220, For 10 doses, Recovery [facility] Medication administered onsite 4 ML Verapamil hydrochloride 2.5 MG/ML Injection verap lizzie (ISOPTIN) injection verapamil (ISOPTIN) injection 08/31/2020 09:47:46 AM EDT completed Code/Trauma Medication, Starting Mon08/31/20 at 0947 [facility] Medication administered onsite Nitroglycerin 0.1 MG/ML Injectable Solut ion nitroglycerin injection in D5W 0.1 mg/mL (HVC) nitroglycerin injection in D5W 0.1 mg/mL (HVC) 09:41:40 AM EDT completed Code/T rauma Medication, Starting Mon08/31/20 at 0941 [facility] Medication administered onsite lidocaine (XYLOCAINE) 2 % injection [id number] 08/31/2020 09:41:23 AM EDT completed Code/Trauma Medicati on, Starting Mon08/31/20 at 0941 [facility] Medication administered onsite sodium chloride (preservative free) 0.9 % flush 3 mL [id number] 08/31/2020 07:30:00 AM EDT 3 mL Intravenous active 3 mL, Intravenous, Every 8 hours, First dose on Mon08/31/20 at 0730, For 30 days
Saline Lock. Flush Q8H and after each use to Saline Lock.
[facility] Medication administered onsite sodium chloride (preservative free) 0.9 % flush 3 mL [id number] 08/31/2020 07:27:07 AM EDT 3 mL Intravenous active 3 mL, Intravenous, PRN, Line Care, Starting Mon08/31/20 at 0727, For 30 days
Saline Lock. Flush Q8H and after each use to Saline Lock.
[facility] Medication administered onsite sodium chloride 0.9 % bag 3-20 mL [id number] 08/31/2020 07:27:07 AM EDT mL Intravenous active 3-20 mL, Intr avenous, at 1-999 mL/hr, PRN, For Medication Administration and Line Clearance, Starting Mon08/31/20 at 0727, For 30 days
Flush line with sufficient amount of fluid needed based on man ufacturer recommendation for specific line size. Rate should be run at the same rate as medication in the line being flushed.
[facility] Medication administered onsite 90 mcg/actuation 08/27/2020 [...] 11 & 1 MG X 42 eCW1 ([facility]) 0.5 mg (11)- 1 mg (42) 08/11/2020 12:00:00 AM EDT tablets,do se pack 53 USE DIRECTED USE DIRECTED SOLD: 08/14/2020 [facility] 100 mg 08/02/2020 12:00:00 AM EST capsule 90 TAKE ONE CAPSULE BY MOUTH EVERY DAY - MUST ADMINISTER WITH A MEAL/FOOD TAKE ONE CAPSULE BY MOUTH EVERY DAY - MUST ADMINISTER WITH A MEAL/FOOD SOLD: 08/05/2020 [facility] Ciprofloxacin 500 MG Oral Tablet Ciprofloxacin Hcl Ciproflox acin Hcl 07/17/2020 03:50:25 PM EST [address] [facility] 500 mg 07/17/2020 12:00:00 AM EST tablet 20 TAKE ONE TABLET BY MOUTH TWICE A DAY FOR 10 DAYS FOR UTI TAKE ONE TABLET BY MOUTH TWICE A DAY FOR 10 DAYS FOR UTI SOLD: 07/18/2020 [facility] 84 HR Estradiol 0.95848 MG/HR / norethin drone acetate 0.36012 MG/HR Transdermal System [Combipatch] 0.05-0.14 mg/24 hr ESTRADIOL/NORETHINDRONE ACET 07/09/2020 12:00:00 AM EST patch semiweekly 8 APPLY 1 PATCH TRANSDE RMALY TWICE A WEEK APPLY 1 PATCH TRANSDERMALY TWICE A WEEK SOLD: 10/27/2020 [facility] 0.05-0.14 mg/24 hr 07/09/2020 12:00:00 AM EST patch semiweek ly 8 APPLY 1 PATCH TRANSDERMALY TWICE A WEEK APPLY 1 PATCH TRANSDERMALY TWICE A WEEK SOLD: 07/10/2020 [facility] 84 HR Estradiol 0.81960 MG/HR / norethin drone acetate 0.93619 MG/HR Transdermal Patch [Combipatch] CombiPatch 0.05-0.14 MG/DAY Transdermal Patch Twice Weekly CombiPatch 0.05-0.14 MG/DAY Transdermal Patch Twice Weekly 07/09/2020 12:00:00 AM EST 1 {patch} Transdermal active Pl elodia 1 patch onto the skin every 3 (three) days [facility] 84 HR Estradiol 0.30466 MG/HR / norethin drone acetate 0.51005 MG/HR Transdermal System [Combipatch] 0.05-0.14 mg/24 hr ESTRADIOL/NORETHINDRONE ACET 07/09/2020 12:00:00 AM EST patch semiweekly 8 APPLY 1 PATCH TRANSDE RMALY TWICE A WEEK APPLY 1 PATCH TRANSDERMALY TWICE A WEEK SOLD: 01/08/2021 [facility] 0.05-0.14 mg/24 hr 07/09/2020 12:00:00 AM EST patch semiweek ly 8 APPLY 1 PATCH TRANSDERMALY TWICE A WEEK APPLY 1 PATCH TRANSDERMALY TWICE A WEEK SOLD: 09/05/2020 [facility] Nortriptyline 50 MG Oral Capsule Nortriptyline 07/06/2020 05:14:01 PM EST 50 MG active [facility] Diclofenac Potassium 50 MG Oral Tablet Diclofenac Potassium 07/06/2020 05:13:38 PM EST 50 MG active [facility] 84 HR Estradiol 0.93667 MG/HR / norethin drone acetate 0.73713 MG/HR Transdermal Patch Estradiol-Norethindrone Acet (Combipatch) 0.05-0.14 mg/24 hr patch semiweekly Estradiol-Norethindrone Acet (Combipatch ) 0.05-0.14 mg/24 hr patch semiweekly 07/06/2020 05:05:14 PM EST 1 PATCH active [facility] Nitroglycerin 0.1 MG/ML Injectable Solut ion nitroglycerin injection in D5W 0.1 mg/mL (HVC) nitroglycerin injection in D5W 0.1 mg/mL (HVC) 021 11:25:26 AM EST completed Code/T rauma Medication, Starting Mon06/16/20 at [facility] Medication administered onsite 1 ML heparin sodium, porcine 1000 UNT/ML Injection heparin (porcine) 1000 units/mL injection heparin (porcine) 1000 units/mL injection 06/16/2020 1 0:26:28 AM EST completed Code/T rauma Medication, Starting Mon06/16/20 at [facility]6 [facility] Medication administered onsite verapamil (ISOPTIN) in NaCl 0.9 % injection 1 mg/mL (IR use only) 06/16/2020 10:23:50 AM EST completed Code/Trauma Medication, Starting Mon06/16/20 at [facility]3 [facility] Medication administered onsite lidocaine (PF) (XYLOCAINE) 2 % injection [id number] 06/16/2020 10:19: 32 AM EST completed Code/Trauma Medicati on, Starting Mon06/16/20 at [facility] Medication administered onsite 2 ML Midazolam 1 MG/ML Injection midazolam (PF) (VERSE D) injection midazolam (PF) (VERSED) injection 06/16/2020 10:16:11 AM EST completed Code/Trauma Medication, Starting Mon06/16/[address] [place] [address] Medication administered onsite fentaNYL (SUBLIMAZE) (PF) injection [id number] 06/16/2020 10:16:04 AM EST completed Code/Trauma Medicati on, Starting Mon06/16/[address] [place] [address] Medication administered onsite sodium chloride (preservative free) [...] For 1 occurrence
Pre-op [Order 4 End] [facility] Medication administered onsite Lidocaine 40 MG/ML Topical Cream lidocaine (LMX) 4 % c ream lidocaine (LMX) 4 % cream 06/16/2020 07:15:00 AM EST Topical completed Topical, Once, Mon06/16/20 at 0715, For 1 dose
Apply generously to right wrist and snuffbox and cover with tegaderm
Pre-op [facility] Medication administered onsite sodium chloride 0.9 % bag 3-20 mL [id number] 06/16/2020 07:02:50 AM EST mL Intravenous active 3-20 mL, Intr avenous, at 1-999 mL/hr, PRN, For Medication Administration and Line Clearance, Starting Mon06/16/20 at 0702, For 30 days, Pre-op
Flush line with sufficient amount of fluid needed based on circulation tender recommendation for specific line size. Rate should be run at the same rate as medication in the line being flushed.
[facility] Medication administered onsite 30 ACTUAT fluticasone furoate 0.2 MG/ACT UAT / vilanterol 0.025 MG/ACTUAT Dry Powder Inhaler [Breo] Breo Ellipta 200-25 MCG/INH Inhalation Aerosol Powder Breath Activated Breo Ellipta 200-25 MCG/INH Inhalation A erosol Powder Breath Activated 06/12/2020 12:00:00 AM EST active every morning [facility] Albuterol Sulfate HFA 108 (90 Base) MCG/ ACT Inhalation Aerosol Solution (PROVENTIL HFA) 4489-4124-00 06/12/2020 12:00:00 AM EST 2 {puff} active 2 puffs Four times daily as needed [facility] 200-25 mcg/dose 06/12/2020 12:00:00 AM EST blister [...] 50 mg by m outh as needed [facility] 50 mg 06/11/2020 12:00:00 AM EST tablet 10 TAKE ONE TABLET BY MOUTH DAILY FOR HEADACHE MAXIMUM DAILY DOSE = ONE TABLET TAKE ONE TABLET BY MOUTH DAILY FOR HEADACHE MAXIMUM DAILY DOSE = ONE TABLET SOLD: 08/28/2020 [facility] Nortriptyline 25 MG Oral Capsule Nortriptyline HCL 06/11/2020 12:00 :00 AM EST ORAL active [facility] ([facility]) 25 mg 06/11/2020 12:00:00 AM EST capsule 30 TAKE ONE CAPSULE BY MOUTH EVERY NIGHT AT BEDTIME TAKE ONE CAPSULE BY MOUTH EVERY NIGHT AT BEDTIME SOLD: 10/01/2020 [facility] Diclofenac Potassium 50 MG Oral Tablet Diclofenac Potassium 05/05/2020 12:00:00 AM EST ORAL completed [facility] ([facility] ) Nortriptyline 10 MG Oral Capsule Nortriptyline HCL 05/05/2020 12:00 :00 AM EST ORAL completed [facility] ([facility] ) 50 mg 05/05/2020 [...] Kit 03/05/2020 12:00:00 AM EDT active [facility] ([facility] ) Magnesium Hydroxide 80 MG/ML Oral Suspension Milk Of Magnesi a 03/05/2020 12:00:00 AM EDT ORAL active M [facility]ENT ([facility] ) 20 mg 02/28/2020 12:00:00 AM EDT tablet 15 TAKE THREE TABLETS BY MOUTH EVERY DAY TAKE THREE TABLETS BY MOUTH EVERY DAY SOLD: 02/28/2020 [facility] Ibuprofen 600 MG Oral Tablet Ibuprofen 11/20/2019 09:18:10 AM EDT 600 MG completed [facility] gabapentin 100 MG Oral Capsule Gabapentin Gabapentin 2019 01:05:55 PM EDT 100 MG completed [facility] Cyclobenzaprine hydrochloride 5 MG Oral Tablet CYCLOBENZAPRI [...] Oral aborted Take 1 capsule by mooswaldo [facility] 90 mcg/actuation 07/04/2019 12:00:00 AM EST [...] brewer Policy Brewer Plan Information MEDICARE A [id number] Self [id number] A MEDICARE A [id number] Self [id number] [id number] MEDICAID M [id number] Self [id number] MEDICAID-O/P [id number] T EMEDNY [id number] SP [id number] MEDICARE [id number] SP [id number] V77 MEDICARE [id number] SP [id number] A MEDICAID [id number] SP [id number] MEDICARE C [id number] S [id number] MEDICAID M [id number] S [id number] MEDICARE C [id number] S [id number] A MEDICARE PART A -O/P [id number] 18 [id number] ANSI-Medicare Part B [id number] ANSI-Medicaid [id number] ANSI-Medicare Part B [id number] ANSI-Medicaid [id number] ANSI-Medicaid [id number] ANSI-Medicare Part B [id number] ANSI-Medicaid [id number] ANSI-Medicare Part B [id number] ANSI-Medicare Part B [id number] ANSI-Medicaid [id number] ANSI-Medicare Part B [id number] ANS-Medicaid [id number] MEDICARE -O/P [id number] 18 [id number] MEDICARE [id number] SP [id number] A Medicaid [place] Part B [id number] Self Medicare Medicare Primary [id number] Self C MEDICARE PART A [facility] [id number] 18 [id number] MEDICARE PART A -O/P [id number] 18 [id number] MEDICAID -O/P EMERGENCY ROOM [id number] Problems, Conditions, and Diagnoses Code Display Name Description Problem Type Effective Dates Data Source(s) Z1152 ENCOUNTER FOR SCREENING FOR COVID-19 ENCOUNTER F OR SCREENING FOR COVID-19 Diagnosis 04/01/2021 06:08:00 PM EDT [facility] L236 Allergic contact dermatitis due to food in contact with the skin Allergic contact dermatitis due to food in contact with the skin Diagnosis 02/28/2021 10:51:00 AM EDT [facility] M79.642 Pain in left hand Pain in left hand Diagnosis 09/24 08:02:14 AM EDT [facility] I67.1 Cerebral aneurysm, nonruptured Cerebral aneurysm, nonr uptured Diagnosis 09/24/2020 08:02:14 AM EDT [facility] Y[address] or not applicable Unspecified place or not applicable Diagnosis 09/03/2020 04:33:00 PM EDT [facility] [id number] Exposure to other specified factors, ini tial encounter Exposure to other specified factors, initial encounter Diagnosis 09/03/2020 04:33:00 PM EDT [facility] Z7982 penitentiary (current) use of aspirin penitentiary (cu rrent) use of aspirin Diagnosis 09/03/2020 04:33:00 PM EDT [facility] J449 Chronic obstructive pulmonary disease, u nspecified Chronic obstructive pulmonary disease, unspecified Diagnosis 09/03/2020 04:33:00 PM EDT [facility] Y41296 Nicotine dependence, cigarettes, uncompl icated Nicotine dependence, cigarettes, uncomplicated Diagnosis 09/03/2020 04:33:[address] [facility] I671 Cerebral aneurysm, nonruptured Cerebral aneurysm, nonr uptured Diagnosis 09/03/2020 04:33:00 PM EDT [facility] [id number] Contusion of right forearm, initial enco unter Contusion of right forearm, initial encounter Diagnosis 09/03/2020 04:33:00 PM EDT [facility] [id number] Contusion of left forearm, initial encou nter Contusion of left forearm, initial encounter Diagnosis 09/03/2020 04:33:00 PM EDT [facility] R202 Paresthesia of skin Paresthesia of skin Diagnosis 0 09/03/2020 04:33:00 PM EDT [facility] R200 Anesthesia of skin Anesthesia of skin Diagnosis 04:33:00 PM EDT [facility] R99 Ill-defined and unknown cause of mortali ty Ill-defined and unknown cause of mortality Diagnosis 06/12/2020 12:06:00 PM [facility] N951 Menopausal and female climacteric states Menopausal and female climacteric states Diagnosis 06/12/2020 12:03:00 PM [facility] R9402 Abnormal brain scan Abnormal brain scan Diagnosis 0 06/11/2020 08:18:00 AM [facility] [id number] Allergy, unspecified, initial encounter Allergy, unspecified, initial encounter Diagnosis 02/28/2020 05:01:00 PM EDT [facility] [id number] Allergic asthma without status asthmatic us Allergic asthma without status asthmaticus Problem 03/17/2021 12:00:00 AM EDT [facility] ([facility] ) R20.2 [id number] Intermittent tingling sensation of right hand and foot Problem 08/11/2020 12:00:00 AM EDT eCW1 ([facility]) R20.2 [id number] Intermittent tingling sensation of left h and and foot Problem 08/11/2020 12:00:00 AM EDT eCW1 ([facility]) I83.813 [id number] Varicose veins of both lower extremities with pain Problem 08/11/2020 12:00:00 AM EDT eCW1 ([facility]) I67.1 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 Anterior communicating artery aneurysm Pr oblem 08/11/2020 12:00:00 AM EDT eCW1 ([facility]) Surgeries/Procedures Procedure Description Date Indications Data Source(s) PHYSICIAN TELEPHONE EVALUATION 5-10 MIN 04/06/2021 12: 00:00 AM EST [facility] ([facility]) OFFICE OUTPATIENT VISIT 10 MINUTES 02/28/2021 12:00:00 AM EDT [facility] ([facility]) PHYSICIAN TELEPHONE EVALUATION 11-20 MIN 01/01/2021 12 :00:00 AM EDT [facility] ([facility]) OFFICE OUTPATIENT VISIT 25 MINUTES 10/02/2020 12:00:00 AM EDT [facility] ([facility] ) BASIC METABOLIC PANEL CALCIUM TOTAL <td>BASIC METABOLI C PANEL</td><td>Routine</td><td>09/01/2020 5:40 AM EDT</td><td></td><td> </td> 09/01/2020 05:40:00 AM [facility] COAGULATION TIME ACTIVATED <td>POCT ISTAT ACT</td><td> Routine</td><td>08/31/2020 11:56 AM EDT</td><td></td><td> </td> 08/31/2020 11:56:00 AM [facility] COAGULATION TIME ACTIVATED <td>POCT ISTAT ACT</td><td> Routine</td><td>08/31/2020 11:19 AM EDT</td><td></td><td> </td> 08/31/2020 11:19:00 AM [facility] COAGULATION TIME ACTIVATED <td>POCT ISTAT ACT</td><td> Routine</td><td>08/31/2020 10:38 AM EDT</td><td></td><td> </td> 08/31/2020 10:38:00 AM [facility] COAGULATION TIME ACTIVATED <td>POCT ISTAT ACT</td><td> Routine</td><td>08/31/2020 10:12 AM EDT</td><td></td><td> </td> 08/31/2020 10:12:00 AM [facility] COAGULATION TIME ACTIVATED <td>POCT ISTAT ACT</td><td> Routine</td><td>08/31/2020 9:33 AM EDT</td><td></td><td> </td> 08/31/2020 09:33:00 AM [facility] GONADOTROPIN CHORIONIC QUALITATIVE <td>HCG, URINE QUALITATIVE</td><td>Routine</td><td>08/31/2020 7:53 AM EDT</td><td></td><td> </td> 08/31/2020 07:53:00 AM [facility] CARDIAC REPORT <td>CARDIAC REPORT</td><td>< /td><td>08/26/2020 2:12 PM EDT</td><td></td><td></td> 08/26/2020 02:12:45 PM EDT [facility] HCG, URINE QUALITATIVE <td>HCG, URINE QUALITATIVE</td><td>Routine</td><td>06/16/2020 7:29 AM EST</td><td></td><td> </td> 06/16/2020 07:29:00 AM [facility] EEG Complete STD Phys/QHP>60 HR<84 HR W/O Video 2019 12:00:00 AM EST [facility] ([facility] ) EEG Complete STD Phys/QHP>60 HR<84 HR W/O Video 2019 12:00:00 AM EST [facility] ([facility] ) EEG Complete STD Phys/QHP>36 HR<60 HR W/O Video 2019 12:00:00 AM EST [facility] ([facility]) Magnetic Resonance Angiogtaphy Head W/O Contrast Material(S) 03/13/2020 12:00:00 AM EDT [facility] ([facility]) Magnetic Resonance Angiogtaphy Head W/O Contrast Material(S) 03/13/2020 12:00:00 AM EDT [facility] ([facility]) Magnetic Resonance Angiography Neck W/O Contrast Materials 03/13/2020 12:00:00 AM EDT [facility] ([facility]) Magnetic Resonance Angiography Neck W/O Contrast Materials 03/13/2020 12:00:00 AM EDT [facility] ([facility]) MRI BRAIN BRAIN STEM W/O CONTRAST MATERIAL 03/02/2020 12:00:00 AM EDT [facility] ([facility] MRI BRAIN BRAIN STEM W/O CONTRAST MATERIAL 03/02/2020 12:00:00 AM EDT [facility] ([facility] ) Results ID Date Data Source [id number] 04/01/2021 06:22:00 PM EDT [facility] ([facility]) Name Value Range Interpretation Code Description Data Destiny rce(s) Supporting Document(s) Covid-19 Laboratory test result [facility] ([facility]) ID Date Data Source [id number] 04/01/2021 06:05:00 PM EDT [facility] Name Value Range Interpretation Code Description Data Destiny rce(s) Supporting Document(s) SARS coronavirus 2 RNA Not Detected [facility] This lab was ordered by [facility] crissy and reported by [facility]. ID Date Data Source [id number] 04/03/2021 02:44:00 PM EDT [facility] Name Value Range Interpretation Code Description Data Destiny rce(s) Supporting Document(s) SARS-CoV-2, ROBERT Not Detected Not Detected [facility] This nucleic acid amplification test was developed and its performancecharacteristics determined by [facility]. Nucleic acidamplification tests include RT-PCR and [...] assay. SARS-CoV-2, ROBERT 2 DAY TAT Performed [facility] ID Date Data Source [id number] 09/24/2020 08:42:47 AM EDT [facility] Name Value Range Interpretation Code Description Data Destiny rce(s) Supporting Document(s) Progress Note [facility] [id number] [facility] [file] [id number]== ID Date Data Source [id number] 09/17/2020 03:23:44 PM EDT [facility] IR ARTERIOGRAM CEREBRALFINAL RESULTInter preted by:CARLOS [...] carotid artery angiogram x29. Right radial artery blltemtjc40. Supervision and interpretationSurgeon: Raine Burton M.D.Tannery Gummer: Ruben Amato M.D.; Mario Packer M.D.Anesthesia: General [...] in standard sterile fashion, and we underwent [facility] standard timeout for patient and site [...] technique under direct ultrasound visualization. A 6 Guyanese radial glide sheath was placed using Seldinger [...] intravenous heparin as necessary. Subsequently, a 5 Guyanese [place] 2 glide catheter was advanced through a ZoomCare guide catheter through the radial sheath under [...] brian catheterized over the Glidewire. The 5 Guyanese France 2 catheter and glide wire was [...] Subsequently, embolization was performed as follows:A 5 Guyanese Pauline distal access catheter was used to advance the 6 Guyanese penumbra benchmark guiding catheter to the proximal cavernous left internal carotid artery in coaxial fashion under magnified roadmap views. The Pauline distal access catheter was then removed and the penumbra benchmark guiding catheter was aspirated and flushed remove all air and debris. Please note that control angiograms were performed between steps demonstrating no evidence of contrast extravasation, thromboembolic complication, or device complication. An Como SL 10 straight microcatheter was advanced over [...] medication for planned stenting. Subsequently, a second Como SL 10 straight microcatheter was advanced over [...] adequate for stent placement. Subsequently, a Neuroform [place] 3 mm x 15 mm stent was [...] rce(s) Supporting Document(s) ID Date Data Source [id number] 09/04/2020 09:00:00 AM EDT [facility] [address] [place] [address] PHONE: [phone] FAX: [phone] Name .................. : BOOGIE Taylor Acct Number.................. : [id number] ROOM. ................. : TR-03 MR Number ................... : [id number] Stay type ............. : E/R Discharge Date......... ... : 09/03/20 Admit Date ......... : 09/03/20 Admit Phys .................... : DARRELL Date of ....... : 1975 Family Phys ................... : JORGE PIMENTEL Phone .................. : [phone] Age ................................ : 44 Film# .................. .:[id number] Sex ................................. : F Unsigned transcriptions are preliminary reports and do not represent a medical or legal document CT HEAD W/O CONTRAST [id number] COMPLETE:09/03/20 19:28 CHRISTINE 8271 Reason(s): s/p coiling [...] 09/04/20 09:00, ERMELINDA Page 1 of 2 [facility] [address] [place] [address] PHONE: [phone] FAX: [phone] Name .................. : BOOGIE Taylor Acct Number.................. : [id number] ROOM. ................. : TR-03 Number ................... : [id number] Stay type ............. : E/R Discharge Date......... ... : 09/03/20 Admit Date ......... : 09/03/20 Admit Phys .................... : DARRELL Date of ....... : 1975 Family Phys ................... : [employer] Phone .................. : [phone] Age ................................ : 44 Film# .................. .:[id number] Sex ................................. : F Unsigned transcriptions are preliminary reports and do not represent a medical or legal document CT HEAD W/O CONTRAST [id number] COMPLETE: 09/03/20 19:28 CHRISTINE 8271 Reason(s): s/p coiling of cerebral aneurysm 3 days ago tingling on left UE Transcribe Initials: ULISES , Transcribe Date: 09/04/20 06:56, Dictation Date: Copy for: EMERGENCY DEPT via modem Copy for: 710 MED REC DISCHARGED Page 2 of 2 Name Value Range Interpretation Code Description Data Destiny rce(s) Supporting Document(s) ID Date Data Source [id number] 09/04/2020 08:58:00 AM EDT [facility] [address] [place] [address] PHONE: [phone] FAX: [phone] Name .................. : BOOGIE Taylor Acct Number.................. : [id number] ROOM. ................. : TR-03 MR Number ................... : [id number] Stay type ............. : E/R Discharge Date......... ... : 09/03/20 Admit Date ......... : 09/03/20 [facility] ....... : 1975 Family Phys ................... : PATEL PAU Phone .................. : [phone] Age ................................ : 44 Film# .................. .:[id number] Sex ................................. : F Unsigned transcriptions are preliminary reports and do not represent a medical or legal document [place] [address] COMPLETE:09/03/20 18:25 ADB 8267 Reason(s): Swelling, Limb [...] rce(s) Supporting Document(s) ID Date Data Source [id number] 09/03/2020 04:33:00 PM EDT [facility] 1 OrderSheet [facility] [address] [place] [address] Phone #: [phone] ext- [phone] 09/03/2020 16:14 Patient: CHERRIE FRANCE Sex: F [...] by Tristan Yan R.N. (:09/03/2020)] 2 OrderSheet [facility] [address] [place] [address] Phone #: ext- [phone] 09/03/2020 16:14 Patient: CHERRIE FRANCE Sex: F : 1975 Age: 44y[Electronically locked by Tristan Yan R.N. (:09/03/2020)] Name Value Range Interpretation Code Description Data Destiny rce(s) Supporting Document(s) ID Date Data Source [id number] 09/03/2020 04:33:00 PM EDT [facility] 1 Medication Reconciliation Report [facility] [address] [place] [address] Phone #: ext- [phone] 09/03/2020 16:14 Patient: [...] the Emergency Department: 2 Medication Reconciliation Report [facility] [address] [place] [address] Phone #: ext- [phone] 09/03/2020 16:14 Patient: CHERRIE FRANCE Sex: F : 1975 Age: 44yNone.The following Medications were prescribed to the patient:None. Name Value Range Interpretation Code Description Data Destiny rce(s) Supporting Document(s) ID Date Data Source [id number] 09/03/2020 04:33:00 PM EDT [facility] 1 Medication Administration Record [facility] [address] [place] [address] Phone #: ext- [phone] 09/03/2020 16:14 Patient: CHERRIE FRANCE Sex: F : 1975 Age: 44yWeight: 95.2 kgHeight/Length: 63 inBMI: 37.2ALLERGIES: Penicillins, TopamaxDate/Time Medication Administered Medication Ordered Name Value Range Interpretation Code Description Data Destiny rce(s) Supporting Document(s) ID Date Data Source [id number] 09/03/2020 04:33:00 PM EDT [facility] 1 General Instructions [facility] [address] [place] [address] Phone #: ext- [phone] 09/03/2020 16:14 Patient: [...] is a temporary paraesthesia.) 2 General Instructions [facility] [address] [place] [address] Phone #: ext- [phone] 09/03/2020 16:14 [id number] Sex: F : 1975 Age: 44yParaesthesias that [...] medicines you take. This includes prescription and tpse-csr-unrnily medicines, vitamins, and herbs. Ask if any [...] spell, dizziness, or seizure 3 General Instructions [facility] [address] [place] [address] Phone #: ext- [phone] 09/03/2020 16:14 Patient: CHERRIE FRANCE Sex: F : 1975 Age: 44y Chest, arm, neck, or upper back pain Loss of bladder or bowel control Open wound with redness, swelling, or pus [id number] [employer] [place] [address]. All rights reserved. This information is not intended as asubstitute for professional medical care. Always follow your healthcare professional's instructions. You have been given the following additional information: Paraesthesias(Electronically signed by Lorena Wilkes 09/03/2020 21:00) Name Value Range Interpretation Code Description Data Destiny rce(s) Supporting Document(s) ID Date Data Source [id number] 09/03/2020 04:33:00 PM EDT [facility] 1 Clinical Report - Nurses [facility] [address] [place] [address] Phone #: ext- [phone] 09/03/2020 16:14 Patient: CHERRIE FRANCE Sex: F : 1975 Age: 44yTRIAGE Arrived by private vehicle. Historian: patient. Acuity: LEVEL 4. Chief Complaint: LEFT UPPER EXTREMITY TINGLING. Alert. No acute distress. Onset. (3 days ago). ( Pt had surgery for a brain aneurysm on Monday at [facility] and was discharged Monday. While she was in the recovery room, she began having tingling in her left hand and fingers. She says she had 5 IV sites in her left arm. She called the surgeon today because she was still having tingling in her hand and his nurse told her to come to the ER.). 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 Seen within the last 30 [...] Fenton R.N. 2 Clinical Report - Nurses [facility] [address] [place] [address] Phone #: ext- [phone] 09/03/2020 16:14 Patient: [...] Fenton R.N. 3 Clinical Report - Nurses [facility] [address] [place] [address] Phone #: ext- [phone] 09/03/2020 16:14 Patient: [...] impairments noted. 4 Clinical Report - Nurses [facility] [address] [place] [address] Phone #: ext- [phone] 09/03/2020 16:14 [id number] Sex: F : 1975 Age: 44y LEARNING [...] Patient transported to sonogram by wheelchair with linen tech. --16:46 09/03/20 Tristan Yan R.N. 17:18 09/03/20. Patient returned from CT and sonogram by wheelchair with linen tech. --17:18 09/03/20 Tristan Yan R.N. 17:50 09/03/20. [...] Patient verbalized understanding. Written instructions provided in Vincentian. The patient was discharged by the physician. She was discharged home. She left ambulatory and via private vehicle. 5 Clinical Report - Nurses [facility] [address] [place] [address] Phone #: ext- [phone] 09/03/2020 16:14 [id number] Sex: F : 1975 Age: 44y Patient driving. --18:28 09/03/20 Tristan Yan R.N. 18:17 09/03/20. BP: 137/66. MAP: 89. HR: 65. RR: 16. O2 saturation: 99%. Temp: 98 F. Pain level now: 0/10. --18:28 09/03/20 Tristan Yan R.N.Locked/Released at 09/03/2020 21:08 by Tristan Yan R.N. Name Value Range Interpretation Code Description Data Destiny rce(s) Supporting Document(s) ID Date Data Source [id number] 09/03/2020 04:33:00 PM EDT [facility] 1 Clinical Report - Physicians/Mid Levels [facility] [address] [place] [address] Phone #: ext- [phone] 09/03/2020 16:14 Patient: [...] Section. 2 Clinical Report - Physicians/Mid Levels [facility] [address] [place] [address] Phone #: ext- [phone] 09/03/2020 16:14 [id number] Sex: F : 1975 Age: 44y Laparotomy. [...] No 3 Clinical Report - Physicians/Mid Levels [facility] [address] [place] [address] Phone #: ext- [phone] 09/03/2020 16:14 [id number] Sex: F : 1975 Age: 44y aphasia. [...] 99) 4 Clinical Report - Physicians/Mid Levels [facility] [address] [place] [address] Phone #: ibr- [phone] 09/03/2020 16:14 Patient: CHERRIE FRANCE Sex: F [...] Paresthesia 5 Clinical Report - Physicians/Mid Levels [facility] [address] [place] [address] Phone #: ext- [phone] 09/03/2020 16:14 Patient: [...] Name Value Range Interpretation Code Description Data [facility] rce(s) Supporting Document(s) ID Date Data Source [id number] 09/03/2020 05:26:00 PM EDT [facility] Name Value Range Interpretation Code Description Data [facility] rce(s) Supporting Document(s) CBC W/AUTOMATED DIFF [facility] COMPLETE BLOOD COUNT Leukocytes [#/volume] in Blood by Automated count 8.5 10^3/uL 4.2 - 1 1.0 [facility] Erythrocytes [#/volume] in Blood by Automated count 4.58 10^6/uL 4. 20 - 5.40 [facility] Hemoglobin [Mass/volume] in Blood 13.9 g/dL 12.0 - 16.0 [facility] Hematocrit [Volume Fraction] of Blood by Automated count 40.6 % 3 7.0 - 47.0 [facility] Erythrocyte mean corpuscular volume [Entitic volume] by Auto mated count 88.6 fL 81.0 - 101 [facility] Erythrocyte mean corpuscular hemoglobin [Entitic mass] by Automated count 30.3 pg 27.0 - 34.0 [facility] Erythrocyte mean corpuscular hemoglobin concentration [Mass/volume] by Automated count 34.2 g/dL 31.0 - 36.0 [facility] Erythrocyte distribution width [Ratio] by Automated count 13.2 % 11.5 - 14.5 [facility] Platelets [#/volume] in Blood by Automated count 253 10^3/uL 150 - 45 0 [facility] Platelet mean volume [Entitic volume] in Blood by Automated count 9.2 fL 7.4 - 10.4 [facility] Neutrophils/100 leukocytes in Blood by Automated count 66.4 % 37. 0 - 80.0 [facility] Lymphocytes/100 leukocytes in Blood by Manual count 21.1 % 25.0 - 40.0 L [facility] Monocytes/100 leukocytes in Blood by Automated count 8.0 % 3.0 - 8.0 [facility] Eosinophils/100 leukocytes in Blood by Automated count 3.4 % 0.0 - 7.0 [facility] Basophils/100 leukocytes in Blood by Automated count 0.7 % 0.0 - 2.5 [facility] %IG 0.4 % 0[facility]0 - [facility] % 0.0 - 0.0 [facility] al Neutrophils [#/volume] in Blood by Automated count 5.61 10^3/uL 2.00 - 6.90 [facility] Lymphocytes [#/volume] in Blood by Automated count 1.78 10^3/uL 0.60 - 3.40 [facility] Monocytes [#/volume] in Blood by Automated count 0.68 10^3/uL 0.00 - 0.90 [facility] Eosinophils [#/volume] in Blood by Automated count 0.29 10^3/uL 0.00 - 0.70 [facility] Basophils [#/volume] in Blood by Automated count 0.06 10^3/uL 0.00 - 0.20 [facility] #IG 0.03 10^3/uL 0.00 - 0.10 [facility] ospital #NRBC 0.00 10^3/uL 0.00 - 0.00 [facility] ospital MANUAL DIFF NOT INDICATED [facility] RBC MORPH NOT INDICATED [facility] spital ID Date Data Source [id number] 09/03/2020 05:24:00 PM EDT [facility] Name Value Range Interpretation Code Description Data Destiny rce(s) Supporting Document(s) COMPREHENSIVE METABOLIC PANEL [facility] COMPREHENSIVE METABOLIC PANEL Sodium [Moles/volume] in Serum or Plasma 141 mEq/L 134 - 153 [facility] Potassium [Moles/volume] in Serum or Plasma 3.6 mEq/L 3.6 - 5.0 [facility] Chloride [Moles/volume] in Serum or Plasma 104 mEq/L 98 - 107 [facility] Carbon dioxide, total [Moles/volume] in Serum or Plasma 28 MEQ/L 22 - 30 [facility] Glucose [Mass/volume] in Serum or Plasma 101 MG/DL 70 - 99 H [facility] BUN 13 MG/DL 7 - 21 [facility] al Creatinine [Mass/volume] in Serum or Plasma 0.8 MG/DL 0.7 - 1.5 [facility] BUN/CREAT 16 8 - 27 [facility] Protein [Mass/volume] in Serum or Plasma 6.8 G/DL 6.3 - 8.2 [facility] Albumin [Mass/volume] in Serum or Plasma 4.0 G/DL 3.9 - 5.0 [facility] Globulin [Mass/volume] in Serum by calculation 2.8 GM/DL 2.4 - 3.2 [facility] A/G RATIO 1.4 0.8 - 2.0 [facility] Calcium [Mass/volume] in Serum or Plasma 9.7 MG/DL 8.4 - 10.2 [facility] Bilirubin.total [Mass/volume] in Serum or Plasma <0.7 MG/DL 0.2 - 1.3 [facility] Alkaline phosphatase [Enzymatic activity/volume] in Serum or Plasma 131 U/L 38 - 126 H [facility] Aspartate aminotransferase [Enzymatic activity/volume] in Serum or Plasma 24 U/L 5 - 40 [facility] Alanine aminotransferase [Enzymatic activity/volume] in Seru m or Plasma 34 U/L 7 - 56 [facility] Anion gap 3 in Serum or Plasma 9.0 mmol/L 8.0 - 16.0 [facility] AGE 44 yrs [facility] al NON-AA GFR >60 mL/min [facility] ital AFR AMER GFR >60 mL/min [facility] Ho spital Male GFR In terprentation 20-49 [...] >32 mL/min Normal ID Date Data Source [id number] 09/02/2020 10:53:47 AM EDT [facility] Name Value Range Interpretation Code Description Data Destiny rce(s) Supporting Document(s) Discharge Summary [facility] SCDPSy2sJoSOGyEi21/WEJzeHVWry4KtLAqfCJk5VHkmILVaB3YdOZW5pV6zRZC7OQwCPmGuYsWwXSM4 lbm [file] 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 real estate attorney+kkt6Tjxbccta1yK7krmzO3BbvJxZxIyoqouRejy [file] ICAgICAgICAgICAgICAgICAgICAgICAgICAgICAgICAgICAgICAgICAgICAgICAgICAgICAgICAgICAg ICAgICAgICAgICAgICAgICAgICAgICAgICAgICAgIC ANCiAgICAgICAgICAgICAgICAgICAgICAgICAgICAgICAgICAgICAgICAgICAgICAgICAgICAgICAgIC AgICAgICAgICAgICAgICAgICAgICAgICAgICAgICAgICAgICAgICAgICANCiAgICAgICAgICAgICAgIC AgICAgICAgICAgICAgICAgICAgICAgICAgICAgICAg ICAgICAgICAgICAgICAgICAgICAgICAgICAgICAgICAgICAgICAgICAgICAgICAgICAgICANCiAgICAg ICAgICAgICAgICAgICAgICAgICAgICAgICAgICAgICAgICAgICAgICAgICAgICAgICAgICAgICAgICAg ICAgICAgICAgICAgICAgICAgICAgICAgICAgICAgIC AgICANCiAgICAgICAgICAgICAgICAgICAgICAgICAgICAgICAgICAgICAgICAgICAgICAgICAgICAgIC AgICAgICAgICAgICAgICAgICAgICAgICAgICAgICAgICAgICAgICAgICAgICANCiAgICAgICAgICAgIC AgICAgICAgICAgICAgICAgICAgICAgICAgICAgICAg ICAgICAgICAgICAgICAgICAgICAgICAgICAgICAgICAgICAgICAgICAgICAgICAgICAgICAgICANCiAg ICAgICAgICAgICAgICAgICAgICAgICAgICAgICAgICAgICAgICAgICAgICAgICAgICAgICAgICAgICAg ICAgICAgICAgICAgICAgICAgICAgICAgICAgICAgIC AgICAgICANCiAgICAgICAgICAgICAgICAgICAgICAgICAgICAgICAgICAgICAgICAgICAgICAgICAgIC AgICAgICAgICAgICAgICAgICAgICAgICAgICAgICAgICAgICAgICAgICAgICAgICANCiAgICAgICAgIC AgICAgICAgICAgICAgICAgICAgICAgICAgICAgICAg ICAgICAgICAgICAgICAgICAgICAgICAgICAgICAgICAgICAgICAgICAgICAgICAgICAgICAgICAgICAN CiAgICAgICAgICAgICAgICAgICAgICAgICAgICAgICAgICAgICAgICAgICAgICAgICAgICAgICAgICAg ICAgICAgICAgICAgICAgICAgICAgICAgICAgICAgIC AgICAgICAgICANCjw/bKNiU3oovALlmeD3I6tuGe1NAx8FSY7ih6SvOBItKVbywkZxJjhXXxEcIAPlFh xWEqn9RCrfVS1JiOCvF4LzH1IiFEinOK0WNBWeHWXubLSuLNJgYEAwVyQ1MDZwBCumZS2KgCJuSMegZA AwIFIgNyAwIFIgOSAwIFIgMTEgMCBSIDEzIDAgUiAx KNHmKRZfNBnsWDUENQ2DIgBoI0BtmO87EOcRLg5+TUcrddNcNopPBeS8RDJyz1RqGPk7PV2KFDNwBvbz k2PmJeHgEOIGMQynPZ4FZPX5VDB0QMKeEl4TKMOcQ710nzIaXZ3KKz3QOhYeZY5mvu2GNyLaXWOfHhuT Jfy9QGsvOH9CkKExLRrBhZAllETmS3LaS2QlmPHptM EqdKHZNM9gmQMpDQ2sQdBcN1wiFP6UIEH1MTTaLd4jMKDjAIWrJjW0GEMBXH1KJTLlNCGghROcUXBpPX PIYN2NMZakAZS7ZRPtmfRdaCOsJTwqJH1UXPUifkNvCoDzVYZCSCx+Ho4APZ2gm5IwVWfiYbIiGX1iqy 7PSEvTYxMvM9T0oPYrY2D9VSckVk5XQOQkTTJaUsDz BKVAZOgoPG5ZPR6qafZ6JO1RiECxBLWwYVDrdFHvTFx3Y54atNTuUBpyUD8OJQI+Jordan+Sp3YGDUzLDHt SJInGxYkEKXVZzRdC8PgZ5EYy2TcG8KcFB58lJbflpHfJHwiOZ5IPN0aKCJoYPPBQH4YfIDgaZ0dxmSa YLGvDAVCJiKvH05eqAQfEUMkAFUpYRNbIp0UKSYkM9 LijzVrxSgqgrKfCMMbZLTMLL9GFAetiuKlbWIekPlnDE48xVosZR3XQh6LGiLtAO9svo7OpMBvJq4RIA YsEu1OUAYgNEFdGWBbRDZ4CAIpBlSqQYzlEMRuKRUvIFG0CHJeEGClCA9YIqDoPKBhGca8WxIyDIZtPR Ahtn5HGNRvVSFzNHM3JTLcODIaKNSkDHuiNAVqBMXr SKK6CZZyOTBiHT6EYbRmAYQpZFI2JOReWMYcDPGsge6XIQKwILTxRpw9OzFgHQDbFPKmPLinHFAkDCC3 GdC0QZFkWWFxFE5JZnWtLHStTZS0LRQqUZHiCWYows5NTMMfNWQpDAC3MqAbRGInDDUeCXryZEPlWVE0 PUBySNUeUPGpVV4CVqWpJWSvWME4DFDjDPYyMYMqrv 1JNMDxXOWoSld5TcCrPRUoPBBdWXqiMZPqWTS0BKIjVACxMUOjLB5EFaWnOZNvBHGoQvmcRSXxKACgxg 8TSFGsEKPzJMJvMNRmYRNqXSBpMVspDOUdFDRmFaR3DJBxOJXfMO9CTgWiEIEgCxKuWQQjSZHtEJOqxi 0KMDAwMDAyMTUxMiAwMDAwMCBuDQowMDAwMDIyNDcy ZEJbKALpQM6JEyYwFXYeVaC7EniiGLJnUXUvze0AWWAeFKYvVat5RaUnVMAlYOZoBWadJQCzDQHvFFWt ZLWnROPhXB1WGpVnBJBgRsXbYZUyVXGwZBVgvn1KIVKzJECiACGuOLBtHYCpARBiEWmnMJBlWCZ3LOFi SXZtZMFfJJ8YEtKvMXAqVzLrFWqhDUTjOEDwkn2FXW DjKMChBUP5XKNaULYiUHQeZMmuJQPeHEV7DXJ8UHBpTNRoCT1IAfNiMLKjMwdkLTFgZQBiTYCxyw4XYZ ZcYOJwQgU2PaHcXCRtRARgOLmoSQPlQIF1VwriQHTpLECrVZ3ZAuPiVSDlZhq4ZroeGRDoMVHqvz5YLO YsCZJxDVE3UVKdXJFbTVVdHHiwGSPvLCL1TxFbBESo YUHvZD1ILvWfGJVsMgt2MYLjKNQwLITzvw2RHDWiMQCpOQx5WjHqMNQgQTKhJIw9opAedREeDGv6AP8X L2PhhmNcGneRGv9Ha183VAF2UCSvJg6HQ0vqBk8aUTTbOEQXGn1NFSn4CMFuUpLsUxVpC3LfT5D1PYRe HwSaIIA6LMO3IiMiV0Z+LGciYrLpRnV0P3X6NDA5HB m6QCPwDaDdWmHdHnf8MDYoWO7rARQKFp2+UKxlgGGxrEukJTETUdYsDsUlYPxrOECXQm6W ID Date Data Source [id number] 09/01/2020 06:19:03 AM EDT [facility] Name Value Range Interpretation Code Description Data Destiny e(s) Supporting Document(s) Bicarbonate [Moles/volume] in Serum 25 mmol/L 22-29 [facility] Chloride [Moles/volume] in Serum or Plasma 105 mmol/L 98-107 [facility] Creatinine [Mass/volume] in Serum or Plasma 0.61 mg/dL 0.50-0.90 [facility] Glucose [Mass/volume] in Serum or Plasma 91 mg/dL 70-140 [facility] Potassium [Moles/volume] in Serum or Plasma 3.5 mmol/L 3.4-5.1 [facility] Sodium [Moles/volume] in Serum or Plasma 135 mmol/L 136-145 L [facility] Urea nitrogen [Mass/volume] in Serum or Plasma 8 mg/dL 6-20 [facility] Anion gap 3 in Serum or Plasma 5 mmol/L 8-15 L [facility] Osmolality of Serum or Plasma by calculation 277 mosm/kg 275-300 [facility] Creatinine/Urea nitrogen [Mass Ratio] in Serum or Plasma 14 [facility] Calcium [Mass/volume] in Serum or Plasma 8.3 mg/dL 8.6-10.0 L [facility] Glomerular filtration rate/1.73 sq M pre dicted among non-blacks [Volume Rate/Area] in Serum or Plasma by Creatinine-based formula (MDRD) >6 0 [facility] Glomerular filtration rate/1.73 sq M pre dicted among blacks [Volume Rate/Area] in Serum or Plasma by Creatinine-based formula (MDRD) >60 [facility] ID Date Data Source [id number] [facility] Interpretation Code Description Data Destiny rce(s) Supporting Document(s) Kaolin activated time [Units/volume] in Blood [address] [facility] ID Date Data Source [id number] [facility] Value [facility] Interpretation Code Description Data Destiny rce(s) Supporting Document(s) Kaolin activated time [Units/volume] in Blood [address] [facility] ID Date Data Source [id number] [facility] Value [facility] Interpretation Code Description Data Destiny rce(s) Supporting Document(s) Kaolin activated time [Units/volume] in Blood [address] [facility] ID Date Data Source [id number] 08/[facility] Interpretation Code Description Data Destiny rce(s) Supporting Document(s) Kaolin activated time [Units/volume] in Blood [address] [facility] ID Date Data Source [id number] 08/[facility] Value [facility] Interpretation Code Description Data Destiny rce(s) Supporting Document(s) Kaolin activated time [Units/volume] in Blood [address] [facility] ID Date Data Source [id number] 08/31/2020 08:33:27 AM EDT [facility] Name Value Range Interpretation Code Description Data Destiny rce(s) Supporting Document(s) History and Physical 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 director [file] PoDAWiKHB3GcN6OKB0SgA5QoVgVai7YuOzRC5MVi2BQbE1ZEK7tQAcHu0ZKrGkRcKZUwMzQW7LTHv= ID Date Data Source [id number] 08/31/2020 08:23:00 AM EDT [facility] Name Value Range Interpretation Code Description Data Destiny rce(s) Supporting Document(s) Choriogonadotropin ( test) [Presence] in Urine Ne [facility] NEGATIVE: either no HCG or too low to de tect, <20 mU/mL Specific gravity of Urine by Refractometry 1.025 1.003-1.030 [facility] ID Date Data Source [id number] 08/28/2020 02:34:00 PM EDT [facility] Name Value Range Interpretation Code Description Data Destiny rce(s) Supporting Document(s) SARS coronavirus 2 RdRp gene Negative N [facility] This lab was ordered by [facility] and reported by [facility]. ID Date Data Source [id number] 08/28/2020 02:45:42 PM EDT [facility] Name Value Range Interpretation Code Description Data Destiny rce(s) Supporting Document(s) SARS coronavirus 2 RdRp gene Negative [facility] Test performed using the [employer] ID NOW C OVID-19 assay. This test is only for use under the Food and Drug Administration's Emergency Use Authorization. 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 [facility] Patient has symptoms related to [facility] When did you start to experience these symptoms [Date and time] [Phen X] [facility] Patient was hospitalized because of this condition [facility] patient was admitted to ICU for [facility] Patient resides in a congregate care setting [facility] status [facility] ID Date Data Source [id number] 08/28/2020 02:24:31 PM EDT [facility] Name Value Range Interpretation Code Description Data Destiny rce(s) Supporting Document(s) Progress Note [facility] GUIGQy8pMmSRDzEb06/SETjlJUAer9TsIKycEIj6MIorGISiI3WzJQR1gV8qHTB8PRyZMsQjBaPwVNMw lbm [file] ICAgICAgICAgICAgICAgICAgICAgICAgICAgICAgIC AgICAgICAgICAgICAgICAgICAgICAgICAgICAgICAgICAgICANCiAgICAgICAgICAgICAgICAgICAgIC AgICAgICAgICAgICAgICAgICAgICAgICAgICAgICAgICAgICAgICAgICAgICAgICAgICAgICAgICAgIC AgICAgICAgICAgICAgICAgICANCiAgICAgICAgICAg ICAgICAgICAgICAgICAgICAgICAgICAgICAgICAgICAgICAgICAgICAgICAgICAgICAgICAgICAgICAg ICAgICAgICAgICAgICAgICAgICAgICAgICAgICANCiAgICAgICAgICAgICAgICAgICAgICAgICAgICAg ICAgICAgICAgICAgICAgICAgICAgICAgICAgICAgIC AgICAgICAgICAgICAgICAgICAgICAgICAgICAgICAgICAgICAgICANCiAgICAgICAgICAgICAgICAgIC AgICAgICAgICAgICAgICAgICAgICAgICAgICAgICAgICAgICAgICAgICAgICAgICAgICAgICAgICAgIC AgICAgICAgICAgICAgICAgICAgICANCiAgICAgICAg ICAgICAgICAgICAgICAgICAgICAgICAgICAgICAgICAgICAgICAgICAgICAgICAgICAgICAgICAgICAg ICAgICAgICAgICAgICAgICAgICAgICAgICAgICAgICANCiAgICAgICAgICAgICAgICAgICAgICAgICAg ICAgICAgICAgICAgICAgICAgICAgICAgICAgICAgIC AgICAgICAgICAgICAgICAgICAgICAgICAgICAgICAgICAgICAgICAgICANCiAgICAgICAgICAgICAgIC AgICAgICAgICAgICAgICAgICAgICAgICAgICAgICAgICAgICAgICAgICAgICAgICAgICAgICAgICAgIC AgICAgICAgICAgICAgICAgICAgICAgICANCiAgICAg ICAgICAgICAgICAgICAgICAgICAgICAgICAgICAgICAgICAgICAgICAgICAgICAgICAgICAgICAgICAg ICAgICAgICAgICAgICAgICAgICAgICAgICAgICAgICAgICANCiAgICAgICAgICAgICAgICAgICAgICAg ICAgICAgICAgICAgICAgICAgICAgICAgICAgICAgIC AgICAgICAgICAgICAgICAgICAgICAgICAgICAgICAgICAgICAgICAgICAgICANCjw/dBAmR3xbqPGepi V8X5buTj2BUp4YPA0pu5AjAIAtQCzbtvToMqcWBgKxWQEgMypOZrm2NWolGK1ZyMFqI9AwB9VnOHscTT 9SKOCsTQGjvIJqLZZoRUJgOmQ0LZAlDQmjKN9CjPGo EZcmSYVdOGIjBQ5ZHQJhR263moAfEF0QGu6VQoTnBK7iyg3QHUpoRGZcCqtAAjw5SPwzLS9QePExzYDk SBBmJKWGOdCeI7vhq3YtCrIkOWHERMliOR8Xj1PwtYVsMEy+Lf5PBL0eb0VxREyrQDPzXD2lbt0OOTeT WwFtR7BvhRfoHOBid2yrQXVgYE8eeTSoBSL4MBRtkl EmIPFfY0tslDVgiWybJDEIPBH8QKWbLb8dWGToHTXyNhYuBUDBTL5TRJSiHQTcwWCyRUMxTRHBTS2CFU biZUE7YQBsvpNgeYZfGXtkXA6LKKCabzKvXDywGRSIYDi+Bc3PWN6hr2VqXNaaHRQgAR4fmt3XXPbWHd OrG2P9uTOcQ9C9RBgqDe1DDBCqWQBpTGyyQUTEIKiv HZ8YFN9pclT0RV8TkTCyGTOqFUByqHPpZIn4I87quWZiKVvpJX2OGCR+Jordan+Er6TFOHqGUWsXLOjSnUe YKOPTaPiI0FfL0FCj2YvD8WpRA61dPpgqcPpTZybXU3ULL4sIVBjEODOEZ5BmFRvhU0fzrKqIYZiMVDN WdDwL75qoJLcNEKaBPX1TNSvTn9NMLBlF0DaniXvuY xjhoYiLQYpHYDSXD8BBUohetXreQRpvWznYQ61uRqsBJ3KIj2VTsOgQX6pxg4WzZGwMv3QLMQtKb9HLV IfNPItPFPiUBU5UNOsOzPxNVseOEPhGBKiLNE3DFVfQSDdSD3MQbZkYJYeMIsiZXgqJPYsYFQkrx4FUR WjFNBrRDKgXrNcCAFwBMRyOYggXJRyUGFvHRL5UEBh MSMxFU1ITxOhYLZzVAUpHfVkYCUaEUJsus8RCRVpOQQlHfWdFPScZFDaHGTgUNmeUXGiJKPxNds3VXGj OXQoIB8SUbNvWHQuYUF9CRRsDZRsMDKegb1OAFRhAZOvOmV9SQXlPCYjPLIaJYfqXGMxZDO0XlIjXQPe VFUvQV1NPdTtECBaBQS7ChXnIKCzUIUlaz0NSFUoXX AoKQZlJUBvGOOzJCGrDIexXMOoSDC3Uoi2LDGwEGYoXR5NYmRyURQvMYJ5LAGiAMDsOJRyex9VFXFzAW PyEogxXSBuITAkKPOjSNyzEKQwOZQ6EAWkTTOpVPBbLZ7OSaWeVPJdTSefEZojODAtJACdcb7QMBOiMC AzQdE0QwBkCTQbNMBqUAfxJVCbQWH4UJN0IPHmWNIw YJ3REaDnKKSfXXbjUFCmMQRsKKJgib7KHQUzJCMvDFR5InYkJXFqPCNxSNi1ymEtkEFgUSa0HC2TF4Cn nwCfUnBBFf6Cu126MGAlAQMbNx0UE2mpRh4yZKWsWTMXTi2CXMp3CDzxW1XqWNHiRhXsDUUiEfHqTHH2 KWHrAtT9MnDkOIG+AZg0D0FcDaH1NGLsWxIpGHDiJG SdKxA0UTSwVUh1WMWtCZ4bUTJFQg1+PQcrwLUupUhtTMBTGfX8KFgjLDmkOOQZIa1W ID Date Data Source [id number] 08/28/2020 04:03:59 PM EDT [facility] Name Value Range Interpretation Code Description Data [facility](s) Supporting Document(s) ABO and Rh group [Type] in Blood [facility] Blood group antibody screen [Presence] in Serum or Plasma [facility] Blood bank comment [facility] ID Date Data Source [id number] 08/25/2020 12:04:00 [place] [address] PHONE: [phone] FAX: [phone] Name .................. : BOOGIE Tayolr Acct Number.................. : [id number] ROOM. ................. : MR Number ................... : [id number] Stay type ............. : O/P Discharge Date......... ... : 08/24/20 Admit Date ......... : 08/24/20 Admit Phys .................... : SAPNA MCNALLY Date of ....... : 1975 Family Phys ................... : JORGE PIMENTEL Phone .................. : [phone] Age ................................ : 44 Film# .................. .:[id number] Sex ................................. : F Unsigned transcriptions are preliminary reports and do not represent a medical or legal document CHEST 2 VIEWS [id number] COMPLETE:08/24/20 10:08 [facility] 7352 Reason for Exam: SMOKER, PREOP CHEST [...] Copy for: SAPNA VALLECILLO Copy for: [facility] REC Page 1 of 1 Name Value Range Interpretation Code Description Data Destiny rce(s) Supporting Document(s) ID Date Data Source [id number] 08/24/2020 09:22:00 AM EDT [facility] Name Value Range Interpretation Code Description Data Destiny rce(s) Supporting Document(s) SARS coronavirus 2 RNA Not Detected [facility] This lab was ordered by Albanyselena woodward and reported by [facility]. ID Date Data Source [id number] 08/26/2020 06:57:00 AM EDT [facility] Name Value Range Interpretation Code Description Data [facility](s) Supporting Document(s) SARS-CoV-2, ROBERT Not Detected Not Detected [facility] This nucleic acid amplification test was developed and its performancecharacteristics determined by [facility]. Nucleic acidamplification tests include RT-PCR and TMA. [...] assay. SARS-CoV-2, ROBERT 2 DAY TAT Performed [facility] ID Date Data Source [id number] 08/24/2020 11:19:00 AM EDT [facility] Name Value Range Interpretation Code Description Data [facility](s) Supporting Document(s) URINALYSIS WITH MICROSCOPIC [facility] URINALYSIS COLOR yellow NORMAL: Yellow [facility] CLARITY clear NORMAL: Clear [facility] sp[facility] Specific gravity of Urine by Test strip 1.025 1.001 - 1.030 [facility] pH 5 5 - 9 [facility] Glucose [Mass/volume] in Urine by Test strip NORM NORMAL: Negat chai [facility] Bilirubin.total [Presence] in Urine by Test strip NEG NORMAL: Negative [facility] Ketones [Presence] in Urine by Test strip NEG NORMAL: Negative [facility] Protein [Mass/volume] in Urine by Test strip NEG NORMAL: Negat chai [facility] Nitrite [Presence] in Urine by Test strip NEG NORMAL: Negative [facility] BLOOD 10 NORMAL: Negative A [facility] Leukocyte esterase [Presence] in Urine by Test strip NEG ISABELLA L: Negative [facility] Urobilinogen [Mass/volume] in Urine by Test strip NOR less jo n 1.0 mg/dL [facility] MICROSCOPIC See Below [facility] ital WBC None Seen NORMAL: NONE SEEN [facility] Erythrocytes [#/volume] in Urine by Test strip 0 - 1 NORMAL: NON E SEEN [facility] EPITHELIAL FEW NORMAL: NONE SEEN [facility] Amorphous sediment [Presence] in Urine sediment by Light blake roscopy RARE NORMAL: NONE SEEN [facility] ID Date Data Source [id number] 08/24/2020 10:52:00 AM EDT [facility] Name Value Range Interpretation Code Description Data Destiny rce(s) Supporting Document(s) ABO group [Type] in Blood A [facility] Rh [Type] in Blood POSITIVE [facility] AB SCREEN NEGATIVE NORMAL: NEGATIVE [facility] { ABO/RH REENTER A POSITIVE{ AB SCREEN RE-ENTER NEGATIVE ID Date Data Source [id number] 08/24/2020 10:03:00 AM EDT [facility] Name Value Range Interpretation Code Description Data Destiny rce(s) Supporting Document(s) BASIC METABOLIC PANEL [facility] BASIC METABOLIC PANEL Sodium [Moles/volume] in Serum or Plasma 137 mEq/L 134 - 153 [facility] Potassium [Moles/volume] in Serum or Plasma 3.8 mEq/L 3.6 - 5.0 [facility] Chloride [Moles/volume] in Serum or Plasma 102 mEq/L 98 - 107 [facility] Carbon dioxide, total [Moles/volume] in Serum or Plasma 28 MEQ/L 22 - 30 [facility] Glucose [Mass/volume] in Serum or Plasma 116 MG/DL 70 - 99 H [facility] BUN 15 MG/DL 7 - [facility] Creatinine [Mass/volume] in Serum or Plasma 0.7 MG/DL 0.7 - 1.5 [facility] BUN/CREAT 21 8 - 27 [facility] Calcium [Mass/volume] in Serum or Plasma 9.7 MG/DL 8.4 - 10.2 [facility] Anion gap 3 in Serum or Plasma 7.0 mmol/L 8.0 - 16.0 L [facility] 44 [facility] GFR >60 mL/min [facility] Ho spital NON-AA GFR >60 mL/min [facility] ital Male GFR Inter prentation 20-49 [...] >32 mL/min Normal ID Date Data Source [id number] 08/24/2020 09:40:00 AM EDT [facility] Name Value Range Interpretation Code Description Data Destiny rce(s) Supporting Document(s) Prothrombin time (PT) 12.7 SECONDS 11.0 - 15.5 [facility] INR in Platelet poor plasma by Coagulation assay 0.91 0.93 - 1. 23 L [facility] aPTT in Blood by Coagulation assay 24.6 SECONDS 24.8 - 36.7 L [facility] \\BLDo\\INR INTERPRETATION\\BLDx\\ Therapeutic range for Coumadin and related oral anticoagulants. - International Normalized Ratio (INR): 2.0 - 3.0 for Venous Thrombosis, Pulmonary Embolus, Tissue heart valves, Acute [place] Atrial Fibrillation, Valvular heart disease and recurrent Systemic Embolism. - International Normalized Ratio (INR): 2.5 - 3.5 for Mechanical Prosthetic valve. ID Date Data Source [id number] 08/24/2020 09:31:00 AM EDT [facility] Name Value Range Interpretation Code Description Data Destiny rce(s) Supporting Document(s) CBC W/AUTOMATED DIFF [facility] COMPLETE BLOOD COUNT Leukocytes [#/volume] in Blood by Automated count 5.6 10^3/uL 4.2 - 1 1.0 [facility] Erythrocytes [#/volume] in Blood by Automated count 5.05 10^6/uL 4. 20 - 5.40 [facility] Hemoglobin [Mass/volume] in Blood 15.1 g/dL 12.0 - 16.0 [facility] Hematocrit [Volume Fraction] of Blood by Automated count 45.5 % 3 7.0 - 47.0 [facility] Erythrocyte mean corpuscular volume [Entitic volume] by Auto mated count 90.1 fL 81.0 - 101 [facility] Erythrocyte mean corpuscular hemoglobin [Entitic mass] by Automated count 29.9 pg 27.0 - 34.0 [facility] Erythrocyte mean corpuscular hemoglobin concentration [Mass/volume] by Automated count 33.2 g/dL 31.0 - 36.0 [facility] Erythrocyte distribution width [Ratio] by Automated count 13.3 % 11.5 - 14.5 [facility] Platelets [#/volume] in Blood by Automated count 266 10^3/uL 150 - 45 0 [facility] Platelet mean volume [Entitic volume] in Blood by Automated count 8.9 fL 7.4 - 10.4 [facility] Neutrophils/100 leukocytes in Blood by Automated count 56.9 % 37. 0 - 80.0 [facility] Lymphocytes/100 leukocytes in Blood by Manual count 31.4 % 25.0 - 40.0 [facility] Monocytes/100 leukocytes in Blood by Automated count 6.8 % 3.0 - 8.0 [facility] Eosinophils/100 leukocytes in Blood by Automated count 3.8 % 0.0 - 7.0 [facility] Basophils/100 leukocytes in Blood by Automated count 0.9 % 0.0 - 2.5 [facility] %[facility] 0.2 % 0.0 [facility] 0.0 % 0.0 - 0.0 [facility] al Neutrophils [#/volume] in Blood by Automated count 3.17 10^3/uL 2.00 - 6.90 [facility] Lymphocytes [#/volume] in Blood by Automated count 1.75 10^3/uL 0.60 - 3.40 [facility] Monocytes [#/volume] in Blood by Automated count 0.38 10^3/uL 0.00 - 0.90 [facility] Eosinophils [#/volume] in Blood by Automated count 0.21 10^3/uL 0.00 - 0.70 [facility] Basophils [#/volume] in Blood by Automated count 0.05 10^3/uL 0.00 - 0.20 [facility] #IG 0.01 10^3/uL 0.00 - 0.10 [facility] H [facility]spital #NRBC 0.00 10^3/uL 0.00 - 0.00 [facility] MANUAL DIFF NOT INDICATED [facility] RBC MORPH NOT INDICATED [facility] spital ID Date Data Source [id number] 07/31/2020 03:33:00 PM [facility] Patient Name: CHERRIE FRANCE : 1975 Sex: F Pt Unit #: [id number] Location:[facility] Provider: Visit Date/Time: 07/31/20 Primary Insurance: MEDICARE [facility] Secondary Insurance: MEDICAID [facility] 2ND R Intake Vital Signs 07/31/20 [...] Delivery Method room air 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 5. If her symptoms persist may need referral to urologist. Medications: New: nitrofurantoin macrocrystal (Macrodantin) must administer with a meal/food 1 cap by mouth daily for 3 months 100 mg PO QDAY 90 caps 0RF Orders Follow Up: 3 Months [place] [address] Est Pt Limited Comp Patient Type Established [...] rce(s) Supporting Document(s) ID Date Data Source [id number] 07/17/2020 03:11:00 PM [facility] Patient Name: CHERRIE FRANCE : 1975 Sex: F Pt Unit #: [id number] Location:[facility] Provider: Visit Date/Time: 07/17/20 Primary Insurance: MEDICARE [facility] Secondary Insurance: MEDICAID [facility] 2ND R Intake Vital Signs 07/17/20 15:11 Current Height 5 ft 3 in Current Weight 195 lb Weight Measurement Method Standing Scale BMI 34.5 BP 126/88 Blood Pressure Location Rt brachial Position Sitting Respiration 18 Pulse 87 Pulse Strength Normal Pulse Source Pulse Oximeter Temp 98.0 F Temp Source Tympanic Pulse Oximetry (%) 97 Oxygen Delivery Method room air 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: No water heater temp set < 120 [...] tract infection, site not specified SNOMED Code(s): 67412432 Category: Medical Qualifiers: Urinary tract infection type: [...] C[place] [address] Est Pt Limited Comp Patient Type Established [...] rce(s) Supporting Document(s) ID Date Data Source [id number] 07/17/2020 05:13:00 PM EST [facility] Method of Collection:: Clean Catch Name Value Range Interpretation Code Description Data Destiny rce(s) Supporting Document(s) Color of Urine [facility] Appearance of Urine CLEAR [facility] pH of Urine by Test strip 6.5 5-8 [facility] Specific gravity of Urine by Refractometry 1.019 1.005-1.030 [facility] Leukocyte esterase [Presence] in Urine by Test strip NEGAT CHAI [facility] Nitrite [Presence] in Urine by Test strip NEGATIVE [facility] Protein [Presence] in Urine by Test strip NEGATIVE [facility] Glucose [Mass/volume] in Urine by Automated test strip NEGATIVE NEG ATIVE [facility] Ketones [Presence] in Urine by Test strip NEGATIVE [facility] Urobilinogen [Presence] in Urine 0.2-1 EU/dl [facility] Bilirubin.total [Presence] in Urine by Automated test strip NEGATIVE [facility] Erythrocytes [#/volume] in Urine by Test strip NEGATIVE NEGATIVE [facility] URINE MICROSCOPIC? (CIF) NO [facility] ID Date Data Source [id number] 07/16/2020 11:10:50 AM EST [facility] Name Value Range Interpretation Code Description Data Destiny rce(s) Supporting Document(s) Progress Note [facility] ZVGXUt9yZqVIAuNy17/WKKdhPIFrl8MyWKbrMZk1EYcqVKXtG2PaQXW1xP9aFOH0ZAzBMdLdJrCgYdV7 lbm XzTduPTaSgZZAxRhnNWdUsEVmlBixbkVOjNB7KjJS2AMZyU02qQKLiMZEoD5EyUOH5ROJ+Nz2IJYTyiF LsLE7AGxbY4L5pu4xMKt7vbF/WNwTE4wCpuqa2RSSZuMv39rSnRHpp0WZCuvDEK74YleU8//peaI3FJ2 UxfgUzM6e4BM4rZs+jq44J5NDmjZq8QhiNlpjeMFGf /WsYC3Y/Y3/8D2m5p9EfuWanpbHuVE1mgCCM8syTf/0I6NtjlEpMqqJcT/zimIHMh51OUnXG25KxI3ty s1f6rldtgkjmJq+iVzGAZMceYxREtEUCSnaboAQSVt9wGG+oKAaoYdVUoyaQEUJNSNQxJFFjEhY+/HxQ kpv6KTmRBw1bJANGPeuLUhH8qeUbL5/+oaT7I/Zhbx rmQcIa5decmymEKLLWnpDZyDjQgdNoegLhCAhgaS9lMm06DOeIp0Rj6X2xg9fTlKoHNVjoETfhxZ1N0M 84Uw9wYbp7fSJ9YEjn6DMzbLZ/arzQFZX/cFY4bwrx7SvbrKpSQMr/MmcZEYf+WtyVzY0AuoofM756NU Azo1PDlvQqWunoNf4nqXXlYaIc3PexS81ww0JLyOmG G9jC6L7erJUHq+m/wOneTVxIajUYSqHhjiaM9YTg2rdtvo5qCvgKGkdgG9psRgaW8NsWxr1hfqleQmrm 9OlS51CciXTe8lkSldCl3xc3N824kYLQetqCccEHk/Pe+z67+hZku4FVjoGKt9gSTIfYcumkKVPWbSXe 1ymlSgkMAVlnsH92V0bRl9S/LzJtHZBWsR86rHOIG9 nSO0Ce6i76nkxR3lt2/hYcaCjNAS6YngcNb88otQ3wIvSMzp/GRACIE+Uhc7WlPMqBtPEBfVQW/BhXpJhxJ tlgCOPBjh2BKiM4V6Bgleh78Emd0g4jkciskIhfYA3PzgKvP+6rh+VOWBVV0iGZFx+/3jyZ07Zz8j4Mo DsyHLnV6i22KhRS/c+MhPbZ9Fl0W5aJg3/YYNTu+IF kr2h7sdCKx2lssDFuBANRNy9zvunI83ngBbUFNkK7YCuE4Zt7u4EgZNPja8cyLSFEpOTm8X9JOQBxGR2 uvnFTItCqqqVoe9aMyQ4u8lzTOdja2P1Tc7OQUPICfZB9Zy+OFBEBzTzBFLUcu1uaFsoORQtcaWBkvSJ CGqzBg2biwjgKcJTS1r5GeSbSrZhYOL95ETsNbh4ZI ZUAuzBpFcLRTxDlKuxCcqt60F8BzZRH2FQg/B779kya7ikmRAH+[place]/l2i7rveI5XvTUW8EDJyBDxR6iL [file] 4+FEimqSZhlEhiKDWQFtF6JGF9BGhjFOYRDx4C ID Date Data Source [id number] 07/02/2020 02:03:37 PM [facility] IR ARTERIOGRAM CEREBRALFINAL RESULTInter preted by:Raine [...] artery angiogram8. Supervision and interpretationSurgeon: Raine Burton M.D.Tannery Gummer: Joi Murray M.D. (PGY-7) Anesthesia: Moderate sedation [...] in standard sterile fashion, and we underwent [facility] standard timeout for patient and site [...] technique under direct ultrasound visualization. A 5 Guyanese radial glide sheath was placed using Seldinger [...] administered for thromboembolic prophylaxis. Subsequently, a 5 Guyanese [place] 2 glide catheter was advanced through [...] rce(s) Supporting Document(s) ID Date Data Source [id number] 06/16/2020 01:03:46 PM EST [facility] Name Value Range Interpretation Code Description Data Destiny rce(s) Supporting Document(s) Progress Note [facility] WTVJTx9lXnOEUfHo92/DQLcuRGDwj8OwUMkpKQq6UEohXQNhG4XrLGK2wI9gPBT2LIoQYsFoCgBcNOO0 lbm [file] AgICAgICAgICAgICAgICAgICAgICAgICAgICAgICAgICAgICAgICAgICAgICAgICAgICAgICAgICAgIC WhNKTdARBcCVAvRSUoNVRsIEQyAVAxMWOlNVAfBQRqRJ6JVYGuMELmLOKoTPJhNYOgJLOpPUJqXKPeWA AgICAgICAgICAgICAgICAgICAgICAgICAgICAgICAg WIRyUUPtDVNlPVFjDSSrPWTqHZTzNUSnXKLlIODiBULuEQSnFPJzEBCyQZ6JTPGtNMKiMSInQKSnHVXq ICAgICAgICAgICAgICAgICAgICAgICAgICAgICAgICAgICAgICAgICAgICAgICAgICAgICAgICAgICAg BMEjYNIeRZIbJKPlSCXkRJYgPUMlBVQePY6UDPEwOD AgICAgICAgICAgICAgICAgICAgICAgICAgICAgICAgICAgICAgICAgICAgICAgICAgICAgICAgICAgIC QpCKAgEZGdGYGhVTEiGAWpEEWeARSyNZBzUQRpCMKkUIRmCU3VWLKyQWRkLOEfEDQrKWMdASRpHJRmEP AgICAgICAgICAgICAgICAgICAgICAgICAgICAgICAg NMIdFYJoDCQsFFSuORTwWORqKXMsIIWeMSOkSPDkJTGaADEtJWMyUGPmOYDuGM2NRCOuHVOcBDBcUSJj ICAgICAgICAgICAgICAgICAgICAgICAgICAgICAgICAgICAgICAgICAgICAgICAgICAgICAgICAgICAg HRXlJNFcILCeHAGaBVXyIWBuGKUrDIEeMQIkQY9WVS AgICAgICAgICAgICAgICAgICAgICAgICAgICAgICAgICAgICAgICAgICAgICAgICAgICAgICAgICAgIC EtPBQpSEFiVNQmOKPiPTPjCZLfFLZwJVLkBOQjONAdAYLkNPOmXS4VGUAsNHNcNXCqZTIlKZViMPUmLR AgICAgICAgICAgICAgICAgICAgICAgICAgICAgICAg CVMcVRKcIZWoMPQhQHFtLSWiMDUqBGEsRSNrZQSlBRVvMBNoOCGoEEZzQITpFJMmMN9IMJXeIYLsMVHz ICAgICAgICAgICAgICAgICAgICAgICAgICAgICAgICAgICAgICAgICAgICAgICAgICAgICAgICAgICAg ICAgICAgICAgICAgICAgICAgICAgICAgICAgICAgIA 0KICAgICAgICAgICAgICAgICAgICAgICAgICAgICAgICAgICAgICAgICAgICAgICAgICAgICAgICAgIC VpOUXcHTZrZTFhCOFyUNOoEPCjYGRcFXCnRZNmBEGsLIFwPIFyLSZjVR7YHK79oYOgv6I0KTXwUO9gxt c/Ee4ECJyzlsTqpOSzND1AHqJnJQ7hsz8YIjTvTR5o qe1EDKlLMkHkR5A1pLHqTCAnBTHUNuDjK73dSCeeMv87LYdoPTVxDbKdFHz7Vg2QPcUrJ8zuMPWbToO1 GLSbGgDdSGxrNB7Xh2SunJZwXJw+Sc6GTC5pu1BwPGctJWIfCI9ocb6INPsMRdSiM8QhslF8MSF9OFAj Fg3QAETmBEDqhOXrPGRoNKBIQfVkB1DjrS94ZCYNHh 4+FNldvzPmUhnICcQ5KZYfn7AdNQe2ZO9ODDBeVOd8xLSjJWWrE4Zcv9DqCh27TKYeLmujT8EsB5YlSF BMWOHfGOmvHm7wPNNsQM7dVB5uMJLoYHThQkCbUSOWUA9KKQOsBXWklQJkAZJtMBDOPW6FAJthVXD9OT ZexlOlzZYeXSsbBQ7ESVLdtuSmVTIbCKKTHFg+Pg0K GB1mx1YtOFooLsOaIK1gav7NBGrHHyCsJ7K4tHEgT4R2QNlqTh1ACIQiGPAkRGSnQFWYWEmaRQ4EQJ1s vrB1UH1IsBExREBmMJEeaEAoIYc2F60fcFAhYLkbXD8TJZU+Jordan+Na0YMEPeWUXbWQLgNkAlIPGZLbAd D8EtV0FDc9GsE3NpNP57mCcneqBjSLqjGU0FVX9bAU ViMPUZOO3GbIJyaW4pefCcPIIxGPNYXbZvD55beWFlFBVwUCIoUULuAe8QBKWxF5XnojZsiQeicnCxDK YhXTEODJ8GKYtifxVkcGXisKksFZ35oRlvGT9UAu9DSuVqYS3fii2RfWTwAo5GBRHxUn3TAZVyUIPgJB JdREA5MIBvTkMcSJjbQAVcOYVnPGC3ZZQtMULpQL1H LpStESRjASW1VhzjQHAuSJQbtn2CHYQiEVIhWbO4EeKmSPIqLQOyTIwaDQKuTFMmXWV5ULMcBGJyAI4W LiErSDKbQTV9RddrETMaPXCuwk1HWKXhMXYoKUplPXXlKDHeMMXxGUodQMVzQTPxWOasJDMfYXIkOX9J RvBkHATvARAeBJGqADRrUBQgpx2GJQYbIEGlDfI2Rv DeHNJjXVYzWYqbMSOwSMV9ZbI2NOBjYIEsMX0DWmMpZEPaQVZ6SwVhRLClKVJcfs1KKZZmHLKbHFBjPg MbOLIaHJCwDNxfXVNrUYO9OQB3URXgKQHuNP5HKiNtDDIbCOQ4OWXxLMGbFCDfez2NAPBvTSNpJpSqKl FvVUXcEPJfGMohGSYbAET9Fcj6NDIrIYHqTI4TXhDw ZChzKGLNBcp4YGsoV0z7IRRtKg9QG1Nzn0JqMQHpDMRHHJqoHC7ktiLqKDUtKr7GU6dKTcdbJwMgKzDr PPUdVeEjKVveLnPyWQspTxIqQ9BnWeb4AO0rHST9VAF7L8N8GOKtWRG9NHHiQ5H7URTyPHD6LtR7Nvdy XaNzKE6EDi8BOeN6ANN3zHFwMs0DMihcHQ7UKZGTZ1OHDq== ID Date Data Source [id number] 06/16/2020 09:56:06 AM [facility] Name Value Range Interpretation Code Description Data Destiny rce(s) Supporting Document(s) History and Physical [facility] OPNMCw3sNxYESjDa60/BBWfhLMAlh4SaQCdlZXs1QQyoPZPaM2VgGRX2bG0cLQA8NFdXChHmIfJzQNZ3 lbm [file] it technical architect+BKPxeNSfYDGpJxnDlmMx6yH1hmBPbjA01MI6kM1ItnEKW9+oR9wc3YqXC+41dw9j6jZlJ8jDKGyM [file] ICAgICAgICAgICAgICAgICAgICAgICAgICAgICAgIC YfPQApMXCyHQJaMYHcSFUjWADzLORlSKZeNXFiZWZvIFHtXQGuJG9KGXDbMXLbVAZlOZXfEWLpTCSuRZ AgICAgICAgICAgICAgICAgICAgICAgICAgICAgICAgICAgICAgICAgICAgICAgICAgICAgICAgICAgIC MoASLrTAFzCOOtIWDcQCGzTTVpMK5PZCKtCMYcTUWs ICAgICAgICAgICAgICAgICAgICAgICAgICAgICAgICAgICAgICAgICAgICAgICAgICAgICAgICAgICAg OQJeSMHvDDEnNGDgNPOpAYPtTYMtVZOiBLYjNSDbXF3BEWUwDIWyACQwZSIiDFPfHNWnXNYjYHSxAKZi ICAgICAgICAgICAgICAgICAgICAgICAgICAgICAgIC LfQJFwTCHdENGoYREcRYLuQECoBLBmMRQiPHCfTNBkFGGbEOQqUAOvXD8ZYHOvLQUuWHEkCXIaUMHgHV AgICAgICAgICAgICAgICAgICAgICAgICAgICAgICAgICAgICAgICAgICAgICAgICAgICAgICAgICAgIC TmDVVaUXYsOOWzSVZbKWCeJTKrAWDkWH3JHPRzLMWm ICAgICAgICAgICAgICAgICAgICAgICAgICAgICAgICAgICAgICAgICAgICAgICAgICAgICAgICAgICAg AXPlBLHqDVSgGGPaBNOtWDCtPICxVWHhAMGnHJAzBUVgXG7OHQRmJUSdNFZlGKKqRKQgXODkMHEfHNFy ICAgICAgICAgICAgICAgICAgICAgICAgICAgICAgIC JgGZXkOSSoLPAgXYSiTVOeCPOaXSNwVKQsTYBeFDAhGDRcPEHaJPZaGVMeUM5JOTSlDWCgAFDjBEIdTE AgICAgICAgICAgICAgICAgICAgICAgICAgICAgICAgICAgICAgICAgICAgICAgICAgICAgICAgICAgIC OvJIUuAPYeZPDnKLZyJYYqOQUdYLHcXSUaBZ1DQVHc ICAgICAgICAgICAgICAgICAgICAgICAgICAgICAgICAgICAgICAgICAgICAgICAgICAgICAgICAgICAg NNLhQVKtCFFzYXEkXFXpKWClJNDaZMFlFHHoJENbRCYvKQPwQA6IUHLeJELzVWRvMZIhXVUzGVXbVLSq ICAgICAgICAgICAgICAgICAgICAgICAgICAgICAgIC WhQZDpMTPaBEBwOAWaRMSrXHEnEZIfWNXxRPIkYCRiPSLnSBCeOVRnNDMtWVHwNI3LPT80hRFkv3N3EQ ExSU1xpre/Tm2EBVswgtLbrOCtWB6FJiYaKH7kgz5MFbRaRR7ajo4QRUyQZmMqY8Y5lNXxXYRsTWVAOx DgQ98tJBgtCp29CCijXDXrCaVmKWu6El8NTlNtJ9wd XTZfVpN4BDRjQbL8OJVlAwA5GKDoEkAiZIIoSKXgRM8KKXCnB727rpUwJV4IQz3YEpKuNB7kgf3XYpkp FPZyBwpMOuh7ZExcIH0WcOQpaKKrFRIrRMSPAjAmX9zwj8UbQgksHIQVWFrzRR6Jw4XktKZeXNo+Pg0K FG9no7NmTFcwHSSlII5cbg0URLaVMeUjY1YdjPmiUD qlHPTndBMSaDBwgNDsgBGlGgwuybiyHWPaWWOuIM3qKF6hWFQhWJD8AvW5CGUKKG8GOJNyMXRsbKOlPO BsFWLHOY3NGJvrKVB6PWBjrsIaqWKxUIwiPX4KIVYvpoGeNtcfWVJHPHt+Hg0YZP8sc2RfYEqwWGXxHK 9hat2MAHpCLdMoA2C6rGIkX5M1BPdzRa7KZUGxDOUh XlNdVEBPAEjtXQ5RNY7yfsS1HG0UlHXwOTEbEIWftTQgLNx8P21eaEXvNUdtXG7MUJL+Jordan+Xa0EHTLl XJCxMEJmMzMnWXBOPbFaR4BtS2AFb4AzE3BdUX60lMkfrfKkFYglKC0YCQ8pDBDvLFOILB8BeGJmmU6j udGiXSChGALMHiYpM04ajKPnBVRgFCX6IIPwXj8PLE HhB9DksrVwdKqtzxUsFOTqZOGMRS1XWImfokTstUUfuDprMP07hRdtCA1HTs6FLpPqKK7jmf0MyZXsVx 4EUVGqEV1XHVZnHIVxAZXdRTV7KQRjXiHhPAfsIAZlMNLqJBP7VJYdHWDfYU3QTyWtONBkPpf3JGwaSG UgMQSbzu1LYNLhECEvWKVpGEDbHFCeBQWoVIesEDAx YIKmUUM8ZTZmTGReLK4SWoKgXIScPYXmYWGuYPIgASAybx4YBTYdKTYyFEP2BWRsSQPqPJUeKZsmYZMn ZWQ5LQD7DIKaSIFfMV4YHkQzBPJqPDP6IzYnVAGuAUFnkl5HGFSiHYWpPKJ0SBQuDRGpAUGaDPbjTXSm QTU4RsZ4NTXnVDBeBE5QCgBdFJSsOWCaBWYvVKVwAB Qamg7CISJiGUNmKKQ5BBYrGHMbFTMmFHxdCTEbSNElHRXhPBIlKJLzZO7QViHyQWDxOIM4RMpnVISfFG Njpa9MSGFoOPRvLpx0MGPnKYRpBXSxWVdmHEBnLBApISCaNQUlESXgGR9UFtMwESCxUJRnBPAaAQLcMX Kkxo0WOFPlZTBlRKY1MVUtGSPzYTBvOUauKRGyLEX3 BqHdDFHvZDDbVF7AEiKdRUNrFFWrRLxrNXPtSJBmao8GFKWfVBWuLGJ3PKLoVKWtTSOfPKniRZFtFPT8 EMG4FJGuNNAxSW4HGdDoUVYmEpxwTOPyJFYdBHQiig2BBRGiPAEwNfJ4QoPuZHEnXYIvGBjoGJAqAQM2 AnAaCGUsGFPhFS3JPcYjFOFfRxz3SybtHKZyJLQrky 2IJIGgXRGaUQS5HIUmFUSgEDOmANpnAZLdPXA3QyMkTAYrSPCbFX9NRjNaHYBiDgh7XqTxZCIsPTQlcq 0KVLNgWWAbWSm2OEQzPQZnQGVwARw8pwEaeSTqVEy7PC0RN2NmemQtHnSLSl2Me308SNQbQESgRh5IS1 wtZl0bTOYcYXIZBw2GUFg1SJZzXewrUERzPOT1VITc KSZ7VZQzZwLwTyAmTfV3MJx+UKx3LjW2HJDrZAHuDWapDFRnFVr1XBS5YPZmCLTcWZJ8Uv6uGPYQGg6+ YNvdvHXkdZnpSODFZzLsNaN8XBgeTKZDEo2W ID Date Data Source [id number] 06/16/2020 08:32:14 AM EST [facility] Name Value Range Interpretation Code Description Data Destiny rce(s) Supporting Document(s) Choriogonadotropin ( test) [Presence] in Urine [facility] NEGATIVE: either no HCG or too low to de tect, <20 mU/mL Specific gravity of Urine by Refractometry 1.017 1.003-1.030 [facility] ID Date Data Source [id number] 06/12/2020 12:38:00 PM EST [facility] [address] [address] RESPIRATORY CARE REPORT ==== ---------NAME------- NUMBER SEX AGE ADMIT DISC. XRAY# F/C TYPESIMMONS RAMANDA R [id number] F 44 06/12/20 06/12/20 [id number] MB4 O/P DATE OF : 1975 M/R# [id number] PH#: [phone] LOCATION: [facility] [address] COMPLETE:06/12/20 12:37 [facility] [address] PHYSICIAN: SAMI NEIL Name Value Range Interpretation Code Description Data [facility] rce(s) Supporting Document(s) ID Date Data Source [id number] 06/12/2020 10:45:00 AM EST [facility] Name Value Range Interpretation Code Description [facility](s) SARS coronavirus 2 RNA Not Detected [facility] This lab was ordered by [facility] crissy and reported by [facility]. ID Date Data Source [id number] 06/15/2020 07:48:00 AM EST [facility] Name Value Range Interpretation Code Description Data [facility] Supporting Document(s) SARS-CoV-2, ROBERT Not Detected Not Detected [facility] This nucleic acid amplification test was developed and its performancecharacteristics determined by [facility]. Nucleic acidamplification tests include PCR and [...] assay. ORDER COVID 19 2 DAY NO [facility] ID Date Data Source [id number] 06/13/2020 04:43:00 PM [facility] Name Value Range Interpretation Code Description Data Destiny rce(s) Supporting Document(s) Lutropin [Units/volume] in Serum or Plasma 48.5 mIU/mL [facility] Adult Female: Follicular phase 2.4 - 12.6 Ovulation phase 14.0 - 95.6 Luteal phase 1.0 - 11.4 Postmenopausal 7.7 - 58.5 ID Date Data Source [id number] 06/13/2020 04:42:00 [facility] Value Range Interpretation Code Description Data Destiny rce(s) Supporting Document(s) Follitropin [Units/volume] in Serum or Plasma 90.4 mIU/mL [facility] Adult Female: Follicular phase 3.5 - 12.5 Ovulation phase 4.7 - 21.5 Luteal phase 1.7 - 7.7 Postmenopausal 25.8 - 134.8 ID Date Data Source [id number] 06/12/2020 12:32:00 PM [facility] Value Range Interpretation Code Description Data Destiny rce(s) Supporting Document(s) aPTT in Blood by Coagulation assay 25.7 SECONDS 24.8 - 36.7 [facility] ID Date Data Source [id number] 06/12/2020 12:16:00 PM EST [facility] Name Value Range Interpretation Code Description Data Destiny rce(s) Supporting Document(s) URINALYSIS WITH MICROSCOPIC [facility] URINALYSIS COLOR yellow NORMAL: Yellow [facility] CLARITY clear NORMAL: Clear [facility] Specific gravity of Urine by Test strip 1.005 1.001 - 1.030 [facility] 6 5 - [facility] Glucose [Mass/volume] in Urine by Test strip NORM NORMAL: Negat [facility] Bilirubin.total [Presence] in Urine by Test strip NEG NORMAL: Negative [facility] Ketones [Presence] in Urine by Test strip NEG NORMAL: Negative [facility] Protein [Mass/volume] in Urine by Test strip NEG NORMAL: Negat [facility] Nitrite [Presence] in Urine by Test strip NEG NORMAL: Negative [facility] BLOOD NEG NORMAL: Negative [facility] Leukocyte esterase [Presence] in Urine by Test strip NEG ISABELLA L: Negative [facility] Urobilinogen [Mass/volume] in Urine by Test strip NOR less jo n 1.0 mg/dL [facility] MICROSCOPIC See Below [facility] ital WBC 0 - 1 NORMAL: NONE SEEN [facility] ID Date Data Source [id number] 06/12/2020 12:27:00 PM EST [facility] Name Value Range Interpretation Code Description Data Destiny rce(s) Supporting Document(s) BASIC METABOLIC PANEL [facility] BASIC METABOLIC PANEL Sodium [Moles/volume] in Serum or Plasma 139 mEq/L 134 - 153 [facility] Potassium [Moles/volume] in Serum or Plasma 4.5 mEq/L 3.6 - 5.0 [facility] Chloride [Moles/volume] in Serum or Plasma 103 mEq/L 98 - 107 [facility] Carbon dioxide, total [Moles/volume] in Serum or Plasma 27 MEQ/L 22 - 30 [facility] Glucose [Mass/volume] in Serum or Plasma 97 MG/DL 70 - 99 [facility] BUN 14 MG/DL 7 - 21 [facility] Creatinine [Mass/volume] in Serum or Plasma 0.7 MG/DL 0.7 - 1.5 [facility] BUN/CREAT 20 8 - 27 [facility] Calcium [Mass/volume] in Serum or Plasma 9.7 MG/DL 8.4 - 10.2 [facility] Anion gap 3 in Serum or Plasma 9.0 mmol/L 8.0 - 16.0 [facility]GE 44 [facility] A[facility] AMER GFR >60 mL/min [facility] spital NON-AA GFR >60 mL/min [facility] Male GFR Inter prentation 20-49 [...] >32 mL/min Normal ID Date Data Source [id number] 06/12/2020 11:51:00 AM EST [facility] Name Value Range Interpretation Code Description Data Destiny rce(s) Supporting Document(s) CBC W/AUTOMATED DIFF [facility] COMPLETE BLOOD COUNT Leukocytes [#/volume] in Blood by Automated count 6.1 10^3/uL 4.2 - 1 1.0 [facility] Erythrocytes [#/volume] in Blood by Automated count 5.31 10^6/uL 4. 20 - 5.40 [facility] Hemoglobin [Mass/volume] in Blood 15.8 g/dL 12.0 - 16.0 [facility] Hematocrit [Volume Fraction] of Blood by Automated count 47.0 % 3 7.0 - 47.0 [facility] Erythrocyte mean corpuscular volume [Entitic volume] by Auto mated count 88.5 fL 81.0 - 101 [facility] Erythrocyte mean corpuscular hemoglobin [Entitic mass] by Automated count 29.8 pg 27.0 - 34.0 [facility] Erythrocyte mean corpuscular hemoglobin concentration [Mass/volume] by Automated count 33.6 g/dL 31.0 - 36.0 [facility] Erythrocyte distribution width [Ratio] by Automated count 13.2 % 11.5 - 14.5 [facility] Platelets [#/volume] in Blood by Automated count 290 10^3/uL 150 - 45 0 [facility] Platelet mean volume [Entitic volume] in Blood by Automated count 9.4 fL 7.4 - 10.4 [facility] Neutrophils/100 leukocytes in Blood by Automated count 53.7 % 37. 0 - 80.0 [facility] Lymphocytes/100 leukocytes in Blood by Manual count 34.1 % 25.0 - 40.0 [facility] Monocytes/100 leukocytes in Blood by Automated count 8.0 % 3.0 - 8.0 [facility] Eosinophils/100 leukocytes in Blood by Automated count 3.0 % 0.0 - 7.0 [facility] Basophils/100 leukocytes in Blood by Automated count 1.0 % 0.0 - 2.5 [facility] %IG 0.2 % 0.0 - 0.0 [facility] %NRBC 0.0 % 0.0 - 0.0 [facility] Neutrophils [#/volume] in Blood by Automated count 3.28 10^3/uL 2.00 - 6.90 [facility] Lymphocytes [#/volume] in Blood by Automated count 2.08 10^3/uL 0.60 - 3.40 [facility] Monocytes [#/volume] in Blood by Automated count 0.49 10^3/uL 0.00 - 0.90 [facility] Eosinophils [#/volume] in Blood by Automated count 0.18 10^3/uL 0.00 - 0.70 [facility] Basophils [#/volume] in Blood by Automated count 0.06 10^3/uL 0.00 - 0.20 [facility] #IG 0.01 10^3/uL 0.00 - 0.10 [facility]spital #NRBC 0.00 10^3/uL 0.00 - 0.00 [facility] MANUAL DIFF NOT INDICATED [facility] RBC MORPH NOT INDICATED [facility] spital ID Date Data Source [id number] 06/12/2020 09:14:00 AM EST [facility] [address] [place] [address] PHONE: [phone] FAX: [phone] Name .................. : BOOGIE GRIER Claudia Acct Number.................. : [id number] ROOM. ................. : MR Number ................... : [id number] Stay type ............. : O/P Discharge Date......... ... : 06/11/20 Admit Date ......... : 06/11/20 Admit Phys .................... : JOSEPHINE CARY Date of ....... : 1975 Family Phys ................... : PATEL MARGARITO Phone .................. : [phone] Age ................................ : 44 Film# .................. .:[id number] Sex ................................. : F Unsigned transcriptions are preliminary reports and do not represent a medical or legal document CT HEAD W/O ROM Boyd/MELANI [id number] COMPLETE:06/11/20 08:24 2180 (REASON FOR PROCEDURE R [...] 11:42, Dictation Date: Page 1 of 2 [place] [address] PHONE: [phone] FAX: [phone] Name .................. : BOOGIE Taylor Acct Number.................. : [id number] ROOM. ................. : MR Number ................... : [id number] Stay type ............. : O/P Discharge Date......... ... : 06/11/20 Admit Date ......... : 06/11/20 Admit Phys .................... : JOSEPHINE CARY Date of ....... : 1975 Family Phys ................... : JORGE PIMENTEL Phone .................. : [phone] Age ......... ....................... : 44 Film# .................. .:[id number] Sex ................................. : F Unsigned transcriptions are preliminary reports and do not represent a medical or legal document CT HEAD W/O FOL W/MELANI [id number] COMPLETE:06/11/20 08:24 2180 (REASON FOR PROCEDURE R FRONTAL BONE LESION EVAL Copy for: JOSEPHINE HERNANDEZ via fax Copy for: [facility] REC Page 2 of 2 Name Value Range Interpretation Code Description Data Destiny rce(s) Supporting Document(s) ID Date Data Source [id number] 05/14/2020 12:17:59 PM [facility] Name Value Range Interpretation Code Description Data Destiny rce(s) Supporting Document(s) Progress Note [facility] [id number] [file] [id number] Procedure Social History Code Duration Value Status Description Data Source(s ) Alcohol intake 08/31/2020 12:00:00 AM EDT Ex-drinker (finding) comp leted Ex- drinker (finding) [facility] Tobacco use and exposure 08/31/2020 12:00:00 AM EDT Never used co mpleted Never used [facility] Cigarette pack-years 08/31/2020 12:00:00 AM EDT UNK completed [facility] Cigarettes smoked current (pack per day) - Reported 09/01/19 12:00:00 AM EDT UNK completed [facility] Smoking 08/31/2020 12:00:00 AM EDT Current every day smoker co mpleted Current every day smoker [facility] Smoking 08/11/2020 12:00:00 AM EDT Current Smoker completed [facility]re nt Smoker eCW1 ([facility]) Smoking 08/11/2020 12:00:00 AM EDT Current Smoker completed Curre nt Smoker eCW1 ([facility]) Alcohol intake 06/25/2020 12:00:00 AM EST Ex-drinker (finding) comp leted Ex- drinker (finding) [facility] Alcohol intake 06/16/2020 12:00:00 AM EST Ex-drinker (finding) comp leted Ex- drinker (finding) [facility] Vital Signs ID Date Data Source UNK Name Value Range Interpretation Code Description Data Source(s) Heart rate 82 /min 82 /min [facility] ([facility]) Body temperature 97.6 [degF] 97.6 [degF] [facility] ([facility]) Oxygen saturation in Arterial blood by Pulse oximetry 94 % 94 % [facility] ([facility]) Systolic blood pressure 124 mm[Hg] 124 mm[Hg] M [facility] ([facility]) Diastolic blood pressure 86 mm[Hg] 86 mm[Hg] [facility] ([facility]) Body height 63 [in_i] 63 [in_i] [facility] ([facility]) 5'3" Body weight 193.00 [lb_av] 193.00 [lb_av] [facility] Body mass index (BMI) [Ratio] 34.2 kg/m2 34.2 k g/m2 [facility] ([facility]) [place] body weight 115 [lb_av] 115 [lb_av] [facility] ([facility]) Body weight 87.545 kg 87.545 kg [facility] ([facility]) Body surface area Derived from formula 1.90 m2 1.90 m2 [facility] ([facility] ) Heart rate 84 /min 84 /min [facility] ([facility]) Systolic blood pressure 136 mm[Hg] 136 mm[Hg] M [facility] ([facility]) Body temperature 97.4 [degF] 97.4 [degF] [facility] ([facility]) Respiratory rate 16 /min 16 /min [facility] ( [facility]) Diastolic blood pressure 88 mm[Hg] 88 mm[Hg] [facility] ([facility]) Oxygen saturation in Arterial blood by Pulse oximetry 97 % 97 % [facility] ([facility]) Heart rate 84 /min 84 /min [facility] ([facility] ) Diastolic blood pressure 80 mm[Hg] 80 mm[Hg] [facility] ([facility], ) Systolic blood pressure 122 mm[Hg] 122 mm[Hg] M [facility] ([facility], ) Respiratory rate 16 /min 16 /min [facility] ( [facility], ) Diastolic blood pressure 67 mm[Hg] 67 mm[Hg] eCW1 ([facility]) Body weight 195 [lb_av] 195 [lb_av] eCW1 ([facility]) Body height 63 [in_i] 63 [in_i] eCW1 ([facility]) Body mass index (BMI) [Ratio] 34.54 kg/m2 34.54 kg/m2 W1 ([facility]) Heart rate 88 /min 88 /min eCW1 ([facility]) Respiratory rate 18 /min 18 /min eCW1 ([facility] Body temperature 97.1 [degF] 97.1 [degF] eCW1 ( [facility]) Systolic blood pressure 125 mm[Hg] 125 mm[Hg] e CW1 ([facility]) Diastolic blood pressure 86 mm[Hg] 86 mm[Hg] [facility] ([facility] [place], ) Body height 63 [in_i] 63 [in_i] [facility] ([facility], ) 5'3" Body weight 185.00 [lb_av] 185.00 [lb_av] [facility] T ([facility] [place], ) Body mass index (BMI) [Ratio] 32.8 kg/m2 32.8 k g/m2 [facility] ([facility]) [place] body weight 115 [lb_av] 115 [lb_av] [facility] ([facility]) Body weight 83.916 kg 83.916 kg [facility] ([facility]) Body surface area Derived from formula 1.87 m2 1.87 m2 [facility] ([facility]) Systolic blood pressure 124 mm[Hg] 124 mm[Hg] [facility]) Systolic blood pressure 137 mm[Hg] 137 mm[Hg] [facility] ([facility]) Diastolic blood pressure 80 mm[Hg] 80 mm[Hg] [facility] ([facility]) Heart rate 81 /min 81 /min [facility] ([facility]) Body temperature 99.3 [degF] 99.3 [degF] [facility] ([facility]) Oxygen saturation in Arterial blood by Pulse oximetry 97 % 97 % [facility] ([facility]) ID Date Data Source [id number] 09/17/2020 03:23:44 PM [facility] Name Value Range Interpretation Code Description Data Source(s) WEIGHT RECORDED 199.[address] [facility] WEIGHT RECORDED [address] [facility] Body height Measured 63 in 63 in [facility] ID Date Data Source [id number] 08/28/2020 04:04:06 PM [facility] Name Value Range Interpretation Code Description Data Source(s) WEIGHT RECORDED 193.[address] [facility] Body height Measured 62.6 in 62.6 in [facility] ID Date Data Source [id number] 07/02/2020 02:03:37 PM [facility] Name Value Range Interpretation Code Description Data Source(s) WEIGHT RECORDED [address] [facility] Body height Measured 63 in 63 in [facility] Patient Treatment Plan of Care Planned Activity Planned Date Details Description Data Source (s) Ticagrelor 90 MG Oral Tablet 10/02/2020 12:00:00 AM [facility] Chantix Continuing Month James 1 MG 09/22/2020 12:00:00 AM EDT eCW1 ([facility]) Aspirin 81 MG Delayed Release Oral Tablet 09/02/2020 12:00:00 AM [facility] Ticagrelor 90 MG Oral Tablet 09/01/2020 12:00:00 AM [facility] Acetaminophen 325 MG Oral Tablet 09/01/2020 12:00:00 AM [facility] Ticagrelor 90 MG Oral Tablet 09/01/2020 12:00:00 AM [facility] albuterol (PROVENTIL HFA) inhaler 2 puff 08/31/2020 07:01:50 PM [facility] sennosides, SNF 8.6 MG Oral Tablet 08/31/2020 02:48:13 PM [facility] ondansetron (ZOFRAN) injection 4 mg 08/31/2020 02:48:13 PM [facility] Acetaminophen 325 MG Oral Tablet 08/31/2020 02:48:12 PM [facility] Oxycodone Hydrochloride 5 MG Oral Tablet 08/31/2020 02:48:12 PM [facility] Bisacodyl 10 MG Rectal Suppository 08/31/2020 02:48:12 PM [facility] sodium chloride (preservative free) 0.9 % flush 3 mL 021 07:27:07 AM [facility] sodium chloride 0.9 % bag 3-20 mL 08/31/2020 07:27:07 AM [facility] Chantix Starting Month James 0.5 MG X 11 & 1 MG X 42 08/11/2020 12 :00:00 AM EDT eC ([facility]) 84 HR Estradiol 0.85296 MG/HR / norethin drone acetate 0.27769 MG/HR Transdermal Patch [Combipatch] 07/09/2020 12:00:00 AM [facility] sodium chloride (preservative free) 0.9 % flush 3 mL 021 09:00:00 AM [facility] sodium chloride 0.9 % bag 3-20 mL 06/16/2020 07:02:50 AM [facility] 30 ACTUAT fluticasone furoate 0.2 MG/ACT UAT / vilanterol 0.025 MG/ACTUAT Dry Powder Inhaler [Breo] 06/12/2020 12:00:00 AM [facility] Albuterol Sulfate HFA 108 (90 Base) MCG/ ACT Inhalation Aerosol Solution (PROVENTIL HFA) 06/12/2020 12:00:00 AM [facility] Diclofenac Potassium 50 MG Oral Tablet 06/11/2020 12:00:00 AM [facility] gabapentin 100 MG Oral Capsule 09/04/2019 12:00:00 AM [facility]
[2021-04-09] MEDS ORDERED: POTASSIUM CHLORIDE 10MEQ SR TABLET PO ONE (22:30)
[2021-04-09] MEDS ORDERED: BREO1INH3 INH (22:34)
[2021-04-09] MEDS ORDERED: ECOT81TA5 PO (22:34)
[2021-04-09] MEDS ORDERED: ACET-907 PO (22:34)
[2021-04-09] MEDS ORDERED: BRIL90TA PO (22:34)
[2021-04-09] MEDS ORDERED: PROAAER10 INH (22:34)
[2021-04-09] MEDS ORDERED: HOME MED LIST COMPLETE! XX SCH (22:35)
[2021-04-10] MEDS: TICAGRELOR 90 MG TABLET (BRILINTA) PO SCH ×3 (02:46→20:54)
[2021-04-10] MEDS: cefTRIAXone SOD 1 GM in D5W MINI-BAG PLUS 50 ML IV SCH ×2 (02:47→23:36)
[2021-04-10] MEDS: AZITHROMYCIN INJ 500 MG, VIAL MATE ADAPTER 1 EACH in NS 250 ML IV SCH (03:51)
[2021-04-10] MEDS ORDERED: REMDESIVIR 200 MG in NS 250 ML IV ONE (05:00)
[2021-04-10] MEDS ORDERED: SODIUM CHLORIDE 0.9% INJ 10 ML SYR IV ONE (07:00)
[2021-04-10] MEDS: COMBIVENT RESPIMAT 100-20MCG INHALER 4GM INH SCH (07:59)
[2021-04-10] MEDS: TIOTROPIUM INHALER/CAPSULE (SPIRIVA) INH SCH (07:59)
[2021-04-10] MEDS: SYMBICORT 80/4.5MCG INHALER 6GM INH SCH ×2 (07:59→20:07)
[2021-04-10 08:28] LABS: HEMATOCRIT 44.4 % (36.0-47.0); HEMOGLOBIN 14.4 g/dl (12.0-15.5); MEAN CORPUSCULAR HEMOGLOBIN 28.7 pg (27.0-33.0); MEAN CORPUSCULAR HGB CONC 32.4 g/dl (32.0-36.5); MEAN CORPUSCULAR VOLUME 88.6 fl (80.0-96.0); PLATELET COUNT, AUTOMATED 184 10^3/uL (150-450); RED BLOOD COUNT 5.01 10^6/uL (4.00-5.40); WHITE BLOOD COUNT 1.5 10^3/uL (4.0-10.0)
[2021-04-10 08:39] LABS: INR 0.87; PROTHROMBIN TIME 12.3 SECONDS (12.7-14.5)
[2021-04-10 08:40] LABS: PARTIAL THROMBOPLASTIN TIME 28.7 SECONDS (25.9-37.0)
[2021-04-10] MEDS: ASPIRIN 81MG ENTERIC TABLET PO SCH (08:40)
[2021-04-10] MEDS: ENOXAPARIN 40MG/0.4ML SYRINGE (J1650 PER 10MG) SC SCH (08:40)
[2021-04-10] MEDS: dexameTHASONE 4 MG/ML 1ML VIAL (J1100 PER 1MG) IV SCH (08:40)
[2021-04-10 08:42] LABS: D-DIMER QUANT 1246.68 ng/ml (<500)
[2021-04-10 08:53] LABS: ALBUMIN 2.9 GM/DL (3.2-5.2); ALT/SGPT 122 U/L (12-78); BILIRUBIN,TOTAL 0.3 MG/DL (0.2-1.0); BLOOD UREA NITROGEN 7 MG/DL (7-18); CALCIUM LEVEL 8.2 MG/DL (8.5-10.1); CARBON DIOXIDE LEVEL 26 MEQ/L (21-32); CHLORIDE LEVEL 107 MEQ/L (98-107); CREATININE FOR GFR 0.56 MG/DL (0.55-1.30); GLOMERULAR FILTRATION RATE > 60.0 (>58); GLUCOSE, FASTING 117 MG/DL (70-100); MAGNESIUM LEVEL 2.3 MG/DL (1.8-2.4); POTASSIUM SERUM 4.5 MEQ/L (3.5-5.1); SODIUM LEVEL 140 MEQ/L (136-145); TOTAL PROTEIN 6.4 GM/DL (6.4-8.2)
[2021-04-10 09:05] LABS: CPK CREATINE PHOSPHOKINASE 1849 U/L (26-192); FERRITIN 1160 NG/ML (8-252); LDH LACTATE DEHYDROGENASE 532 U/L (84-246); TROPONIN I < 0.02 NG/ML (< 0.10)
[2021-04-10 09:17] LABS: ATYPICAL LYMPH 6 % (0-5); LYMPHOCYTES 28 % (16-44); MONOCYTES 13 % (0-5); NEUTROPHILS 51 % (28-66)
[2021-04-10 09:18] LABS: PLATELET ESTIMATE NORMAL (NORMAL)
[2021-04-10 10:38] VITALS: BP 126/59
--- NOTE | 2021-04-10 13:25 | IPNPDOC ---
Text Note Date of Service The patient was seen on 04/10/21. 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 She ran out of her inhalers, albuterol and Breo, as she has been under quarantine at home since 5 for family member states positive COVID- 19. Patient is not vaccinated. Patient says that she feels like she is breathing slightly better today but is still very short of breath when she gets up to walk to the bathroom. Patient does have a productive cough. Patient denies any chest pain at this time. Review of systems: General: Patient denies fevers HEENT: Patient denies headaches Cardiovascular: Patient denies chest pain Respiratory: Patient reports shortness of breath with exertion and productive cough as above GI: Patient denies abdominal pain, nausea, vomiting, diarrhea : Patient denies increased frequency or pain with urination Extremities: Patient denies swelling or pain in extremities Neurological: Patient denies numbness or tingling in legs Physical exam: Vitals: See below General: Alert and oriented female patient who was laying in bed with nasal cannula oxygen in place when I walked in. Patient did not appear to be in any acute distress. HEENT: Normocephalic, atraumatic, moist mucous membranes. 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 Admitted for COPD exacerbation as well as COVID-19 pneumonia 1. Acute COPD exacerbation. We will continue with IV dexamethasone as protocol for Covid treatment. Patient will also be started on ceftriaxone and azithromycin. Patient is currently on 4 L of nasal cannula oxygen and maintaining her saturations well at this time. 2. COVID-19 pneumonia. Patient will continue with dexamethasone as above. Patient is also been started on remdesivir. If the patient requires more than 6 L, baricitinib will be started. Incentive spirometer and Acapella have been ordered. Continue with Combivent as needed. 3. Hypertension. Resume home patient is not on home medications. We will monitor her blood pressure and start amlodipine as necessary. 4. History of migraines. Continue home regimen. 5. Hypokalemia. We will continue to monitor. This is resolved at this time. 6. History of anterior communicating artery aneurysm. Status post coiling. Follow-up with neurosurgery outpatient. DVT Prophylaxis: Lovenox Disposition: Patient's admission status has been changed to inpatient as the patient is still requiring oxygen therapy. Pending clinical improvement VS,Inderjit, I+O VS, Eve, I+O Laboratory Tests 04/09/21 19:45 04/10/21 06:59 Vital Signs Date Time Temp Pulse Resp B/P (MAP) Pulse Ox O2 Delivery O2 Flow Rate FiO2 04/10/21 10:38 97.3 76 17 126/59 (81) 89 04/10/21 09:53 Nasal Cannula 4.0 I&O- Last 24 Hours up to 6 AM 04/10/21 06:00 Intake Total 1320 ml Balance 1320 ml LEONOR DAN DO Apr 10, 2021 13:25
[2021-04-10 14:00] VITALS: BP 111/65
[2021-04-10 20:14] VITALS: BP 123/61
[2021-04-11] MEDS: AZITHROMYCIN INJ 500 MG, VIAL MATE ADAPTER 1 EACH in NS 250 ML IV SCH (00:53)
[2021-04-11] MEDS: COMBIVENT RESPIMAT 100-20MCG INHALER 4GM INH PRN (01:02)
[2021-04-11] MEDS: ACETAMINOPHEN TAB 650MG DOSE (2X325MG) PO PRN ×2 (02:34→08:59)
[2021-04-11 04:00] VITALS: BP 116/54
[2021-04-11] MEDS: REMDESIVIR 100 MG in NS 250 ML IV SCH (04:40)
[2021-04-11] MEDS: SODIUM CHLORIDE 0.9% INJ 10 ML SYR IV SCH (05:50)
[2021-04-11] MEDS: TIOTROPIUM INHALER/CAPSULE (SPIRIVA) INH SCH (08:20)
[2021-04-11] MEDS: SYMBICORT 80/4.5MCG INHALER 6GM INH SCH ×2 (08:21→20:43)
[2021-04-11] MEDS: ASPIRIN 81MG ENTERIC TABLET PO SCH (08:59)
[2021-04-11] MEDS: TICAGRELOR 90 MG TABLET (BRILINTA) PO SCH ×2 (08:59→21:00)
[2021-04-11] MEDS: ENOXAPARIN 40MG/0.4ML SYRINGE (J1650 PER 10MG) SC SCH (09:00)
[2021-04-11] MEDS: dexameTHASONE 4 MG/ML 1ML VIAL (J1100 PER 1MG) IV SCH (09:00)
[2021-04-11 09:13] LABS: HEMOGLOBIN 14.7 g/dl (12.0-15.5); MEAN CORPUSCULAR HEMOGLOBIN 28.8 pg (27.0-33.0); MEAN CORPUSCULAR HGB CONC 32.7 g/dl (32.0-36.5); MEAN CORPUSCULAR VOLUME 88.2 fl (80.0-96.0); PLATELET COUNT, AUTOMATED 213 10^3/uL (150-450); WHITE BLOOD COUNT 5.6 10^3/uL (4.0-10.0)
[2021-04-11 09:36] LABS: BLOOD UREA NITROGEN 14 MG/DL (7-18); CALCIUM LEVEL 8.6 MG/DL (8.5-10.1); CARBON DIOXIDE LEVEL 28 MEQ/L (21-32); CHLORIDE LEVEL 109 MEQ/L (98-107); CREATININE FOR GFR 0.68 MG/DL (0.55-1.30); GLOMERULAR FILTRATION RATE > 60.0 (>58); GLUCOSE, FASTING 108 MG/DL (70-100); MAGNESIUM LEVEL 2.2 MG/DL (1.8-2.4); POTASSIUM SERUM 3.7 MEQ/L (3.5-5.1); SODIUM LEVEL 142 MEQ/L (136-145)
--- NOTE | 2021-04-11 11:10 | IPNPDOC ---
Text Note Date of Service The patient was seen on 04/11/21. 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 Patient is feeling better today but is still on oxygen and is still short of breath. Patient shortness of breath has improved on exertion however, she does still complain of shortness of breath when she walks around. Patient is otherwise improving at this time. Review of systems: General: Patient denies fevers HEENT: Patient denies headaches Cardiovascular: Patient denies chest pain Respiratory: Patient reports shortness of breath with exertion as above. Patient also reports productive cough. GI: Patient denies abdominal pain, nausea, vomiting, diarrhea : Patient denies increased frequency or pain with urination Extremities: Patient denies swelling or pain in extremities Neurological: Patient denies numbness or tingling in legs Physical exam: Vitals: See below General: Alert and oriented female patient who was laying in bed with nasal cannula oxygen in place when I walked in. Patient not appear to be in any acute distress. HEENT: Normocephalic, atraumatic, moist mucous membranes. Neck: No lymphadenopathy or thyromegaly Cardiac: Regular rate and rhythm, no murmurs, normal S1, normal S2 Pulm: Diminished breath sounds bilaterally with end expiratory wheezing scattered through the lung jones especially when coughing. 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 Admitted for COPD exacerbation as well as COVID-19 pneumonia. 1. Acute COPD exacerbation. Continue IV dexamethasone as protocol for Covid treatments. Patient was also started on ceftriaxone azithromycin however, patient's procalcitonin has been negative so the 7 discontinued. Patient was able be weaned down to 3 L of oxygen via nasal cannula. 2. COVID-19 pneumonia. Continue dexamethasone and remdesivir. If the patient requires more than 6 L, baricitinib will be started. That is for our Acapella and given to the patient. Continue Combivent as needed. 3. Hypertension. Continue to monitor. Patient is on home medications. 4. History of migraines. Continue home regimen. 5. Hypokalemia. Continue to monitor this is resolved at this time. 6. 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 Follow-up with neurosurgery outpatient as instructed. DVT Prophylaxis: Lovenox Disposition: Pending clinical improvement. VS,Fishbone, I+O VS, Fishbone, I+O Laboratory Tests 04/11/21 08:18 Vital Signs Date Time Temp Pulse Resp B/P (MAP) Pulse Ox O2 Delivery O2 Flow Rate FiO2 04/11/21 04:00 97.8 74 20 116/54 (74) 90 Nasal Cannula 4.0 I&O- Last 24 Hours up to 6 AM 04/11/21 06:00 Intake Total 895 ml Balance 895 ml LEONOR DAN DO Apr 11, 2021 11:10
[2021-04-11] MEDS ORDERED: CEPACOL LOZENGE PO PRN (12:10)
[2021-04-11 14:00] VITALS: BP 124/71
[2021-04-11 20:00] VITALS: BP 119/58
[2021-04-12 04:00] VITALS: BP 119/57
[2021-04-12] MEDS: REMDESIVIR 100 MG in NS 250 ML IV SCH (05:04)
[2021-04-12] MEDS: SODIUM CHLORIDE 0.9% INJ 10 ML SYR IV SCH (05:13)
[2021-04-12 07:18] LABS: BASO % 0.2 % (0.0-1.0); HEMATOCRIT 41.3 % (36.0-47.0); HEMOGLOBIN 13.5 g/dl (12.0-15.5); LYMPH # 1.8 10^3/uL (1.5-5.0); MEAN CORPUSCULAR HEMOGLOBIN 28.8 pg (27.0-33.0); MEAN CORPUSCULAR HGB CONC 32.7 g/dl (32.0-36.5); MEAN CORPUSCULAR VOLUME 88.1 fl (80.0-96.0); MONO # 0.6 10^3/uL (0.0-0.8); MONO % 9.4 % (2.0-8.0); NEUTROPHILS # 3.8 10^3/uL (1.5-8.5); NEUTROPHILS % 61.1 % (36.0-66.0); PLATELET COUNT, AUTOMATED 228 10^3/uL (150-450); RED BLOOD COUNT 4.69 10^6/uL (4.00-5.40); WHITE BLOOD COUNT 6.2 10^3/uL (4.0-10.0)
[2021-04-12 07:30] LABS: INR 0.95; PROTHROMBIN TIME 13.1 SECONDS (12.7-14.5)
[2021-04-12 07:31] LABS: PARTIAL THROMBOPLASTIN TIME 26.4 SECONDS (25.9-37.0)
[2021-04-12 07:33] LABS: D-DIMER QUANT 823.56 ng/ml (<500)
[2021-04-12 07:47] LABS: ALBUMIN 2.8 GM/DL (3.2-5.2); ALT/SGPT 87 U/L (12-78); BILIRUBIN,DIRECT 0.1 MG/DL (0.0-0.2); BILIRUBIN,TOTAL 0.4 MG/DL (0.2-1.0); BLOOD UREA NITROGEN 16 MG/DL (7-18); CALCIUM LEVEL 8.8 MG/DL (8.5-10.1); CARBON DIOXIDE LEVEL 26 MEQ/L (21-32); CHLORIDE LEVEL 108 MEQ/L (98-107); CPK CREATINE PHOSPHOKINASE 535 U/L (26-192); CREATININE FOR GFR 0.52 MG/DL (0.55-1.30); FERRITIN 670 NG/ML (8-252); GLOMERULAR FILTRATION RATE > 60.0 (>58); GLUCOSE, FASTING 103 MG/DL (70-100); LDH LACTATE DEHYDROGENASE 339 U/L (84-246); MAGNESIUM LEVEL 2.2 MG/DL (1.8-2.4); POTASSIUM SERUM 3.8 MEQ/L (3.5-5.1); SODIUM LEVEL 142 MEQ/L (136-145); TOTAL PROTEIN 6.5 GM/DL (6.4-8.2); TROPONIN I 0.02 NG/ML (< 0.10)
[2021-04-12] MEDS: SYMBICORT 80/4.5MCG INHALER 6GM INH SCH ×2 (07:59→20:06)
[2021-04-12] MEDS: TIOTROPIUM INHALER/CAPSULE (SPIRIVA) INH SCH (07:59)
[2021-04-12] MEDS: COMBIVENT RESPIMAT 100-20MCG INHALER 4GM INH PRN ×2 (08:19→20:06)
[2021-04-12] MEDS: TICAGRELOR 90 MG TABLET (BRILINTA) PO SCH ×2 (09:10→20:24)
[2021-04-12] MEDS: ENOXAPARIN 40MG/0.4ML SYRINGE (J1650 PER 10MG) SC SCH (09:10)
[2021-04-12] MEDS: dexameTHASONE 4 MG/ML 1ML VIAL (J1100 PER 1MG) IV SCH (09:11)
[2021-04-12] MEDS: ASPIRIN 81MG ENTERIC TABLET PO SCH (09:11)
[2021-04-12 14:00] VITALS: BP 128/66
--- NOTE | 2021-04-12 15:00 | IPNPDOC ---
Text Note Date of Service The patient was seen on 04/12/21. NOTE Subjective: Patient is a 45-year-old female with past medical history of COPD who is nontoxic, NAD urinary arrhythmia status post coiling, migraines hypertension, obesity presented emergency department for 3-day history of shortness of breath with productive cough with yellow sputum. Patient is feeling much better today but still has some trouble breathing when she is walk ing around. Patient was still on oxygen therapy however, patient was able to come off oxygen therapy while in the room. Patient did not have any other complaints today. Patient did have a bowel movement this morning. Review of systems: General: Patient denies fevers HEENT: Patient denies headaches Cardiovascular: Patient denies chest pain Respiratory: Patient reports some shortness of breath with exertion and a productive cough but denies shortness of breath at rest. GI: Patient denies abdominal pain, nausea, vomiting, diarrhea : Patient denies increased frequency or pain with urination Extremities: Patient denies swelling or pain in extremities Neurological: Patient denies numbness or tingling in legs Physical exam: Vitals: See below General: Alert and oriented female patient who was laying in bed with nasal cannula oxygen in place. Patient did not appear to be in any acute distress. HEENT: Normocephalic, atraumatic, moist mucous membranes. Neck: No lymphadenopathy or thyromegaly Cardiac: Regular rate and rhythm, no murmurs, normal S1, normal S2 Pulm: Diminished breath sounds bilaterally. 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 Admitted for COPD exacerbation as well as COVID-19 pneumonia. 1. COPD exacerbation. Most likely secondary to COVID-19. Continue IV dexamethasone as protocol for COVID-19 treatments. Ceftriaxone and azithromycin were started however, procalcitonin negative so they have been discontinued. Patient has been weaned off oxygen at this time and we will continue to monitor. 2. COVID-19 pneumonia. Continue dexamethasone and remdesivir. If the patient requires 1 6 L, baricitinib will be started. Acapella and incentive spirometry have been given. Continue Combivent. 3. Hypertension. Continue to monitor. Patient is not on medications at home. 4. History of migraines. Continue migraine regimen. 5. Hypokalemia. Continue to monitor. This is resolved at this time. 6. Anterior communicating artery aneurysm status post coiling. Follow-up with neurosurgery once discharged. DVT Prophylaxis: Lovenox Disposition: Pending patient be on room air tonight, if on room air, patient can be discharged on 04/13/2021. VS,Fishbone, I+O VS, Fishbone, I+O Laboratory Tests 04/12/21 06:37 Vital Signs Date Time Temp Pulse Resp B/P (MAP) Pulse Ox O2 Delivery O2 Flow Rate FiO2 04/12/21 08:00 3.0 04/12/21 06:00 95 Nasal Cannula 04/12/21 04:00 97.0 53 16 119/57 (77) I&O- Last 24 Hours up to 6 AM 04/12/21 06:00 Intake Total 470 ml Balance 470 ml LEONOR DAN DO Apr 12, 2021 15:00
[2021-04-12 22:00] VITALS: BP 129/59
[2021-04-13] MEDS: REMDESIVIR 100 MG in NS 250 ML IV SCH (04:39)
[2021-04-13] MEDS: SODIUM CHLORIDE 0.9% INJ 10 ML SYR IV SCH (05:54)
[2021-04-13 06:00] VITALS: BP 115/58
[2021-04-13] MEDS: TIOTROPIUM INHALER/CAPSULE (SPIRIVA) INH SCH (08:00)
[2021-04-13] MEDS: COMBIVENT RESPIMAT 100-20MCG INHALER 4GM INH PRN (08:00)
[2021-04-13] MEDS: SYMBICORT 80/4.5MCG INHALER 6GM INH SCH (08:01)
[2021-04-13 08:13] LABS: BASO % 0.3 % (0.0-1.0); HEMATOCRIT 45.8 % (36.0-47.0); HEMOGLOBIN 15.1 g/dl (12.0-15.5); LYMPH % 28.4 % (24.0-44.0); MEAN CORPUSCULAR HEMOGLOBIN 28.5 pg (27.0-33.0); MEAN CORPUSCULAR VOLUME 86.6 fl (80.0-96.0); MONO # 0.7 10^3/uL (0.0-0.8); MONO % 9.2 % (2.0-8.0); NEUTROPHILS # 4.4 10^3/uL (1.5-8.5); NEUTROPHILS % 61.4 % (36.0-66.0); PLATELET COUNT, AUTOMATED 309 10^3/uL (150-450); RED BLOOD COUNT 5.29 10^6/uL (4.00-5.40); WHITE BLOOD COUNT 7.2 10^3/uL (4.0-10.0)
[2021-04-13 08:21] LABS: BLOOD UREA NITROGEN 17 MG/DL (7-18); CALCIUM LEVEL 9.1 MG/DL (8.5-10.1); CARBON DIOXIDE LEVEL 27 MEQ/L (21-32); CHLORIDE LEVEL 110 MEQ/L (98-107); CREATININE FOR GFR 0.72 MG/DL (0.55-1.30); GLOMERULAR FILTRATION RATE > 60.0 (>58); GLUCOSE, FASTING 94 MG/DL (70-100); MAGNESIUM LEVEL 2.4 MG/DL (1.8-2.4); POTASSIUM SERUM 3.8 MEQ/L (3.5-5.1); SODIUM LEVEL 143 MEQ/L (136-145)
[2021-04-13] MEDS ORDERED: PRED10TA2 PO (09:56)
[2021-04-13] MEDS: TICAGRELOR 90 MG TABLET (BRILINTA) PO SCH (10:20)
[2021-04-13] MEDS: dexameTHASONE 4 MG/ML 1ML VIAL (J1100 PER 1MG) IV SCH (10:21)
[2021-04-13] MEDS: ENOXAPARIN 40MG/0.4ML SYRINGE (J1650 PER 10MG) SC SCH (10:21)
[2021-04-13] MEDS: ASPIRIN 81MG ENTERIC TABLET PO SCH (10:21)
--- NOTE | 2021-04-13 13:55 | DS.PDOC ---
Discharge Summary General Date of Admission Apr 10, 2021 at 12:01 Date of Discharge 04/13/21 Discharge Summary Discharge diagnosis: 1. COPD exacerbation. 2. COVID-19 pneumonia. 3. Hypertension. 4. History of migraines. 5. Hypokalemia. 6. Anterior communicating artery aneurysm status post coiling. Discharge medications: See below Discharge instructions: Primary care physician appointment within 5 days. Continue quarantine for 10 days from initial diagnosis. 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 Admitted for COPD exacerbation as well as COVID-19 pneumonia. COPD exacerbation. -Due to coronavirus 19 pneumonia -Treated with remdesivir, Decadron, ceftriaxone and azithromycin initially but discontinued due to negative procalcitonin level, and supplemental oxygen to keep saturations above 90%. -Encouraged to use Acapella and incentive spirometry, Combivent- COVID-19 pneumonia. -Treated with antivirals Decadron supplemental oxygen, encouraged to do pronation, and use her Acapella and incentive spirometry Hypertension. Continue to monitor. Patient is not on medications at home. History of migraines. Continue migraine regimen. Hypokalemia. Continue to monitor. This is resolved at this time. Anterior communicating artery aneurysm status post coiling. Follow-up with neurosurgery once discharged. DVT Prophylaxis: Lovenox Discharge physical exam: Vitals: See below General: No distress no use of respiratory accessory muscles HEENT: Normocephalic, atraumatic, moist mucous membranes. Neck: No lymphadenopathy or thyromegaly Cardiac: Regular rate and rhythm, no murmurs, normal S1, normal S2 Pulm: Diminished breath sounds bilaterally. No wheezing, rhonchi, rales Abd: Nondistended, nontender to palpation, normal bowel sounds Ext: No edema bilateral lower extremities Labs: See below Imaging: No new imaging is been performed Time spent on discharge 30 minutes Vital Signs/I&Os Vital Signs Date Time Temp Pulse Resp B/P (MAP) Pulse Ox O2 Delivery O2 Flow Rate FiO2 04/13/21 06:00 97.1 52 18 115/58 (77) 91 Room Air 04/12/21 14:00 3.0 I&O- Last 24 Hours up to 6 AM 04/13/21 06:00 Intake Total 870 ml Balance 870 ml Laboratory Data Labs 24H Laboratory Tests 2 04/13/21 07:17: Immature Granulocyte % (Auto) 0.7, Neutrophils (%) (Auto) 61.4, Lymphocytes (%) (Auto) 28.4, Monocytes (%) (Auto) 9.2H, Eosinophils (%) (Auto) 0.0, Basophils (%) (Auto) 0.3, Neutrophils # (Auto) 4.4, Lymphocytes # (Auto) 2.0, Monocytes # (Auto) 0.7, Eosinophils # (Auto) 0.0, Basophils # (Auto) 0.0, Nucleated Red Blood Cells % (auto) 0.0, Anion Gap 6L, Glomerular Filtration Rate > 60.0, Calcium Level 9.1, Magnesium Level 2.4 CBC/BMP Laboratory Tests 04/13/21 07:17 Microbiology Microbiology 04/09/21 Blood Culture - Preliminary, Resulted No Growth after 72 hours. All specime... 04/09/21 Blood Culture - Preliminary, Resulted No Growth after 72 hours. All specime... 04/09/21 Respiratory Virus Panel (PCR) ([facility]) - Final, Complete SARS-CoV-2 (COVID 19) Discharge Medications Scheduled Acetaminophen (Tylenol) 325 Mg Tablet, 650 MG PO TID, (Reported) Aspirin (Ecotrin) 81 Mg Tablet.dr, 81 MG PO DAILY, (Reported) Fluticasone/Vilanterol (Breo Ellipta 200-25 Mcg INH) 1 Each Blst.w.dev, 1 PUFF INH DAILY, (Reported) Prednisone (Prednisone) 10 Mg Tablet, 10 MG PO TAPER Take 4 tabs daily x 3 days, then 3 tabs daily x 3 days, then 2 tabs daily x 3 days, then 1 tab daily x 3 days and stop Ticagrelor Base (Brilinta) 90 Mg Tablet, 90 MG PO BID, (Reported) Scheduled PRN Albuterol Sulfate (Proair Hfa) 8.5 Gm Hfa.aer.ad, 2 PUFF INH Q4H PRN for SOB/WHEEZING, (Reported) Allergies Coded Allergies: Penicillins (Verified Allergy, Unknown, 04/09/21) topiramate (Verified Allergy, Unknown, 04/09/21) PRITI TORRES MD Apr 13, 2021 13:55
== END 2021-04-13 11:05 | disposition home health service (06) | DRG 177 ==
LOC: M ED 16:53 → M ED INP 16:54 → UNDOADMOB 21:59 → ENRESERV 04-10 09:50 → M 4MAIN 04-10 10:33 → OBSVTOIN 04-10 12:01
PROVIDERS: ADMIT Family Medicine; ATTEND General Practice
DX: U07.1 COVID-19 (principal); J12.82 Pneumonia due to coronavirus disease 2019; J44.1 Chronic obstructive pulmonary disease with (acute) exacerbation; J44.0 Chronic obstructive pulmonary disease with (acute) lower respiratory infection; I10 Essential (primary) hypertension; E87.6 Hypokalemia; G43.909 Migraine, unspecified, not intractable, without status migrainosus; Z88.0 Allergy status to penicillin; Z79.899 Other long term (current) drug therapy; E66.9 Obesity, unspecified

== ENCOUNTER → 2021-12-06 | Outpatient (CLI) | payer MEDICARE, MEDICAID ==
[~2021-12-06] MED LIST changes: +ACET-907 PO; +BREO1INH3 INH; +BRIL90TA PO; +COMB0.9D TD; +ECOT81TA5 PO; +PAME25CA PO; +PANT40TA29 PO; +PRED10TA2 PO; +PROAAER10 INH; -PROHANCE 279.3MG/ML 15ML VIAL As Ordered ONE; -PROHANCE 279.3MG/ML 5ML VIAL As Ordered ONE
== END ==
LOC: M LABSMTC 10:49
PROVIDERS: ATTEND Anesthesiology
DX: Z11.52 Encounter for screening for COVID-19 (principal); Z20.822 Contact with and (suspected) exposure to COVID-19

== ENCOUNTER → 2023-01-31 | Outpatient (REF) | payer MEDICARE, MEDICAID | LOC: M SFHCLERA 16:27 | PROVIDERS: ATTEND Student in an Organized Health Care Education/Training Program | DX: R39.89 Other symptoms and signs involving the genitourinary system (principal) ==

== ENCOUNTER 2023-09-29 19:35 | Emergency (ER) | payer MEDICARE, MEDICAID ==
[~2023-09-29] VITALS: Ht 160 cm; Wt 79.0 kg
[2023-09-30] MEDS: predniSONE 20 MG TAB PO ONE (01:55)
[2023-09-30] MEDS ORDERED: MEDR4PAK PO (02:11)
[2023-09-30 02:26] VITALS: BP 146/61; TEMP 97; O2SAT 96
== END 2023-09-30 02:27 | disposition home or self-care (01) ==
LOC: M ED 19:35
DX: M54.12 Radiculopathy, cervical region (principal); J44.9 Chronic obstructive pulmonary disease, unspecified; K21.9 Gastro-esophageal reflux disease without esophagitis; F17.200 Nicotine dependence, unspecified, uncomplicated; Z88.0 Allergy status to penicillin; Z88.8 Allergy status to other drugs, medicaments and biological substances; Z79.82 Long term (current) use of aspirin; Z79.52 Long term (current) use of systemic steroids; Z79.899 Other long term (current) drug therapy; M79.601 Pain in right arm
CPT/HCPCS: 93971; 99283; J7512